=== PATIENT | female | born 1940 | race Caucasian/White ===

== ENCOUNTER 2019-10-29 09:56 | Inpatient (IN) | payer MEDICARE, BC ==
[2019-10-29] MEDS ORDERED: IPRATROPIUM-ALBUTEROL 3 ML NEB INHALATION STA (10:15)
--- NOTE | 2019-10-29 10:19 | ED ---
General Adult HPI - General Chief complaint: Shortness of Breath Stated complaint: Sore throat, [place] Time Seen by Provider: 10/29/19 10:05 Source: patient, family, RN notes reviewed Mode of arrival: wheelchair Limitations: no limitations - History of Present Illness Initial comments: Patient is a pleasant 71-year-old female presenting to the emergency Department with complaints of sore throat and difficulty in breathing. Onset of symptoms was yesterday. Symptoms are worse today. Dyspnea is similar to previous COPD. Occasional cough. Patient complains more so of sore throat. Patient is able to tolerate oral intake. No fevers at home. - Related Data Allergies Allergy/AdvReac Type Severity Reaction Status Date / Time nickel Allergy Unknown Verified 10/29/19 10:03 Review of Systems ROS Statement: Those systems with pertinent positive or pertinent negative responses have been documented in the HPI. ROS Other: All systems not noted in ROS Statement are negative. Constitutional: Denies: fever Eyes: Denies: eye pain ENT: Reports: throat pain. Denies: ear pain Respiratory: Reports: dyspnea Cardiovascular: Denies: chest pain Endocrine: Denies: fatigue Gastrointestinal: Denies: abdominal pain Genitourinary: Denies: dysuria Musculoskeletal: Denies: back pain Skin: Denies: rash Past Medical History Past Medical History: COPD History of Any Multi-Drug Resistant Organisms: None Reported Past Surgical History: Joint Replacement Past Psychological History: No Psychological Hx Reported Smoking Status: Former smoker Past Alcohol Use History: None Reported Past Drug Use History: None Reported General Exam Limitations: no limitations General appearance: alert, in no apparent distress Head exam: Present: normocephalic Eye exam: Present: normal appearance ENT exam: Present: other (Mild pharyngeal erythema) Neck exam: Present: tenderness (Minimal tenderness submandibular area without swelling or erythema) Respiratory exam: Present: wheezes, decreased breath sounds Cardiovascular Exam: Present: tachycardia, normal heart sounds GI/Abdominal exam: Present: soft. Absent: tenderness Extremities exam: Present: normal inspection. Absent: pedal edema, calf tenderness Neurological exam: Present: alert Psychiatric exam: Present: normal affect, normal mood Skin exam: Present: normal color Course Vital Signs 10/29/19 10/29/19 10/29/19 10:00 10:11 10:35 Temperature 99.6 F Pulse Rate 114 H 97 Respiratory 24 22 20 Rate Blood Pressure 147/66 O2 Sat by Pulse 96 Oximetry 10/29/19 10:45 Temperature Pulse Rate 92 Respiratory Rate Blood Pressure O2 Sat by Pulse Oximetry - Reevaluation(s) Reevaluation #1: 10/29/19 11:06 Patient does meet sepsis criteriaat 1106 AM. Blood culture and lactic acid and IV antibiotics will be ordered. Medical Decision Making - Medical Decision Making Patient reevaluated and updated. Dr. Tavera has been paged, covering for admission for Dr. Rivers, who admits for Dr. Sow. - Lab Data Result diagrams: 10/29/19 10:31 10/29/19 10:31 Lab Results 10/29/19 10/29/19 10/29/19 Range/Units 10:31 10:31 10:31 WBC 7.0 (3.8-10.6) k/uL RBC 3.59 L (3.80-5.40) m/uL Hgb 11.0 L (11.4-16.0) gm/dL Hct 32.8 L (34.0-46.0) % MCV 91.6 (80.0-100.0) fL MCH 30.7 (25.0-35.0) pg MCHC 33.5 (31.0-37.0) g/dL RDW 14.8 (11.5-15.5) % Plt Count 197 (150-450) k/uL Neutrophils % 82 % Lymphocytes % 7 % Monocytes % 7 % Eosinophils % 1 % Basophils % 1 % Neutrophils # 5.7 (1.3-7.7) k/uL Lymphocytes # 0.5 L (1.0-4.8) k/uL Monocytes # 0.5 (0-1.0) k/uL Eosinophils # 0.1 (0-0.7) k/uL Basophils # 0.1 (0-0.2) k/uL Sodium 140 (137-145) mmol/L Potassium 4.5 (3.5-5.1) mmol/L Chloride 104 (98-107) mmol/L Carbon Dioxide 28 (22-30) mmol/L Anion Gap 8 mmol/L BUN 22 H (7-17) mg/dL Creatinine 0.70 (0.52-1.04) mg/dL Est GFR (CKD-EPI)AfAm >90 (>60 ml/min/1.73 sqM) Est GFR (CKD-EPI)NonAf 83 (>60 ml/min/1.73 sqM) Glucose 114 H (74-99) mg/dL Plasma Lactic Acid Dante 1.2 (0.7-2.0) mmol/L Calcium 9.1 (8.4-10.2) mg/dL Total Bilirubin 1.0 (0.2-1.3) mg/dL AST 24 (14-36) U/L ALT 17 (4-34) U/L Alkaline Phosphatase 83 (38-126) U/L Total Protein 6.7 (6.3-8.2) g/dL Albumin 4.0 (3.5-5.0) g/dL Group A Strep Rapid (Negative) 10/29/19 Range/Units 10:31 WBC (3.8-10.6) k/uL RBC (3.80-5.40) m/uL Hgb (11.4-16.0) gm/dL Hct (34.0-46.0) % MCV (80.0-100.0) fL MCH (25.0-35.0) pg MCHC (31.0-37.0) g/dL RDW (11.5-15.5) % Plt Count (150-450) k/uL Neutrophils % % Lymphocytes % % Monocytes % % Eosinophils % % Basophils % % Neutrophils # (1.3-7.7) k/uL Lymphocytes # (1.0-4.8) k/uL Monocytes # (0-1.0) k/uL Eosinophils # (0-0.7) k/uL Basophils # (0-0.2) k/uL Sodium (137-145) mmol/L Potassium (3.5-5.1) mmol/L Chloride (98-107) mmol/L Carbon Dioxide (22-30) mmol/L Anion Gap mmol/L BUN (7-17) mg/dL Creatinine (0.52-1.04) mg/dL Est GFR (CKD-EPI)AfAm (>60 ml/min/1.73 sqM) Est GFR (CKD-EPI)NonAf (>60 ml/min/1.73 sqM) Glucose (74-99) mg/dL Plasma Lactic Acid Dante (0.7-2.0) mmol/L Calcium (8.4-10.2) mg/dL Total Bilirubin (0.2-1.3) mg/dL AST (14-36) U/L ALT (4-34) U/L Alkaline Phosphatase (38-126) U/L Total Protein (6.3-8.2) g/dL Albumin (3.5-5.0) g/dL Group A Strep Rapid Negative (Negative) - Radiology Data Radiology results: image reviewed (Chest x-ray shows right middle lobe infiltrate) Critical Care Time Critical Care Time: Yes Total Critical Care Time: 31 Disposition Clinical Impression: Pneumonia, Sepsis Disposition: ADMITTED IP TO THIS HOSP Is patient prescribed a controlled substance at d/c from ED?: No Referrals: Preethi Sow MD [Primary Care Provider] - 1-2 days Decision Time: 11:06
[2019-10-29 10:47] LABS: Basophils # (A) 0.1 k/uL (0-0.2); Basophils % (A) 1 %; Eosinophils # (A) 0.1 k/uL (0-0.7); Eosinophils % (A) 1 %; HCT 32.8 % (34.0-46.0); Lymphocytes # (A) 0.5 k/uL (1.0-4.8); Lymphocytes % (A) 7 %; MCH 30.7 pg (25.0-35.0); MCHC 33.5 g/dL (31.0-37.0); MCV 91.6 fL (80.0-100.0); Monocytes # (A) 0.5 k/uL (0-1.0); Monocytes % (A) 7 %; Neutrophils # (A) 5.7 k/uL (1.3-7.7); Neutrophils % (A) 82 %; Platelet Count 197 k/uL (150-450); RBC 3.59 m/uL (3.80-5.40); RDW 14.8 % (11.5-15.5)
[2019-10-29 11:00] LABS: ALT 17 U/L (4-34); AST 24 U/L (14-36); African American GFR (CKD) >90 (>60 ml/min/1.73 sqM); Alkaline Phosphatase 83 U/L (38-126); Anion Gap 8 mmol/L; Blood Urea Nitrogen 22 mg/dL (7-17); Calcium 9.1 mg/dL (8.4-10.2); Carbon Dioxide 28 mmol/L (22-30); Chloride 104 mmol/L (98-107); Glucose 114 mg/dL (74-99); Non-African American GFR(CKD) 83 (>60 ml/min/1.73 sqM); Potassium 4.5 mmol/L (3.5-5.1); Sodium 140 mmol/L (137-145); Total Protein 6.7 g/dL (6.3-8.2)
--- NOTE | 2019-10-29 11:02 | XR ---
EXAMINATION TYPE: XR soft tissue neck , 2 VIEWS DATE OF EXAM ORDERED: 10/29/2019 HISTORY: pain. COMPARISON: None. FINDINGS: Soft tissues of the neck are normal. The epiglottis is normal. Prevertebral soft tissues a re normal. IMPRESSION: NORMAL SOFT TISSUE VIEWS OF THE NECK.
--- NOTE | 2019-10-29 11:04 | XR ---
EXAMINATION TYPE: XR chest 2V DATE OF EXAM: 10/29/2019 HISTORY: difficulty breathing. REFERENCE: Previous study dated 01/03/2014. FINDINGS: The heart is mildly enlarged. There is a right middle lobe infiltrate. The left lung is [place]. Pleural spaces are clear. IMPRESSION: 1. MILD CARDIOMEGALY. 2. RIGHT MIDDLE LOBE INFILTRATE.
[2019-10-29] MEDS ORDERED: AZITHROMYCIN 500 MG in SODIUM CHLORIDE 0.9% 250 ML IVPB STA (11:07)
[2019-10-29] MEDS ORDERED: PNEUMONIA PROTOCOL UTILIZED 1 EACH MISC PO PRN (11:07)
[2019-10-29] MEDS ORDERED: NEOMYCIN-BACITRACIN-POLY OINT 14 GM TUBE TOPICAL PRN (11:14)
[2019-10-29] MEDS: SODIUM CHLORIDE 0.9% 1,000 ML IV SCH (11:51)
[2019-10-29] MEDS: IPRATROPIUM-ALBUTEROL 3 ML NEB INHALATION SCH ×3 (12:20→19:43)
[2019-10-29] MEDS ORDERED: LORATADINE 10 MG TAB PO PRN (16:23)
--- NOTE | 2019-10-29 16:35 | P.HPIM ---
History of Present Illness H&P Date: 10/29/19 71-year-old female presenting to the emergency Department with complaints of sore throat and difficulty in breathing. Onset of symptoms was yesterday. Symptoms are worse today. Dyspnea is similar to previous COPD. Occasional cough. Patient complains more so of sore throat. Patient is able to tolerate oral intake. No fevers at home. Workup in ED Including chest x-ray shows right middle lobe infiltrate; blood work showed mild elevation of BUN with normal creatinine; influenza was negative Review of Systems REVIEW OF SYSTEMS: CONSTITUTIONAL: No fever, no malaise, no fatigue. HEENT: No recent visual problems or hearing problems. Denied any sore throat. CARDIOVASCULAR: No chest pain, orthopnea, PND, no palpitations, no syncope. PULMONARY: No shortness of breath, no cough, no hemoptysis. GASTROINTESTINAL: No diarrhea, no nausea, no vomiting, no abdominal pain. NEUROLOGICAL: No headaches, no weakness, no numbness. HEMATOLOGICAL: Denies any bleeding or petechiae. GENITOURINARY: Denies any burning micturition, frequency, or urgency. MUSCULOSKELETAL/RHEUMATOLOGICAL: Denies any joint pain, swelling, or any muscle pain. ENDOCRINE: Denies any polyuria or polydipsia. The rest of the 14-point review of systems is negative. Past Medical History Past Medical History: COPD, GERD/Reflux, Pneumonia, Respiratory Disorder Additional Past Medical History / Comment(s): lung infection after gallbladder removal in 2018 at [facility], 3L home O2 PRN History of Any Multi-Drug Resistant Organisms: None Reported Past Surgical History: Cholecystectomy, Hysterectomy, Joint Replacement Additional Past Surgical History / Comment(s): bilateral cataracts, [place] Past Anesthesia/Blood Transfusion Reactions: No Reported Reaction Past Psychological History: Anxiety Smoking Status: Former smoker Past Alcohol Use History: None Reported Past Drug Use History: None Reported Medications and Allergies Home Medications Medication Instructions Recorded Confirmed Type Albuterol Sulfate [Proair Hfa] 1 - 2 puff INHALATION RT-Q4H PRN 10/29/19 10/29/19 History Aspirin EC [Ecotrin Low Dose] 81 mg PO DAILY 10/29/19 10/29/19 History Atorvastatin [Lipitor] 60 mg PO HS 10/29/19 10/29/19 History Cholecalciferol [Vitamin D3 (25 4,000 unit PO DAILY 10/29/19 10/29/19 History Mcg = 1000 Iu)] Cyanocobalamin (Vitamin B-12) 1,000 mcg PO DAILY 10/29/19 10/29/19 History [Vitamin B-12] Fluticasone/Salmeterol [Advair 1 puff INHALATION RT-BID 10/29/19 10/29/19 History 500-50 Diskus] Furosemide [Lasix] 40 mg PO DAILY 10/29/19 10/29/19 History Ipratropium-Albuterol Nebulize 3 ml INHALATION RT-TID 10/29/19 10/29/19 History [Duoneb 0.5 mg-3 mg/3 ml Soln] LORazepam [Ativan] 1 mg PO Q6H PRN 10/29/19 10/29/19 History Lisinopril [Zestril] 20 mg PO BID 10/29/19 10/29/19 History Loratadine [Claritin] 10 mg PO DAILY PRN 10/29/19 10/29/19 History Mometasone Furoate [Nasonex Nasal 2 spray EA NOSTRIL DAILY 10/29/19 10/29/19 History [place]] Montelukast [Singulair] 10 mg PO HS 10/29/19 10/29/19 History Omeprazole 20 mg PO BID 10/29/19 10/29/19 History Potassium Chloride ER [K-Dur 20] 20 meq PO DAILY 10/29/19 10/29/19 History Temazepam [Restoril] 30 mg PO HS 10/29/19 10/29/19 History Venlafaxine HCl [Effexor] 37.5 mg PO DAILY 10/29/19 10/29/19 History cloNIDine HCL [Catapres] 0.1 mg PO TID 10/29/19 10/29/19 History hydrALAZINE HCL [Apresoline] 100 mg PO QID 10/29/19 10/29/19 History Allergies Allergy/AdvReac Type Severity Reaction Status Date / Time nickel Allergy Unknown Verified 10/29/19 11:31 Physical Exam Vitals: Vital Signs Temp Pulse Resp BP Pulse Ox 10/29/19 11:57 89 16 132/76 98 10/29/19 10:45 92 10/29/19 10:35 97 20 10/29/19 10:11 22 10/29/19 10:00 99.6 F 114 H 24 147/66 96 Intake and Output 10/28/19 10/29/19 10/29/19 22:59 06:59 14:59 Other: Weight 75 kg PHYSICAL EXAMINATION: GENERAL: The patient is alert and oriented x3, not in any acute distress. Well developed, well nourished. HEENT: Pupils are round and equally reacting to light. EOMI. No scleral icterus. No conjunctival pallor. Normocephalic, atraumatic. No pharyngeal erythema. No t hyromegaly. CARDIOVASCULAR: S1 and S2 present. No murmurs, rubs, or gallops. PULMONARY: Chest is clear to auscultation, no wheezing or crackles. ABDOMEN: Soft, nontender, nondistended, normoactive bowel sounds. No palpable organomegaly. MUSCULOSKELETAL: No joint swelling or deformity. EXTREMITIES: No cyanosis, clubbing, or pedal edema. NEUROLOGICAL: Gross neurological examination did not reveal any focal deficits. SKIN: No rashes. Results CBC & Chem 7: 10/29/19 10:31 10/29/19 10:31 Labs: Abnormal Lab Results - Last 24 Hours (Table) 10/29/19 10/29/19 Range/Units 10:31 10:31 RBC 3.59 L (3.80-5.40) m/uL Hgb 11.0 L (11.4-16.0) gm/dL Hct 32.8 L (34.0-46.0) % Lymphocytes # 0.5 L (1.0-4.8) k/uL BUN 22 H (7-17) mg/dL Glucose 114 H (74-99) mg/dL Thrombosis Risk Factor Assmnt - Choose All That Apply Each Risk Factor Represents 3 Points: Age 75 years or older Thrombosis Risk Factor Assessment Total Risk Factor Score: 3 Thrombosis Risk Factor Assessment Level: Moderate Risk Assessment and Plan Assessment: 1. Right middle lobe pneumonia - Patient is started on IV Rocephin and azithromycin; DuoNeb nebulizer treatments 4 times a day and when necessary; order sputum and blood cultures; symptomatically treatment of pneumonia; we will order strep and Legionella antigens and mycoplasma antibodies 2. Sepsis secondary to pneumonia; treat with IV antibiotics as indicated above 3. Mild renal injury/dehydration; slow IV fluid hydration with normal saline at rate of 75 mL an hour ; monitor strict KOFFI's, daily weights, renal function and electrolytes 4. COPD; not in exacerbation; DuoNeb nebulizer treatments 5. Hypertension; clonidine 0.1 mg 3 times a day; lisinopril 20 mg twice a day 6. Hyperlipidemia; Lipitor 60 mg by mouth daily at bedtime 7. Seasonal ALLERGIES; Claritin 10 mg daily when necessary along with Nasonex nasal spray and Singulair 10 mg by mouth daily at bedtime DVT prophylaxis; SCDs/Lovenox CODE STATUS; full code Time with Patient: Greater than 30
[2019-10-29] MEDS: LORazepam 1 MG TAB PO PRN (16:55)
[2019-10-29] MEDS: PANTOPRAZOLE 40 MG TABLET PO SCH (16:57)
[2019-10-29] MEDS: ENOXAPARIN 30 MG/0.3 ML SYRINGE SQ SCH (16:57)
[2019-10-29] MEDS ORDERED: hydrALAZINE HCL 50 MG TAB PO SCH (18:00)
[2019-10-29] MEDS: SYMBICORT 160-4.5 MCG INHALER INHALATION SCH (19:43)
[2019-10-29] MEDS: ATORVASTATIN 20 MG TAB PO SCH (19:45)
[2019-10-29] MEDS: LISINOPRIL 20 MG TAB PO SCH (19:50)
[2019-10-29] MEDS: MONTELUKAST 10 MG TAB PO SCH (19:51)
[2019-10-29] MEDS: cloNIDine HCL 0.1 MG TAB PO SCH (19:51)
[2019-10-29] MEDS ORDERED: IPRATROPIUM-ALBUTEROL 3 ML NEB INHALATION SCH (20:00)
[2019-10-29] MEDS: TEMAZEPAM 30 MG CAP PO SCH (21:40)
[2019-10-30] MEDS: SODIUM CHLORIDE 0.9% 1,000 ML IV SCH ×3 (04:40→16:51)
--- NOTE | 2019-10-30 07:47 | XR ---
EXAMINATION TYPE: XR chest 2V DATE OF EXAM: 10/30/2019 COMPARISON: Chest x-ray from yesterday and older studies. HISTORY: Abnormal chest x-ray, pneumonia progress study. TECHNIQUE: Frontal and lateral views of the chest are obtained. FINDINGS: The cardiac silhouette size is stable and mildly enlarged with atherosclerotic aorta. Expert Medical Writer [place] parenchymal changes bilaterally with increased lower lung markings. No definitive new focal airsp lizbeth opacity, pleural effusion, or pneumothorax. The osseous structures are intact. IMPRESSION: Chronic changes and mild cardiomegaly without definitive acute infiltrate. Right middle lobe increased markings not significantly changed from 2018 study favoring scarring and/or atelectasi s.
[2019-10-30] MEDS: ENOXAPARIN 30 MG/0.3 ML SYRINGE SQ SCH (09:01)
[2019-10-30] MEDS: AZITHROMYCIN 500 MG TAB PO SCH (09:01)
[2019-10-30] MEDS: PANTOPRAZOLE 40 MG TABLET PO SCH ×2 (09:01→16:51)
[2019-10-30] MEDS: FUROSEMIDE 40 MG TAB PO SCH (09:02)
[2019-10-30] MEDS: CHOLECALCIFEROL 1,000 UNIT TAB PO SCH (09:02)
[2019-10-30] MEDS: LISINOPRIL 20 MG TAB PO SCH ×2 (09:02→21:06)
[2019-10-30] MEDS: POTASSIUM CHLORIDE ER 20 MEQ TAB.ER PO SCH (09:02)
[2019-10-30] MEDS: cloNIDine HCL 0.1 MG TAB PO SCH ×3 (09:02→21:06)
[2019-10-30] MEDS: hydrALAZINE HCL 50 MG TAB PO SCH ×2 (09:02→21:06)
[2019-10-30] MEDS: VENLAFAXINE HCL 37.5 MG TAB PO SCH (09:02)
[2019-10-30] MEDS: CYANOCOBALAMIN 500 MCG TAB PO SCH (09:02)
[2019-10-30] MEDS: ASPIRIN 81 MG PO SCH (09:02)
[2019-10-30] MEDS: FLUTICASONE 50MCG/SPRAY NASAL 16GM EA NOSTRIL SCH (09:03)
[2019-10-30] MEDS ORDERED: LISINOPRIL 20 MG TAB PO STA (09:07)
[2019-10-30] MEDS: IPRATROPIUM-ALBUTEROL 3 ML NEB INHALATION SCH ×4 (09:33→19:23)
[2019-10-30] MEDS: SYMBICORT 160-4.5 MCG INHALER INHALATION SCH ×2 (09:33→19:23)
[2019-10-30 09:52] LABS: African American GFR (CKD) >90 (>60 ml/min/1.73 sqM); Anion Gap 8 mmol/L; Blood Urea Nitrogen 14 mg/dL (7-17); Calcium 8.5 mg/dL (8.4-10.2); Carbon Dioxide 25 mmol/L (22-30); Chloride 107 mmol/L (98-107); Glucose 109 mg/dL (74-99); Non-African American GFR(CKD) 88 (>60 ml/min/1.73 sqM); Potassium 4.2 mmol/L (3.5-5.1); Sodium 140 mmol/L (137-145)
--- NOTE | 2019-10-30 15:18 | P.PN ---
Subjective Progress Note Date: 10/30/19 Principal diagnosis: 71-year-old female presenting to the emergency Department with complaints of sore throat and difficulty in breathing. Onset of symptoms was yesterday. Symptoms are worse today. Dyspnea is similar to previous COPD. Occasional cough. Patient complains more so of sore throat. Patient is able to tolerate oral intake. No fevers at home. Workup in ED Including chest x-ray shows right middle lobe infiltrate; blood work showed mild elevation of BUN with normal creatinine; influenza was negative 10/30/2019 Patient is sitting up in the chair and appears to be in no acute distress. Patient states that she is able to cough things up today and feels that her difficulty in breathing is slightly improved. Patient did have strep testing and influenza testing which was negative. Patient continues to have a mild sore throat most likely due to coughing. Currently patient denies any chest pain, worsening shortness of breath, or palpitations. Patient is afebrile. Patient denies any nausea or vomiting and is tolerating diet. Pulmonary has been consul malik and currently pending at this time. Repeat chest x-ray today shows chronic changes and mild cardiomegaly without definitive acute infiltrate and right middle lobe increased markings not significantly changed from 2018 study favoring scarring and/or atelectasis. Patient is currently on IV antibiotic therapy in the form of ceftriaxone along with oral Zithromax and will continue at this time. Objective - Vital Signs Vital signs: Vital Signs Temp 98.0 F 10/30/19 07:00 Pulse 92 10/30/19 12:28 Resp 18 10/30/19 07:00 BP 167/71 10/30/19 09:00 Pulse Ox 96 10/30/19 10:54 Intake & Output 10/29/19 10/30/19 10/30/19 18:59 06:59 18:59 Intake Total 390 Balance 390 Weight 75 kg Intake: Oral 390 Other: # Voids 1 2 # Bowel Movements 0 - Exam GENERAL: The patient is alert and oriented x3, not in any acute distress. Well developed, well nourished. Temp is 98F, pulse is 89, respirations are 18, blood pressure is 144/75, oxygen saturation is 97% on 3 L via nasal cannula. Patient states that she intermittently wears 3 L of oxygen at home as needed HEENT: Pupils are round and equally reacting to light. EOMI. No scleral icterus. No conjunctival pallor. Normocephalic, atraumatic. No pharyngeal erythema. No thyromegaly. CARDIOVASCULAR: S1 and S2 present. No murmurs, rubs, or gallops. PULMONARY: Diminished breath sounds at the bases with no wheezing noted. No crackles or rales noted. ABDOMEN: Soft, nontender, nondistended, normoactive bowel sounds. No palpable organomegaly. MUSCULOSKELETAL: No joint swelling or deformity. EXTREMITIES: No cyanosis, clubbing, or pedal edema. NEUROLOGICAL: Gross neurological examination did not reveal any focal deficits. SKIN: No rashes. - Labs CBC & Chem 7: 10/29/19 10:31 10/30/19 09:00 Labs: Abnormal Lab Results - Last 24 Hours (Table) 10/30/19 10/30/19 Range/Units 09:00 09:00 Glucose 109 H (74-99) mg/dL Plasma Lactic Acid Dante <0.5 L (0.7-2.0) mmol/L Microbiology - Last 24 Hours (Table) 10/29/19 10:31 Blood Culture - Preliminary Blood No Growth after 24 hours 10/29/19 10:31 Group A Strep Throat Culture - Preliminary Throat Assessment and Plan Assessment: Right middle lobe pneumonia Sepsis secondary to pneumonia Mild renal injury/dehydration COPD, not in acute exacerbation Hypertension Hyperlipidemia Seasonal ALLERGIES DVT prophylaxis: SCDs/Lovenox CODE STATUS full code Recommendations and discussion: Recommend to continue current medications, management, and symptomatic treatment. Awaiting pulmonary consult at this time. Patient will continue on IV antibiotics in the form of ceftriaxone and oral Zithromax. Continue with bronchodilators. Blood cultures thus far are negative. Group A strep throat culture was negative. She will continue on IV fluids at 100 mL per hour. Will continue to monitor vital signs and labs closely. Further recommendations to follow. Possible discharge in 24-48 hours.
--- NOTE | 2019-10-30 15:29 | P.CNPUL ---
History of Present Illness Consult date: 10/30/19 Reason for consult: COPD History of present illness: Santa Barnes and she is well-known to me. She is known to have COPD with an FEV1 of 60% of predicted Lizeth on Advair and outpatient basis. The patient also has an albuterol solution that she's been using on an as-needed basis along with bilateral air. The patient came into the hospital because of sore throat and cough and some limited shortness of breath. She had been having sneezing and cough and. No chest pain. No pleurisy. Chest x-ray showed chronic changes in the lung bases with some increased interstitial changes in the right lung base and she was hospitalized for a possibility of an underlying pneumonia. Note that she has had previous COPD exacerbations related to his own pseudomonas infection and this was a hospital-acquired infection. He got at a time of the previous cholecystectomy there was in 2017. She is fully recovered from that. No fever. No chills. No other complaints otherwise. She is known to have chronic systolic heart failure, hypertension, ALLERGIC rhinitis, chronic anxiety and osteoarthritis. Review of Systems All systems: negative Constitutional: Denies chills, Denies fever Eyes: denies blurred vision, denies pain Ears, nose, mouth and throat: Reports sore throat, Denies headache Cardiovascular: Denies chest pain, Denies shortness of breath Respiratory: Reports congestion, Reports cough, Reports dyspnea Gastrointestinal: Denies abdominal pain, Denies diarrhea, Denies nausea, Denies vomiting Genitourinary: Denies dysuria, Denies hematuria Musculoskeletal: Denies myalgias Integumentary: Denies pruritus, Denies rash Neurological: Denies numbness, Denies weakness Psychiatric: Denies anxiety, Denies depression Endocrine: Denies fatigue, Denies weight change Past Medical History Past Medical History: COPD, GERD/Reflux, Pneumonia, Respiratory Disorder Additional Past Medical History / Comment(s): lung infection after gallbladder removal in 2018 at [facility], 3L home O2 PRN History of Any Multi-Drug Resistant Organisms: None Reported Past Surgical History: Cholecystectomy, Hysterectomy, Joint Replacement Additional Past Surgical History / Comment(s): bilateral cataracts, [place] Past Anesthesia/Blood Transfusion Reactions: No Reported Reaction Past Psychological History: Anxiety Smoking Status: Former smoker Past Alcohol Use History: None Reported Past Drug Use History: None Reported Medications and Allergies Home Medications Medication Instructions Recorded Confirmed Type Albuterol Sulfate [Proair Hfa] 1 - 2 puff INHALATION RT-Q4H PRN 10/29/1910/29 History Aspirin EC [Ecotrin Low Dose] 81 mg PO DAILY 10/29/19 10/29/19 History Atorvastatin [Lipitor] 60 mg PO HS 10/29/19 10/29/19 History Cholecalciferol [Vitamin D3 (25 4,000 unit PO DAILY 10/29/19 10/29/19 History Mcg = 1000 Iu)] Cyanocobalamin (Vitamin B-12) 1,000 mcg PO DAILY 10/29/19 10/29/19 History [Vitamin B-12] Fluticasone/Salmeterol [Advair 1 puff INHALATION RT-BID 10/29/19 10/29/19 History 500-50 Diskus] Furosemide [Lasix] 40 mg PO DAILY 10/29/19 10/29/19 History Ipratropium-Albuterol Nebulize 3 ml INHALATION RT-TID 10/29/19 10/29/19 History [Duoneb 0.5 mg-3 mg/3 ml Soln] LORazepam [Ativan] 1 mg PO Q6H PRN 10/29/19 10/29/19 History Lisinopril [Zestril] 20 mg PO BID 10/29/19 10/29/19 History Loratadine [Claritin] 10 mg PO DAILY PRN 10/29/19 10/29/19 History Mometasone Furoate [Nasonex Nasal 2 spray EA NOSTRIL DAILY 10/29/19 10/29/19 History [place]] Montelukast [Singulair] 10 mg PO HS 10/29/19 10/29/19 History Omeprazole 20 mg PO BID 10/29/19 10/29/19 History Potassium Chloride ER [K-Dur 20] 20 meq PO DAILY 10/29/19 10/29/19 History Temazepam [Restoril] 30 mg PO HS 10/29/19 10/29/19 History Venlafaxine HCl [Effexor] 37.5 mg PO DAILY 10/29/19 10/29/19 History cloNIDine HCL [Catapres] 0.1 mg PO TID 10/29/19 10/29/19 History hydrALAZINE HCL [Apresoline] 100 mg PO QID 10/29/19 10/29/19 History Allergies Allergy/AdvReac Type Severity Reaction Status Date / Time nickel Allergy Unknown Verified 10/29/19 11:31 Physical Exam Vitals: Vital Signs Temp Pulse Pulse Resp BP Pulse Ox 10/30/19 15:00 98.1 F 101 H 18 123/66 95 10/30/19 12:28 92 10/30/19 12:15 90 10/30/19 10:54 96 10/30/19 09:49 88 10/30/19 09:33 84 10/30/19 09:00 85 167/71 10/30/19 07:00 98.0 F 89 18 144/75 97 10/30/19 00:00 20 10/29/19 19:57 90 10/29/19 19:54 98.7 F 99 20 138/62 99 10/29/19 19:43 90 10/29/19 16:36 96 10/29/19 16:22 92 Intake and Output 10/30/19 10/30/19 10/30/19 06:59 14:59 22:59 Intake Total 390 Balance 390 Intake: Oral 390 Other: # Voids 2 3 # Bowel Movements 0 - Constitutional General appearance: average body habitus, cooperative, no acute distress - EENT Eyes: EOMI, PERRLA ENT: NA/AT, pharyngeal erythema - Neck Neck: no lymphadenopathy, normal ROM Carotids: bilateral: upstroke normal Thyroid: bilateral: normal size - Respiratory Respiratory: bilateral: CTA - Cardiovascular Rhythm: regular Heart sounds: normal: S1, S2 ankle Peripheral Edema: bilateral: None foot Peripheral Edema: bilateral: None dorsalis pedis Peripheral Pulses: bilateral: Normal radial pulse Peripheral Pulses: bilateral: Normal - Gastrointestinal General gastrointestinal: no organomegaly, soft, no tenderness - Integumentary Integumentary: normal turgor - Neurologic Neurologic: CNII-XII intact - Musculoskeletal Musculoskeletal: gait normal, strength equal bilaterally - Psychiatric Psychiatric: A&O x's 3, appropriate affect, intact judgment & insight Results - Laboratory Findings CBC and BMP: 10/29/19 10:31 10/30/19 09:00 Abnormal lab findings: Abnormal Labs 10/29/19 10/29/19 10/30/19 10:31 10:31 09:00 RBC 3.59 L Hgb 11.0 L Hct 32.8 L Lymphocytes # 0.5 L BUN 22 H Glucose 114 H 109 H Plasma Lactic Acid Dante 10/30/19 09:00 RBC Hgb Hct Lymphocytes # BUN Glucose Plasma Lactic Acid Dante <0.5 L - Diagnostic Findings Chest x-ray: report reviewed, image reviewed Assessment and Plan Plan: Assessment: 1. Acute dyspnea related to acute exacerbation of COPD, chest x-ray showed chronic changes involving right lower lobe. Consider viral versus bacterial tracheobronchitis/pneumonia. Currently on a combination of antibiotics and systemic steroids and she's already feeling better. 2. 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 Plan Sputum Gram stain and culture Continue bronchodilators Continue steroids Clinically improved and the patient possibly will be considered for discharge the next 24-48 hours
[2019-10-30] MEDS: LORazepam 1 MG TAB PO PRN (19:50)
[2019-10-30] MEDS: ATORVASTATIN 20 MG TAB PO SCH (21:06)
[2019-10-30] MEDS: MONTELUKAST 10 MG TAB PO SCH (21:06)
[2019-10-30] MEDS: TEMAZEPAM 30 MG CAP PO SCH (21:07)
--- NOTE | 2019-10-30 21:49 | PN ---
PROGRESS NOTE DATE OF SERVICE: 10/30/2019 ADDENDUM: This 79-year-old woman who was admitted with right middle lobe pneumonia also had sepsis and multiple medical problems. The patient is being closely monitored at this time. REVIEW OF SYSTEMS: CARDIOVASCULAR SYSTEM: No angina. RESPIRATORY: As mentioned earlier. GI: As mentioned earlier. : No dysuria. NERVOUS SYSTEM: No numbness or weakness. CURRENT MEDICATIONS: 1. DuoNeb q.i.d. and p.r.n. 2. Aspirin 81 mg daily. 3. Lipitor 60 mg q.h.s. 4. Zithromax 500 mg. 5. Symbicort 160/4.5 two puffs b.i.d. 6. Clonidine. 7. Catapres 0.1 t.i.d. 8. Vitamin B1. 9. Flonase. 10.Lasix. 11.Claritin. 12.Ativan. 13.Bacitracin. 14.K-Dur. 15.Restoril. 16.Effexor. Please refer to the rest of the dictations for more information. MMODL / IJN: [id number] /
[2019-10-31] MEDS: SODIUM CHLORIDE 0.9% 1,000 ML IV SCH ×3 (02:58→23:26)
[2019-10-31] MEDS: SYMBICORT 160-4.5 MCG INHALER INHALATION SCH ×2 (07:34→19:26)
[2019-10-31] MEDS: IPRATROPIUM-ALBUTEROL 3 ML NEB INHALATION SCH ×4 (07:34→19:26)
[2019-10-31] MEDS: hydrALAZINE HCL 50 MG TAB PO SCH ×2 (07:35→20:40)
[2019-10-31] MEDS: ENOXAPARIN 30 MG/0.3 ML SYRINGE SQ SCH (07:35)
[2019-10-31] MEDS: LISINOPRIL 20 MG TAB PO SCH ×2 (07:35→20:40)
[2019-10-31] MEDS: CYANOCOBALAMIN 500 MCG TAB PO SCH (07:36)
[2019-10-31] MEDS: POTASSIUM CHLORIDE ER 20 MEQ TAB.ER PO SCH (07:36)
[2019-10-31] MEDS: cloNIDine HCL 0.1 MG TAB PO SCH ×3 (07:36→21:30)
[2019-10-31] MEDS: AZITHROMYCIN 500 MG TAB PO SCH (07:37)
[2019-10-31] MEDS: PANTOPRAZOLE 40 MG TABLET PO SCH ×2 (07:37→16:32)
[2019-10-31] MEDS: CHOLECALCIFEROL 1,000 UNIT TAB PO SCH (07:37)
[2019-10-31] MEDS: FUROSEMIDE 40 MG TAB PO SCH (07:37)
[2019-10-31] MEDS: ASPIRIN 81 MG PO SCH (07:37)
[2019-10-31] MEDS: VENLAFAXINE HCL 37.5 MG TAB PO SCH (07:38)
[2019-10-31] MEDS: FLUTICASONE 50MCG/SPRAY NASAL 16GM EA NOSTRIL SCH (07:46)
[2019-10-31 09:29] LABS: Basophils # (A) 0.1 k/uL (0-0.2); Basophils % (A) 1 %; Eosinophils # (A) 0.1 k/uL (0-0.7); Eosinophils % (A) 1 %; HGB 9.9 gm/dL (11.4-16.0); Lymphocytes # (A) 0.7 k/uL (1.0-4.8); Lymphocytes % (A) 10 %; MCH 29.7 pg (25.0-35.0); MCHC 32.1 g/dL (31.0-37.0); MCV 92.5 fL (80.0-100.0); Mean Platelet Volume 7.9; Monocytes # (A) 0.6 k/uL (0-1.0); Monocytes % (A) 8 %; Neutrophils # (A) 5.5 k/uL (1.3-7.7); Neutrophils % (A) 76 %; Platelet Count 233 k/uL (150-450); RBC 3.35 m/uL (3.80-5.40); RDW 14.6 % (11.5-15.5); WBC 7.2 k/uL (3.8-10.6)
[2019-10-31 09:41] LABS: African American GFR (CKD) >90 (>60 ml/min/1.73 sqM); Anion Gap 8 mmol/L; Blood Urea Nitrogen 15 mg/dL (7-17); Calcium 8.8 mg/dL (8.4-10.2); Carbon Dioxide 26 mmol/L (22-30); Chloride 106 mmol/L (98-107); Glucose 124 mg/dL (74-99); Non-African American GFR(CKD) 84 (>60 ml/min/1.73 sqM); Sodium 140 mmol/L (137-145)
--- NOTE | 2019-10-31 10:09 | P.PN ---
Subjective Progress Note Date: 10/31/19 On 10/31/2019 the patient reports limited improvement if any since yesterday. She feels exhausted. She still cough and a congested and short of breath and wheezy. She came in for an acute COPD exacerbation and she had also limited infiltration of the right lung base. This is based on the admission chest x- ray. No fever. No chills no nausea. No vomiting. No chest pain. She is on oxygen at 2 L. She is on a combination of Rocephin and Zithromax and IV Solu- Medrol. No other significant events over the past 24 hours. No altered mentation. Objective - Vital Signs Vital signs: Vital Signs Temp 98.6 F 10/31/19 04:49 Pulse 88 10/31/19 07:52 Resp 24 10/31/19 04:49 BP 130/62 10/31/19 04:49 Pulse Ox 95 10/31/19 04:49 Intake & Output 10/30/19 10/31/19 10/31/19 18:59 06:59 18:59 Intake Total 390 Balance 390 Intake: Oral 390 Other: # Voids 3 1 - Exam - Constitutional General appearance: average body habitus, cooperative, no acute distress - EENT Eyes: EOMI, PERRLA ENT: NA/AT, pharyngeal erythema - Neck Neck: no lymphadenopathy, normal ROM Carotids: bilateral: upstroke normal Thyroid: bilateral: normal size - Respiratory Respiratory: Diminished breath sounds along with scattered expiratory wheezes throughout the lung his bilaterally and scattered rhonchi heard throughout the lung claros bilaterally. She continues to have a congested cough. - Cardiovascular Rhythm: regular Heart sounds: normal: S1, S2 ankle Peripheral Edema: bilateral: None foot Peripheral Edema: bilateral: None dorsalis pedis Peripheral Pulses: bilateral: Normal radial pulse Peripheral Pulses: bilateral: Normal - Gastrointestinal General gastrointestinal: no organomegaly, soft, no tenderness - Integumentary Integumentary: normal turgor - Neurologic Neurologic: CNII-XII intact - Musculoskeletal Musculoskeletal: gait normal, strength equal bilaterally - Psychiatric Psychiatric: A&O x's 3, appropriate affect, intact judgment & insight - Labs CBC & Chem 7: 10/31/19 08:47 10/31/19 08:47 Labs: Abnormal Lab Results - Last 24 Hours (Table) 10/31/19 10/31/19 Range/Units 08:47 08:47 RBC 3.35 L (3.80-5.40) m/uL Hgb 9.9 L (11.4-16.0) gm/dL Hct 31.0 L (34.0-46.0) % Lymphocytes # 0.7 L (1.0-4.8) k/uL Glucose 124 H (74-99) mg/dL Microbiology - Last 24 Hours (Table) 10/29/19 10:31 Blood Culture - Preliminary Blood No Growth after 24 hours Assessment and Plan Plan: Assessment: 1. Acute dyspnea related to acute exacerbation of COPD, chest x-ray showed chronic changes involving right lower lobe. Consider viral versus bacterial tracheobronchitis/pneumonia. Currently on a combination of antibiotics and systemic steroids and despite some initial improvements, the patient is having increased fatigue and ongoing cough and dyspnea congestion on today's evaluation. She is having [id number] cough and episodes. Continue same antibiotic coverage. Continue steroids. Add Robitussin. 2. 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 Plan Sputum Gram stain and culture, this is collected this morning and there is also still pending for now Continue bronchodilators Continue steroids Repeat chest x-ray in the morning with PA and lateral views Clinically improved and the patient possibly will be considered for discharge the next 24-48 hours
[2019-10-31] MEDS: methylPREDNISolone SOD SUCCI 40 MG/ML 1 ML VIAL IV SCH ×3 (11:41→23:24)
[2019-10-31] MEDS: guaiFENesin-DM 100-10MG/5ML 10 ML CUP PO SCH ×3 (11:41→23:24)
--- NOTE | 2019-10-31 15:12 | P.PN ---
Subjective Progress Note Date: 10/31/19 Principal diagnosis: 71-year-old female presenting to the emergency Department with complaints of sore throat and difficulty in breathing. Onset of symptoms was yesterday. Symptoms are worse today. Dyspnea is similar to previous COPD. Occasional cough. Patient complains more so of sore throat. Patient is able to tolerate oral intake. No fevers at home. Workup in ED Including chest x-ray shows right middle lobe infiltrate; blood work showed mild elevation of BUN with normal creatinine; influenza was negative 10/30/2019 Patient is sitting up in the chair and appears to be in no acute distress. Patient states that she is able to cough things up today and feels that her difficulty in breathing is slightly improved. Patient did have strep testing and influenza testing which was negative. Patient continues to have a mild sore throat most likely due to coughing. Currently patient denies any chest pain, worsening shortness of breath, or palpitations. Patient is afebrile. Patient denies any nausea or vomiting and is tolerating diet. Pulmonary has been consul malik and currently pending at this time. Repeat chest x-ray today shows chronic changes and mild cardiomegaly without definitive acute infiltrate and right middle lobe increased markings not significantly changed from 2018 study favoring scarring and/or atelectasis. Patient is currently on IV antibiotic therapy in the form of ceftriaxone along with oral Zithromax and will continue at this time. 10/31/2019 Patient is sitting up in the chair sleeping but easily arousable. Patient states that she feels quite fatigued and overall not doing very well. Patient states that her shortness of breath has not improved and she continues to have this cough but is unable to expectorate any phlegm. Pulmonary is following. Patient is currently on IV antibiotics in form of ceftriaxone and oral Zithromax and will continue at this time. IV steroids will be added as patient is having some expiratory wheezing noted today. Review of systems: Cardiovascular: No reports of chest pain or palpitations Respiratory: Reports shortness of breath and cough GI: No reports of nausea, vomiting, or diarrhea : No reports of dysuria or retention Constitutional: Reports fatigue, no report of fever or chills Active Medications Albuterol/Ipratropium (Duoneb 0.5 Mg-3 Mg/3 Ml Soln) 3 ml INHALATION RT-QID [facility] Last Admin: 10/31/19 11:15 Dose: 3 ml Documented by: Albuterol/Ipratropium (Duoneb 0.5 Mg-3 Mg/3 Ml Soln) 3 ml INHALATION RT-Q4H PRN PRN Reason: shortness of breath Aspirin (Aspirin) 81 mg PO DAILY [facility] Last Admin: 10/31/19 07:37 Dose: 81 mg Documented by: Atorvastatin Calcium (Lipitor) 60 mg PO HS [facility] Last Admin: 10/30/19 21:06 Dose: 60 mg Documented by: Azithromycin (Zithromax) 500 mg PO DAILY [facility] Last Admin: 10/31/19 07:37 Dose: 500 mg Documented by: Budesonide/Formoterol Fumarate (Symbicort 160-4.5 Mcg Inhaler) 2 puff INHALATION RT-BID [facility] Last Admin: 10/31/19 07:34 Dose: 2 puff Documented by: Cholecalciferol (Vitamin D3 (25 Mcg = 1000 Iu)) 4,000 unit PO DAILY [facility] Last Admin: 10/31/19 07:37 Dose: 4,000 unit Documented by: Clonidine (Catapres) 0.1 mg PO TID [facility] Last Admin: 10/31/19 07:36 Dose: 0.1 mg Documented by: Cyanocobalamin (Vitamin B-12) 1,000 mcg PO DAILY [facility] Last Admin: 10/31/19 07:36 Dose: 1,000 mcg Documented by: Enoxaparin Sodium (Lovenox) 40 mg SQ DAILY [facility] Fluticasone Propionate (Flonase Nasal Wana) 2 spray EA NOSTRIL DAILY [facility] Last Admin: 10/31/19 07:46 Dose: 2 spray Documented by: Furosemide (Lasix) 40 mg PO DAILY [facility] Last Admin: 10/31/19 07:37 Dose: 40 mg Documented by: Guaifenesin/Dextromethorphan (Robitussin Dm) 10 ml PO Q6HR [facility] Last Admin: 10/31/19 11:41 Dose: 10 ml Documented by: Hydralazine HCl (Apresoline) 100 mg PO BID [facility] Last Admin: 10/31/19 07:35 Dose: 100 mg Documented by: Sodium Chloride (Saline 0.9%) 1,000 mls @ 100 mls/hr IV .Q10H [facility] Last Admin: 10/31/19 13:22 Dose: 100 mls/hr Documented by: Ceftriaxone Sodium 1 gm/ (Sodium Chloride) 50 mls @ 100 mls/hr IVPB Q24HR [facility] Stop: 11/02/19 09:01 Last Admin: 10/31/19 07:38 Dose: 100 mls/hr Documented by: Lisinopril (Zestril) 20 mg PO BID [facility] Last Admin: 10/31/19 07:35 Dose: 20 mg Documented by: Loratadine (Claritin) 10 mg PO DAILY PRN PRN Reason: Allergy Symptoms Lorazepam (Ativan) 1 mg PO Q6H PRN PRN Reason: Anxiety Last Admin: 10/30/19 19:50 Dose: 1 mg Documented by: Methylprednisolone Sodium Succinate (Solu-Medrol) 40 mg IV Q8HR [facility] Last Admin: 10/31/19 11:41 Dose: 40 mg Documented by: Miscellaneous Information (Pneumonia Protocol Utilized) 1 each PO ONCE PRN PRN Reason: Per Protocol Montelukast Sodium (Singulair) 10 mg PO [facility] Last Admin: 10/30/19 21:06 Dose: 10 mg Documented by: Neomycin/Polymyxin/Bacitracin (Triple Antibiotic Ointment) 1 applic TOPICAL BID PRN PRN Reason: Skin Irritation Pantoprazole Sodium (Protonix) 40 mg PO AC-BID [facility] Last Admin: 10/31/19 07:37 Dose: 40 mg Documented by: Potassium Chloride (K-Dur 20) 20 meq PO DAILY [facility] Last Admin: 10/31/19 07:36 Dose: 20 meq Documented by: Temazepam (Restoril) 30 mg PO [facility] Last Admin: 10/30/19 21:07 Dose: 30 mg Documented by: Venlafaxine HCl (Effexor) 37.5 mg PO DAILY [facility] Last Admin: 10/31/19 07:38 Dose: 37.5 mg Documented by: Objective - Vital Signs Vital signs: Vital Signs Temp 98.6 F 10/31/19 04:49 Pulse 88 10/31/19 07:52 Resp 24 10/31/19 04:49 BP 130/62 10/31/19 04:49 Pulse Ox 95 10/31/19 04:49 Intake & Output 10/30/19 10/31/19 10/31/19 18:59 06:59 18:59 Intake Total 390 Balance 390 Intake: Oral 390 Other: # Voids 3 1 - Exam GENERAL: The patient is alert and oriented x3, sleeping but arousable. Well developed, well nourished. Temp is 98.6F, pulse is 96, respirations are 44, blood pressure is 130/62, oxygen saturation is 95% on 3 L via nasal cannula. Patient states that she intermittently wears 3 L of oxygen at home as needed HEENT: Pupils are round and equally reacting to light. EOMI. No scleral icterus. No conjunctival pallor. Normocephalic, atraumatic. No pharyngeal erythema. No thyromegaly. CARDIOVASCULAR: S1 and S2 present. No murmurs, rubs, or gallops. PULMONARY: Diminished breath sounds at the bases with a few scattered rhonchi and mild expiratory wheezing noted on exam ABDOMEN: Soft, nontender, nondistended, normoactive bowel sounds. No palpable organomegaly. MUSCULOSKELETAL: No joint swelling or deformity. EXTREMITIES: No cyanosis, clubbing, or pedal edema. NEUROLOGICAL: Gross neurological examination did not reveal any focal deficits. SKIN: No rashes. - Labs CBC & Chem 7: 10/31/19 08:47 10/31/19 08:47 Labs: Abnormal Lab Results - Last 24 Hours (Table) 10/31/19 10/31/19 Range/Units 08:47 08:47 RBC 3.35 L (3.80-5.40) m/uL Hgb 9.9 L (11.4-16.0) gm/dL Hct 31.0 L (34.0-46.0) % Lymphocytes # 0.7 L (1.0-4.8) k/uL Glucose 124 H (74-99) mg/dL Microbiology - Last 24 Hours (Table) 10/29/19 10:31 Group A Strep Throat Culture - Final Throat 10/29/19 10:31 Blood Culture - Preliminary Blood No Growth after 24 hours Assessment and Plan Assessment: Right middle lobe pneumonia Sepsis secondary to pneumonia Mild renal injury/dehydration COPD, not in acute exacerbation Hypertension Hyperlipidemia Seasonal ALLERGIES DVT prophylaxis: SCDs/Lovenox CODE STATUS full code Recommendations and discussion: Recommend to continue current medications, management, and symptomatic treatment. Pulmonary is following. Patient will continue on IV antibiotics in the form of ceftriaxone and oral Zithromax. Continue with bronchodilators. IV steroids have been added and will repeat chest x-ray in the morning. Sputum cultures are pending. She will continue on IV fluids at 100 mL per hour. Will repeat a.m. labs. Will continue to monitor vital signs and labs closely. Further recommendations to follow.
[2019-10-31] MEDS: LORazepam 1 MG TAB PO PRN (19:29)
[2019-10-31] MEDS: ATORVASTATIN 20 MG TAB PO SCH (20:40)
[2019-10-31] MEDS: MONTELUKAST 10 MG TAB PO SCH (20:40)
[2019-10-31] MEDS: TEMAZEPAM 30 MG CAP PO SCH (20:40)
[2019-11-01] MEDS: guaiFENesin-DM 100-10MG/5ML 10 ML CUP PO SCH ×4 (06:09→23:35)
[2019-11-01] MEDS: IPRATROPIUM-ALBUTEROL 3 ML NEB INHALATION SCH ×4 (08:13→21:34)
[2019-11-01] MEDS: SYMBICORT 160-4.5 MCG INHALER INHALATION SCH ×2 (08:13→21:34)
--- NOTE | 2019-11-01 08:25 | XR ---
EXAMINATION TYPE: XR chest 2V DATE OF EXAM: 11/01/2019 COMPARISON: 10/30/2019 HISTORY: 79 year-old female shortness of breath and cough TECHNIQUE: Frontal and lateral views FINDINGS: Heart borderline enlarged. Patchy bibasilar opacities are similar. Mild perihilar prominence. No pleu ral effusion. Increased retrosternal clear space on the lateral view. IMPRESSION: 1. Overall stable. Correlate to exclude mild pulmonary vascular congestion on a background of COPD. 2. Some patchy bibasilar densities are also similar, probable atelectasis.
[2019-11-01] MEDS: FLUTICASONE 50MCG/SPRAY NASAL 16GM EA NOSTRIL SCH (08:27)
[2019-11-01] MEDS: methylPREDNISolone SOD SUCCI 40 MG/ML 1 ML VIAL IV SCH ×3 (08:28→23:35)
[2019-11-01] MEDS: ENOXAPARIN 40 MG/0.4 ML SYRINGE SQ SCH (08:28)
[2019-11-01] MEDS: cloNIDine HCL 0.1 MG TAB PO SCH ×3 (08:28→21:13)
[2019-11-01] MEDS: LISINOPRIL 20 MG TAB PO SCH ×2 (08:28→21:13)
[2019-11-01] MEDS: CYANOCOBALAMIN 500 MCG TAB PO SCH (08:28)
[2019-11-01] MEDS: POTASSIUM CHLORIDE ER 20 MEQ TAB.ER PO SCH (08:28)
[2019-11-01] MEDS: hydrALAZINE HCL 50 MG TAB PO SCH ×2 (08:29→21:13)
[2019-11-01] MEDS: ASPIRIN 81 MG PO SCH (08:29)
[2019-11-01] MEDS: AZITHROMYCIN 500 MG TAB PO SCH (08:29)
[2019-11-01] MEDS: CHOLECALCIFEROL 1,000 UNIT TAB PO SCH (08:29)
[2019-11-01] MEDS: FUROSEMIDE 40 MG TAB PO SCH (08:29)
[2019-11-01] MEDS: PANTOPRAZOLE 40 MG TABLET PO SCH ×2 (08:29→17:04)
[2019-11-01] MEDS: VENLAFAXINE HCL 37.5 MG TAB PO SCH (08:31)
[2019-11-01] MEDS: SODIUM CHLORIDE 0.9% 1,000 ML IV SCH ×2 (10:05→23:34)
[2019-11-01 10:22] LABS: African American GFR (CKD) >90 (>60 ml/min/1.73 sqM); Anion Gap 8 mmol/L; Blood Urea Nitrogen 22 mg/dL (7-17); Calcium 8.8 mg/dL (8.4-10.2); Carbon Dioxide 24 mmol/L (22-30); Chloride 109 mmol/L (98-107); Glucose 183 mg/dL (74-99); Non-African American GFR(CKD) 87 (>60 ml/min/1.73 sqM); Potassium 4.1 mmol/L (3.5-5.1); Sodium 141 mmol/L (137-145)
[2019-11-01 10:34] LABS: Basophils % (A) 0 %; Eosinophils % (A) 0 %; HCT 30.8 % (34.0-46.0); HGB 9.5 gm/dL (11.4-16.0); Lymphocytes # (A) 0.3 k/uL (1.0-4.8); Lymphocytes % (A) 6 %; MCH 28.9 pg (25.0-35.0); MCHC 30.9 g/dL (31.0-37.0); MCV 93.5 fL (80.0-100.0); Mean Platelet Volume 7.8; Monocytes # (A) 0.2 k/uL (0-1.0); Monocytes % (A) 5 %; Neutrophils # (A) 4.4 k/uL (1.3-7.7); Neutrophils % (A) 88 %; Platelet Count 215 k/uL (150-450); RDW 14.4 % (11.5-15.5); WBC 5.1 k/uL (3.8-10.6)
--- NOTE | 2019-11-01 12:46 | P.PN ---
Subjective Progress Note Date: 11/01/19 On 11/01/2019 the patient is feeling slightly better compared to yesterday. He took a shower and on the way back to her bed she became short of breath. She is recovering for now. She remains on antibiotics patient remains on steroids. No chest pain. No pleurisy. No hemoptysis. No angina. No altered mentation. She is tolerating her diet. No other significant events overnight. She remains on oxygen at 2 L.She remains on a combination of Rocephin and Zithromax. Objective - Vital Signs Vital signs: Vital Signs Temp 97.1 F L 11/01/19 05:00 Pulse 96 11/01/19 12:02 Resp 18 11/01/19 05:00 BP 150/66 11/01/19 05:00 Pulse Ox 97 11/01/19 05:00 Intake & Output 10/31/19 11/01/19 11/01/19 18:59 06:59 18:59 Intake Total 800 550 Balance 800 550 Intake: Oral 800 550 Other: Voiding Method Toilet # Voids 2 2 # Bowel Movements 1 - Exam - Constitutional General appearance: average body habitus, cooperative, no acute distress - EENT Eyes: EOMI, PERRLA ENT: NA/AT, pharyngeal erythema - Neck Neck: no lymphadenopathy, normal ROM Carotids: bilateral: upstroke normal Thyroid: bilateral: normal size - Respiratory Respiratory: Diminished breath sounds along with scattered expiratory wheezes throughout the lung his bilaterally and scattered rhonchi heard throughout the lung claros bilaterally. She continues to have a congested cough. - Cardiovascular Rhythm: regular Heart sounds: normal: S1, S2 ankle Peripheral Edema: bilateral: None foot Peripheral Edema: bilateral: None dorsalis pedis Peripheral Pulses: bilateral: Normal radial pulse Peripheral Pulses: bilateral: Normal - Gastrointestinal General gastrointestinal: no organomegaly, soft, no tenderness - Integumentary Integumentary: normal turgor - Neurologic Neurologic: CNII-XII intact - Musculoskeletal Musculoskeletal: gait normal, strength equal bilaterally - Psychiatric Psychiatric: A&O x's 3, appropriate affect, intact judgment & insight - Labs CBC & Chem 7: 11/01/19 09:34 11/01/19 09:34 Labs: Abnormal Lab Results - Last 24 Hours (Table) 11/01/19 11/01/19 Range/Units 09:34 09:34 RBC 3.30 L (3.80-5.40) m/uL Hgb 9.5 L (11.4-16.0) gm/dL Hct 30.8 L (34.0-46.0) % MCHC 30.9 L (31.0-37.0) g/dL Lymphocytes # 0.3 L (1.0-4.8) k/uL Chloride 109 H (98-107) mmol/L BUN 22 H (7-17) mg/dL Glucose 183 H (74-99) mg/dL Microbiology - Last 24 Hours (Table) 10/29/19 10:31 Blood Culture - Preliminary Blood No Growth after 72 hours 10/30/19 09:00 Blood Culture - Preliminary Blood No Growth after 48 hours 10/31/19 07:41 Gram Stain - Preliminary Sputum 10/29/19 10:31 Group A Strep Throat Culture - Final Throat Assessment and Plan Plan: Assessment: 1. Acute dyspnea related to acute exacerbation of COPD, chest x-ray showed chronic changes involving right lower lobe. Consider viral versus bacterial tracheobronchitis/pneumonia. Currently on a combination of antibiotics and systemic steroids and despite some initial improvements. Continue same antibiotic coverage. Continue steroids/Robitussin. 2. 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 Plan The patient is improving slowly. Continue same treatment. Reevaluate in a.m.
--- NOTE | 2019-11-01 15:55 | P.PN ---
Subjective Progress Note Date: 11/01/19 Principal diagnosis: 71-year-old female presenting to the emergency Department with complaints of sore throat and difficulty in breathing. Onset of symptoms was yesterday. Symptoms are worse today. Dyspnea is similar to previous COPD. Occasional cough. Patient complains more so of sore throat. Patient is able to tolerate oral intake. No fevers at home. Workup in ED Including chest x-ray shows right middle lobe infiltrate; blood work showed mild elevation of BUN with normal creatinine; influenza was negative 10/30/2019 Patient is sitting up in the chair and appears to be in no acute distress. Patient states that she is able to cough things up today and feels that her difficulty in breathing is slightly improved. Patient did have strep testing and influenza testing which was negative. Patient continues to have a mild sore throat most likely due to coughing. Currently patient denies any chest pain, worsening shortness of breath, or palpitations. Patient is afebrile. Patient denies any nausea or vomiting and is tolerating diet. Pulmonary has been consul malik and currently pending at this time. Repeat chest x-ray today shows chronic changes and mild cardiomegaly without definitive acute infiltrate and right middle lobe increased markings not significantly changed from 2018 study favoring scarring and/or atelectasis. Patient is currently on IV antibiotic therapy in the form of ceftriaxone along with oral Zithromax and will continue at this time. 10/31/2019 Patient is sitting up in the chair sleeping but easily arousable. Patient states that she feels quite fatigued and overall not doing very well. Patient states that her shortness of breath has not improved and she continues to have this cough but is unable to expectorate any phlegm. Pulmonary is following. Patient is currently on IV antibiotics in form of ceftriaxone and oral Zithromax and will continue at this time. IV steroids will be added as patient is having some expiratory wheezing noted today. Review of systems: Cardiovascular: No reports of chest pain or palpitations Respiratory: Reports shortness of breath and cough GI: No reports of nausea, vomiting, or diarrhea : No reports of dysuria or retention Constitutional: Reports fatigue, no report of fever or chills 11/01/2019 Patient is sitting up in bed and states that she feels about the same as yesterday and she continues to be short of breath. Patient states that she feels the steroids are helping and she has been coughing some phlegm up. Sputum culture was obtained and is currently pending at this time. Patient will continue on IV steroids along with IV antibiotics in the form of Rocephin along with oral Zithromax at this time. Pulmonary is following. Repeat chest x-ray today shows some patchy bibasilar densities that are similar to previous exams and probably atelectasis otherwise overall stable. Patient was able to get up to the shower today and became quite winded with walking back. Will continue to monitor closely. Objective - Vital Signs Vital signs: Vital Signs Temp 98.1 F 11/01/19 14:14 Pulse 94 11/01/19 14:14 Resp 17 11/01/19 14:14 BP 103/44 11/01/19 14:14 Pulse Ox 96 11/01/19 14:14 Intake & Output 10/31/19 11/01/19 11/01/19 18:59 06:59 18:59 Intake Total 800 550 240 Balance 800 550 240 Intake: Oral 800 550 240 Other: Voiding Method Toilet # Voids 2 2 3 # Bowel Movements 1 - Exam GENERAL: The patient is alert and oriented x3, sleeping but arousable. Well developed, well nourished. Temp is an 97.1 F, pulse is 88, respirations are 18, blood pressure is 150/66, oxygen saturation is 97% on 3 L via nasal cannula. Patient states that she intermittently wears 3 L of oxygen at home as needed HEENT: Pupils are round and equally reacting to light. EOMI. No scleral icterus. No conjunctival pallor. Normocephalic, atraumatic. No pharyngeal erythema. No thyromegaly. CARDIOVASCULAR: S1 and S2 present. No murmurs, rubs, or gallops. PULMONARY: Diminished breath sounds at the bases with a few scattered rhonchi and mild expiratory wheezing noted on exam ABDOMEN: Soft, nontender, nondistended, normoactive bowel sounds. No palpable organomegaly. MUSCULOSKELETAL: No joint swelling or deformity. EXTREMITIES: No cyanosis, clubbing, or pedal edema. NEUROLOGICAL: Gross neurological examination did not reveal any focal deficits. SKIN: No rashes. - Labs CBC & Chem 7: 11/01/19 09:34 11/01/19 09:34 Labs: Abnormal Lab Results - Last 24 Hours (Table) 11/01/19 11/01/19 Range/Units 09:34 09:34 RBC 3.30 L (3.80-5.40) m/uL Hgb 9.5 L (11.4-16.0) gm/dL Hct 30.8 L (34.0-46.0) % MCHC 30.9 L (31.0-37.0) g/dL Lymphocytes # 0.3 L (1.0-4.8) k/uL Chloride 109 H (98-107) mmol/L BUN 22 H (7-17) mg/dL Glucose 183 H (74-99) mg/dL Microbiology - Last 24 Hours (Table) 10/29/19 10:31 Blood Culture - Preliminary Blood No Growth after 72 hours 10/30/19 09:00 Blood Culture - Preliminary Blood No Growth after 48 hours 10/31/19 07:41 Gram Stain - Preliminary Sputum Assessment and Plan Assessment: Right middle lobe pneumonia Sepsis secondary to pneumonia Mild renal injury/dehydration COPD, not in acute exacerbation Hypertension Hyperlipidemia Seasonal ALLERGIES DVT prophylaxis: SCDs/Lovenox CODE STATUS full code Recommendations and discussion: Recommend to continue current medications, management, and symptomatic treatment. Pulmonary is following. Patient will continue on IV steroids and IV antibiotics in the form of ceftriaxone and oral Zithromax. Continue with bronchodilators. Repeat chest x-ray was done as mentioned previously. Sputum cultures are pending. Will continue to monitor vital signs and labs closely. Further recommendations to follow.
[2019-11-01] MEDS: LORazepam 1 MG TAB PO PRN (17:15)
[2019-11-01] MEDS: ATORVASTATIN 20 MG TAB PO SCH (21:13)
[2019-11-01] MEDS: MONTELUKAST 10 MG TAB PO SCH (21:13)
[2019-11-01] MEDS: TEMAZEPAM 30 MG CAP PO SCH (23:35)
[2019-11-02] MEDS: guaiFENesin-DM 100-10MG/5ML 10 ML CUP PO SCH ×4 (03:28→17:27)
[2019-11-02] MEDS: SODIUM CHLORIDE 0.9% 1,000 ML IV SCH ×2 (07:13→15:47)
[2019-11-02] MEDS: IPRATROPIUM-ALBUTEROL 3 ML NEB INHALATION SCH ×4 (07:15→19:08)
[2019-11-02] MEDS: SYMBICORT 160-4.5 MCG INHALER INHALATION SCH (07:15)
[2019-11-02] MEDS: AZITHROMYCIN 500 MG TAB PO SCH (08:44)
[2019-11-02] MEDS: LISINOPRIL 20 MG TAB PO SCH ×2 (08:44→20:14)
[2019-11-02] MEDS: POTASSIUM CHLORIDE ER 20 MEQ TAB.ER PO SCH (08:44)
[2019-11-02] MEDS: cloNIDine HCL 0.1 MG TAB PO SCH ×3 (08:44→20:15)
[2019-11-02] MEDS: CYANOCOBALAMIN 500 MCG TAB PO SCH (08:44)
[2019-11-02] MEDS: ASPIRIN 81 MG PO SCH (08:44)
[2019-11-02] MEDS: CHOLECALCIFEROL 1,000 UNIT TAB PO SCH (08:44)
[2019-11-02] MEDS: FUROSEMIDE 40 MG TAB PO SCH (08:44)
[2019-11-02] MEDS: PANTOPRAZOLE 40 MG TABLET PO SCH ×2 (08:44→17:27)
[2019-11-02] MEDS: hydrALAZINE HCL 50 MG TAB PO SCH ×2 (08:44→20:15)
[2019-11-02] MEDS: VENLAFAXINE HCL 37.5 MG TAB PO SCH (08:44)
[2019-11-02] MEDS: methylPREDNISolone SOD SUCCI 40 MG/ML 1 ML VIAL IV SCH ×2 (08:45→15:46)
[2019-11-02] MEDS: ENOXAPARIN 40 MG/0.4 ML SYRINGE SQ SCH (08:45)
[2019-11-02] MEDS: FLUTICASONE 50MCG/SPRAY NASAL 16GM EA NOSTRIL SCH (08:46)
[2019-11-02] MEDS: LORazepam 1 MG TAB PO PRN ×2 (08:58→20:20)
[2019-11-02] MEDS: guaiFENesin 600 MG TABLET.ER PO SCH ×2 (12:39→20:15)
--- NOTE | 2019-11-02 14:14 | P.PN ---
Subjective Progress Note Date: 11/02/19 On 11/02/2019 and seeing the patient for a follow-up. As stated earlier, she is doing very limited and slow steps in terms of recovery from her COPD exacerbation. There is ongoing concern of a right lower lobe pneumonia. She remains on a combination of Rocephin and Zithromax. Rapid strep screen was negative. Legionella urine antigen was negative. Influenza screen was negative. Mycoplasma antibodies were nonelevated. She is afebrile. However, walk-in LAD and short distances even though was make her very short of breath and workup. Her cough remains congested. She is unable to bring up any sputum. She remains on 2 L of oxygen by nasal cannula. Objective - Vital Signs Vital signs: Vital Signs Temp 97.4 F L 11/02/19 13:25 Pulse 95 11/02/19 13:25 Resp 20 11/02/19 13:25 BP 108/45 11/02/19 13:25 Pulse Ox 95 11/02/19 13:25 Intake & Output 11/01/19 11/02/19 11/02/19 18:59 06:59 18:59 Intake Total 480 1250 690 Balance 480 1250 690 Intake: IV 210 Sodium Chloride 0.9% 1, 160 000 ml @ 100 mls/hr IV . Q10H [facility] Rx#:[id number] cefTRIAXone 1 gm In 50 Sodium Chloride 0.9% 50 ml @ 100 mls/hr IVPB Q24HR [facility] Rx#:[id number] Intake, IV Titration 350 Amount Sodium Chloride 0.9% 1, 300 000 ml @ 100 mls/hr IV . Q10H [facility] Rx#:[id number] cefTRIAXone 1 gm In 50 Sodium Chloride 0.9% 50 ml @ 100 mls/hr IVPB Q24HR [facility] Rx#:[id number] Oral 480 900 480 Other: Voiding Method Toilet # Voids 3 2 - Exam - Constitutional General appearance: average body habitus, cooperative, no acute distress - EENT Eyes: EOMI, PERRLA ENT: NA/AT, pharyngeal erythema - Neck Neck: no lymphadenopathy, normal ROM Carotids: bilateral: upstroke normal Thyroid: bilateral: normal size - Respiratory Respiratory: Diminished breath sounds along with scattered expiratory wheezes throughout the lung his bilaterally and scattered rhonchi heard throughout the lung claros bilaterally. She continues to have a congested cough. - Cardiovascular Rhythm: regular Heart sounds: normal: S1, S2 ankle Peripheral Edema: bilateral: None foot Peripheral Edema: bilateral: None dorsalis pedis Peripheral Pulses: bilateral: Normal radial pulse Peripheral Pulses: bilateral: Normal - Gastrointestinal General gastrointestinal: no organomegaly, soft, no tenderness - Integumentary Integumentary: normal turgor - Neurologic Neurologic: CNII-XII intact - Musculoskeletal Musculoskeletal: gait normal, strength equal bilaterally - Psychiatric Psychiatric: A&O x's 3, appropriate affect, intact judgment & insight - Labs CBC & Chem 7: 11/01/19 09:34 11/01/19 09:34 Labs: Microbiology - Last 24 Hours (Table) 10/29/19 10:31 Blood Culture - Preliminary Blood No Growth after 96 hours 10/30/19 09:00 Blood Culture - Preliminary Blood No Growth after 72 hours 10/31/19 07:41 Gram Stain - Final Sputum Sputum Culture - Final Assessment and Plan Plan: Assessment: 1. Acute dyspnea related to acute exacerbation of COPD, chest x-ray showed chronic changes involving right lower lobe. Consider viral versus bacterial tracheobronchitis/pneumonia. Currently on a combination of antibiotics and systemic steroids and despite some initial improvements. Continue same antibiotic coverage. Continue steroids/Robitussin. 2. 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 Plan The patient is improving slowly. CAT scan of the chest without contrast evaluating pneumonia Possible bronchoscopy in a.m. specially there is no signs of recovery The Lasix will be cut down to once a day
--- NOTE | 2019-11-02 14:52 | P.PN ---
Subjective Progress Note Date: 11/02/19 Principal diagnosis: 71-year-old female presenting to the emergency Department with complaints of sore throat and difficulty in breathing. Onset of symptoms was yesterday. Symptoms are worse today. Dyspnea is similar to previous COPD. Occasional cough. Patient complains more so of sore throat. Patient is able to tolerate oral intake. No fevers at home. Workup in ED Including chest x-ray shows right middle lobe infiltrate; blood work showed mild elevation of BUN with normal creatinine; influenza was negative 10/30/2019 Patient is sitting up in the chair and appears to be in no acute distress. Patient states that she is able to cough things up today and feels that her difficulty in breathing is slightly improved. Patient did have strep testing and influenza testing which was negative. Patient continues to have a mild sore throat most likely due to coughing. Currently patient denies any chest pain, worsening shortness of breath, or palpitations. Patient is afebrile. Patient denies any nausea or vomiting and is tolerating diet. Pulmonary has been consul malik and currently pending at this time. Repeat chest x-ray today shows chronic changes and mild cardiomegaly without definitive acute infiltrate and right middle lobe increased markings not significantly changed from 2018 study favoring scarring and/or atelectasis. Patient is currently on IV antibiotic therapy in the form of ceftriaxone along with oral Zithromax and will continue at this time. 10/31/2019 Patient is sitting up in the chair sleeping but easily arousable. Patient states that she feels quite fatigued and overall not doing very well. Patient states that her shortness of breath has not improved and she continues to have this cough but is unable to expectorate any phlegm. Pulmonary is following. Patient is currently on IV antibiotics in form of ceftriaxone and oral Zithromax and will continue at this time. IV steroids will be added as patient is having some expiratory wheezing noted today. Review of systems: Cardiovascular: No reports of chest pain or palpitations Respiratory: Reports shortness of breath and cough GI: No reports of nausea, vomiting, or diarrhea : No reports of dysuria or retention Constitutional: Reports fatigue, no report of fever or chills 11/01/2019 Patient is sitting up in bed and states that she feels about the same as yesterday and she continues to be short of breath. Patient states that she feels the steroids are helping and she has been coughing some phlegm up. Sputum culture was obtained and is currently pending at this time. Patient will continue on IV steroids along with IV antibiotics in the form of Rocephin along with oral Zithromax at this time. Pulmonary is following. Repeat chest x-ray today shows some patchy bibasilar densities that are similar to previous exams and probably atelectasis otherwise overall stable. Patient was able to get up to the shower today and became quite winded with walking back. Will continue to monitor closely. 11/02/2019 Patient is sitting up in the chair and overall not feeling well. Patient states she continues to have a cough and is unable to bring anything up. Mucinex being ordered. Patient continues to be extremely short of breath with exertion and position changes. Patient is continued on bronchodilators and IV steroids and antibiotics being transitioned to oral Levaquin. Pulmonary is following closely. CT of the chest is being ordered and is currently pending. Will continue to monitor closely. Review of Systems: Cardiovascular: No reports of chest pain or palpitations Respiratory: Reports her shortness of breath and cough GI: No reports of nausea, vomiting, or diarrhea : No reports of dysuria or retention Constitutional: Reports fatigue, no report of fever or chills Active Medications Albuterol/Ipratropium (Duoneb 0.5 Mg-3 Mg/3 Ml Soln) 3 ml INHALATION RT-QID PENDING SALE TO [facility] Last Admin: 11/02/19 11:05 Dose: 3 ml Documented by: Albuterol/Ipratropium (Duoneb 0.5 Mg-3 Mg/3 Ml Soln) 3 ml INHALATION RT-Q4H PRN PRN Reason: shortness of breath Aspirin (Aspirin) 81 mg PO DAILY PENDING SALE TO [facility] Last Admin: 11/02/19 08:44 Dose: 81 mg Documented by: Atorvastatin Calcium (Lipitor) 60 mg PO HS PENDING SALE TO [facility] Last Admin: 11/01/19 21:13 Dose: 60 mg Documented by: Budesonide (Pulmicort) 0.5 mg INHALATION RT-BID PENDING SALE TO [facility] Cholecalciferol (Vitamin D3 (25 Mcg = 1000 Iu)) 4,000 unit PO DAILY PENDING SALE TO [facility] Last Admin: 11/02/19 08:44 Dose: 4,000 unit Documented by: Clonidine (Catapres) 0.1 mg PO TID PENDING SALE TO [facility] Last Admin: 11/02/19 08:44 Dose: 0.1 mg Documented by: Cyanocobalamin (Vitamin B-12) 1,000 mcg PO DAILY PENDING SALE TO [facility] Last Admin: 11/02/19 08:44 Dose: 1,000 mcg Documented by: Enoxaparin Sodium (Lovenox) 40 mg SQ DAILY PENDING SALE TO [facility] Last Admin: 11/02/19 08:45 Dose: 40 mg Documented by: Fluticasone Propionate (Flonase Nasal [place]) 2 spray EA NOSTRIL DAILY PENDING SALE TO [facility] Last Admin: 11/02/19 08:46 Dose: 2 spray Documented by: Formoterol Fumarate (Perforomist) 20 mcg INHALATION RT-BID PENDING SALE TO [facility] Furosemide (Lasix) 40 mg PO DAILY PENDING SALE TO [facility] Last Admin: 11/02/19 08:44 Dose: 40 mg Documented by: Guaifenesin (Mucinex) 600 mg PO Q12HR PENDING SALE TO [facility] Last Admin: 11/02/19 12:39 Dose: 600 mg Documented by: Guaifenesin/Dextromethorphan (Robitussin Dm) 10 ml PO Q6HR PENDING SALE TO [facility] Last Admin: 11/02/19 12:39 Dose: 10 ml Documented by: Hydralazine HCl (Apresoline) 100 mg PO BID PENDING SALE TO [facility] Last Admin: 11/02/19 08:44 Dose: 100 mg Documented by: Sodium Chloride (Saline 0.9%) 1,000 mls @ 10 mls/hr IV .Q24H PENDING SALE TO [facility] Last Admin: 11/02/19 07:13 Dose: Not Given Documented by: Levofloxacin (Levaquin) 750 mg PO DAILY@1500 [facility] Lisinopril (Zestril) 20 mg PO BID PENDING SALE TO [facility] Last Admin: 11/02/19 08:44 Dose: 20 mg Documented by: Loratadine (Claritin) 10 mg PO DAILY PRN PRN Reason: Allergy Symptoms Lorazepam (Ativan) 1 mg PO Q6H PRN PRN Reason: Anxiety Last Admin: 11/02/19 08:58 Dose: 1 mg Documented by: Methylprednisolone Sodium Succinate (Solu-Medrol) 40 mg IV Q8HR PENDING SALE TO [facility] Last Admin: 11/02/19 08:45 Dose: 40 mg Documented by: Miscellaneous Information (Pneumonia Protocol Utilized) 1 each PO ONCE PRN PRN Reason: Per Protocol Montelukast Sodium (Singulair) 10 mg PO HS PENDING SALE TO [facility] Last Admin: 11/01/19 21:13 Dose: 10 mg Documented by: Neomycin/Polymyxin/Bacitracin (Triple Antibiotic Ointment) 1 applic TOPICAL BID PRN PRN Reason: Skin Irritation Pantoprazole Sodium (Protonix) 40 mg PO AC-BID PENDING SALE TO [facility] Last Admin: 11/02/19 08:44 Dose: 40 mg Documented by: Potassium Chloride (K-Dur 20) 20 meq PO DAILY PENDING SALE TO [facility] Last Admin: 11/02/19 08:44 Dose: 20 meq Documented by: Temazepam (Restoril) 30 mg PO HS PENDING SALE TO [facility] Last Admin: 11/01/19 23:35 Dose: 30 mg Documented by: Venlafaxine HCl (Effexor) 37.5 mg PO DAILY PENDING SALE TO [facility] Last Admin: 11/02/19 08:44 Dose: 37.5 mg Documented by: Objective - Vital Signs Vital signs: Vital Signs Temp 97.6 F 11/02/19 05:00 Pulse 80 11/02/19 11:17 Resp 20 11/02/19 05:00 BP 131/66 11/02/19 05:00 Pulse Ox 100 11/02/19 07:15 Intake & Output 11/01/19 11/02/19 11/02/19 18:59 06:59 18:59 Intake Total 480 1250 240 Balance 480 1250 240 Intake: Intake, IV Titration 350 Amount Sodium Chloride 0.9% 1, 300 000 ml @ 100 mls/hr IV . Q10H PENDING SALE TO [facility] Rx#:[id number] cefTRIAXone 1 gm In 50 Sodium Chloride 0.9% 50 ml @ 100 mls/hr IVPB Q24HR PENDING SALE TO [facility] Rx#:[id number] Oral 480 900 240 Other: Voiding Method Toilet # Voids 3 2 - Exam GENERAL: The patient is awake, alert and oriented x3, sitting up in the chair at the bedside. Well developed, well nourished. Temp is an 97.6 F, pulse is 77, respirations are 20, blood pressure is 131/66, oxygen saturation is 99% on 2 L via nasal cannula. Patient states that she intermittently wears 3 L of oxygen at home as needed HEENT: Pupils are round and equally reacting to light. EOMI. No scleral icterus. No conjunctival pallor. Normocephalic, atraumatic. No pharyngeal erythema. No thyromegaly. CARDIOVASCULAR: S1 and S2 present. No murmurs, rubs, or gallops. PULMONARY: Diminished breath sounds at the bases with a few scattered rhonchi noted throughout and mild expiratory wheezing noted on exam ABDOMEN: Soft, nontender, nondistended, normoactive bowel sounds. No palpable organomegaly. MUSCULOSKELETAL: No joint swelling or deformity. EXTREMITIES: No cyanosis, clubbing, or pedal edema. NEUROLOGICAL: Gross neurological examination did not reveal any focal deficits. SKIN: No rashes. - Labs CBC & Chem 7: 11/01/19 09:34 11/01/19 09:34 Labs: Microbiology - Last 24 Hours (Table) 10/29/19 10:31 Blood Culture - Preliminary Blood No Growth after 96 hours 10/30/19 09:00 Blood Culture - Preliminary Blood No Growth after 72 hours 10/31/19 07:41 Gram Stain - Final Sputum Sputum Culture - Final Assessment and Plan Assessment: Right middle lobe pneumonia Sepsis secondary to pneumonia Mild renal injury/dehydration COPD, not in acute exacerbation Hypertension Hyperlipidemia Seasonal ALLERGIES DVT prophylaxis: SCDs/Lovenox CODE STATUS full code Recommendations and discussion: Recommend to continue current medications, management, and symptomatic treatment . Pulmonary is following closely. Patient will continue on IV steroids and bronchodilators at this time. Mucinex was ordered. Patient's antibiotics being transitioned to oral Levaquin as she was on IV ceftriaxone and oral Zithromax with no real signs of improvement. CT of the chest was ordered and is currently pending. Possible bronchoscopy with pulmonary in the a.m. Will continue to monitor vital signs and labs closely. Further recommendations to follow.
[2019-11-02] MEDS ORDERED: LEVOFLOXACIN 750 MG TAB PO SCH (15:00)
--- NOTE | 2019-11-02 15:02 | CT ---
EXAMINATION TYPE: CT chest wo con DATE OF EXAM: 11/02/2019 COMPARISON: Chest x-ray from yesterday and older x-rays HISTORY: SOB, pneumonia CT DLP: 426.2 mGycm. Automated Exposure Control for Dose Reduction was Utilized. TECHNIQUE: CT scan of the thorax is performed without IV contrast. FINDINGS: LUNGS: Mild to moderate underlying emphysematous change is redemonstrated. There is [id number] linear scarring and/or atelectasis throughout bilateral lower lungs near diaphragm with involvement o f the right middle lobe and lingula also seen. No suspicious focal consolidation. No pleural effusion or pneumothorax is evident bilaterally. MEDIASTINUM: Lack of IV contrast is noted to limit evaluation for mediastinal and especially hilar ad enopathy. There are no definitive greater than 1 cm hilar or mediastinal lymph nodes. No significan t pericardial effusion is seen. Mild cardiomegaly is confirmed coronary artery calcification is prese nt which is noted marked underlying coronary artery disease. Heterogeneous slightly prominent thyroid . Enlarged Main pulmonary artery axial image 24. Moderate calcified plaque of the thoracic aorta with more severe calcified plaque and visualized portion of the abdominal aorta. OTHER: Cholecystectomy clips. IMPRESSION: Mild to moderate chronic emphysematous change with [id number] parenchymal fibrotic changes in both lower lungs. No suspicious acute pulmonary process.
[2019-11-02] MEDS: BUDESONIDE 0.5 MG/2 ML NEBU INHALATION SCH (19:05)
[2019-11-02] MEDS: FORMOTEROL FUMARATE 20 MCG/2 ML NEBU INHALATION SCH (19:09)
[2019-11-02] MEDS: ATORVASTATIN 20 MG TAB PO SCH (20:14)
[2019-11-02] MEDS: MONTELUKAST 10 MG TAB PO SCH (20:15)
[2019-11-02] MEDS: TEMAZEPAM 30 MG CAP PO SCH (20:16)
[2019-11-02] MEDS: IPRATROPIUM-ALBUTEROL 3 ML NEB INHALATION PRN (23:25)
[2019-11-03] MEDS: methylPREDNISolone SOD SUCCI 40 MG/ML 1 ML VIAL IV SCH ×3 (00:42→16:18)
[2019-11-03] MEDS: guaiFENesin-DM 100-10MG/5ML 10 ML CUP PO SCH ×4 (00:43→17:41)
[2019-11-03] MEDS: FORMOTEROL FUMARATE 20 MCG/2 ML NEBU INHALATION SCH ×2 (07:46→19:37)
[2019-11-03] MEDS: BUDESONIDE 0.5 MG/2 ML NEBU INHALATION SCH ×2 (07:46→19:37)
[2019-11-03] MEDS: IPRATROPIUM-ALBUTEROL 3 ML NEB INHALATION SCH ×4 (07:46→19:37)
[2019-11-03] MEDS: ENOXAPARIN 40 MG/0.4 ML SYRINGE SQ SCH (08:21)
[2019-11-03] MEDS: CYANOCOBALAMIN 500 MCG TAB PO SCH (08:21)
[2019-11-03] MEDS: guaiFENesin 600 MG TABLET.ER PO SCH ×2 (08:22→21:59)
[2019-11-03] MEDS: hydrALAZINE HCL 50 MG TAB PO SCH ×2 (08:22→21:59)
[2019-11-03] MEDS: ASPIRIN 81 MG PO SCH (08:22)
[2019-11-03] MEDS: POTASSIUM CHLORIDE ER 20 MEQ TAB.ER PO SCH (08:22)
[2019-11-03] MEDS: LISINOPRIL 20 MG TAB PO SCH ×2 (08:22→21:59)
[2019-11-03] MEDS: FUROSEMIDE 40 MG TAB PO SCH (08:22)
[2019-11-03] MEDS: cloNIDine HCL 0.1 MG TAB PO SCH ×3 (08:22→22:25)
[2019-11-03] MEDS: LORazepam 1 MG TAB PO PRN ×2 (08:23→22:25)
[2019-11-03] MEDS: FLUTICASONE 50MCG/SPRAY NASAL 16GM EA NOSTRIL SCH (08:24)
[2019-11-03] MEDS: PANTOPRAZOLE 40 MG TABLET PO SCH ×2 (08:24→16:18)
[2019-11-03] MEDS: CHOLECALCIFEROL 1,000 UNIT TAB PO SCH (08:24)
[2019-11-03] MEDS: VENLAFAXINE HCL 37.5 MG TAB PO SCH (08:25)
[2019-11-03 08:31] LABS: Basophils % (A) 1 %; Eosinophils % (A) 0 %; HCT 31.4 % (34.0-46.0); HGB 9.7 gm/dL (11.4-16.0); Hypochromasia Slight; Lymphocytes # (A) 0.5 k/uL (1.0-4.8); Lymphocytes % (A) 7 %; MCH 28.9 pg (25.0-35.0); MCV 93.2 fL (80.0-100.0); Mean Platelet Volume 7.6; Monocytes # (A) 0.3 k/uL (0-1.0); Monocytes % (A) 5 %; Neutrophils # (A) 5.2 k/uL (1.3-7.7); Neutrophils % (A) 86 %; Platelet Count 284 k/uL (150-450); RBC 3.36 m/uL (3.80-5.40); RDW 14.2 % (11.5-15.5); WBC 6.1 k/uL (3.8-10.6)
[2019-11-03 08:41] LABS: African American GFR (CKD) >90 (>60 ml/min/1.73 sqM); Anion Gap 6 mmol/L; Blood Urea Nitrogen 26 mg/dL (7-17); Calcium 9.3 mg/dL (8.4-10.2); Carbon Dioxide 29 mmol/L (22-30); Chloride 107 mmol/L (98-107); Glucose 132 mg/dL (74-99); Non-African American GFR(CKD) 81 (>60 ml/min/1.73 sqM); Potassium 4.7 mmol/L (3.5-5.1); Sodium 142 mmol/L (137-145)
--- NOTE | 2019-11-03 10:40 | P.PN ---
Subjective Progress Note Date: 11/03/19 On 2019 and seeing the patient for a follow-up. She was having slow progress and based on that I ordered a CAT scan of the chest done yesterday and the CAT scan showed no evidence of any acute pneumonia. She remains on Rocephin and Zithromax combination and she remains on IV Solu-Medrol. I also put her on a combination of Perforomist and Pulmicort neb last treatment twice a day. She is taking oxygen 2 L per minute nasal cannula. She is on DuoNeb nebulized treatments around the clock. She is on IV Solu-Medrol. The patient is doing slightly better compared to yesterday. There was some plans to do a bronchoscopy and out ultimately canceled for the time being. No chest pain. No fever. No chills. No other significant events overnight. Objective - Vital Signs Vital signs: Vital Signs Temp 98.1 F 11/03/19 05:49 Pulse 96 11/03/19 08:12 Resp 18 11/03/19 08:12 BP 154/75 11/03/19 05:49 Pulse Ox 96 11/03/19 07:47 Intake & Output 11/02/19 11/03/19 11/03/19 18:59 06:59 18:59 Intake Total 930 Balance 930 Intake: IV 210 Sodium Chloride 0.9% 1, 160 000 ml @ 10 mls/hr IV . Q24H [facility] Rx#:[id number] cefTRIAXone 1 gm In 50 Sodium Chloride 0.9% 50 ml @ 100 mls/hr IVPB Q24HR [facility] Rx#:[id number] Oral 720 Other: Voiding Method Toilet # Voids 1 - Exam - Constitutional General appearance: average body habitus, cooperative, no acute distress - EENT Eyes: EOMI, PERRLA ENT: NA/AT, pharyngeal erythema - Neck Neck: no lymphadenopathy, normal ROM Carotids: bilateral: upstroke normal Thyroid: bilateral: normal size - Respiratory Respiratory: Diminished breath sounds along with scattered expiratory wheezes throughout the lung his bilaterally and scattered rhonchi heard throughout the lung claros bilaterally. She continues to have a congested cough. - Cardiovascular Rhythm: regular Heart sounds: normal: S1, S2 ankle Peripheral Edema: bilateral: None foot Peripheral Edema: bilateral: None dorsalis pedis Peripheral Pulses: bilateral: Normal radial pulse Peripheral Pulses: bilateral: Normal - Gastrointestinal General gastrointestinal: no organomegaly, soft, no tenderness - Integumentary Integumentary: normal turgor - Neurologic Neurologic: CNII-XII intact - Musculoskeletal Musculoskeletal: gait normal, strength equal bilaterally - Psychiatric Psychiatric: A&O x's 3, appropriate affect, intact judgment & insight - Labs CBC & Chem 7: 11/03/19 07:50 11/03/19 07:50 Labs: Abnormal Lab Results - Last 24 Hours (Table) 11/03/19 11/03/19 Range/Units 07:50 07:50 RBC 3.36 L (3.80-5.40) m/uL Hgb 9.7 L (11.4-16.0) gm/dL Hct 31.4 L (34.0-46.0) % Lymphocytes # 0.5 L (1.0-4.8) k/uL BUN 26 H (7-17) mg/dL Glucose 132 H (74-99) mg/dL Microbiology - Last 24 Hours (Table) 10/29/19 10:31 Blood Culture - Preliminary Blood No Growth after 96 hours 10/30/19 09:00 Blood Culture - Preliminary Blood No Growth after 72 hours 10/31/19 07:41 Gram Stain - Final Sputum Sputum Culture - Final Assessment and Plan Plan: Assessment: 1. Acute dyspnea related to acute exacerbation of COPD, chest x-ray showed chronic changes involving right lower lobe. Consider viral versus bacterial tracheobronchitis/pneumonia. Currently on a combination of antibiotics and systemic steroids and despite some initial improvements. Continue same antibiotic coverage. Continue steroids/Robitussin. The CAT scan of the chest done yesterday shows some limited fibrotic changes in the lung bases and there was no evidence of any pneumonia. 2. 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 The patient is an acute exacerbation and she is showing slow but ongoing improvement. CAT scan of the chest was noted. Plan CAT scan was completed. No clear evidence of pneumonia. The patient is recovering slowly. For now, we'll going to continue the bronchodilators. We'll continue continue the course of Levaquin and continue Perforomist and Pulmicort nebulized treatments around the clock. Encourage level of activity as tolerated
[2019-11-03 11:31] VITALS: BMI 32.3
--- NOTE | 2019-11-03 13:46 | P.PN ---
Subjective Progress Note Date: 11/03/19 Principal diagnosis: 71-year-old female presenting to the emergency Department with complaints of sore throat and difficulty in breathing. Onset of symptoms was yesterday. Symptoms are worse today. Dyspnea is similar to previous COPD. Occasional cough. Patient complains more so of sore throat. Patient is able to tolerate oral intake. No fevers at home. Workup in ED Including chest x-ray shows right middle lobe infiltrate; blood work showed mild elevation of BUN with normal creatinine; influenza was negative 10/30/2019 Patient is sitting up in the chair and appears to be in no acute distress. Patient states that she is able to cough things up today and feels that her difficulty in breathing is slightly improved. Patient did have strep testing and influenza testing which was negative. Patient continues to have a mild sore throat most likely due to coughing. Currently patient denies any chest pain, worsening shortness of breath, or palpitations. Patient is afebrile. Patient denies any nausea or vomiting and is tolerating diet. Pulmonary has been consul malik and currently pending at this time. Repeat chest x-ray today shows chronic changes and mild cardiomegaly without definitive acute infiltrate and right middle lobe increased markings not significantly changed from 2018 study favoring scarring and/or atelectasis. Patient is currently on IV antibiotic therapy in the form of ceftriaxone along with oral Zithromax and will continue at this time. 10/31/2019 Patient is sitting up in the chair sleeping but easily arousable. Patient states that she feels quite fatigued and overall not doing very well. Patient states that her shortness of breath has not improved and she continues to have this cough but is unable to expectorate any phlegm. Pulmonary is following. Patient is currently on IV antibiotics in form of ceftriaxone and oral Zithromax and will continue at this time. IV steroids will be added as patient is having some expiratory wheezing noted today. Review of systems: Cardiovascular: No reports of chest pain or palpitations Respiratory: Reports shortness of breath and cough GI: No reports of nausea, vomiting, or diarrhea : No reports of dysuria or retention Constitutional: Reports fatigue, no report of fever or chills 11/01/2019 Patient is sitting up in bed and states that she feels about the same as yesterday and she continues to be short of breath. Patient states that she feels the steroids are helping and she has been coughing some phlegm up. Sputum culture was obtained and is currently pending at this time. Patient will continue on IV steroids along with IV antibiotics in the form of Rocephin along with oral Zithromax at this time. Pulmonary is following. Repeat chest x-ray today shows some patchy bibasilar densities that are similar to previous exams and probably atelectasis otherwise overall stable. Patient was able to get up to the shower today and became quite winded with walking back. Will continue to monitor closely. 11/02/2019 Patient is sitting up in the chair and overall not feeling well. Patient states she continues to have a cough and is unable to bring anything up. Mucinex being ordered. Patient continues to be extremely short of breath with exertion and position changes. Patient is continued on bronchodilators and IV steroids and antibiotics being transitioned to oral Levaquin. Pulmonary is following closely. CT of the chest is being ordered and is currently pending. Will continue to monitor closely. 11/03/2019 Patient is sitting up eating breakfast stating that she feels slightly better than yesterday. Patient underwent a CT of the chest showing mild to moderate chronic emphysematous change with mild to moderate parenchymal fibrotic changes and no suspicious acute pulmonary process. Patient continues to have wheezing noted throughout and becomes short of breath with exertion. Patient states that she still has a cough but is unable to bring anything up. Currently patient denies any chest pain or palpitations. Afebrile. Denies any nausea or vomiting and has been tolerating diet. Pulmonary is following. Objective - Vital Signs Vital signs: Vital Signs Temp 98.1 F 11/03/19 05:49 Pulse 94 11/03/19 11:40 Resp 18 11/03/19 11:40 BP 154/75 11/03/19 05:49 Pulse Ox 96 11/03/19 07:47 Intake & Output 11/02/19 11/03/19 11/03/19 18:59 06:59 18:59 Intake Total 930 Balance 930 Weight 75 kg Intake: IV 210 Sodium Chloride 0.9% 1, 160 000 ml @ 10 mls/hr IV . Q24H DONAL Rx#:[id number] cefTRIAXone 1 gm In 50 Sodium Chloride 0.9% 50 ml @ 100 mls/hr IVPB Q24HR DONAL Rx#:[id number] Oral 720 Other: Voiding Method Toilet # Voids 1 - Exam GENERAL: The patient is awake, alert and oriented x3, sitting up in the chair at the bedside. Well developed, well nourished. Temp is an 98.1 F, pulse is 98, respirations are 44, blood pressure is 154/75, oxygen saturation is 97% on 3 L via nasal cannula. Patient states that she intermittently wears 3 L of oxygen at home as needed HEENT: Pupils are round and equally reacting to light. EOMI. No scleral icterus. No conjunctival pallor. Normocephalic, atraumatic. No pharyngeal erythema. No thyromegaly. CARDIOVASCULAR: S1 and S2 present. No murmurs, rubs, or gallops. PULMONARY: Diminished breath sounds at the bases with a few scattered rhonchi noted throughout and mild expiratory wheezing noted on exam ABDOMEN: Soft, nontender, nondistended, normoactive bowel sounds. No palpable organomegaly. MUSCULOSKELETAL: No joint swelling or deformity. EXTREMITIES: No cyanosis, clubbing, or pedal edema. NEUROLOGICAL: Gross neurological examination did not reveal any focal deficits. SKIN: No rashes. - Labs CBC & Chem 7: 11/03/19 07:50 11/03/19 07:50 Labs: Abnormal Lab Results - Last 24 Hours (Table) 11/03/19 11/03/19 Range/Units 07:50 07:50 RBC 3.36 L (3.80-5.40) m/uL Hgb 9.7 L (11.4-16.0) gm/dL Hct 31.4 L (34.0-46.0) % Lymphocytes # 0.5 L (1.0-4.8) k/uL BUN 26 H (7-17) mg/dL Glucose 132 H (74-99) mg/dL Microbiology - Last 24 Hours (Table) 10/29/19 10:31 Blood Culture - Preliminary Blood No Growth after 120 hours 10/30/19 09:00 Blood Culture - Preliminary Blood No Growth after 96 hours 10/31/19 07:41 Gram Stain - Final Sputum Sputum Culture - Final Assessment and Plan Assessment: Right middle lobe pneumonia Sepsis secondary to pneumonia Mild renal injury/dehydration COPD, not in acute exacerbation Hypertension Hyperlipidemia Seasonal ALLERGIES DVT prophylaxis: SCDs/Lovenox CODE STATUS full code Recommendations and discussion: Recommend to continue current medications, management, and symptomatic treatment. Pulmonary is following closely. Patient will continue on IV steroids and bronchodilators at this time. Patient will continue on antibiotics in the form of Levaquin. CT of the chest done yesterday showing no acute pulmonary process with chronic emphysematous changes noted. Discussed with the patient about increasing activity as tolerated. Will continue to monitor vital signs and labs closely. Further recommendations to follow. Possible discharge in 24-48 hours.
[2019-11-03] MEDS: SODIUM CHLORIDE 0.9% 1,000 ML IV SCH (16:18)
[2019-11-03] MEDS: TEMAZEPAM 30 MG CAP PO SCH (21:59)
[2019-11-03] MEDS: ATORVASTATIN 20 MG TAB PO SCH (21:59)
[2019-11-03] MEDS: MONTELUKAST 10 MG TAB PO SCH (21:59)
[2019-11-04] MEDS: methylPREDNISolone SOD SUCCI 40 MG/ML 1 ML VIAL IV SCH ×4 (00:06→23:08)
[2019-11-04] MEDS: guaiFENesin-DM 100-10MG/5ML 10 ML CUP PO SCH ×5 (00:08→23:08)
[2019-11-04] MEDS: IPRATROPIUM-ALBUTEROL 3 ML NEB INHALATION PRN (05:04)
[2019-11-04 06:55] LABS: Basophils % (A) 0 %; Eosinophils % (A) 0 %; HCT 29.9 % (34.0-46.0); HGB 9.4 gm/dL (11.4-16.0); Hypochromasia Slight; Lymphocytes # (A) 0.5 k/uL (1.0-4.8); Lymphocytes % (A) 9 %; MCH 29.1 pg (25.0-35.0); MCHC 31.3 g/dL (31.0-37.0); Mean Platelet Volume 7.7; Monocytes # (A) 0.2 k/uL (0-1.0); Monocytes % (A) 5 %; Neutrophils # (A) 4.1 k/uL (1.3-7.7); Neutrophils % (A) 84 %; Platelet Count 249 k/uL (150-450); RBC 3.21 m/uL (3.80-5.40); RDW 14.3 % (11.5-15.5); WBC 4.9 k/uL (3.8-10.6)
[2019-11-04 06:59] LABS: African American GFR (CKD) >90 (>60 ml/min/1.73 sqM); Anion Gap 5 mmol/L; Blood Urea Nitrogen 26 mg/dL (7-17); Calcium 9.1 mg/dL (8.4-10.2); Carbon Dioxide 30 mmol/L (22-30); Chloride 105 mmol/L (98-107); Glucose 177 mg/dL (74-99); Non-African American GFR(CKD) 83 (>60 ml/min/1.73 sqM); Potassium 4.3 mmol/L (3.5-5.1); Sodium 140 mmol/L (137-145)
[2019-11-04] MEDS: BUDESONIDE 0.5 MG/2 ML NEBU INHALATION SCH ×2 (08:29→19:43)
[2019-11-04] MEDS: FORMOTEROL FUMARATE 20 MCG/2 ML NEBU INHALATION SCH ×2 (08:29→19:43)
[2019-11-04] MEDS: IPRATROPIUM-ALBUTEROL 3 ML NEB INHALATION SCH ×4 (08:29→19:43)
[2019-11-04] MEDS: guaiFENesin 600 MG TABLET.ER PO SCH ×2 (08:58→23:08)
[2019-11-04] MEDS: ENOXAPARIN 40 MG/0.4 ML SYRINGE SQ SCH (08:58)
[2019-11-04] MEDS: FUROSEMIDE 40 MG TAB PO SCH (08:58)
[2019-11-04] MEDS: CYANOCOBALAMIN 500 MCG TAB PO SCH (08:58)
[2019-11-04] MEDS: POTASSIUM CHLORIDE ER 20 MEQ TAB.ER PO SCH (08:59)
[2019-11-04] MEDS: VENLAFAXINE HCL 37.5 MG TAB PO SCH (08:59)
[2019-11-04] MEDS: CHOLECALCIFEROL 1,000 UNIT TAB PO SCH (08:59)
[2019-11-04] MEDS: cloNIDine HCL 0.1 MG TAB PO SCH ×3 (08:59→23:07)
[2019-11-04] MEDS: hydrALAZINE HCL 50 MG TAB PO SCH ×2 (08:59→23:07)
[2019-11-04] MEDS: ASPIRIN 81 MG PO SCH (09:00)
[2019-11-04] MEDS: FLUTICASONE 50MCG/SPRAY NASAL 16GM EA NOSTRIL SCH (09:00)
[2019-11-04] MEDS: PANTOPRAZOLE 40 MG TABLET PO SCH ×2 (09:00→16:45)
[2019-11-04] MEDS: LISINOPRIL 20 MG TAB PO SCH ×2 (09:00→23:07)
--- NOTE | 2019-11-04 10:03 | P.PN ---
Subjective Progress Note Date: 11/04/19 On 11/04/2019, patient is congested and she is coughing and she is still wheezing although improved. As mentioned earlier she is gradually improving. No chest pain. The Chest Was Completed and Showed No Evidence of Pneumonia. The patient is resting comfortably in bed. She is undergoing her treatment on a regular basis. She is on Mucinex DM for cough and congestion. Objective - Vital Signs Vital signs: Vital Signs Temp 97.6 F 11/04/19 05:55 Pulse 80 11/04/19 08:50 Resp 18 11/04/19 05:55 BP 127/61 11/04/19 05:55 Pulse Ox 96 11/04/19 05:55 Intake & Output 11/03/19 11/04/19 11/04/19 18:59 06:59 18:59 Weight 75 kg Other: Voiding Method Toilet Toilet # Voids 2 1 - Exam - Constitutional General appearance: average body habitus, cooperative, no acute distress - EENT Eyes: EOMI, PERRLA ENT: NA/AT, pharyngeal erythema - Neck Neck: no lymphadenopathy, normal ROM Carotids: bilateral: upstroke normal Thyroid: bilateral: normal size - Respiratory Respiratory: Diminished breath sounds along with scattered expiratory wheezes throughout the lung his bilaterally and scattered rhonchi heard throughout the lung claros bilaterally. She continues to have a congested cough. - Cardiovascular Rhythm: regular Heart sounds: normal: S1, S2 ankle Peripheral Edema: bilateral: None foot Peripheral Edema: bilateral: None dorsalis pedis Peripheral Pulses: bilateral: Normal radial pulse Peripheral Pulses: bilateral: Normal - Gastrointestinal General gastrointestinal: no organomegaly, soft, no tenderness - Integumentary Integumentary: normal turgor - Neurologic Neurologic: CNII-XII intact - Musculoskeletal Musculoskeletal: gait normal, strength equal bilaterally - Psychiatric Psychiatric: A&O x's 3, appropriate affect, intact judgment & insight - Labs CBC & Chem 7: 11/04/19 05:43 11/04/19 05:43 Labs: Abnormal Lab Results - Last 24 Hours (Table) 11/04/19 11/04/19 Range/Units 05:43 05:43 RBC 3.21 L (3.80-5.40) m/uL Hgb 9.4 L (11.4-16.0) gm/dL Hct 29.9 L (34.0-46.0) % Lymphocytes # 0.5 L (1.0-4.8) k/uL BUN 26 H (7-17) mg/dL Glucose 177 H (74-99) mg/dL Microbiology - Last 24 Hours (Table) 10/29/19 10:31 Blood Culture - Preliminary Blood No Growth after 120 hours 10/30/19 09:00 Blood Culture - Preliminary Blood No Growth after 96 hours Assessment and Plan Plan: Assessment: 1. Acute dyspnea related to acute exacerbation of COPD, chest x-ray showed chronic changes involving right lower lobe. Consider viral versus bacterial tracheobronchitis/pneumonia. Currently on a combination of antibiotics and systemic steroids and despite some initial improvements. Continue same antibiotic coverage. Continue steroids/Robitussin. The CAT scan of the chest done yesterday shows some limited fibrotic changes in the lung bases and there was no evidence of any pneumonia. 2. 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 The patient is an acute exacerbation and she is showing slow but ongoing improvement. CAT scan of the chest was noted. Plan CAT scan was completed. No clear evidence of pneumonia. The patient is recovering slowly. The same treatment, bronchoscopy by Wednesday flow improvement. Add a flutter valve
[2019-11-04] MEDS ORDERED: LEVOFLOXACIN 750 MG TAB PO SCH (15:00)
[2019-11-04] MEDS: SODIUM CHLORIDE 0.9% 1,000 ML IV SCH (16:44)
[2019-11-04] MEDS: LORazepam 1 MG TAB PO PRN (16:44)
--- NOTE | 2019-11-04 17:51 | PN ---
PROGRESS NOTE DATE OF SERVICE: 11/04/2019 This 79-year-old woman who was admitted with COPD, acute exacerbation, and right middle lobe pneumonia is being closely monitored at this time. A chest CT was done by Dr. Daily which showed emphysematous changes. No fever. Significant cough is reported. PHYSICAL EXAMINATION: Alert and oriented x3. The pulse is 88, blood pressure 126/61, respiration 18, temperature 97.6, pulse ox 96% on 3 L. HEENT: Conjunctivae normal. NECK: No jugular venous distention. CARDIOVASCULAR SYSTEM: S1, S2 muffled. RESPIRATORY SYSTEM: Breath sounds diminished at the bases. Bilateral scattered rhonchi and crackles. Expiratory wheezing also present. ABDOMEN: Soft, non-tender. LEGS: No edema. No swelling. NERVOUS SYSTEM: No focal deficit. LABS: WBC 4.9, hemoglobin 9.4. ASSESSMENT: 1. Chronic obstructive pulmonary disease, acute exacerbation, with possible right middle lobe pneumonia with slow improvement with possibly Gram-negative with sepsis, present on admission. 2. Mild renal failure, acute renal failure, acute tubular necrosis, renal injury secondary to dehydration, prerenal factors, present on admission. 3. Hypertension. 4. Hyperlipidemia. 5. Seasonal allergies. 6. Anemia, normocytic; anemia of chronic disease. 7. Elevated random blood sugar secondary to steroids. 8. History of gastroesophageal reflux disease. 9. History of cholecystectomy. 10.History of chronic hypoxic respiratory failure, on 3 L home oxygen. 11.History of anxiety. 12.Remote history of nicotine dependence. 13.Obesity with body mass index of 32.6. 14.FULL CODE. RECOMMENDATIONS AND DISCUSSION: In this 79-year-old woman who presented with multiple complex medical issues, we will monitor the patient closely, continue the current medications, continue with symptomatic treatment. Otherwise, continue with the bronchodilators. Continue with steroids. Closely follow with Dr. Daily. The patient still has significant shortness of breath and cough also and has significant wheezing as well. Further recommendations to follow. MMODL / IJN: [id number] /
[2019-11-04] MEDS: ATORVASTATIN 20 MG TAB PO SCH (23:07)
[2019-11-04] MEDS: MONTELUKAST 10 MG TAB PO SCH (23:08)
[2019-11-04] MEDS: TEMAZEPAM 30 MG CAP PO SCH (23:08)
[2019-11-05] MEDS: guaiFENesin-DM 100-10MG/5ML 10 ML CUP PO SCH ×4 (05:59→23:25)
[2019-11-05] MEDS: FORMOTEROL FUMARATE 20 MCG/2 ML NEBU INHALATION SCH ×2 (07:26→20:49)
[2019-11-05] MEDS: IPRATROPIUM-ALBUTEROL 3 ML NEB INHALATION SCH ×4 (07:26→20:49)
[2019-11-05] MEDS: BUDESONIDE 0.5 MG/2 ML NEBU INHALATION SCH ×2 (07:26→20:49)
[2019-11-05] MEDS: CHOLECALCIFEROL 1,000 UNIT TAB PO SCH (08:54)
[2019-11-05] MEDS: hydrALAZINE HCL 50 MG TAB PO SCH ×2 (08:54→20:23)
[2019-11-05] MEDS: ASPIRIN 81 MG PO SCH (08:54)
[2019-11-05] MEDS: FUROSEMIDE 40 MG TAB PO SCH (08:54)
[2019-11-05] MEDS: LORazepam 1 MG TAB PO PRN ×2 (08:54→23:25)
[2019-11-05] MEDS: POTASSIUM CHLORIDE ER 20 MEQ TAB.ER PO SCH (08:54)
[2019-11-05] MEDS: PANTOPRAZOLE 40 MG TABLET PO SCH ×2 (08:54→17:47)
[2019-11-05] MEDS: cloNIDine HCL 0.1 MG TAB PO SCH ×3 (08:54→21:14)
[2019-11-05] MEDS: CYANOCOBALAMIN 500 MCG TAB PO SCH (08:55)
[2019-11-05] MEDS: methylPREDNISolone SOD SUCCI 40 MG/ML 1 ML VIAL IV SCH ×3 (08:55→23:25)
[2019-11-05] MEDS: LISINOPRIL 20 MG TAB PO SCH ×2 (08:55→20:23)
[2019-11-05] MEDS: FLUTICASONE 50MCG/SPRAY NASAL 16GM EA NOSTRIL SCH (08:55)
[2019-11-05] MEDS: guaiFENesin 600 MG TABLET.ER PO SCH ×2 (08:55→20:18)
[2019-11-05] MEDS: ENOXAPARIN 40 MG/0.4 ML SYRINGE SQ SCH (08:55)
[2019-11-05] MEDS: VENLAFAXINE HCL 37.5 MG TAB PO SCH (08:56)
--- NOTE | 2019-11-05 12:13 | P.PN ---
Subjective Progress Note Date: 11/05/19 The patient is seen today 11/05/2019 in follow-up in the regular medical floor. She is currently sitting up in a chair at the bedside. Awake and alert in no acute distress. She is breathing easier today compared to yesterday. She is now working with a flutter valve which is allowing her secretions to loosen and she is able to expectorate them. No worsening shortness of breath. Maintaining O2 saturations in the 90s on 3 L/m per nasal cannula. Objective - Vital Signs Vital signs: Vital Signs Temp 98.2 F 11/05/19 05:09 Pulse 86 11/05/19 11:57 Resp 16 11/05/19 08:00 BP 125/65 11/05/19 05:09 Pulse Ox 97 11/05/19 05:09 Intake & Output 11/04/19 11/05/19 11/05/19 18:59 06:59 18:59 Intake Total 800 Balance 800 Intake: Oral 800 Other: Voiding Method Toilet # Voids 3 1 - Exam GENERAL EXAM: Alert, very pleasant 79-year-old female patient, active, 3 L/m per nasal cannula, comfortable in no apparent distress. HEAD: Normocephalic. EYES: Normal reaction of pupils, equal size. NOSE: Clear with pink turbinates. THROAT: No erythema or exudates. NECK: No masses, no JVD. CHEST: No chest wall deformity. LUNGS: Equal air entry with bilateral wheeze, scattered rhonchi no dullness. CVS: S1 and S2 normal with no audible murmur, regular rhythm. ABDOMEN: No hepatosplenomegaly, normal bowel sounds, no guarding or rigidity. SPINE: No scoliosis or deformity SKIN: No rashes CENTRAL NERVOUS SYSTEM: No focal deficits, tone is normal in all 4 extremities. EXTREMITIES: There is no peripheral edema. No clubbing, no cyanosis. Peripheral pulses are intact. - Labs CBC & Chem 7: 11/04/19 05:43 11/04/19 05:43 Labs: Microbiology - Last 24 Hours (Table) 10/30/19 09:00 Blood Culture - Final Blood No Growth after 144 hours 10/29/19 10:31 Blood Culture - Final Blood No Growth after 144 hours Assessment and Plan Assessment: 1. Acute dyspnea related to acute exacerbation of COPD, chest x-ray showed chronic changes involving right lower lobe. Consider viral versus bacterial tracheobronchitis/pneumonia. Currently on a combination of antibiotics and systemic steroids and despite some initial improvements. Continue same antibiotic coverage. Continue steroids/Robitussin. The CAT scan of the chest shows some limited fibrotic changes in the lung bases and there was no evidence of any pneumonia. 2.Shortness of breath secondary to above 3 Chronic systolic heart failure, currently inactive in stable 4 COPD moderate to severe with an FEV1 of 60% of predicted maintained on Advair and outpatient basis. Plan The patient was seen and evaluated by Dr. Daily. She is improved today compared to yesterday. Doing well with the flutter valve. Feeling nearly back to her baseline. Continue the current treatment plan. Probable discharge in the a.m. I, the cosigning physician, performed a history & physical examination of the patient. Lungs sounds with bilateral end of wheeze, few scattered rhonchi maintaining good O2 saturations in the 90s on 3 L/m per nasal cannula. I discussed the assessment and plan of care with my nurse practitioner, Martha Goodman. I attest to the above note as dictated by her.
[2019-11-05] MEDS: SODIUM CHLORIDE 0.9% 1,000 ML IV SCH (16:59)
--- NOTE | 2019-11-05 19:34 | PN ---
PROGRESS NOTE DATE OF SERVICE: 11/05/2019 This 79-year-old woman was admitted with COPD acute exacerbation, also had pneumonia. The patient has very slow improvement. Dr. Daily is following the patient. A CT scan also being done. No chest pain. No palpitations. No fever. PHYSICAL EXAM: On exam, alert and oriented times three. Pulse 88, blood pressure 103/53, respiration 18, temperature 98.1, pulse ox 96% on 3 L. HEENT is conjunctivae normal. NECK: No JVD. CARDIOVASCULAR: S1, S2 muffled. RESPIRATIONS: Breath sounds diminished in the bases. Bilateral scattered rhonchi and crackles. Expiratory wheezing also present. Abdomen soft. Nontender. NERVOUS SYSTEM: No focal deficits. LABS: WBC 4.2, hemoglobin 9.4. ASSESSMENT: 1. Chronic obstructive pulmonary disease acute exacerbation with possible right middle lobe pneumonia with slow improvement with possibly gram-negative with sepsis, present on admission. 2. Mild renal failure, acute renal failure, acute tubular necrosis. Renal injury secondary to dehydration, prerenal factors, present on admission. 3. Hypertension. 4. Hyperlipidemia. 5. History of seasonal allergies. 6. Anemia, normocytic anemia of chronic disease. 7. Elevated random blood sugar secondary to steroids. 8. History of gastroesophageal reflux disease. 9. History of cholecystectomy. 10.History of chronic hypoxic respiratory failure on 3 L nasal cannula. 11.History of anxiety. 12.Remote history of nicotine dependence. 13.Obesity with body mass index of 32.6. 14.FULL CODE. RECOMMENDATIONS AND DISCUSSION: Recommend to continue current medications, medical management and symptomatic treatment. Otherwise, at this time, continue steroids, antibiotics. Closely follow with Dr. Daily and possible discharge home if the patient is stabilized in the next 24 hours. Further recommendations to follow. MMODL / IJN: [id number] /
[2019-11-05] MEDS: MONTELUKAST 10 MG TAB PO SCH (20:17)
[2019-11-05] MEDS: ATORVASTATIN 20 MG TAB PO SCH (20:17)
[2019-11-05] MEDS: TEMAZEPAM 30 MG CAP PO SCH (21:13)
[2019-11-06] MEDS: guaiFENesin-DM 100-10MG/5ML 10 ML CUP PO SCH ×2 (05:28→11:30)
[2019-11-06 05:41] VITALS: BP 126/58; TEMP 98.1
[2019-11-06] MEDS: BUDESONIDE 0.5 MG/2 ML NEBU INHALATION SCH (08:03)
[2019-11-06] MEDS: IPRATROPIUM-ALBUTEROL 3 ML NEB INHALATION SCH ×2 (08:03→11:34)
[2019-11-06] MEDS: FORMOTEROL FUMARATE 20 MCG/2 ML NEBU INHALATION SCH (08:03)
[2019-11-06] MEDS: CHOLECALCIFEROL 1,000 UNIT TAB PO SCH (08:42)
[2019-11-06] MEDS: ASPIRIN 81 MG PO SCH (08:42)
[2019-11-06] MEDS: cloNIDine HCL 0.1 MG TAB PO SCH (08:42)
[2019-11-06] MEDS: POTASSIUM CHLORIDE ER 20 MEQ TAB.ER PO SCH (08:42)
[2019-11-06] MEDS: methylPREDNISolone SOD SUCCI 40 MG/ML 1 ML VIAL IV SCH (08:42)
[2019-11-06] MEDS: VENLAFAXINE HCL 37.5 MG TAB PO SCH (08:43)
[2019-11-06] MEDS: LISINOPRIL 20 MG TAB PO SCH (08:43)
[2019-11-06] MEDS: guaiFENesin 600 MG TABLET.ER PO SCH (08:43)
[2019-11-06] MEDS: PANTOPRAZOLE 40 MG TABLET PO SCH (08:43)
[2019-11-06] MEDS: hydrALAZINE HCL 50 MG TAB PO SCH (08:43)
[2019-11-06] MEDS: CYANOCOBALAMIN 500 MCG TAB PO SCH (08:43)
[2019-11-06] MEDS: ENOXAPARIN 40 MG/0.4 ML SYRINGE SQ SCH (08:46)
[2019-11-06] MEDS: FUROSEMIDE 40 MG TAB PO SCH (08:46)
[2019-11-06] MEDS: FLUTICASONE 50MCG/SPRAY NASAL 16GM EA NOSTRIL SCH (08:47)
[2019-11-06 11:36] VITALS: RESP 18
[2019-11-06 11:45] VITALS: PULSE 88
--- NOTE | 2019-11-06 12:11 | P.PN ---
Subjective Progress Note Date: 11/06/19 The patient is seen today 11/06/2019 in follow-up in the regular medical floor. She is doing much better today compared to yesterday. She is currently sitting up in a chair at the bedside. Awake and alert in no acute distress. She continues to work with a flutter valve which is allowing her secretions to loosen and she is able to expectorate them. No worsening shortness of breath. Maintaining O2 saturations in the 90s on 3 L/m per nasal cannula. Continued on bronchodilators, Singulair, IV Solu-Medrol. Objective - Vital Signs Vital signs: Vital Signs Temp 98.1 F 11/06/19 05:00 Pulse 88 11/06/19 11:44 Resp 18 11/06/19 11:34 BP 126/58 11/06/19 05:00 Pulse Ox 96 11/06/19 08:03 Intake & Output 11/05/19 11/06/19 11/06/19 18:59 06:59 18:59 Intake Total 750 700 Balance 750 700 Intake: Oral 750 700 Other: Voiding Method Toilet # Voids 2 2 - Exam GENERAL EXAM: Alert, very pleasant 79-year-old female patient, on 3 L/m per nasal cannula, comfortable in no apparent distress. HEAD: Normocephalic. EYES: Normal reaction of pupils, equal size. NOSE: Clear with pink turbinates. THROAT: No erythema or exudates. NECK: No masses, no JVD. CHEST: No chest wall deformity. LUNGS: Equal air entry with bilateral wheeze, scattered rhonchi no dullness. CVS: S1 and S2 normal with no audible murmur, regular rhythm. ABDOMEN: No hepatosplenomegaly, normal bowel sounds, no guarding or rigidity. SPINE: No scoliosis or deformity SKIN: No rashes CENTRAL NERVOUS SYSTEM: No focal deficits, tone is normal in all 4 extremities. EXTREMITIES: There is no peripheral edema. No clubbing, no cyanosis. Peripheral pulses are intact. - Labs CBC & Chem 7: 11/04/19 05:43 11/04/19 05:43 Labs: Microbiology - Last 24 Hours (Table) 10/30/19 09:00 Blood Culture - Final Blood No Growth after 144 hours Assessment and Plan Assessment: 1 Acute dyspnea related to acute exacerbation of COPD, chest x-ray showed chronic changes involving right lower lobe. The CAT scan of the chest shows some limited fibrotic changes in the lung bases and there was no evidence of any pneumonia. 2 Shortness of breath secondary to above 3 Chronic systolic heart failure, currently inactive in stable 4 COPD moderate to severe with an FEV1 of 60% of predicted maintained on Advair and outpatient basis. Plan The patient was seen and evaluated by Dr. Mi. She is improved today compared to yesterday. Doing well with the flutter valve. She is cleared for discharge from the pulmonary standpoint. Complete a prednisone taper starting at 40 mg daily for 4 days. Continue her home pulmonary medications. Home nebulizer. Home oxygen. She'll follow-up in our office in 1-2 weeks' time and she is encouraged to call sooner with any recurrence of symptoms or other questions or concerns. I, the cosigning physician, performed a history & physical examination of the patient. Lungs sounds with bilateral end expiratory wheeze diminished. Maintaining good O2 saturations in the 90s on 3 L/m per nasal cannula. I discus sed the assessment and plan of care with my nurse practitioner, Martha Goodman. I attest to the above note as dictated by her.
--- NOTE | 2019-11-07 08:33 | P.DS ---
Providers Date of admission: 10/29/19 11:07 Expected date of discharge: 11/06/19 Attending physician: Jolly Tavera Consults: 10/29/19 11:14 Consult Physician Urgent Consulting Provider: Neil Daily Consult Reason/Comments: pneumonia Do you want consulting provider notified?: Yes Primary care physician: Preethi Sow [facility] Course: Final diagnosis Right middle lobe pneumonia Sepsis secondary to pneumonia Mild renal injury/dehydration COPD, not in acute exacerbation Hypertension Hyperlipidemia Seasonal ALLERGIES DVT prophylaxis CODE STATUS full code Discharge disposition Patient is being discharged in stable condition with guarded prognosis to home and follow-up with primary care provider Dr. Sow upon discharge. Patient will also be following up with Dr. Daily in the outpatient setting in 1-2 weeks. Patient will continue on short course of oral antibiotics in the form of Levaquin along with a prednisone taper upon discharge. Total time taken is 35 minutes. History of present illness This is a 79-year-old female was recently admitted with sore throat and difficulty in breathing and COPD exacerbation and was being closely monitored. influenza testing was negative. Pulmonary is following closely. Patient was continued on bronchodilators along with IV steroids and completed course of oral antibiotics in the form of Zithromax along with IV Rocephin and continue did not show real improvement. Patient was switched to Levaquin and was using a flutter device after breathing treatments which patient states helped tremendously. During hospitalization patient continued to be short of breath with exertion and requiring oxygen via nasal cannula. Patient states that she intermittently uses 3 L of oxygen at home. Patient underwent a CT of the chest showing mild to moderate chronic emphysematous changes with mild to moderate parenchymal fibrotic changes with no suspicious acute pulmonary process and a bronchoscope was discussed but deferred at this time. Currently patient's condition has slowly improved and would like to go home today. Patient will continue on a prednisone taper along with the course of oral Levaquin in the outpatient setting. She will follow up with Dr. Sow upon discharge and also Dr. Daily in 1-2 weeks in the office. Currently patient denies any chest pain, worsening shortness of breath, or palpitations. Patient is afebrile. Patient denies any nausea or vomiting and is tolerating diet. Guarded prognosis. On exam vital signs are stable. Temp is 98.1F, pulse is 91, respirations are 20, blood pressure is 126/58, oxygen saturation is 98% on 2 L via nasal cannula. As mentioned previously patient normally wears 3 L of oxygen at home intermittently. Cardio S1, S2 are muffled. Respiratory system shows diminished breath sounds at the bases with a few scattered wheezes noted throughout on expiration. Abdomen is soft and nontender. Nervous system shows no focal deficits. Please refer to medication reconciliation sheet for a list of medications. Patient Condition at Discharge: Good Plan - Discharge Summary Discharge Rx Participant: No New Discharge Prescriptions: New Levofloxacin [Levaquin] 750 mg PO Q48H 5 Days #5 tab guaiFENesin [Mucinex] 600 mg PO Q12HR #12 tablet.er predniSONE 10 mg PO DIRECTED #30 tab guaiFENesin-DM 100-10MG/5ML [Robitussin DM] 10 ml PO Q6HR #120 ml Continue Lisinopril [Zestril] 20 mg PO BID Ipratropium-Albuterol Nebulize [Duoneb 0.5 mg-3 mg/3 ml Soln] 3 ml INHALATION RT-TID hydrALAZINE HCL [Apresoline] 100 mg PO QID cloNIDine HCL [Catapres] 0.1 mg PO TID Loratadine [Claritin] 10 mg PO DAILY PRN PRN Reason: Allergy Symptoms Furosemide [Lasix] 40 mg PO DAILY Fluticasone/Salmeterol [Advair 500-50 Diskus] 1 puff INHALATION RT-BID Atorvastatin [Lipitor] 60 mg PO HS Aspirin EC [Ecotrin Low Dose] 81 mg PO DAILY Cholecalciferol [Vitamin D3 (25 Mcg = 1000 Iu)] 4,000 unit PO DAILY Venlafaxine HCl [Effexor] 37.5 mg PO DAILY Temazepam [Restoril] 30 mg PO HS Cyanocobalamin (Vitamin B-12) [Vitamin B-12] 1,000 mcg PO DAILY Albuterol Sulfate [Proair Hfa] 1 - 2 puff INHALATION RT-Q4H PRN PRN Reason: Shortness Of Breath Potassium Chloride ER [K-Dur 20] 20 meq PO DAILY Omeprazole 20 mg PO BID Montelukast [Singulair] 10 mg PO HS Mometasone Furoate [Nasonex Nasal Mercer] 2 spray EA NOSTRIL DAILY LORazepam [Ativan] 1 mg PO Q6H PRN PRN Reason: Anxiety Discharge Medication List Albuterol Sulfate [Proair Hfa] 1 - 2 puff INHALATION RT-Q4H PRN 10/29/19 [History] Aspirin EC [Ecotrin Low Dose] 81 mg PO DAILY 10/29/19 [History] Atorvastatin [Lipitor] 60 mg PO HS 10/29/19 [History] Cholecalciferol [Vitamin D3 (25 Mcg = 1000 Iu)] 4,000 unit PO DAILY 10/29/19 [History] Cyanocobalamin (Vitamin B-12) [Vitamin B-12] 1,000 mcg PO DAILY 10/29/19 [History] Fluticasone/Salmeterol [Advair 500-50 Diskus] 1 puff INHALATION RT-BID 10/29/19 [History] Furosemide [Lasix] 40 mg PO DAILY 10/29/19 [History] Ipratropium-Albuterol Nebulize [Duoneb 0.5 mg-3 mg/3 ml Soln] 3 ml INHALATION RT-TID 10/29/19 [History] LORazepam [Ativan] 1 mg PO Q6H PRN 10/29/19 [History] Lisinopril [Zestril] 20 mg PO BID 10/29/19 [History] Loratadine [Claritin] 10 mg PO DAILY PRN 10/29/19 [History] Mometasone Furoate [Nasonex Nasal Mercer] 2 spray EA NOSTRIL DAILY 10/29/19 [History] Montelukast [Singulair] 10 mg PO HS 10/29/19 [History] Omeprazole 20 mg PO BID 10/29/19 [History] Potassium Chloride ER [K-Dur 20] 20 meq PO DAILY 10/29/19 [History] Temazepam [Restoril] 30 mg PO HS 10/29/19 [History] Venlafaxine HCl [Effexor] 37.5 mg PO DAILY 10/29/19 [History] cloNIDine HCL [Catapres] 0.1 mg PO TID 10/29/19 [History] hydrALAZINE HCL [Apresoline] 100 mg PO QID 10/29/19 [History] Levofloxacin [Levaquin] 750 mg PO Q48H 5 Days #5 tab 11/06/19 [Rx] guaiFENesin [Mucinex] 600 mg PO Q12HR #12 tablet.er 11/06/19 [Rx] guaiFENesin-DM 100-10MG/5ML [Robitussin DM] 10 ml PO Q6HR #120 ml 11/06/19 [Rx] predniSONE 10 mg PO DIRECTED #30 tab 11/06/19 [Rx] Follow up Appointment(s)/Referral(s): Preethi Sow MD [Primary Care Provider] - 1-2 days (office to call you with appt. time and date.) Neil Daily MD [STAFF PHYSICIAN] - 11/15/19 2:00 pm Patient Instructions/Handouts: Pneumonia (DC) Activity/Diet/Wound Care/Special Instructions: Activity limited until follow up Cardiac diet continue with antibiotics until finished continue with flutter device as discussed and instructed Continue with prednisone taper Discharge Disposition: HOME SELF-CARE
== END 2019-11-06 15:12 | disposition home or self-care (01) | DRG 871 ==
LOC: EC 09:56 → 6NMEDSUR 11:07
PROVIDERS: ADMIT Hospitalist; ATTEND Hospitalist
DX: A41.9 Sepsis, unspecified organism (principal); J18.9 Pneumonia, unspecified organism; N17.0 Acute kidney failure with tubular necrosis; I50.22 Chronic systolic (congestive) heart failure; J44.0 Chronic obstructive pulmonary disease with (acute) lower respiratory infection; J44.1 Chronic obstructive pulmonary disease with (acute) exacerbation; J96.11 Chronic respiratory failure with hypoxia; I11.0 Hypertensive heart disease with heart failure; D63.8 Anemia in other chronic diseases classified elsewhere; E66.9 Obesity, unspecified; E78.5 Hyperlipidemia, unspecified; E86.0 Dehydration; F41.9 Anxiety disorder, unspecified; J30.2 Other seasonal allergic rhinitis; M19.90 Unspecified osteoarthritis, unspecified site; T38.0X5A Adverse effect of glucocorticoids and synthetic analogues, initial encounter; R73.9 Hyperglycemia, unspecified; Z68.32 Body mass index [BMI] 32.0-32.9, adult; Z79.82 Long term (current) use of aspirin; Z79.899 Other long term (current) drug therapy; Z87.891 Personal history of nicotine dependence; Z90.49 Acquired absence of other specified parts of digestive tract; Z90.710 Acquired absence of both cervix and uterus; Z99.81 Dependence on supplemental oxygen; Z98.42 Cataract extraction status, left eye; Z98.41 Cataract extraction status, right eye; Z87.01 Personal history of pneumonia (recurrent)
CPT/HCPCS: 36415; 70360; 71046; 71250; 80048; 80053; 83605; 84484; 85025; 86738; 87040; 87070; 87081; 87205; 87430; 87449; 87502; 94640; 94667; 94760; 99291

== ENCOUNTER 2022-12-30 07:00 | Day surgery (SDC) | payer MEDICARE, BC ==
[2022-12-29 12:59] VITALS: BMI 31.0
[~2022-12-30 07:00] MED LIST: ALPRAZolam 0.25 MG TAB PO PRN; ALPRAZolam 0.5 MG TAB PO PRN; ASPIRIN 325 MG TAB PO ONE; NITROGLYCERIN SL TABS 0.4 MG TAB SUBLINGUAL PRN; SODIUM CHLORIDE 0.9% 1,000 ML in EMPTY BAG 1 BAG IV SCH
[2022-12-30 07:22] VITALS: RESP 18; TEMP 97.6
[2022-12-30 07:37] LABS: Basophils % (A) 0 %; Eosinophils # (A) 0.2 k/uL (0-0.7); Eosinophils % (A) 2 %; HCT 35.8 % (34.0-46.0); HGB 11.6 gm/dL (11.4-16.0); Lymphocytes # (A) 1.1 k/uL (1.0-4.8); Lymphocytes % (A) 10 %; MCH 28.6 pg (25.0-35.0); MCHC 32.4 g/dL (31.0-37.0); Monocytes # (A) 0.7 k/uL (0-1.0); Monocytes % (A) 7 %; Neutrophils # (A) 8.2 k/uL (1.3-7.7); Neutrophils % (A) 78 %; Platelet Count 352 k/uL (150-450); RBC 4.07 m/uL (3.80-5.40); RDW 15.4 % (11.5-15.5); WBC 10.4 k/uL (3.8-10.6)
[2022-12-30 07:55] LABS: Calcium 9.4 mg/dL (8.4-10.2); Potassium 4.4 mmol/L (3.5-5.1)
[2022-12-30] MEDS ORDERED: VERAPAMIL 2.5 MG/ML 2 ML AMP ONE (09:03)
[2022-12-30] MEDS ORDERED: fentaNYL (PF) 50 MCG/ML 2 ML AMP ONE (09:20)
[2022-12-30] MEDS ORDERED: HEPARIN SODIUM 1,000 UN/ML (10ML VL) ONE (09:20)
[2022-12-30] MEDS ORDERED: fentaNYL (PF) 50 MCG/ML 2 ML AMP IV ONE (09:26)
[2022-12-30] MEDS ORDERED: LIDOCAINE 1% INJ 10MG/ML (5 ML VIAL-PF) SQ ONE (09:26)
[2022-12-30] MEDS ORDERED: MIDAZOLAM 2 MG/2 ML VIAL IV ONE (09:26)
[2022-12-30] MEDS ORDERED: VERAPAMIL SYRINGE (5 MG/10 ML) INTRAARTER ONE (09:30)
[2022-12-30] MEDS ORDERED: HEPARIN SODIUM 1,000 UN/ML (10ML VL) IV ONE (09:31)
[2022-12-30] MEDS ORDERED: IOPAMIDOL-370 125ML BTL INJ ONE (09:40)
--- NOTE | 2022-12-30 10:02 | P.CARDCATH ---
Description of Procedure: PROCEDURES PERFORMED: Left heart catheterization, bilateral coronary angiography INDICATION: Cardiomyopathy CONSENT:I have discussed the risks, benefits and alternative therapies for the above-mentioned procedure and for both sedation/analgesia as well as necessary blood product administration, if indicated, as they pertain to this patient. The patient has indicated understanding and acceptance of the risks and procedures discussed. PROCEDURE: After the risks, benefits and alternatives of the above mentioned procedure explained in detail with the patient, informed consent was obtained. Patient was taken to the catheterization lab and prepped and draped in usual fashion. 1% lidocaine was used to anesthetize the right radial artery. A 6- Mozambican sheath was placed in the right radial artery using modified Seldinger technique. Left coronary angiography was performed with a 5-Mozambican JL 3.5 catheter. Subselective right coronary angiography was performed with a 6-Mozambican AR2 catheter however noted to be occluded at the ostium with collaterals from the left going all the way up to the RCA origin. A 5-Mozambican FR5 catheter was inserted into the left ventricle and pressure measurements were obtained. The right radial sheath was removed and a TR band was placed with hemostasis achieved. The patient tolerated the procedure well. Patient was transported back to the post catheterization holding area in stable condition. Conscious Sedation: Patient was monitored under the direct supervision of vision of myself for conscious sedation using Versed and fentanyl for a total duration of 15 minutes HEMODYNAMICS: Aorta: 142/76 LV: 151/7, LVDP 13, 10 mmHg peak to peak gradient across the valve SELECTIVE CORONARY ARTERIOGRAPHY: LEFT MAIN: The left main is a large caliber vessel which bifurcates into the LAD and circumflex. There is no significant stenosis. LEFT ANTERIOR DESCENDING CORONARY ARTERY: LAD is a large caliber vessel which wraps around to the apex. There are mild luminal irregularities with extensive [id number] collaterals LEFT CIRCUMFLEX CORONARY ARTERY: Left circumflex is a moderate caliber vessel with mild luminal irregularities RIGHT CORONARY ARTERY: The right coronary artery is a large caliber vessel which gives off a PDA and PLV branch and is the dominant vessel. There is 100% ostial RCA stenosis. FINAL IMPRESSION: 1. Relatively normal coronary arteries with mild luminal irregularities of the LAD and circumflex and 100% ostial RCA stenosis with extensive [id number] collaterals 2. Normal left sided filling pressures 3. Mild aortic stenosis PLAN: 1. Aggressive risk factor modification per most recent ACC/AHA guidelines. 2. Treat medically given extensive collaterals and lesion at the ostium of the RCA. Increase antianginal and heart failure regimen as able.
[2022-12-30 12:34] VITALS: PULSE 74
[2022-12-30 12:51] VITALS: BP 130/79
== END 2022-12-30 14:05 | disposition home or self-care (01) ==
LOC: CATHCVL 07:00
PROVIDERS: ATTEND Internal Medicine
DX: I35.0 Nonrheumatic aortic (valve) stenosis (principal); I50.22 Chronic systolic (congestive) heart failure; I42.9 Cardiomyopathy, unspecified; I10 Essential (primary) hypertension; J44.9 Chronic obstructive pulmonary disease, unspecified; E78.5 Hyperlipidemia, unspecified; F17.210 Nicotine dependence, cigarettes, uncomplicated; Z79.899 Other long term (current) drug therapy
CPT/HCPCS: 93458; 80048; 85025; 99152; J2250; J2001; J3010; J1644; Q9967

== ENCOUNTER 2024-06-22 13:17 | Day surgery (SDC) | payer MEDICARE, BC ==
[2024-06-21 09:57] VITALS: BMI 29.2
[~2024-06-22 13:17] MED LIST changes: -ALPRAZolam 0.25 MG TAB PO PRN; -ALPRAZolam 0.5 MG TAB PO PRN; -ASPIRIN 325 MG TAB PO ONE; +DEXAMETHASONE SOD PHOSPHATE 4 MG/ML 1 ML VIAL IV ONE; +HYDROmorphone 0.5 MG/0.5 ML SYRINGE IVP PRN; +LACTATED RINGERS 1,000 ML IV SCH; +LIDOCAINE 1% (10MG/ML) FOR IV START INTRADERMA PRN; +MIDAZOLAM 2 MG/2 ML VIAL IV PRN; -NITROGLYCERIN SL TABS 0.4 MG TAB SUBLINGUAL PRN; +ONDANSETRON 4 MG/2 ML VIAL IVP ONE; -SODIUM CHLORIDE 0.9% 1,000 ML in EMPTY BAG 1 BAG IV SCH; +fentaNYL (PF) 50 MCG/ML 2 ML AMP IVP PRN
[2024-06-22 13:39] VITALS: TEMP 97
[2024-06-22] MEDS: IV FLUID CONTINUATION 1,000 ML IV ONE (13:42)
[2024-06-22] MEDS: LACTATED RINGERS 1,000 ML IV SCH (13:44)
[2024-06-22 14:11] LABS: Glucose,Whole Blood 138 mg/dL (70-110)
[2024-06-22] MEDS ORDERED: MIDAZOLAM 2 MG/2 ML VIAL ONE (14:12)
[2024-06-22] MEDS ORDERED: fentaNYL (PF) 50 MCG/ML 2 ML AMP ONE (14:12)
[2024-06-22] MEDS ORDERED: LIDOCAINE 1% INJ 10MG/ML (20 ML MDV) ONE (14:12)
[2024-06-22] MEDS ORDERED: PROPOFOL 10 MG/ML 20 ML VIAL IV ONE (14:12)
--- NOTE | 2024-06-22 14:34 | P.PCN ---
Date of Procedure: 06/22/24 Preoperative Diagnosis: COPD exacerbation and persistent dyspnea Postoperative Diagnosis: Diffuse tracheobronchitis, mucous plugs Procedure(s) Performed: Flexible bronchoscopy, removal of mucous plugs, bronchioloalveolar lavage of the right lower lobe Anesthesia: MAC Surgeon: Neil Daily Estimated Blood Loss (ml): 0 Pathology: other Condition: stable Disposition: same day Operative Findings: This procedure was done in the endoscopy suite. Consent was obtained. Timeout was done. Anesthetic agent was administered by anesthesia at the bedside. After achieving adequate sedation, the flexible bronchoscope was introduced to the right nostril it was advanced upper airway. Examination of posterior pharynx and larynx was done. The upper airway structures including the pharyngeal goff, larynx, epiglottis, vallecula, arytenoids and the vocal cords were all within normal limits without any significant abnormalities. A total of 2 cc of 1% lidocaine was applied to the vocal cords and following to the bronchoscope was advanced to the operative airway/trachea. Examination of tracheobronchial tree was done. There was a mild component of tracheobronchomalacia. There was copious amount of thick respiratory secretions scattered throughout the airways including the trachea the bilateral mainstem bronchi and various segments of the lower lobes bilaterally. Therapeutic airway suctioning was done and the secretions were suctioned out with any major difficulties. The underlying bronchial mucosa was extensively inflamed and erythematous and there was some areas of superficial mucosal erythema and swelling. The visualized airways included trachea, bilateral mainstem bronchi, right upper lobe bronchus, bronchus centimeters, right middle lobe and right lower lobe bronchus. Examination of the left side including the left upper lobe bronchus and left lower bronchus and the various segments on the right and the left. After completing the airway examination, the bronchoscope was moved to the right lower lobe endobronchial lavage was done. A total of 60 cc of fluid was infused in the form of normal saline and 20 cc was aspirated. The aspirate was bloody and this is probably related to the significant mucosal inflammatory changes that occurred during the bronchoscope which caused some superficial mucosal bleeding. No foreign bodies. No endobronchial tumors. The procedure was completed without any complications. The bronchoscope was removed and the patient will be transferred to recovery in stable condition. The bronchial lavage from the right lower lobe will be sent for microbial cultures and analysis. Postop diagnosis consistent with diffuse tracheo bronchitis along with a component of mild tracheobronchomalacia.
[2024-06-22 14:56] VITALS: BP 113/70; PULSE 85; RESP 18
[2024-06-22 19:07] LABS: Appearance,BF Grossly Bloody (Clear)
[2024-06-26 11:05] LABS: Nucleated Cells, Body Fluid 25000 /UL
== END 2024-06-22 15:21 | disposition home or self-care (01) ==
LOC: ORWHC2ENDO 13:17
PROVIDERS: ATTEND Internal Medicine Critical Care Medicine
DX: J44.1 Chronic obstructive pulmonary disease with (acute) exacerbation (principal); J18.9 Pneumonia, unspecified organism; I10 Essential (primary) hypertension; E78.5 Hyperlipidemia, unspecified; J44.9 Chronic obstructive pulmonary disease, unspecified; F41.9 Anxiety disorder, unspecified; K21.9 Gastro-esophageal reflux disease without esophagitis; Z87.891 Personal history of nicotine dependence; Z79.899 Other long term (current) drug therapy; Z90.710 Acquired absence of both cervix and uterus; Z91.048 Other nonmedicinal substance allergy status
CPT/HCPCS: 87798 ×3; 87496; 87498; 87529; 88108; 88305; 89050; 87502; 87634; 87070; 87205; 87116; 87102; 87077; 87186; 87206; 87635; 31624; J2250; J2001; J3010; J2704

== ENCOUNTER 2024-12-29 15:46 | Inpatient (IN) | payer MEDICARE, BC ==
--- NOTE | 2024-12-29 15:50 | ED ---
Recheck HPI - General Stated Complaint: NAVDEEP Time Seen by Provider: 12/29/24 15:49 Source: RN notes reviewed, old records reviewed Mode of arrival: ambulatory Limitations: no limitations - History of Present Illness Initial Comments: This is an 83-year-old female to the ER for evaluation patient for severe dyspnea shortness of breath patient was excepted in transfer for extra stress on BiPAP COPD and bronchitis on BiPAP -: days(s) Returns Today for: Called Because of Abnormal Lab/Test (Respiratory failure) Associated Symptoms: chest pain, shortness of breath, malaise Treatments Prior to Arrival: other (Patient was on BiPAP on arrival though improved) - Related Data Home Medications Medication Instructions Recorded Confirmed Aspirin EC [Ecotrin Low Dose] 81 mg PO DAILY 10/29/19 12/29/24 Atorvastatin [Lipitor] 20 mg PO QAM 10/29/19 12/29/24 Furosemide [Lasix] 40 mg PO DAILY 10/29/19 12/29/24 LORazepam [Ativan] 1 mg PO Q6H PRN 10/29/19 12/29/24 Montelukast [Singulair] 10 mg PO HS 10/29/19 12/29/24 Omeprazole 20 mg PO BID 10/29/19 12/29/24 Temazepam [Restoril] 30 mg PO HS 10/29/19 12/29/24 cloNIDine HCL [Catapres] 0.1 mg PO TID 10/29/19 12/29/24 hydrALAZINE HCL [Apresoline] 100 mg PO BID 10/29/19 12/29/24 Atorvastatin [Lipitor] 40 mg PO HS 12/29/22 12/29/24 Fluticasone/Umeclidin/Vilanter 1 puff INHALATION RT-DAILY 12/29/22 12/29/24 [Trelegy Ellipta 100-62.5-25] Venlafaxine HCl ER [Effexor Xr] 37.5 mg PO DAILY 12/29/22 12/29/24 Cholecalciferol (Vitamin D3) 50 mcg PO DAILY 12/29/24 12/29/24 [Vitamin D3 (50 Mcg = 2000 Iu)] Loratadine 10 mg PO DAILY 12/29/24 12/29/24 Spironolactone [Aldactone] 25 mg PO DAILY 12/29/24 12/29/24 lisinopriL [Zestril] 20 mg PO BID 12/29/24 12/29/24 Previous Rx's Medication Instructions Recorded Metoprolol Succinate (ER) [Toprol 25 mg PO DAILY #90 tab 12/30/22 Xl] Allergies Allergy/AdvReac Type Severity Reaction Status Date / Time nickel Allergy Rash/Hives Verified 12/29/24 18:53 Review of Systems ROS Statement: Those systems with pertinent positive or pertinent negative responses have been documented in the HPI. ROS Other: All systems not noted in ROS Statement are negative. Past Medical History Past Medical History: COPD, GERD/Reflux, Hearing Disorder / Deafness, Hyperlipidemia, Hypertension, Pneumonia, Respiratory Disorder Additional Past Medical History / Comment(s): chest tightness, 3L home O2 PRN,steroids Nov 2022,hospitalized in Nov 2022 for COPD, hx lung infection after gallbladder [place] [address] [facility] History of Any Multi-Drug Resistant Organisms: None Reported Past Surgical History: Cholecystectomy, Hysterectomy, Joint Replacement Additional Past Surgical History / Comment(s): bilateral cataracts ,RT TKA, RT CTR, Past Anesthesia/Blood Transfusion Reactions: No Reported Reaction Additional Past Anesthesia/Blood Transfusion Reaction / Comment(s): hard to wake up w/ anesthesia Smoking Status: Former smoker - Past Family History Mother Family Medical History: No Reported History Sister(s) Family Medical History: Cancer Additional Family Medical History / Comment(s): at age 52 General Exam Limitations: altered mental status General appearance: alert, in no apparent distress, anxious, in distress Head exam: Present: atraumatic, normocephalic, normal inspection Eye exam: Present: normal appearance, PERRL, EOMI. Absent: scleral icterus, conjunctival injection, periorbital swelling ENT exam: Present: normal exam, mucous membranes moist Neck exam: Present: normal inspection. Absent: tenderness, meningismus, lymphadenopathy Respiratory exam: Present: respiratory distress, wheezes, rales, accessory muscle use, decreased breath sounds, prolonged expiratory. Absent: rhonchi, stridor Cardiovascular Exam: Present: regular rate, normal rhythm, normal heart sounds. Absent: systolic murmur, diastolic murmur, rubs, gallop, clicks GI/Abdominal exam: Present: soft, normal bowel sounds. Absent: distended, tenderness, guarding, rebound, rigid Extremities exam: Present: normal inspection, full ROM, normal capillary refill. Absent: tenderness, pedal edema, joint swelling, calf tenderness Back exam: Present: normal inspection Neurological exam: Present: alert, oriented X3, CN II-XII intact Psychiatric exam: Present: normal affect, normal mood Skin exam: Present: warm, dry, intact, normal color. Absent: rash Course Vital Signs 12/29/24 12/29/24 12/29/24 15:52 17:32 19:38 Temperature 98.4 F Pulse Rate 99 90 87 Respiratory 22 18 19 Rate Blood Pressure 166/63 149/72 134/67 O2 Sat by Pulse 97 96 97 Oximetry 12/29/24 12/29/24 12/29/24 20:55 21:06 21:30 Temperature Pulse Rate 83 83 90 Respiratory 17 Rate Blood Pressure 139/56 O2 Sat by Pulse 97 Oximetry 12/30/24 12/30/24 12/30/24 01:21 04:05 08:37 Temperature 98.1 F 97.7 F Pulse Rate 74 85 82 Respiratory 17 17 Rate Blood Pressure 142/72 151/73 O2 Sat by Pulse 99 99 Oximetry 12/30/24 12/30/24 12/30/24 08:48 09:00 11:12 Temperature Pulse Rate 83 106 H 82 Respiratory 22 Rate Blood Pressure 151/73 O2 Sat by Pulse 94 L Oximetry 12/30/24 12/30/24 12/30/24 11:25 13:00 15:17 Temperature Pulse Rate 87 81 85 Respiratory 17 Rate Blood Pressure 151/79 O2 Sat by Pulse 96 Oximetry 12/30/24 15:30 Temperature Pulse Rate 87 Respiratory Rate Blood Pressure O2 Sat by Pulse Oximetry - Reevaluation(s) Reevaluation #1: 12/29/24 20:44 Oh records reviewed transfer paperwork from [facility] is reviewed including hypercapnia and BiPAP necessity Reevaluation #2: 12/29/24 20:44 Patient symptoms continue to improve here in the ER not requiring BiPAP patient feeling better with supportive care Reevaluation #3: 12/29/24 20:44 Patient informed of results questions answered Reevaluation #4: Was pt. sent in by a medical professional or institution (, PA, BIOMETRICIAN, urgent care, hospital, or snf...) When possible be specific @ -no Did you speak to anyone other than the patient for history (EMS, parent, family, police, friend...)? What history was obtained from this source @ -no Did you review nursing and triage notes (agree or disagree)? Why? @ -agree Are old charts reviewed (outside hosp., previous admission, EMS record, old EKG, old radiological studies, urgent care reports/EKG's, snf records)? Report findings @ -yes Differential Diagnosis (chest pain, altered mental status, abdominal pain women, abdominal pain men, vaginal bleeding, weakness, fever, dyspnea, syncope, headache, dizziness, GI bleed, back pain, seizure, CVA, palpatations, mental health, musculoskeletal)? @ -prior EKG interpreted by me (3pts min.). @ -yes X-rays interpreted by me (1pt min.). @ -yes n positive for CHF CT interpreted by me (1pt min.). @ -no U/S interpreted by me (1pt. min.). @ -no What testing was considered but not performed or refused? (CT, X-rays, U/S, labs)? Why? @ -none What meds were considered but not given or refused? Why? @ -none Did you discuss the management of the patient with other professionals ( professionals i.e. , PA, BIOMETRICIAN, lab, RT, psych nurse, social work lecturer, reject opener and filler, teacher, chairman and chief executive officer, geriatric case manager)? Give summary @ -no Was smoking cessation discussed for >3mins.? @ -no Was critical care preformed (if so, how long)? @ -no Were there social determinants of health that impacted care today? How? (Homelessness, low income, unemployed, alcoholism, drug addiction, transportation, low edu. Level, literacy, decrease access to med. care, care home, rehab)? @ -none Was there de-escalation of care discussed even if they declined (Discuss DNR or withdrawal of care, Hospice)? DNR status @ -no What co-morbidities impacted this encounter? (DM, HTN, Smoking, COPD, CAD, Cancer, CVA, ARF, Chemo, Hep., AIDS, mental health diagnosis, sleep apnea, morbid obesity)? @ -none Was patient admitted / discharged? Hospital course, mention meds given and route, prescriptions, significant lab abnormalities, going to OR and other pertinent info. @ - 84 female accepted in transfer from [facility] for atrial fibrillation which symptoms are resolved respiratory distress on BiPAP symptoms resolved COPD exacerbation hypoxia patient will be admitted Admitted Undiagnosed new problem with uncertain prognosis? @ -no Drug Therapy requiring intensive monitoring for toxicity (Heparin, Nitro, Insulin, Cardizem)? @ -no Were any procedures done? @ -no Diagnosis/symptom? @ - Acute, or Chronic, or Acute on Chronic? @ -Acute Uncomplicated (without systemic symptoms) or Complicated (systemic symptoms)? @ -Complicated Side effects of treatment? @ -no Exacerbation, Progression, or Severe Exacerbation? @ -exacerbation Poses a threat to life or bodily function? How? (Chest pain, USA, PR, pneumonia, PE, COPD, DKA, ARF, appy, cholecystitis, CVA, Diverticulitis, Homicidal, Suicidal, threat to staff... and all critical care pts) @ -yes respiratory failure Reevaluation #5: Differential Dyspnea: Coronary syndrome, arrhythmia, tamponade, asthma, COPD, pulmonary embolism, pneumonia, pneumothorax, pulmonary effusion, anaphylaxis, diabetic ketoacidosis, flailed chest, pulmonary contusion, diaphragmatic rupture, anemia, neuromuscular, this is not meant to be an all-inclusive list. - Consultations Consultation #1: Spoke with [facility] who agrees to admit this patient Medical Decision Making - Medical Decision Making 84 female accepted in transfer from [facility] for atrial fibrillation which symptoms are resolved respiratory distress on BiPAP symptoms resolved COPD exacerbation hypoxia patient will be admitted - Lab Data Result diagrams: 01/03/25 05:51 01/03/25 05:51 - EKG Data -: EKG Interpreted by Me (EKG is sinus 93 FL 184 QRS 145 QTc 463) - Radiology Data Radiology results: report reviewed (Chest x-ray), image reviewed Critical Care Time Critical Care Time: Yes Total Critical Care Time: 31 Disposition Clinical Impression: Congestive heart failure, Acute pulmonary edema, Acute exacerbation of chronic obstructive pulmonary disease, Tracheobronchomalacia determined by bronchoscopy, Tracheobronchitis Disposition: ADMITTED IP TO THIS HOSP Condition: Serious Is patient prescribed a controlled substance at d/c from ED?: No Time of Disposition: 20:00
[2024-12-29] MEDS ORDERED: NALOXONE 0.4 MG/ML 1 ML VIAL IV PRN (20:36)
[2024-12-29] MEDS ORDERED: ONDANSETRON 4 MG/2 ML VIAL IVP PRN (20:36)
[2024-12-29] MEDS: IPRATROPIUM-ALBUTEROL 3 ML NEB INHALATION STA (20:54)
--- NOTE | 2024-12-29 21:28 | XR ---
EXAMINATION TYPE: XR chest 1V DATE OF EXAM: 12/29/2024 8:55 PM COMPARISON: Chest radiographs from 11/01/2019. CLINICAL INDICATION: Female, 84 years old with history of sob; TECHNIQUE: XR chest 1V Frontal view of the chest. FINDINGS: Lungs/Pleura: There is no evidence of pleural effusion, focal consolidation, or pneumothorax. Pulmonary vascularity: Pulmonary vascular congestion. Heart/mediastinum: Cardiomediastinal silhouette is enlarged. Atherosclerotic calcifications are seen in the aorta. Musculoskeletal: No acute osseous pathology. Other findings: None IMPRESSION: Cardiomegaly and mild pulmonary vascular congestion. Correlate with BNP for congestive heart failure. [facility], , 12/29/2024 9:26 PM
[2024-12-29] MEDS: FUROSEMIDE 10 MG/ML 4 ML VIAL IV SCH (21:31)
[2024-12-29 21:33] LABS: Anisocytosis Slight; Basophils % (A) 0 %; Eosinophils % (A) 0 %; HGB 10.6 gm/dL (11.4-16.0); Hypochromasia Marked; Lymphocytes # (A) 0.2 k/uL (1.0-4.8); Lymphocytes % (A) 3 %; MCH 27.4 pg (25.0-35.0); MCHC 31.3 g/dL (31.0-37.0); MCV 87.5 fL (80.0-100.0); Mean Platelet Volume 7.7; Monocytes # (A) 0.2 k/uL (0-1.0); Monocytes % (A) 3 %; Neutrophils # (A) 6.8 k/uL (1.3-7.7); Neutrophils % (A) 94 %; Platelet Count 268 k/uL (150-450); RBC 3.89 m/uL (3.80-5.40); RDW 16.2 % (11.5-15.5); WBC 7.3 k/uL (3.8-10.6)
[2024-12-29] MEDS: methylPREDNISolone SOD SUCCI 125 MG/2 ML VIAL IV SCH (21:36)
[2024-12-29] MEDS: methylPREDNISolone SOD SUCCI 125 MG/2 ML VIAL IV STA (21:43)
[2024-12-29] MEDS: METOPROLOL TARTRATE 25 MG TAB PO SCH (21:43)
[2024-12-29 22:29] LABS: ALT 40 U/L (4-34); AST 41 U/L (14-36); African American GFR (CKD) >90 (>60 ml/min/1.73 sqM); Albumin 4.1 g/dL (3.5-5.0); Alkaline Phosphatase 108 U/L (38-126); Anion Gap 7 mmol/L; Blood Urea Nitrogen 18 mg/dL (7-17); Calcium 9.4 mg/dL (8.4-10.2); Carbon Dioxide 36 mmol/L (22-30); Chloride 94 mmol/L (98-107); Glucose 179 mg/dL (74-99); Magnesium 1.7 mg/dL (1.6-2.3); Non-African American GFR(CKD) 79 (>60 ml/min/1.73 sqM); Phosphorus 3.9 mg/dL (2.5-4.5); Potassium 3.8 mmol/L (3.5-5.1); Sodium 137 mmol/L (137-145); Total Bilirubin 1.4 mg/dL (0.2-1.3); Total Protein 6.4 g/dL (6.3-8.2)
[2024-12-30] MEDS: HEPARIN SOD,PORK IN 0.45% NACL 25,000 UNIT in 0.45% NACL 1 250ML.BAG IV SCH ×2 (01:28→09:49)
[2024-12-30] MEDS: LORazepam 1 MG TAB PO PRN (01:29)
[2024-12-30] MEDS: MORPHINE SULFATE 4 MG/ML SYRINGE IV PRN (04:01)
[2024-12-30] MEDS ORDERED: NALOXONE 0.4 MG/ML 1 ML VIAL IV PRN (07:18)
[2024-12-30] MEDS ORDERED: MAG HYDROX/AL HYDROX/SIMETH 30 ML CUP PO PRN (07:18)
--- NOTE | 2024-12-30 08:35 | P.HPIM ---
History of Present Illness H&P Date: 12/30/24 History of present illness; patient is a 84-year-old lady with past medical history significant for chronic hypoxic respiratory failure, CHF, COPD, hypertension who presented to the ER as a transfer from [facility] for shortness of breath. Patient stated that she was all right yesterday morning when she started noticing shortness of breath. Shortness of breath is present at rest as on exertion. Patient stated that she was noticing that she was wheezing hard. Patient had a hard time breathing. Patient denies any chest pain. There is no complaint of orthopnea or PND. There was no complaint of any fever or chills. Because of the shortness of breath, patient presented to [facility] where she had to be placed on BiPAP, initial workup there showed patient to have elevated troponin and EKG suspicious for A-fib with RVR, patient was transferred to [facility] Initial lab work done in the ER showed WBC 7.3, hemoglobin 10.6, platelet count 268, sodium 137, potassium 3.8, BUN 18, creatinine 0.7, glucose 179, calcium 9.4, phosphorus 3.9, bilirubin 1.4, AST 41, ALT 40 troponin 1.920, EKG done in the ER showed heart rate of 93, no ST segment elevation or depr ession seen, no T-wave inversions seen. Chest x-ray done in the ER showed cardiomegaly and mild pulm vascular congestion. Patient admitted to internal medicine service REVIEW OF SYSTEMS: CONSTITUTIONAL: No fever, no malaise, no fatigue. HEENT: No recent visual problems or hearing problems. Denied any sore throat. CARDIOVASCULAR: As mentioned above PULMONARY: As mentioned above GASTROINTESTINAL: No diarrhea, no nausea, no vomiting, no abdominal pain. NEUROLOGICAL: No headaches, no weakness, no numbness. HEMATOLOGICAL: Denies any bleeding or petechiae. GENITOURINARY: Denies any burning micturition, frequency, or urgency. MUSCULOSKELETAL/RHEUMATOLOGICAL: Denies any joint pain, swelling, or any muscle pain. ENDOCRINE: Denies any polyuria or polydipsia. The rest of the 14-point review of systems is negative. PHYSICAL EXAMINATION: GENERAL: The patient is alert and oriented x3, ill looking HEENT: Pupils are round and equally reacting to light. EOMI. No scleral icterus. No conjunctival pallor. Normocephalic, atraumatic. No pharyngeal erythema. No thyromegaly. CARDIOVASCULAR: S1 and S2 present. No murmurs, rubs, or gallops. PULMONARY: Coarse breath sound bilaterally, expiratory wheeze audible, stridor audible ABDOMEN: Soft, nontender, nondistended, normoactive bowel sounds. No palpable organomegaly. MUSCULOSKELETAL: No joint swelling or deformity. EXTREMITIES: No cyanosis, clubbing, or pedal edema. NEUROLOGICAL: Gross neurological examination did not reveal any focal deficits. SKIN: No rashes. Assessment and plan Acute on chronic hypoxemic hypercapnic respiratory failure Acute COPD exacerbation Acute on chronic systolic CHF History of tracheomalacia NSTEMI Acute transaminitis Hypertension Hyperlipidemia Monitor vital signs Monitor CBC Monitor CMP Continue telemetry monitoring Trend troponin Ordered proBNP Ordered D-dimer Start pharmacy dose heparin Strict I's and O's, daily weights, Ordered IV Lasix 40 g every 12 Ordered breathing treatments Ordered IV Solu-Medrol Resume home meds Consult pulmonary Consult cardiology Labs and medication were reviewed.. Continue same treatment. Continue with symptomatic treatment. Resume home medication. Monitor labs and vitals. DVT and GI prophylaxis. Further recommendations as per clinical course of the patient Dictation was produced using [employer] dictation software. please excuse any grammatical, word or spelling errors. Past Medical History Past Medical History: COPD, GERD/Reflux, Hearing Disorder / Deafness, Hyperlipidemia, Hypertension, Pneumonia, Respiratory Disorder Additional Past Medical History / Comment(s): chest tightness, 3L home O2 PRN,steroids Nov 2022,hospitalized in Nov 2022 for COPD, hx lung infection after gallbladder removal in 2018 at [facility] History of Any Multi-Drug Resistant Organisms: None Reported Past Surgical History: Cholecystectomy, Hysterectomy, Joint Replacement Additional Past Surgical History / Comment(s): bilateral cataracts ,RT TKA, RT CTR, Past Anesthesia/Blood Transfusion Reactions: No Reported Reaction Additional Past Anesthesia/Blood Transfusion Reaction / Comment(s): hard to wake up w/ anesthesia Smoking Status: Former smoker - Past Family History Mother Family Medical History: No Reported History Sister(s) Family Medical History: Cancer Additional Family Medical History / Comment(s): at age 52 Medications and Allergies Home Medications Medication Instructions Recorded Confirmed Type Aspirin EC [Ecotrin Low Dose] 81 mg PO DAILY 10/29/19 12/29/24 History Atorvastatin [Lipitor] 20 mg PO QAM 10/29/19 12/29/24 History Furosemide [Lasix] 40 mg PO DAILY 10/29/19 12/29/24 History LORazepam [Ativan] 1 mg PO Q6H PRN 10/29/19 12/29/24 History Montelukast [Singulair] 10 mg PO HS 10/29/19 12/29/24 History Omeprazole 20 mg PO BID 10/29/19 12/29/24 History Temazepam [Restoril] 30 mg PO HS 10/29/19 12/29/24 History cloNIDine HCL [Catapres] 0.1 mg PO TID 10/29/19 12/29/24 History hydrALAZINE HCL [Apresoline] 100 mg PO BID 10/29/19 12/29/24 History Atorvastatin [Lipitor] 40 mg PO HS 12/29/22 12/29/24 History Fluticasone/Umeclidin/Vilanter 1 puff INHALATION RT-DAILY 12/29/22 12/29/24 History [Trelegy Ellipta 100-62.5-25] Venlafaxine HCl ER [Effexor Xr] 37.5 mg PO DAILY 12/29/22 12/29/24 History Metoprolol Succinate (ER) [Toprol 25 mg PO DAILY #90 tab 12/30/22 12/29/24 Rx Xl] Cholecalciferol (Vitamin D3) 50 mcg PO DAILY 12/29/24 12/29/24 History [Vitamin D3 (50 Mcg = 2000 Iu)] Loratadine 10 mg PO DAILY 12/29/24 12/29/24 History Spironolactone [Aldactone] 25 mg PO DAILY 12/29/24 12/29/24 History lisinopriL [Zestril] 20 mg PO BID 12/29/24 12/29/24 History Allergies Allergy/AdvReac Type Severity Reaction Status Date / Time nickel Allergy Rash/Hives Verified 12/29/24 18:53 Physical Exam Vitals: Vital Signs Temp Pulse Resp BP Pulse Ox 12/30/24 04:05 97.7 F 85 17 151/73 99 12/30/24 01:21 98.1 F 74 17 142/72 99 12/29/24 21:30 90 17 139/56 97 12/29/24 21:06 83 12/29/24 20:55 83 12/29/24 19:38 98.4 F 87 19 134/67 97 12/29/24 17:32 90 18 149/72 96 12/29/24 15:52 99 22 166/63 97 Intake and Output 12/29/24 12/30/24 12/30/24 22:59 06:59 14:59 Other: Weight 65.771 kg Results CBC & Chem 7: 12/29/24 20:50 12/29/24 20:50 Labs: Abnormal Lab Results - Last 24 Hours (Table) 12/29/24 12/29/24 12/29/24 Range/Units 20:50 20:50 20:50 Hgb 10.6 L (11.4-16.0) gm/dL RDW 16.2 H (11.5-15.5) % Lymphocytes # 0.2 L (1.0-4.8) k/uL Chloride 94 L (98-107) mmol/L Carbon Dioxide 36 H (22-30) mmol/L BUN 18 H (7-17) mg/dL Glucose 179 H (74-99) mg/dL Total Bilirubin 1.4 H (0.2-1.3) mg/dL AST 41 H (14-36) U/L ALT 40 H (4-34) U/L Troponin I 1.920 H* (0.000-0.034) ng/mL 12/29/24 Range/Units 23:18 Hgb (11.4-16.0) gm/dL RDW (11.5-15.5) % Lymphocytes # (1.0-4.8) k/uL Chloride (98-107) mmol/L Carbon Dioxide (22-30) mmol/L BUN (7-17) mg/dL Glucose (74-99) mg/dL Total Bilirubin (0.2-1.3) mg/dL AST (14-36) U/L ALT (4-34) U/L Troponin I 1.750 H* (0.000-0.034) ng/mL
[2024-12-30] MEDS: IPRATROPIUM-ALBUTEROL 3 ML NEB INHALATION PRN (08:46)
[2024-12-30] MEDS ORDERED: HEPARIN SODIUM 1,000 UN/ML (10ML VL) IV PRN (08:52)
--- NOTE | 2024-12-30 09:23 | XR ---
Chest, 2 view. CLINICAL INDICATION: Female, 84 years old with history of sob COMPARISON: 12/29/2024 TECHNIQUE: PA and lateral views the chest are obtained. FINDINGS: There is persistent pulmonary vascular congestion, mild cardiomegaly, small bilateral pleural effusio ns and fluffy air space opacification consistent with stable CHF. There is no pneumothorax. The osseous structures are intact. IMPRESSION: Stable moderate acute cardiopulmonary disease most consistent with CHF. [facility], , 12/30/2024 9:21 AM
[2024-12-30] MEDS: ASPIRIN 81 MG PO SCH (09:29)
[2024-12-30] MEDS: lisinopriL 20 MG TAB PO SCH (09:30)
[2024-12-30] MEDS: VENLAFAXINE HCL ER 37.5 MG CAP PO SCH (09:30)
[2024-12-30] MEDS: cloNIDine HCL 0.1 MG TAB PO SCH (09:30)
[2024-12-30] MEDS: CHOLECALCIFEROL 25 MCG (1000 IU) TABLET PO SCH (09:30)
[2024-12-30] MEDS: PANTOPRAZOLE 40 MG TABLET PO SCH (09:30)
--- NOTE | 2024-12-30 09:42 | P.CRDCN ---
History of Present Illness Consult date: 12/30/24 History of present illness: The patient is a 84-year-old female patient with a past medical history significant for hypoxic respiratory failure secondary to COPD as well as hypertension and dyslipidemia and history of heart failure as well. She was transferred from [facility] to [facility] for further evaluation of shortness of breath and heart failure as well as abnormal cardiac enzymes. For the last few days she has been experiencing progressive exertional dyspnea associated with bilateral lower extremities edema with no symptoms of c hest pain or chest discomfort or any other cardiovascular symptoms. No fever and no chills and no cough. She underwent further evaluation including chest x- ray showed pulmonary vascular congestions and finding consistent with heart failure and also an EKG showing sinus rhythm with sinus tachycardia. NT proBNP came in at the 18,000. Troponin came to be abnormal but appeared to be flat across the board. EKG showed sinus rhythm with sinus tachycardia. The patient was started on heparin IV and started on Lasix IV and echo was ordered still pending. The patient is known to our service was seen by our service back in 2022 where at that point she underwent a heart catheterization revealed normal coronaries which she is under some stress lately after she lost her daughter a few weeks ago. The physical examination is remarkable for regular rhythm with distant heart sounds and severe bilateral expiratory wheezing and mild bilateral lower extremities edema Assessment Heart failure exacerbation of unknown etiology Evidence of myocardial injury secondary likely to hypoxemia because she was hypoxic when she presented to the emergency department initially History of chronic hypoxic respiratory failure History of congestive heart failure Multiple comorbid conditions Plan Continue the current dose of Lasix Continue heparin IV Continue aspirin and statin Follow-up on the echocardiogram Monitor the kidney function and electrolytes Follow-up with the patient Past Medical History Past Medical History: COPD, GERD/Reflux, Hearing Disorder / Deafness, Hyperlipidemia, Hypertension, Pneumonia, Respiratory Disorder Additional Past Medical History / Comment(s): chest tightness, 3L home O2 PRN,steroids Nov 2022,hospitalized in Nov 2022 for COPD, hx lung infection after gallbladder removal in 2018 at [facility] History of Any Multi-Drug Resistant Organisms: None Reported Past Surgical History: Cholecystectomy, Hysterectomy, Joint Replacement Additional Past Surgical History / Comment(s): bilateral cataracts ,RT TKA, RT CTR, Past Anesthesia/Blood Transfusion Reactions: No Reported Reaction Additional Past Anesthesia/Blood Transfusion Reaction / Comment(s): hard to wake up w/ anesthesia Smoking Status: Former smoker - Past Family History Mother Family Medical History: No Reported History Sister(s) Family Medical History: Cancer Additional Family Medical History / Comment(s): at age 52 Medications and Allergies Home Medications Medication Instructions Recorded Confirmed Type Aspirin EC [Ecotrin Low Dose] 81 mg PO DAILY 10/29/19 12/29/24 History Atorvastatin [Lipitor] 20 mg PO QAM 10/29/19 12/29/24 History Furosemide [Lasix] 40 mg PO DAILY 10/29/19 12/29/24 History LORazepam [Ativan] 1 mg PO Q6H PRN 10/29/19 12/29/24 History Montelukast [Singulair] 10 mg PO HS 10/29/19 12/29/24 History Omeprazole 20 mg PO BID 10/29/19 12/29/24 History Temazepam [Restoril] 30 mg PO HS 10/29/19 12/29/24 History cloNIDine HCL [Catapres] 0.1 mg PO TID 10/29/19 12/29/24 History hydrALAZINE HCL [Apresoline] 100 mg PO BID 10/29/19 12/29/24 History Atorvastatin [Lipitor] 40 mg PO HS 12/29/22 12/29/24 History Fluticasone/Umeclidin/Vilanter 1 puff INHALATION RT-DAILY 12/29/22 12/29/24 History [Trelegy Ellipta 100-62.5-25] Venlafaxine HCl ER [Effexor Xr] 37.5 mg PO DAILY 12/29/22 12/29/24 History Metoprolol Succinate (ER) [Toprol 25 mg PO DAILY #90 tab 12/30/22 12/29/24 Rx Xl] Cholecalciferol (Vitamin D3) 50 mcg PO DAILY 12/29/24 12/29/24 History [Vitamin D3 (50 Mcg = 2000 Iu)] Loratadine 10 mg PO DAILY 12/29/24 12/29/24 History Spironolactone [Aldactone] 25 mg PO DAILY 12/29/24 12/29/24 History lisinopriL [Zestril] 20 mg PO BID 12/29/24 12/29/24 History Allergies Allergy/AdvReac Type Severity Reaction Status Date / Time nickel Allergy Rash/Hives Verified 12/29/24 18:53 Physical Exam Vitals: Vital Signs Temp Pulse Resp BP Pulse Ox 12/30/24 09:00 106 H 22 151/73 94 L 12/30/24 08:48 83 12/30/24 08:37 82 12/30/24 04:05 97.7 F 85 17 151/73 99 12/30/24 01:21 98.1 F 74 17 142/72 99 12/29/24 21:30 90 17 139/56 97 12/29/24 21:06 83 12/29/24 20:55 83 12/29/24 19:38 98.4 F 87 19 134/67 97 12/29/24 17:32 90 18 149/72 96 12/29/24 15:52 99 22 166/63 97 Intake and Output 12/29/24 12/30/24 12/30/24 22:59 06:59 14:59 Other: Weight 65.771 kg Results 12/29/24 20:50 12/29/24 20:50 Cardiac Enzymes 12/29/24 12/29/24 12/29/24 Range/Units 20:50 20:50 23:18 AST 41 H (14-36) U/L Troponin I 1.920 H* 1.750 H* (0.000-0.034) ng/mL Coagulation 12/30/24 Range/Units 07:28 APTT 29.7 (22.0-30.0) sec CBC 12/29/24 Range/Units 20:50 WBC 7.3 (3.8-10.6) k/uL RBC 3.89 (3.80-5.40) m/uL Hgb 10.6 L (11.4-16.0) gm/dL Hct 34.0 (34.0-46.0) % Plt Count 268 (150-450) k/uL Comprehensive Metabolic Panel 12/29/24 Range/Units 20:50 Sodium 137 (137-145) mmol/L Potassium 3.8 (3.5-5.1) mmol/L Chloride 94 L (98-107) mmol/L Carbon Dioxide 36 H (22-30) mmol/L BUN 18 H (7-17) mg/dL Creatinine 0.71 (0.52-1.04) mg/dL Glucose 179 H (74-99) mg/dL Calcium 9.4 (8.4-10.2) mg/dL AST 41 H (14-36) U/L ALT 40 H (4-34) U/L Alkaline Phosphatase 108 (38-126) U/L Total Protein 6.4 (6.3-8.2) g/dL Albumin 4.1 (3.5-5.0) g/dL Current Medications Generic Name Dose Route Start Last Admin Trade Name Vishq PRN Reason Stop Dose Admin Acetaminophen 650 mg 12/30/24 07:18 Acetaminophen Tab 325 Mg Tab PO Q6HR PRN Mild Pain or Fever > 100.5 Al Hydroxide/Mg Hydroxide 15 ml 12/30/24 07:18 Mag Hydrox/Al Hydrox/Simeth 30 Ml Cup PO Q6HR PRN Indigestion Albuterol/Ipratropium 3 ml 12/29/24 20:36 12/30/24 08:46 Ipratropium-Albuterol 3 Ml Neb INHALATION 3 ml RT-QID PRN Administration Shortness Of Breath Or Wheezing Aspirin 81 mg 12/30/24 09:00 12/30/24 09:29 Aspirin 81 Mg PO 81 mg DAILY DONAL Administration Atorvastatin Calcium 40 mg 12/30/24 21:00 Atorvastatin 40 Mg Tab PO HS DONAL Budesonide 1 mg 12/30/24 20:00 Budesonide 1 Mg/2 Ml Nebu INHALATION RT-BID DONAL Cholecalciferol 50 mcg 12/30/24 09:00 12/30/24 09:30 Cholecalciferol 25 Mcg (1000 Iu) Tablet PO 50 mcg DAILY DONAL Administration Clonidine 0.1 mg 12/30/24 09:00 12/30/24 09:30 Clonidine Hcl 0.1 Mg Tab PO 0.1 mg TID DONAL Administration Formoterol Fumarate 20 mcg 12/30/24 20:00 Formoterol Fumarate 20 Mcg/2 Ml Nebu INHALATION RT-BID DONAL Furosemide 40 mg 12/29/24 21:00 12/30/24 09:30 Furosemide 10 Mg/Ml 4 Ml Vial IV 40 mg Q12H DONAL Administration Heparin Sodium (Porcine) 0 unit 12/30/24 08:39 Heparin Sodium 1,000 Un/Ml (10ml Vl) IV PER PROTOCOL PRN Low PTT Protocol Heparin Sodium (Porcine) 0 unit 12/30/24 08:52 Heparin Sodium 1,000 Un/Ml (10ml Vl) IV ONCE PRN Low PTT Protocol Heparin Sodium/Sodium Chloride 250 mls @ 11.839 mls/hr 12/30/24 08:45 25,000 unit/ Sodium Chloride IV .Q21H7M DONAL Protocol 18 UNITS/KG/HR Lisinopril 20 mg 12/30/24 09:00 12/30/24 09:30 Lisinopril 20 Mg Tab PO 20 mg BID DONAL Administration Lorazepam 1 mg 12/30/24 00:02 12/30/24 01:29 Lorazepam 1 Mg Tab PO 1 mg Q6H PRN Administration Anxiety Melatonin 3 mg 12/30/24 07:18 Melatonin 3 Mg Tablet PO HS PRN Insomnia Methylprednisolone Sodium Succinate 60 mg 12/30/24 03:00 12/30/24 09:30 Methylprednisolone Sod Succi 125 Mg/2 Ml Vial IV 60 mg Q6H DONAL Administration Metoprolol Tartrate 25 mg 12/29/24 21:00 12/30/24 09:30 Metoprolol Tartrate 25 Mg Tab PO 25 mg BID DONAL Administration Montelukast Sodium 10 mg 12/30/24 21:00 Montelukast 10 Mg Tab PO HS DONAL Morphine Sulfate 4 mg 12/29/24 20:36 12/30/24 04:01 Morphine Sulfate 4 Mg/Ml Syringe IV 4 mg Q4HR PRN Administration Severe Pain (Scale 7 to 10) Naloxone HCl 0.2 mg 12/30/24 07:18 Naloxone 0.4 Mg/Ml 1 Ml Vial IV Q2M PRN Opioid Reversal Ondansetron HCl 4 mg 12/29/24 20:36 Ondansetron 4 Mg/2 Ml Vial IVP Q8HR PRN Nausea And Vomiting Pantoprazole Sodium 40 mg 12/30/24 09:00 12/30/24 09:30 Pantoprazole 40 Mg Tablet PO 40 mg [id number] DONAL Administration Temazepam 30 mg 12/30/24 21:00 Temazepam 15 Mg Cap PO HS DONAL Venlafaxine HCl 37.5 mg 12/30/24 09:00 12/30/24 09:30 Venlafaxine Hcl Er 37.5 Mg Cap PO 37.5 mg DAILY DONAL Administration Intake and Output 12/29/24 12/30/24 12/30/24 22:59 06:59 14:59 Other: Weight 65.771 kg 12/29/24 20:50 12/29/24 20:50
[2024-12-30] MEDS: HEPARIN SODIUM 1,000 UN/ML (10ML VL) IV PRN (09:48)
[2024-12-30] MEDS: SYMBICORT 160-4.5 MCG INHALER INHALATION SCH (09:56)
[2024-12-30] MEDS: TIOTROPIUM 2.5 MCG INHALER INHALATION SCH (09:57)
[2024-12-30] MEDS: HEPARIN SODIUM 1,000 UN/ML (10ML VL) IV ONE (09:57)
[2024-12-30 10:30] LABS: Anisocytosis Slight; Basophils % (A) 0 %; Eosinophils % (A) 0 %; HCT 35.3 % (34.0-46.0); Hypochromasia Marked; Lymphocytes # (A) 0.4 k/uL (1.0-4.8); Lymphocytes % (A) 3 %; MCH 26.2 pg (25.0-35.0); MCV 84.4 fL (80.0-100.0); Mean Platelet Volume 7.5; Monocytes # (A) 0.3 k/uL (0-1.0); Monocytes % (A) 3 %; Neutrophils % (A) 93 %; Platelet Count 374 k/uL (150-450); RBC 4.18 m/uL (3.80-5.40); RDW 16.2 % (11.5-15.5); WBC 10.8 k/uL (3.8-10.6)
[2024-12-30 10:50] LABS: INR 1.1 (<1.2); Partial Thromboplastin Time 27.9 sec (22.0-30.0); Prothrombin Time 12.2 sec (10.0-12.5)
--- NOTE | 2024-12-30 12:10 | P.CNPUL ---
History of Present Illness Consult date: 12/30/24 Requesting physician: Jolly Tavera Reason for consult: dyspnea, cough, COPD, hypoxemia Chief complaint: Shortness of breath. History of present illness: Pulmonary consult dated December 30, 2024. 84-year-old female who presented to the emergency department, on December 29, for shortness of breath. The patient was a transfer, from [facility], because of shortness of breath. Apparently they did not have adequate staff at the outside hospital, to take care of this patient. The patient does have a history of COPD, and sees Dr. Sow as a primary, and sees one of my partners for her COPD. Other medical history includes hyperlipidemia, hypertension, and possible heart failure. The patient does use home oxygen at 3 L. She is seen in ER room 16. She denies any chest pain or chest discomfort. She smokes cigarettes for 60+ years. Current laboratory data includes a white count 10.8, hemoglobin 11, hematocrit 35.3, and platelet count of 374,000. PT/INR and PTT are normal. Sodium 137, potassium 3.8, chloride 94, CO2 36, BUN 18, creatinine 0.71. Glucose is 179. AST 41. ALT is 40. Troponins were 1.920 and 1.750. Her N-terminal proBNP was quite elevated at 18,200. EKG showed normal sinus rhythm, with PVCs. Chest x-ray showed cardiomegaly, with pulmonary vascular co ngestion. Review of Systems REVIEW OF SYSTEMS: CONSTITUTIONAL: [Negative.] NEUROLOGIC: [ Negative.] HEENT: [ Negative.] CARDIAC: [Negative.] PULMONARY: Shortness of breath. GI: [Negative.] : [Negative.] RHEUMATOLOGIC: [ Negative.] IMMUNOLOGIC: [ Negative.] ENDOCRINE: [Negative. ] DERMATOLOGIC: [Negative.] Past Medical History Past Medical History: COPD, GERD/Reflux, Hearing Disorder / Deafness, Hyperlipidemia, Hypertension, Pneumonia, Respiratory Disorder Additional Past Medical History / Comment(s): chest tightness, 3L home O2 PRN,steroids Nov 2022,hospitalized in Nov 2022 for COPD, hx lung infection after gallbladder removal in 2018 at [facility] History of Any Multi-Drug Resistant Organisms: None Reported Past Surgical History: Cholecystectomy, Hysterectomy, Joint Replacement Additional Past Surgical History / Comment(s): bilateral cataracts ,RT TKA, RT CTR, Past Anesthesia/Blood Transfusion Reactions: No Reported Reaction Additional Past Anesthesia/Blood Transfusion Reaction / Comment(s): hard to wake up w/ anesthesia Smoking Status: Former smoker - Past Family History Mother Family Medical History: No Reported History Sister(s) Family Medical History: Cancer Additional Family Medical History / Comment(s): at age 52 Medications and Allergies Home Medications Medication Instructions Recorded Confirmed Type Aspirin EC [Ecotrin Low Dose] 81 mg PO DAILY 10/29/19 12/29/24 History Atorvastatin [Lipitor] 20 mg PO QAM 10/29/19 12/29/24 History Furosemide [Lasix] 40 mg PO DAILY 10/29/19 12/29/24 History LORazepam [Ativan] 1 mg PO Q6H PRN 10/29/19 12/29/24 History Montelukast [Singulair] 10 mg PO HS 10/29/19 12/29/24 History Omeprazole 20 mg PO BID 10/29/19 12/29/24 History Temazepam [Restoril] 30 mg PO HS 10/29/19 12/29/24 History cloNIDine HCL [Catapres] 0.1 mg PO TID 10/29/19 12/29/24 History hydrALAZINE HCL [Apresoline] 100 mg PO BID 10/29/19 12/29/24 History Atorvastatin [Lipitor] 40 mg PO HS 12/29/22 12/29/24 History Fluticasone/Umeclidin/Vilanter 1 puff INHALATION RT-DAILY 12/29/22 12/29/24 History [Trelegarcia Ellipta 100-62.5-25] Venlafaxine HCl ER [Effexor Xr] 37.5 mg PO DAILY 12/29/22 12/29/24 History Metoprolol Succinate (ER) [Toprol 25 mg PO DAILY #90 tab 12/30/22 12/29/24 Rx Xl] Cholecalciferol (Vitamin D3) 50 mcg PO DAILY 12/29/24 12/29/24 History [Vitamin D3 (50 Mcg = 2000 Iu)] Loratadine 10 mg PO DAILY 12/29/24 12/29/24 History Spironolactone [Aldactone] 25 mg PO DAILY 12/29/24 12/29/24 History lisinopriL [Zestril] 20 mg PO BID 12/29/24 12/29/24 History Allergies Allergy/AdvReac Type Severity Reaction Status Date / Time nickel Allergy Rash/Hives Verified 12/29/24 18:53 Physical Exam Osteopathic Statement: *. No significant issues noted on an osteopathic structural exam other than those noted in the History and Physical/Consult. Vitals: Vital Signs Temp Pulse Resp BP Pulse Ox 12/30/24 11:25 87 12/30/24 11:12 82 12/30/24 09:00 106 H 22 151/73 94 L 12/30/24 08:48 83 12/30/24 08:37 82 12/30/24 04:05 97.7 F 85 17 151/73 99 12/30/24 01:21 98.1 F 74 17 142/72 99 12/29/24 21:30 90 17 139/56 97 12/29/24 21:06 83 12/29/24 20:55 83 12/29/24 19:38 98.4 F 87 19 134/67 97 12/29/24 17:32 90 18 149/72 96 12/29/24 15:52 99 22 166/63 97 Intake and Output 12/29/24 12/30/24 12/30/24 22:59 06:59 14:59 Other: Weight 65.771 kg No acute distress, oriented 3. No conversational dyspnea or use of accessory muscles. Currently on 3 L. HEENT examination is grossly unremarkable. Mucous membranes are moist. No oral lesions. Neck supple. Full range of motion. No adenopathy thyromegaly or neck vein distention. Cardiovascular examination reveals regular rhythm rate. S1-S2 normal. No S3 or S4. No discernible murmur noted. Lungs reveal bibasilar crackles. Scattered rhonchi noted. Minimal scattered expiratory wheezes appreciated. Breath sounds are equal bilaterally. Abdomen soft bowel sounds are heard. No masses or tenderness. Extremities are intact. No cyanosis clubbing or edema. Skin is without rash or lesion. Neurologic examination is brief but nonfocal. Results - Laboratory Findings CBC and BMP: 12/30/24 09:42 12/29/24 20:50 PT/INR, D-dimer PT 12.2 sec (10.0-12.5) 12/30/24 09:42 INR 1.1 (<1.2) 12/30/24 09:42 Abnormal lab findings: Abnormal Labs 12/29/24 12/29/24 12/29/24 20:50 20:50 20:50 WBC Hgb 10.6 L RDW 16.2 H Neutrophils # Lymphocytes # 0.2 L Chloride 94 L Carbon Dioxide 36 H BUN 18 H Glucose 179 H Total Bilirubin 1.4 H AST 41 H ALT 40 H Troponin I 1.920 H* 12/29/24 12/30/24 23:18 09:42 WBC 10.8 H Hgb 11.0 L RDW 16.2 H Neutrophils # 10.0 H Lymphocytes # 0.4 L Chloride Carbon Dioxide BUN Glucose Total Bilirubin AST ALT Troponin I 1.750 H* - Diagnostic Findings Chest x-ray: image reviewed Assessment and Plan Assessment: Acute hypoxemic respiratory failure/shortness of breath, likely secondary to a combination of COPD exacerbation, and CHF. Rule out non-ST segment elevation myocardial infarction, versus elevated troponin secondary to supply/demand mismatch. History of chronic hypoxemic respiratory failure, on home O2 at 3 L. History of COPD secondary to 6 years of tobacco use. History of hyperlipidemia. History of hypertension. History of pneumonia. Multiple other medical problems and comorbidities. Plan: Plan dated December 30, 2024. The patient is seen in the emergency department, room 16. The patient was admitted with increasing shortness of breath. The patient likely has a COPD exacerbation, but also had elevated troponins, and elevated N-terminal proBNP. She should be seen by cardiology. The patient denies any chest pain or chest discomfort. She does have a history of COPD from 60 years of tobacco use, hyperlipidemia, hypertension, and a questionable history of CHF. She follows with Dr. Kira Sow as a primary, and sees my partner for her COPD. She does not smoke currently. Labs, x-rays, and all medications are reviewed. Dictation was produced using [employer] software. Please excuse any grammatical, word or spelling errors. Time with Patient: Greater than 30
[2024-12-30 16:48] LABS: Glucose,Whole Blood 255 mg/dL (70-110)
[2024-12-30] MEDS ORDERED: DEXTROSE 50% SYRINGE 50 ML IVP PRN ×2 (17:04)
[2024-12-30] MEDS: INSULIN LISPRO (HumaLOG) 100 UNIT/ML 10 mL VL SQ SCH (17:16)
[2024-12-30 20:19] LABS: Glucose,Whole Blood 213 mg/dL (70-110)
[2024-12-30] MEDS: BUDESONIDE 1 MG/2 ML NEBU INHALATION SCH (20:40)
[2024-12-30] MEDS: FORMOTEROL FUMARATE 20 MCG/2 ML NEBU INHALATION SCH (20:41)
[2024-12-30] MEDS: MONTELUKAST 10 MG TAB PO SCH (21:08)
[2024-12-30] MEDS: ATORVASTATIN 40 MG TAB PO SCH (21:08)
[2024-12-30] MEDS: TEMAZEPAM 15 MG CAP PO SCH (21:08)
[2024-12-31 05:58] LABS: Glucose,Whole Blood 194 mg/dL (70-110)
[2024-12-31] MEDS: methylPREDNISolone SOD SUCCI 125 MG/2 ML VIAL IV SCH (06:43)
[2024-12-31 07:49] LABS: Anisocytosis Slight; Basophils % (A) 0 %; Eosinophils % (A) 0 %; HCT 29.8 % (34.0-46.0); Hypochromasia Marked; Lymphocytes # (A) 0.3 k/uL (1.0-4.8); Lymphocytes % (A) 3 %; MCH 26.5 pg (25.0-35.0); MCHC 31.4 g/dL (31.0-37.0); MCV 84.3 fL (80.0-100.0); Mean Platelet Volume 7.6; Monocytes # (A) 0.4 k/uL (0-1.0); Monocytes % (A) 4 %; Neutrophils # (A) 9.2 k/uL (1.3-7.7); Neutrophils % (A) 92 %; Platelet Count 251 k/uL (150-450); RBC 3.54 m/uL (3.80-5.40)
[2024-12-31 08:01] LABS: HGB 9.4 gm/dL (11.4-16.0)
--- NOTE | 2024-12-31 08:30 | P.PN ---
Subjective Progress Note Date: 12/31/24 patient is a 84-year-old lady with past medical history significant for chronic hypoxic respiratory failure, CHF, COPD, hypertension who presented to the ER as a transfer from [facility] for shortness of breath. Patient stated that she was all right yesterday morning when she started noticing shortness of breath. Shortness of breath is present at rest as on exertion. Patient stated that she was noticing that she was wheezing hard. Patient had a hard time breathing. Patient denies any chest pain. There is no complaint of orthopnea or PND. There was no complaint of any fever or chills. Because of the shortness of breath, patient presented to [facility] where she had to be placed on BiPAP, initial workup there showed patient to have elevated troponin and EKG suspicious for A-fib with RVR, patient was transferred to [facility] Initial lab work done in the ER showed WBC 7.3, hemoglobin 10.6, platelet count 268, sodium 137, potassium 3.8, BUN 18, creatinine 0.7, glucose 179, calcium 9.4, phosphorus 3.9, bilirubin 1.4, AST 41, ALT 40 troponin 1.920, EKG done in the ER showed heart rate of 93, no ST segment elevation or depression seen, no T-wave inversions seen. Chest x-ray done in the ER showed cardiomegaly and mild pulm vascular congestion. Patient admitted to internal medicine service 12/31. Patient seen and examined. States breathing is improved. Wheezing is also improved. Currently on 3 L of oxygen REVIEW OF SYSTEMS: CONSTITUTIONAL: No fever, no malaise,. CARDIOVASCULAR: No chest pain, no palpitations, no syncope. PULMONARY: No shortness of breath, no cough, GASTROINTESTINAL: No diarrhea, no nausea, no vomiting, no abdominal pain. NEUROLOGICAL: No headaches, no weakness, PHYSICAL EXAMINATION: GENERAL: The patient is alert and oriented x3, not in any acute distress. Well developed, well nourished. HEENT: Pupils are round and equally reacting to light. EOMI. No scleral icterus. No conjunctival pallor. Normocephalic, atraumatic. No pharyngeal erythema. No thyromegaly. CARDIOVASCULAR: S1 and S2 present. No murmurs, rubs, or gallops. PULMONARY: Coarse breath sound bilaterally, no stridor today, occasional expiratory wheeze audible . ABDOMEN: Soft, nontender, nondistended, normoactive bowel sounds. No palpable organomegaly. MUSCULOSKELETAL: No joint swelling or deformity. EXTREMITIES: No cyanosis, clubbing, or pedal edema. NEUROLOGICAL: Gross neurological examination did not reveal any focal deficits. SKIN: No rashes. Assessment and plan Acute on chronic hypoxemic hypercapnic respiratory failure Acute COPD exacerbation Acute on chronic systolic CHF History of tracheomalacia NSTEMI Acute transaminitis Hypertension Hyperlipidemia Monitor vital signs Monitor CBC Monitor CMP Continue telemetry monitoring Continue pharmacy dose heparin Strict I's and O's, daily weights, Continue IV Lasix 40 g every 12 Continue breathing treatments Continue IV Solu-Medrol 2D echo pending Cardiology following Pulmonology following Labs and medication were reviewed.. Continue same treatment. Continue with symptomatic treatment. Resume home medication. Monitor labs and vitals. DVT and GI prophylaxis. Further recommendations as per clinical course of the patient Dictation was produced using Stylistpick dictation software. please excuse any grammatical, word or spelling errors. Objective - Vital Signs Vital signs: Vital Signs Temp 98.1 F 12/31/24 04:00 Pulse 91 12/31/24 04:00 Resp 22 12/31/24 04:00 BP 146/72 12/31/24 04:00 Pulse Ox 91 L 12/31/24 04:00 FiO2 Intake & Output 12/30/24 12/31/24 12/31/24 18:59 06:59 18:59 Intake Total 736.464 Output Total 600 Balance 136.464 Weight 65.771 kg 67 kg Intake: IV 10 Invasive Line 1 10 Intake, IV Titration 186.464 Amount Heparin Sod,Pork in 0.45% 186.464 NaCl 25,000 unit In 0.45 % NaCl 1 250ml.bag @ 18 UNITS/KG/HR 11.839 mls/hr IV .Q21H7M [facility] Rx#: [id number] Oral 540 Output: Urine 600 Other: Voiding Method External Catheter External Catheter - Labs CBC & Chem 7: 12/31/24 07:09 12/29/24 20:50 Labs: Abnormal Lab Results - Last 24 Hours (Table) 12/30/24 12/30/24 12/30/24 Range/Units 09:42 15:26 16:46 WBC 10.8 H (3.8-10.6) k/uL RBC (3.80-5.40) m/uL Hgb 11.0 L (11.4-16.0) gm/dL Hct (34.0-46.0) % RDW 16.2 H (11.5-15.5) % Neutrophils # 10.0 H (1.3-7.7) k/uL Lymphocytes # 0.4 L (1.0-4.8) k/uL APTT 68.2 H (22.0-30.0) sec POC Glucose (mg/dL) 255 H (70-110) mg/dL 12/30/24 12/31/24 12/31/24 Range/Units 20:17 05:49 07:09 WBC (3.8-10.6) k/uL RBC (3.80-5.40) m/uL Hgb (11.4-16.0) gm/dL Hct (34.0-46.0) % RDW (11.5-15.5) % Neutrophils # (1.3-7.7) k/uL Lymphocytes # (1.0-4.8) k/uL APTT 53.5 H (22.0-30.0) sec POC Glucose (mg/dL) 213 H 194 H (70-110) mg/dL 12/31/24 Range/Units 07:09 WBC (3.8-10.6) k/uL RBC 3.54 L (3.80-5.40) m/uL Hgb 9.4 L D (11.4-16.0) gm/dL Hct 29.8 L (34.0-46.0) % RDW 16.0 H (11.5-15.5) % Neutrophils # 9.2 H (1.3-7.7) k/uL Lymphocytes # 0.3 L (1.0-4.8) k/uL APTT (22.0-30.0) sec POC Glucose (mg/dL) (70-110) mg/dL
--- NOTE | 2024-12-31 09:03 | P.PN ---
Subjective Progress Note Date: 12/31/24 The patient is a 84-year-old female patient with a past medical history significant for hypoxic respiratory failure secondary to COPD as well as hypertension and dyslipidemia and history of heart failure as well. She was transferred from [facility] to [facility] for further evaluation of shortness of breath and heart failure as well as abnormal cardiac enzymes. For the last few days she has been experiencing progressive exertional dyspnea associated with bilateral lower extremities edema with no symptoms of chest pain or chest discomfort or any other cardiovascular symptoms. No fever and no chills and no cough. She underwent further evaluation including chest x- ray showed pulmonary vascular congestions and finding consistent with heart failure and also an EKG showing sinus rhythm with sinus tachycardia. NT proBNP came in at the 18,000. Troponin came to be abnormal but appeared to be flat across the board. EKG showed sinus rhythm with sinus tachycardia. The patient was started on heparin IV and started on Lasix IV and echo was ordered still pending. The patient is known to our service was seen by our service back in 2022 where at that point she underwent a heart catheterization revealed normal coronaries which she is under some stress lately after she lost her daughter a few weeks ago. The physical examination is remarkable for regular rhythm with d istant heart sounds and severe bilateral expiratory wheezing and mild bilateral lower extremities edema December 31, 2024 The patient was seen and evaluated this morning which she still having extensive wheezing on examination no edema in the lower extremities noted. The echo still pending. No symptoms of chest pain or chest discomfort. The physical examination is remarkable for stable vital signs with mild sinus tachycardia and bilateral expiratory wheezing and no edema was noted in the lower extremities but she continues to be on Lasix IV and she has been diuresing very well. Assessment Heart failure exacerbation of unknown etiology Evidence of myocardial injury secondary likely to hypoxemia because she was hypoxic when she presented to the emergency department initially History of chronic hypoxic respiratory failure History of congestive heart failure Multiple comorbid conditions Plan Continue the current dose of Lasix Continue heparin IV Continue aspirin and statin Follow-up on the echocardiogram Monitor the kidney function and electrolytes Follow-up with the patient Objective - Vital Signs Vital signs: Vital Signs Temp 98.1 F 12/31/24 04:00 Pulse 104 H 12/31/24 08:52 Resp 22 12/31/24 04:00 BP 146/72 12/31/24 04:00 Pulse Ox 98 12/31/24 08:56 FiO2 Intake & Output 12/30/24 12/31/24 12/31/24 18:59 06:59 18:59 Intake Total 736.464 Output Total 600 Balance 136.464 Weight 65.771 kg 67 kg Intake: IV 10 Invasive Line 1 10 Intake, IV Titration 186.464 Amount Heparin Sod,Pork in 0.45% 186.464 NaCl 25,000 unit In 0.45 % NaCl 1 250ml.bag @ 18 UNITS/KG/HR 11.839 mls/hr IV .Q21H7M [facility] Rx#: [id number] Oral 540 Output: Urine 600 Other: Voiding Method External Catheter External Catheter - Labs CBC & Chem 7: 12/31/24 07:09 12/29/24 20:50 Labs: Abnormal Lab Results - Last 24 Hours (Table) 12/30/24 12/30/24 12/30/24 Range/Units 09:42 15:26 16:46 WBC 10.8 H (3.8-10.6) k/uL RBC (3.80-5.40) m/uL Hgb 11.0 L (11.4-16.0) gm/dL Hct (34.0-46.0) % RDW 16.2 H (11.5-15.5) % Neutrophils # 10.0 H (1.3-7.7) k/uL Lymphocytes # 0.4 L (1.0-4.8) k/uL APTT 68.2 H (22.0-30.0) sec POC Glucose (mg/dL) 255 H (70-110) mg/dL 12/30/24 12/31/24 12/31/24 Range/Units 20:17 05:49 07:09 WBC (3.8-10.6) k/uL RBC (3.80-5.40) m/uL Hgb (11.4-16.0) gm/dL Hct (34.0-46.0) % RDW (11.5-15.5) % Neutrophils # (1.3-7.7) k/uL Lymphocytes # (1.0-4.8) k/uL APTT 53.5 H (22.0-30.0) sec POC Glucose (mg/dL) 213 H 194 H (70-110) mg/dL 12/31/24 Range/Units 07:09 WBC (3.8-10.6) k/uL RBC 3.54 L (3.80-5.40) m/uL Hgb 9.4 L D (11.4-16.0) gm/dL Hct 29.8 L (34.0-46.0) % RDW 16.0 H (11.5-15.5) % Neutrophils # 9.2 H (1.3-7.7) k/uL Lymphocytes # 0.3 L (1.0-4.8) k/uL APTT (22.0-30.0) sec POC Glucose (mg/dL) (70-110) mg/dL
[2024-12-31 09:58] LABS: ALT 28 U/L (4-34); AST 29 U/L (14-36); African American GFR (CKD) 79 (>60 ml/min/1.73 sqM); Albumin 3.6 g/dL (3.5-5.0); Alkaline Phosphatase 94 U/L (38-126); Anion Gap 7 mmol/L; Blood Urea Nitrogen 39 mg/dL (7-17); Calcium 9.3 mg/dL (8.4-10.2); Carbon Dioxide 37 mmol/L (22-30); Chloride 93 mmol/L (98-107); Glucose 162 mg/dL (74-99); Non-African American GFR(CKD) 69 (>60 ml/min/1.73 sqM); Potassium 3.5 mmol/L (3.5-5.1); Sodium 137 mmol/L (137-145); Total Bilirubin 0.9 mg/dL (0.2-1.3); Total Protein 5.8 g/dL (6.3-8.2)
[2024-12-31 11:45] LABS: Glucose,Whole Blood 202 mg/dL (70-110)
[2024-12-31] MEDS: IPRATROPIUM-ALBUTEROL 3 ML NEB INHALATION PRN (11:52)
--- NOTE | 2024-12-31 12:45 | P.PN ---
Subjective Progress Note Date: 12/31/24 Principal diagnosis: Shortness of breath. Pulmonary consult dated December 30, 2024. 84-year-old female who presented to the emergency department, on December 29, for shortness of breath. The patient was a transfer, from [facility], because of shortness of breath. Apparently they did not have adequate staff at the outside hospital, to take care of this patient. The patient does have a history of COPD, and sees Dr. Sow as a primary, and sees one of my partners f or her COPD. Other medical history includes hyperlipidemia, hypertension, and possible heart failure. The patient does use home oxygen at 3 L. She is seen in ER room 16. She denies any chest pain or chest discomfort. She smokes cigarettes for 60+ years. Current laboratory data includes a white count 10.8, hemoglobin 11, hematocrit 35.3, and platelet count of 374,000. PT/INR and PTT are normal. Sodium 137, potassium 3.8, chloride 94, CO2 36, BUN 18, creatinine 0.71. Glucose is 179. AST 41. ALT is 40. Troponins were 1.920 and 1.750. Her N-terminal proBNP was quite elevated at 18,200. EKG showed normal sinus rhythm, with PVCs. Chest x-ray showed cardiomegaly, with pulmonary vascular congestion. Progress note dated December 31, 2024. 84-year-old female who sees my partner, and a physician in [place], [place], as a primary, is seen in the emergency department yesterday, for shortness of breath. The patient was transferred from an outside hospital. Apparently that hospital did not have adequate staff to take care of the patient. The patient has a history of hyperlipidemia, hypertension, heart failure, and COPD. The patient was a heavy smoker for 60+ years. She was admitted with a diagnosis of CHF, and COPD exacerbation. She was also found to have atrial fibrillation with RVR. Currently, the patient is on 3 L of oxygen. She continues on IV heparin. Laboratory data includes a white count 10, hemoglobin 9.4, hematocrit 29.8, and a platelet count of 251,000. Sodium 137, potassium 3.5, chlorides 93, CO2 37, BUN 39, and creatinine 0.8. Glucose 202. Objective - Vital Signs Vital signs: Vital Signs Temp 97.1 F L 12/31/24 08:00 Pulse 96 12/31/24 12:03 Resp 22 12/31/24 08:00 BP 151/68 12/31/24 08:00 Pulse Ox 98 12/31/24 08:56 FiO2 Intake & Output 12/30/24 12/31/24 12/31/24 18:59 06:59 18:59 Intake Total 736.464 180 Output Total 600 1000 Balance 136.464 -820 Weight 65.771 kg 67 kg Intake: IV 10 Invasive Line 1 10 Intake, IV Titration 186.464 Amount Heparin Sod,Pork in 0.45% 186.464 NaCl 25,000 unit In 0.45 % NaCl 1 250ml.bag @ 18 UNITS/KG/HR 11.839 mls/hr IV .Q21H7M [facility] Rx#: [id number] Oral 540 180 Output: Urine 600 1000 Other: Voiding Method External Catheter External Catheter External Catheter - Exam No acute distress, oriented 3. Mild respiratory distress. No audible wheezi ng. No use of accessory muscles. Currently on 3 L. HEENT examination is grossly unremarkable. Mucous membranes are moist. No oral lesions. Neck supple. Full range of motion. No adenopathy thyromegaly or neck vein distention. Cardiovascular examination reveals regular rhythm rate. S1-S2 normal. No S3 or S4. No discernible murmur noted. Heart sounds are distant. Lungs reveal bilateral scattered rhonchi and crackles. No distinct wheezes. Breath sounds are equal bilaterally. Saturations are excellent. Abdomen soft bowel sounds are heard. No masses or tenderness. Extremities are intact. No cyanosis clubbing or edema. Skin is without rash or lesion. Neurologic examination is brief but nonfocal. - Labs CBC & Chem 7: 12/31/24 07:09 12/31/24 07:09 Labs: Abnormal Lab Results - Last 24 Hours (Table) 12/30/24 12/30/24 12/30/24 Range/Units 15:26 16:46 20:17 RBC (3.80-5.40) m/uL Hgb (11.4-16.0) gm/dL Hct (34.0-46.0) % RDW (11.5-15.5) % Neutrophils # (1.3-7.7) k/uL Lymphocytes # (1.0-4.8) k/uL APTT 68.2 H (22.0-30.0) sec Chloride (98-107) mmol/L Carbon Dioxide (22-30) mmol/L BUN (7-17) mg/dL Glucose (74-99) mg/dL POC Glucose (mg/dL) 255 H 213 H (70-110) mg/dL Total Protein (6.3-8.2) g/dL 12/31/24 12/31/24 12/31/24 Range/Units 05:49 07:09 07:09 RBC (3.80-5.40) m/uL Hgb (11.4-16.0) gm/dL Hct (34.0-46.0) % RDW (11.5-15.5) % Neutrophils # (1.3-7.7) k/uL Lymphocytes # (1.0-4.8) k/uL APTT 53.5 H (22.0-30.0) sec Chloride 93 L (98-107) mmol/L Carbon Dioxide 37 H (22-30) mmol/L BUN 39 H (7-17) mg/dL Glucose 162 H (74-99) mg/dL POC Glucose (mg/dL) 194 H (70-110) mg/dL Total Protein 5.8 L (6.3-8.2) g/dL 12/31/24 12/31/24 Range/Units 07:09 11:43 RBC 3.54 L (3.80-5.40) m/uL Hgb 9.4 L D (11.4-16.0) gm/dL Hct 29.8 L (34.0-46.0) % RDW 16.0 H (11.5-15.5) % Neutrophils # 9.2 H (1.3-7.7) k/uL Lymphocytes # 0.3 L (1.0-4.8) k/uL APTT (22.0-30.0) sec Chloride (98-107) mmol/L Carbon Dioxide (22-30) mmol/L BUN (7-17) mg/dL Glucose (74-99) mg/dL POC Glucose (mg/dL) 202 H (70-110) mg/dL Total Protein (6.3-8.2) g/dL Assessment and Plan Assessment: Acute hypoxemic respiratory failure/shortness of breath, likely secondary to a combination of COPD exacerbation, and CHF. Rule out non-ST segment elevation myocardial infarction, versus elevated troponin secondary to supply/demand mismatch. History of chronic hypoxemic respiratory failure, on home O2 at 3 L. History of COPD secondary to 6 years of tobacco use. History of hyperlipidemia. History of hypertension. History of pneumonia. Multiple other medical problems and comorbidities. Plan: Plan dated December 30, 2024. The patient is seen in the emergency department, room 16. The patient was admitted with increasing shortness of breath. The patient likely has a COPD exacerbation, but also had elevated troponins, and elevated N-terminal proBNP. She should be seen by cardiology. The patient denies any chest pain or chest discomfort. She does have a history of COPD from 60 years of tobacco use, hyperlipidemia, hypertension, and a questionable history of CHF. She follows with Dr. Kira Sow as a primary, and sees my partner for her COPD. She does not smoke currently. Labs, x-rays, and all medications are reviewed. Dictation was produced using [employer] software. Please excuse any grammatical, word or spelling errors. Plan dated December 31, 2024. The patient is seen in room 375. The patient is currently on oxygen at 3 L. She continues IV heparin. Labs, x-rays, and medications are reviewed. Clinically, she is much better today than she was yesterday. She is admitted with a diagnosis of COPD exacerbation, atrial fibrillation, and CHF. All labs, x-rays, and medications are reviewed. The patient is overall prognosis remains guarded. We will continue to follow. Dictation was produced using [employer] software. Please excuse any grammatical, word or spelling errors. Time with Patient: Less than 30
[2024-12-31 16:21] LABS: Glucose,Whole Blood 256 mg/dL (70-110)
--- NOTE | 2024-12-31 16:51 | CA ---
Transthoracic Echo Report Name: Santa Tirado Age: 84 Gender: F : 1940 Exam Date: 12/31/2024 10:36 Exam Location: [facility] Ht (in): 60 Wt (lb): 145 Ordering Physician: Alfred Fitzpatrick MD Attending/Referring Phys: Competitive Shopper Lindsey Vidales RDCS Procedure CPT: Indications: SHORTNESS OF BREATH Cardiac Hx: Technical Quality: Good Contrast 1: Total Dose (mL): Contrast 2: Total Dose (mL): MEASUREMENTS (Male / Female) Normal Values 2D ECHO LV Diastolic Diameter PLAX 5.5 cm 4.2 - 5.9 / 3.9 - 5.3 cm LV Systolic Diameter PLAX 4.7 cm IVS Diastolic Thickness 0.9 cm 0.6 - 1.0 / 0.6 - 0.9 cm LVPW Diastolic Thickness 0.8 cm 0.6 - 1.0 / 0.6 - 0.9 cm LV Relative Wall Thickness 0.3 RV Internal Dim ED PLAX 3.8 cm LVOT Diameter 1.8 cm LA Systolic Diameter LX 4.8 cm 3.0 - 4.0 / 2.7 - 3.8 cm LV Diastolic Volume MOD BP 115.3 cm??? 67 - 155 / 56 - 104 cm??? LV Systolic Volume MOD BP 83.5 cm??? 22 - 58 / 19 - 49 cm??? LV Ejection Fraction MOD BP 27.6 % >= 55 % LV Cardiac Index MOD BP 1825.8 cm???/min???m??? LV Diastolic Volume MOD 4C 93.0 cm??? LV Systolic Volume MOD 4C 67.4 cm??? LV Ejection Fraction MOD 4C 27.6 % LV Cardiac Index MOD 4C 1470.8 cm???/min???m??? LV Diastolic Length 4C 7.2 cm LV Systolic Length 4C 7.1 cm LV Diastolic Volume MOD 2C 129.0 cm??? LV Systolic Volume MOD 2C 94.4 cm??? LV Ejection Fraction MOD 2C 26.8 % LV Cardiac Index MOD 2C 1985.0 cm???/min???m??? LV Diastolic Length 2C 8.1 cm LV Systolic Length 2C 8.0 cm LA Volume 93.9 cm??? 18 - 58 / 22 - 52 cm??? LA Volume Index 55.5 cm???/m??? 16 - 28 cm???/m??? M-MODE Aortic Root Diameter MM 2.9 cm DOPPLER AV Peak Velocity 258.7 cm/s AV Peak Gradient 26.8 mmHg AV Mean Velocity 153.5 cm/s AV Mean Gradient 11.5 mmHg AV Velocity Time Integral 49.6 cm LVOT Peak Velocity 162.5 cm/s LVOT Peak Gradient 10.6 mmHg LVOT Velocity Time Integral 30.4 cm LVOT Stroke Volume 78.7 cm??? LVOT Stroke Volume Index 48.3 ml/m??? LVOT Cardiac Index 4515.2 cm???/min???m??? AV Area Cont Eq vti 1.6 cm??? AV Area Cont Eq pk 1.6 cm??? MV Peak Velocity 154.8 cm/s MV Peak Gradient 9.6 mmHg MV Mean Velocity 111.0 cm/s MV Mean Gradient 5.7 mmHg MV Velocity Time Integral 32.9 cm MV Area PHT 3.7 cm??? Mitral E Point Velocity 142.4 cm/s Mitral A Point Velocity 131.0 cm/s Mitral E to A Ratio 1.1 MV Deceleration Time 203.1 ms TR Peak Velocity 253.2 cm/s TR Peak Gradient 25.6 mmHg Right Ventricular Systolic Press 30.6 mmHg FINDINGS Left Ventricle Left ventricular ejection fraction is estimated at 30-35%. Mildly increased left ventricular diastolic diameter. Mildly increased left ventricular diastolic volume. Severely increased left ventricular systolic volume. Severely decreased left ventricular ejection fraction. Right Ventricle Moderate right ventricular dilatation. Right ventricular systolic pressure within normal limits. Right Atrium Normal right atrial size. No right atrial thrombus or mass seen. Left Atrium Severely increased left atrial diameter. Severely increased left atrial volume. Mildly increased left atrial area. No left atrial thrombus or mass present. Mitral Valve Moderate thickening/calcification of the posterior mitral valve leaflet. Moderate mitral regurgitation. Aortic Valve Diffuse thickening of the aortic valve cusps with reduced excursion. Mild aortic stenosis with a peak gradient of 27 mmHg and a mean gradient of 12 mmHg. Tricuspid Valve Structurally normal tricuspid valve. Mild tricuspid regurgitation. Pulmonic Valve Pulmonic valve not well visualized. Trace pulmonic regurgitation. Pericardium No pericardial effusion. Aorta Normal size aortic root and proximal ascending aorta. CONCLUSIONS Impaired LV function with EF around 30 to 35% Aortic sclerosis with mild stenosis Moderate mitral regurgitation Moderate RV enlargement Previewed by: Dr. Lorenzo Roberts MD (Electronically Signed) Final Date: 31 December 2024 16:50
[2024-12-31 20:02] LABS: Glucose,Whole Blood 216 mg/dL (70-110)
[2025-01-01] MEDS: ACETAMINOPHEN TAB 325 MG TAB PO PRN (05:28)
[2025-01-01 06:26] LABS: Glucose,Whole Blood 194 mg/dL (70-110)
[2025-01-01 07:27] LABS: Anisocytosis Slight; Basophils % (A) 0 %; Eosinophils % (A) 0 %; HCT 31.1 % (34.0-46.0); HGB 9.3 gm/dL (11.4-16.0); Hypochromasia Marked; Lymphocytes # (A) 0.3 k/uL (1.0-4.8); Lymphocytes % (A) 4 %; MCH 25.8 pg (25.0-35.0); MCHC 29.8 g/dL (31.0-37.0); MCV 86.5 fL (80.0-100.0); Mean Platelet Volume 8.2; Monocytes # (A) 0.4 k/uL (0-1.0); Monocytes % (A) 4 %; Neutrophils # (A) 7.4 k/uL (1.3-7.7); Neutrophils % (A) 91 %; Platelet Count 282 k/uL (150-450); RBC 3.59 m/uL (3.80-5.40); RDW 16.1 % (11.5-15.5); WBC 8.1 k/uL (3.8-10.6)
[2025-01-01 08:22] LABS: ALT 27 U/L (4-34); AST 24 U/L (14-36); African American GFR (CKD) 61 (>60 ml/min/1.73 sqM); Albumin 3.8 g/dL (3.5-5.0); Alkaline Phosphatase 78 U/L (38-126); Anion Gap 10 mmol/L; Blood Urea Nitrogen 46 mg/dL (7-17); Calcium 9.4 mg/dL (8.4-10.2); Carbon Dioxide 35 mmol/L (22-30); Chloride 93 mmol/L (98-107); Glucose 176 mg/dL (74-99); Magnesium 1.8 mg/dL (1.6-2.3); Non-African American GFR(CKD) 53 (>60 ml/min/1.73 sqM); Potassium 3.4 mmol/L (3.5-5.1); Sodium 138 mmol/L (137-145); Total Bilirubin 0.9 mg/dL (0.2-1.3); Total Protein 5.9 g/dL (6.3-8.2)
[2025-01-01 08:56] LABS: Glucose,Whole Blood 219 mg/dL (70-110)
[2025-01-01] MEDS: DEXTROSE 5% IN WATER 100 ML with AMIODARONE 150 MG IV ONE (09:07)
[2025-01-01] MEDS: AMIODARONE 360 MG in DEXTROSE 5% IN WATER 200 ML IV ONE (09:32)
[2025-01-01 09:36] LABS: Glucose,Whole Blood 338 mg/dL (70-110)
--- NOTE | 2025-01-01 09:43 | XR ---
EXAMINATION TYPE: XR chest 1V portable DATE OF EXAM: 01/01/2025 9:37 AM COMPARISON: Chest radiographs from 12/30/2024. CLINICAL INDICATION: Female, 84 years old with history of sob; [facility] TECHNIQUE: XR chest 1V portable Frontal view of the chest. FINDINGS: Lungs/Pleura: There is no evidence of pleural effusion, focal consolidation, or pneumothorax. Pulmonary vascularity: Pulmonary vascular congestion. Heart/mediastinum: Cardiomediastinal silhouette is enlarged. Atherosclerotic calcifications are seen in the aorta. Musculoskeletal: No acute osseous pathology. IMPRESSION: Cardiomegaly and mild pulmonary vascular congestion. Correlate with BNP for congestive heart failure. [facility], , 01/01/2025 9:41 AM
[2025-01-01 11:01] LABS: Influenza A Not Detected (Not Detectd); Influenza B Not Detected (Not Detectd); RSV Not Detected (Not Detectd)
[2025-01-01 11:21] LABS: Glucose,Whole Blood 236 mg/dL (70-110)
--- NOTE | 2025-01-01 12:03 | P.PN ---
Progress Note - Text Progress Note Date: 01/01/25 Progress Note Date: 12/31/24 patient is a 84-year-old lady with past medical history significant for chronic hypoxic respiratory failure, CHF, COPD, hypertension who presented to the ER as a transfer from [facility] for shortness of breath. Patient stated that she was all right yesterday morning when she started noticing shortness of breath. Shortness of breath is present at rest as on exertion. Patient stated that she was noticing that she was wheezing hard. Patient had a hard time breathing. Patient denies any chest pain. There is no complaint of orthopnea or PND. There was no complaint of any fever or chills. Because of the shortness of breath, patient presented to [facility] where she had to be placed on BiPAP, initial workup there showed patient to have elevated troponin and EKG suspicious for A-fib with RVR, patient was transferred to [facility] Initial lab work done in the ER showed WBC 7.3, hemoglobin 10.6, platelet count 268, sodium 137, potassium 3.8, BUN 18, creatinine 0.7, glucose 179, calcium 9.4, phosphorus 3.9, bilirubin 1.4, AST 41, ALT 40 troponin 1.920, EKG done in the ER showed heart rate of 93, no ST segment elevation or depression seen, no T-wave inversions seen. Chest x-ray done in the ER showed cardiomegaly and mild pulm vascular congestion. Patient admitted to internal medicine service 12/31. Patient seen and examined. States breathing is improved. Wheezing is also improved. Currently on 3 L of oxygen January 01: ICU. Sitting up in bed. Short of breath. Ventimask. On IV amiodarone and IV heparin. Telemetry shows sinus rhythm. With frequent PVCs. Congested cough. Had a very small amount of epistaxis. Decreased appetite. 3 h liters oxygen at home. As needed. On IV Lasix 40 mg every 12 with negative fluid balance for CHF At the baseline has about 1 bowel movement a week. Patient daughter at the bedside. CODE STATUS discussed. Wants to be DNR. Does not have any power of workers compensation defense attorney has 3 children. Told him to get forms filled out. At home does have a cane and a walker but does not use it. Ex-smoker. Lives alone. Social history: Ex-smoker. Stop smoking 11 years ago. Lives alone. Does use a cane and a walker but does not use it. Active Medications Acetaminophen (Acetaminophen Tab 325 Mg Tab) 650 mg PO Q6HR PRN PRN Reason: Mild Pain or Fever > 100.5 Last Admin: 01/01/25 05:28 Dose: 650 mg Al Hydroxide/Mg Hydroxide (Mag Hydrox/Al Hydrox/Simeth 30 Ml Cup) 15 ml PO Q6HR PRN PRN Reason: Indigestion Albuterol/Ipratropium (Ipratropium-Albuterol 3 Ml Neb) 3 ml INHALATION RT-Q4H PRN PRN Reason: shortness of breath or wheezin Last Admin: 01/01/25 11:39 Dose: 3 ml Aspirin (Aspirin 81 Mg) 81 mg PO DAILY [facility] Last Admin: 01/01/25 10:12 Dose: 81 mg Atorvastatin Calcium (Atorvastatin 40 Mg Tab) 40 mg PO HS [facility] Last Admin: 12/31/24 20:31 Dose: 40 mg Budesonide (Budesonide 1 Mg/2 Ml Nebu) 1 mg INHALATION RT-BID [facility] Last Admin: 01/01/25 08:37 Dose: 1 mg Cholecalciferol (Cholecalciferol 25 Mcg (1000 Iu) Tablet) 50 mcg PO DAILY [facility] Last Admin: 01/01/25 10:12 Dose: 50 mcg Clonidine (Clonidine Hcl 0.1 Mg Tab) 0.1 mg PO TID [facility] Last Admin: 01/01/25 10:13 Dose: 0.1 mg Dextrose/Water (Dextrose 50% Syringe 50 Ml) 25 ml IVP PER PROTOCOL PRN; Protocol PRN Reason: Hypoglycemia Dextrose/Water (Dextrose 50% Syringe 50 Ml) 50 ml IVP PER PROTOCOL PRN; Protocol PRN Reason: Hypoglycemia Formoterol Fumarate (Formoterol Fumarate 20 Mcg/2 Ml Nebu) 20 mcg INHALATION RT-BID [facility] Last Admin: 01/01/25 08:58 Dose: Not Given Furosemide (Furosemide 10 Mg/Ml 4 Ml Vial) 40 mg IV Q12H [facility] Last Admin: 01/01/25 09:06 Dose: 40 mg Heparin Sodium (Porcine) (Heparin Sodium 1,000 Un/Ml (10ml Vl)) 0 unit IV PER PROTOCOL PRN; Protocol PRN Reason: Low PTT Last Admin: 12/30/24 09:48 Dose: 4,000 unit Heparin Sodium (Porcine) (Heparin Sodium 1,000 Un/Ml (10ml Vl)) 0 unit IV ONCE PRN; Protocol PRN Reason: Low PTT Heparin Sodium/Sodium Chloride (25,000 unit/ Sodium Chloride) 250 mls @ 11.839 mls/hr IV .Q21H7M [facility]; Protocol Last Admin: 12/31/24 20:37 Dose: 18 units/kg/hr, 11.839 mls/hr Amiodarone HCl 360 mg/ (Dextrose/Water) 200 mls @ 33.333 mls/hr IV .Q6H ONE; Protocol Stop: 01/01/25 15:29 Last Admin: 01/01/25 09:32 Dose: 1 mg/min, 33.333 mls/hr Amiodarone HCl 450 mg/ (Dextrose/Water) 250 mls @ 16.667 mls/hr IV .Q15H [facility]; Protocol Stop: 01/02/25 09:29 Insulin Human Lispro (Insulin Lispro (Humalog) 100 Unit/Ml 10 Ml Vl) 0 unit SQ ACHS [facility]; Protocol Last Admin: 01/01/25 11:45 Dose: 2 unit Lisinopril (Lisinopril 20 Mg Tab) 20 mg PO BID [facility] Last Admin: 01/01/25 11:37 Dose: 20 mg Lorazepam (Lorazepam 1 Mg Tab) 1 mg PO Q6H PRN PRN Reason: Anxiety Last Admin: 01/01/25 10:13 Dose: 1 mg Melatonin (Melatonin 3 Mg Tablet) 3 mg PO HS PRN PRN Reason: Insomnia Methylprednisolone Sodium Succinate (Methylprednisolone Sod Succi 125 Mg/2 Ml Vial) 60 mg IV Q6H [facility] Last Admin: 01/01/25 11:45 Dose: 60 mg Metoprolol Tartrate (Metoprolol Tartrate 25 Mg Tab) 25 mg PO BID [facility] Last Admin: 01/01/25 09:06 Dose: 25 mg Montelukast Sodium (Montelukast 10 Mg Tab) 10 mg PO HS [facility] Last Admin: 12/31/24 20:32 Dose: 10 mg Morphine Sulfate (Morphine Sulfate 4 Mg/Ml Syringe) 4 mg IV Q4HR PRN PRN Reason: Severe Pain (Scale 7 to 10) Last Admin: 12/30/24 04:01 Dose: 4 mg Naloxone HCl (Naloxone 0.4 Mg/Ml 1 Ml Vial) 0.2 mg IV Q2M PRN PRN Reason: Opioid Reversal Ondansetron HCl (Ondansetron 4 Mg/2 Ml Vial) 4 mg IVP Q8HR PRN PRN Reason: Nausea And Vomiting Pantoprazole Sodium (Pantoprazole 40 Mg Tablet) 40 mg PO AC-BRKFST [facility] Last Admin: 01/01/25 06:36 Dose: 40 mg Temazepam (Temazepam 15 Mg Cap) 30 mg PO HS [facility] Last Admin: 12/31/24 20:32 Dose: 30 mg Venlafaxine HCl (Venlafaxine Hcl Er 37.5 Mg Cap) 37.5 mg PO DAILY [facility] Last Admin: 01/01/25 11:36 Dose: 37.5 mg On examination: VITAL SIGNS: Hyperlipidemia, A-fib 170s this morning now 88, 183 x 96, 99% on 15 L nonrebreather GENERAL APPEARANCE: BMI 29.9, sitting up in bed short of breath HEENT: Normal external appearance of nose and ear. Oral cavity normal, hard of hearing EYES: Pupils equal. Conjunctiva normal. NECK: JVD not raised. Mass not palpable. RESPIRATORY: Respiratory effort increased, unable to speak in full sentences, decreased breath sounds some expiratory crackles CARDIOVASCULAR: First and second sounds normal. No edema. ABDOMEN: Soft. Liver and spleen not palpable. No tenderness. No mass palpable. PSYCHIATRY: Alert and oriented x3. Mood and affect a bit anxious Musculoskeletal: OA several joints INVESTIGATIONS, reviewed in the clinical context: January 01: White count 8.1 hemoglobin 9.3 platelets 22 sodium 138 potassium 3.4 creatinine 0.99 Troponin I 0.502 Influenza type A, type B, RSV, SARS-CoV-2: Not detected Chest x-ray film personally reviewed by me-scattered infiltrates EKG tracing personally reviewed by me-atrial fibrillation. Rate 155. Intraventricular block pattern. 2D echocardiogram [December 31, 2024] EF 30 to 35%. Moderate right ventricle dilatation. Right ventricular pressure within normal limits. No left atrial thrombus/mass. Moderate mitral regurgitation. Aortic stenosis with a peak gradient 27 and a mean gradient of 12 mild TR Assessment and plan: -Acute on chronic hypoxemic hypercapnic respiratory failure, secondary to COPD exacerbation and CHF exacerbation: Not improving Currently on 15 L Ventimask -Acute severe COPD exacerbation, an ex-smoker: Slow to respond Add DuoNeb 4 times daily. IV Solu-Medrol 60 mg every 6. nebulized Pulmicort -Acute on chronic systolic CHF, EF 30 to 35%: Slow to respond IV Lasix 40 mg every 12 -New onset of atrial fibrillation with rapid ventricular rate, now this morning converts to sinus rhythm IV amiodarone. IV heparin. Cardiology following. Lopressor 25 mg twice daily -IV heparin monitoring, follow protocol -Chronic tracheomalacia -NSTEMI Aspirin -Acute transaminitis, mild Repeat labs -Chronic constipation at the baseline has 1 bowel movement every week Add Metamucil 1 packet daily -Essential hypertension Lopressor 25 twice daily. Zestril 20 mg twice daily. -Hyperlipidemia Lipitor 40 mg nightly -Primary osteoarthritis Tylenol as needed -Hard of hearing -DNR, discussed with patient Advance care planning [January 01, 2025] This was discussed with the patient, daughter at the bedside. Patient understands advanced age and comorbidities. Had decided to proceed with DNR. She does not have a medical POA. She has 3 children. Did discuss with him filling out forms as per the decision. Questions answered. Time spent for this about 25 minutes
[2025-01-01] MEDS: AMIODARONE 450 MG in DEXTROSE 5% IN WATER 250 ML IV SCH (14:18)
[2025-01-01] MEDS: PSYLLIUM HUSK 100% 6 GM PACKET PO SCH (14:18)
--- NOTE | 2025-01-01 15:07 | P.PN ---
Subjective Progress Note Date: 01/01/25 On 01/01/2025, the patient became acutely short of breath and based on data, the patient got transferred to the intensive care unit. In fact, the A was called to the room as the patient became acutely hypoxic and she was found to be in atrial fibrillation with rapid ventricular response. Based on that, the patient was placed on 100% nonrebreather facemask and following that, the patient got transferred to the intensive care unit. Noted the patient was hospitalized earlier for acute hypoxic respiratory failure secondary to CHF/COPD exacerbation. The patient this morning developed A-fib/RVR with a heart rate in the 170s. She was started on amiodarone per protocol. She was started on IV heparin. She was also given IV Lasix. She seems to be more comfortable following her transfer to the intensive care unit. However, the breathing remains quite labored. She is known to have CHF with an EF of around 30 to 35% with moderate RV dilatation and mild aortic stenosis and this is based on echoca rdiogram that was done on 12/31/2024. The patient had blood work today with a white cell count of 8.1, hemoglobin 9.3 and a platelet count of 282. Sodium levels at 138, potassium is at 3.4, BUN 46 with a creatinine of 0.99. Serum bicarb is at 35. Follow-up troponin is downtrending and is currently down to 0.5. The viral screen was checked in the ICU and it was negative. The chest x- ray from this morning shows cardiomegaly along with mild pulm vessel congestion consistent with CHF. The patient is less tachycardic at this point. She has audible wheezes. She is able to communicate. No altered mentation. Objective - Vital Signs Vital signs: Vital Signs Temp 98.2 F 01/01/25 04:00 Pulse 170 H 01/01/25 08:52 Resp 18 01/01/25 04:00 BP 167/77 01/01/25 04:00 Pulse Ox 95 01/01/25 04:00 FiO2 Intake & Output 12/31/24 01/01/25 01/01/25 18:59 06:59 18:59 Intake Total 540 235.533 10 Output Total 1000 1450 Balance -460 -1214.467 10 Weight 69.5 kg Intake: IV 10 10 0.9 10 Invasive Line 2 10 Intake, IV Titration 225.533 Amount Heparin Sod,Pork in 0.45% 225.533 NaCl 25,000 unit In 0.45 % NaCl 1 250ml.bag @ 18 UNITS/KG/HR 11.839 mls/hr IV .Q21H7M [facility] Rx#: [id number] Oral 540 Output: Urine 1000 1450 Other: Voiding Method External Catheter External Catheter - Exam The patient appeared to have labored breathing along with audible wheezes Head exam is unremarkable. No scleral icterus or corneal arcus noted. Neck is without jugular venous distension, thyromegaly, or carotid bruits. Carotid upstrokes are brisk bilaterally. Lungs are diminished bilaterally along with some few bibasilar crackles and there is exhalation wheezing heard throughout the lung claros bilaterally Cardiac exam reveals the PMI to be normally sized and situated. Rhythm is irregular consistent with atrial fibrillation with rapid ventricular response first and second heart sounds normal. No murmurs, rubs or gallops. Abdominal exam reveals normal bowel sounds, no masses, no organomegaly and no aortic enlargement. Extremities are nonedematous and both femoral and pedal pulses are normal. Examination of the skin revealed no evidence of significant rashes, suspicious appearing nevi or other concerning lesions. Neurologically, the patient is awake and alert and the patient does not have any focal neurological deficit. Cranial nerves are essentially intact. - Labs CBC & Chem 7: 01/01/25 06:03 01/01/25 06:03 Labs: Abnormal Lab Results - Last 24 Hours (Table) 12/31/24 12/31/24 12/31/24 Range/Units 07:09 07:09 11:43 RBC (3.80-5.40) m/uL Hgb (11.4-16.0) gm/dL Hct (34.0-46.0) % MCHC (31.0-37.0) g/dL RDW (11.5-15.5) % Lymphocytes # (1.0-4.8) k/uL APTT (22.0-30.0) sec Potassium (3.5-5.1) mmol/L Chloride 93 L (98-107) mmol/L Carbon Dioxide 37 H (22-30) mmol/L BUN 39 H (7-17) mg/dL Glucose 162 H (74-99) mg/dL POC Glucose (mg/dL) 202 H (70-110) mg/dL Hemoglobin A1c 6.7 H (<=6.0) % Total Protein 5.8 L (6.3-8.2) g/dL 12/31/24 12/31/24 01/01/25 Range/Units 16:20 20:01 06:03 RBC 3.59 L (3.80-5.40) m/uL Hgb 9.3 L (11.4-16.0) gm/dL Hct 31.1 L (34.0-46.0) % MCHC 29.8 L (31.0-37.0) g/dL RDW 16.1 H (11.5-15.5) % Lymphocytes # 0.3 L (1.0-4.8) k/uL APTT (22.0-30.0) sec Potassium (3.5-5.1) mmol/L Chloride (98-107) mmol/L Carbon Dioxide (22-30) mmol/L BUN (7-17) mg/dL Glucose (74-99) mg/dL POC Glucose (mg/dL) 256 H 216 H (70-110) mg/dL Hemoglobin A1c (<=6.0) % Total Protein (6.3-8.2) g/dL 01/01/25 01/01/25 01/01/25 Range/Units 06:03 06:03 06:25 RBC (3.80-5.40) m/uL Hgb (11.4-16.0) gm/dL Hct (34.0-46.0) % MCHC (31.0-37.0) g/dL RDW (11.5-15.5) % Lymphocytes # (1.0-4.8) k/uL APTT 61.6 H (22.0-30.0) sec Potassium 3.4 L (3.5-5.1) mmol/L Chloride 93 L (98-107) mmol/L Carbon Dioxide 35 H (22-30) mmol/L BUN 46 H (7-17) mg/dL Glucose 176 H (74-99) mg/dL POC Glucose (mg/dL) 194 H (70-110) mg/dL Hemoglobin A1c (<=6.0) % Total Protein 5.9 L (6.3-8.2) g/dL 01/01/25 01/01/25 Range/Units 08:54 09:34 RBC (3.80-5.40) m/uL Hgb (11.4-16.0) gm/dL Hct (34.0-46.0) % MCHC (31.0-37.0) g/dL RDW (11.5-15.5) % Lymphocytes # (1.0-4.8) k/uL APTT (22.0-30.0) sec Potassium (3.5-5.1) mmol/L Chloride (98-107) mmol/L Carbon Dioxide (22-30) mmol/L BUN (7-17) mg/dL Glucose (74-99) mg/dL POC Glucose (mg/dL) 219 H 338 H (70-110) mg/dL Hemoglobin A1c (<=6.0) % Total Protein (6.3-8.2) g/dL Assessment and Plan Plan: Acute on top of chronic hypoxic respiratory failure associated secondary to CHF exacerbation/A-fib with RVR. Noted the patient also has background COPD. She was noted to be actively bronchospastic and wheezy and hide respiratory failure essentially related to COPD/CHF exacerbation. Currently on 100% nonrebreather facemask Acute CHF exacerbation. Noted to have systolic heart failure with an EF around 30 to 35% Acute COPD exacerbation New onset A-fib with RVR and the heart rate was in the 170s, currently on amiodarone drip per protocol and IV heparin. Rate is under better control. Rule out non-ST segment elevation myocardial infarction, versus elevated troponin secondary to supply/demand mismatch. Systolic heart failure, EF 30-35%, moderate RV dilation, mild (12/31/24) Chronic hypoxemic respiratory failure, on home O2 at 3 L. COPD , 60 pyear smoking Hyperlipidemia. Hypertension. Multiple other medical problems and comorbidities Plan: Patient will be transferred to the intensive care unit patient will be kept On 100% of the breather facemask and will gradually wean down the FiO2 to maintain saturation above 90% Continue amiodarone drip per protocol Continue IV heparin Continue IV Lasix and the patient is currently receiving Lasix 40 mg IV every 12 hours Continue metoprolol 25 mg p.o. twice daily Zestril 20 mg p.o. twice daily DuoNeb nebulized treatments [id number] 4 times a day Perforomist and Pulmicort nebulized treatments twice a day IV Solu-Medrol 60 mg every 6 hours Chest x-ray was noted Troponin is downtrending Repeat chest x-ray in the next 24 hours Utilize BiPAP if needed Will continue to follow Condition is critical and stabilization was done more than 30 minutes, specifically 31 minutes. Time with Patient: Greater than 30
[2025-01-01] MEDS ORDERED: Potassium Replacement Protocol 1 EACH MISC MISCELLANE PRN (15:31)
[2025-01-01] MEDS: IPRATROPIUM-ALBUTEROL 3 ML NEB INHALATION SCH (15:35)
[2025-01-01] MEDS: POTASSIUM CHLORIDE ER 20 MEQ TAB.ER PO SCH (15:52)
[2025-01-01 16:12] LABS: Glucose,Whole Blood 301 mg/dL (70-110)
--- NOTE | 2025-01-01 19:04 | P.PN ---
Subjective Progress Note Date: 01/01/25 The patient is a 84-year-old female patient with a past medical history significant for hypoxic respiratory failure secondary to COPD as well as hypertension and dyslipidemia and history of heart failure as well. She was transferred from [facility] to [facility] for further evaluation of shortness of breath and heart failure as well as abnormal cardiac enzymes. For the last few days she has been experiencing progressive exertional dyspnea associated with bilateral lower extremities edema with no symptoms of chest pain or chest discomfort or any other cardiovascular symptoms. No fever and no chills and no cough. She underwent further evaluation including chest x- ray showed pulmonary vascular congestions and finding consistent with heart failure and also an EKG showing sinus rhythm with sinus tachycardia. NT proBNP came in at the 18,000. Troponin came to be abnormal but appeared to be flat across the board. EKG showed sinus rhythm with sinus tachycardia. The patient was started on heparin IV and started on Lasix IV and echo was ordered still pending. The patient is known to our service was seen by our service back in 2022 where at that point she underwent a heart catheterization revealed normal coronaries which she is under some stress lately after she lost her daughter a few weeks ago. The physical examination is remarkable for regular rhythm with distant heart sounds and severe bilateral expiratory wheezing and mild bilateral lower extremities edema December 31, 2024 The patient was seen and evaluated this morning which she still having extensive wheezing on examination no edema in the lower extremities noted. The echo still pending. No symptoms of chest pain or chest discomfort. The physical examination is remarkable for stable vital signs with mild sinus tachycardia and bilateral expiratory wheezing and no edema was noted in the lower extremities but she continues to be on Lasix IV and she has been diuresing very well. 01/01/2025 Patient is seen and examined at bedside this a.m. Patient was transferred from floor to ICU because of increased hypoxia increased shortness of breath requiring 100% nonrebreather. Assessment Acute HFrEF exacerbation, EF 30 to 35% Atrial fibrillation with RVR Acute on chronic hypoxic respiratory failure, multifactorial because of A-fib RVR, CHF exacerbation, COPD exacerbation Type II NSTEMI likely because of hypoxemia Mild aortic stenosis, moderate mitral regurgitation Multiple comorbidities Pertinent cardiac testing Echo from this admission shows an EF of 30 to 35%, mild aortic stenosis, m oderate mitral regurgitation, moderate RV dilatation. No prior echo to compare with in system Plan Aspirin, Lipitor, Continue IV heparin drip Continue IV Lasix 40 mg twice daily Continue metoprolol 25 mg twice daily. Start amiodarone after bolus Stop clonidine. If hypotensive, increase lisinopril, add CCB and go up on beta- nohelia. Continue optimizing GDMT. Consider ischemic evaluation once optimized/stabilized from respiratory standpoint. Objective - Vital Signs Vital signs: Vital Signs Temp 97.7 F 01/01/25 16:00 Pulse 69 01/01/25 19:00 Resp 20 01/01/25 19:00 BP 140/54 01/01/25 19:00 Pulse Ox 100 01/01/25 19:00 FiO2 Intake & Output 01/01/25 01/01/25 01/02/25 06:59 18:59 06:59 Intake Total 235.533 288.098 Output Total 1450 1345 Balance -1214.467 -1056.902 Weight 69.5 kg 69.5 kg Intake: IV 10 10 0.9 10 Invasive Line 2 10 Intake, IV Titration 225.533 278.098 Amount Heparin Sod,Pork in 0.45% 225.533 228.098 NaCl 25,000 unit In 0.45 % NaCl 1 250ml.bag @ 18 UNITS/KG/HR 11.839 mls/hr IV .Q21H7M [facility] Rx#: [id number] 1 gm In 50 Sodium Chloride 0.9% 50 ml @ 100 mls/hr IVPB Q24HR [facility] Rx#:[id number] Output: Urine 1450 900 Post Void Residual 445 Other: Voiding Method External Catheter Indwelling Catheter - Labs CBC & Chem 7: 01/01/25 06:03 01/01/25 14:35 Labs: Abnormal Lab Results - Last 24 Hours (Table) 12/31/24 01/01/25 01/01/25 Range/Units 20:01 06:03 06:03 RBC 3.59 L (3.80-5.40) m/uL Hgb 9.3 L (11.4-16.0) gm/dL Hct 31.1 L (34.0-46.0) % MCHC 29.8 L (31.0-37.0) g/dL RDW 16.1 H (11.5-15.5) % Lymphocytes # 0.3 L (1.0-4.8) k/uL APTT (22.0-30.0) sec Potassium 3.4 L (3.5-5.1) mmol/L Chloride 93 L (98-107) mmol/L Carbon Dioxide 35 H (22-30) mmol/L BUN 46 H (7-17) mg/dL Glucose 176 H (74-99) mg/dL POC Glucose (mg/dL) 216 H (70-110) mg/dL Troponin I (0.000-0.034) ng/mL Total Protein 5.9 L (6.3-8.2) g/dL 01/01/25 01/01/25 01/01/25 Range/Units 06:03 06:25 08:54 RBC (3.80-5.40) m/uL Hgb (11.4-16.0) gm/dL Hct (34.0-46.0) % MCHC (31.0-37.0) g/dL RDW (11.5-15.5) % Lymphocytes # (1.0-4.8) k/uL APTT 61.6 H (22.0-30.0) sec Potassium (3.5-5.1) mmol/L Chloride (98-107) mmol/L Carbon Dioxide (22-30) mmol/L BUN (7-17) mg/dL Glucose (74-99) mg/dL POC Glucose (mg/dL) 194 H 219 H (70-110) mg/dL Troponin I (0.000-0.034) ng/mL Total Protein (6.3-8.2) g/dL 01/01/25 01/01/25 01/01/25 Range/Units 09:34 10:03 11:19 RBC (3.80-5.40) m/uL Hgb (11.4-16.0) gm/dL Hct (34.0-46.0) % MCHC (31.0-37.0) g/dL RDW (11.5-15.5) % Lymphocytes # (1.0-4.8) k/uL APTT (22.0-30.0) sec Potassium (3.5-5.1) mmol/L Chloride (98-107) mmol/L Carbon Dioxide (22-30) mmol/L BUN (7-17) mg/dL Glucose (74-99) mg/dL POC Glucose (mg/dL) 338 H 236 H (70-110) mg/dL Troponin I 0.502 H* (0.000-0.034) ng/mL Total Protein (6.3-8.2) g/dL 01/01/25 Range/Units 16:10 RBC (3.80-5.40) m/uL Hgb (11.4-16.0) gm/dL Hct (34.0-46.0) % MCHC (31.0-37.0) g/dL RDW (11.5-15.5) % Lymphocytes # (1.0-4.8) k/uL APTT (22.0-30.0) sec Potassium (3.5-5.1) mmol/L Chloride (98-107) mmol/L Carbon Dioxide (22-30) mmol/L BUN (7-17) mg/dL Glucose (74-99) mg/dL POC Glucose (mg/dL) 301 H (70-110) mg/dL Troponin I (0.000-0.034) ng/mL Total Protein (6.3-8.2) g/dL
[2025-01-01 19:44] LABS: Glucose,Whole Blood 211 mg/dL (70-110)
[2025-01-01] MEDS: MAGNESIUM SULFATE-D5W PMX 1 GM in DEXTROSE/WATER 1 100ML.BAG IVPB ONE (22:23)
[2025-01-01] MEDS: POTASSIUM CHLORIDE 10 MEQ in WATER FOR INJECTION 1 100ML.BAG IVPB SCH (22:24)
[2025-01-02 06:07] LABS: Anisocytosis Slight; Basophils % (A) 0 %; Eosinophils % (A) 0 %; HCT 28.8 % (34.0-46.0); HGB 8.8 gm/dL (11.4-16.0); Hypochromasia Marked; Lymphocytes # (A) 0.2 k/uL (1.0-4.8); Lymphocytes % (A) 3 %; MCH 26.4 pg (25.0-35.0); MCHC 30.5 g/dL (31.0-37.0); MCV 86.4 fL (80.0-100.0); Mean Platelet Volume 8.6; Monocytes # (A) 0.4 k/uL (0-1.0); Monocytes % (A) 4 %; Neutrophils # (A) 8.7 k/uL (1.3-7.7); Neutrophils % (A) 92 %; Platelet Count 242 k/uL (150-450); RBC 3.34 m/uL (3.80-5.40); RDW 16.1 % (11.5-15.5); WBC 9.4 k/uL (3.8-10.6)
[2025-01-02 06:21] LABS: Glucose,Whole Blood 238 mg/dL (70-110)
[2025-01-02 07:38] LABS: ALT 30 U/L (4-34); AST 25 U/L (14-36); African American GFR (CKD) 59 (>60 ml/min/1.73 sqM); Albumin 3.7 g/dL (3.5-5.0); Alkaline Phosphatase 72 U/L (38-126); Anion Gap 8 mmol/L; Blood Urea Nitrogen 48 mg/dL (7-17); Calcium 9.2 mg/dL (8.4-10.2); Carbon Dioxide 34 mmol/L (22-30); Chloride 94 mmol/L (98-107); Glucose 234 mg/dL (74-99); Non-African American GFR(CKD) 51 (>60 ml/min/1.73 sqM); Potassium 3.9 mmol/L (3.5-5.1); Sodium 136 mmol/L (137-145); Total Bilirubin 0.9 mg/dL (0.2-1.3); Total Protein 5.8 g/dL (6.3-8.2)
--- NOTE | 2025-01-02 08:10 | XR ---
EXAMINATION TYPE: XR chest 1V portable DATE OF EXAM: 01/02/2025 5:20 AM COMPARISON: Chest radiograph from one day prior. CLINICAL INDICATION: Female, 84 years old with history of shortness of breath; [facility] TECHNIQUE: XR chest 1V portable Frontal view of the chest. FINDINGS: Lungs/Pleura: There is no evidence of pleural effusion, focal consolidation, or pneumothorax. Pulmonary vascularity: Pulmonary vascular congestion. Heart/mediastinum: Cardiomediastinal silhouette is enlarged. Atherosclerotic calcifications are seen in the aorta. Musculoskeletal: No acute osseous pathology. IMPRESSION: Cardiomegaly similar and mild pulmonary vascular congestion. Superimposed infection not excluded. [facility], , 01/02/2025 8:08 AM
[2025-01-02] MEDS: AMIODARONE 450 MG in DEXTROSE 5% IN WATER 250 ML IV SCH (08:44)
[2025-01-02] MEDS: METOPROLOL TARTRATE 25 MG TAB PO STA (09:55)
[2025-01-02 11:14] LABS: Glucose,Whole Blood 183 mg/dL (70-110)
[2025-01-02] MEDS: guaiFENesin 600 MG TABLET.ER PO SCH (13:32)
--- NOTE | 2025-01-02 14:10 | P.PN ---
Subjective Progress Note Date: 01/02/25 On 01/01/2025, the patient became acutely short of breath and based on data, the patient got transferred to the intensive care unit. In fact, the A was called to the room as the patient became acutely hypoxic and she was found to be in atrial fibrillation with rapid ventricular response. Based on that, the patient was placed on 100% nonrebreather facemask and following that, the patient got transferred to the intensive care unit. Noted the patient was hospitalized earlier for acute hypoxic respiratory failure secondary to CHF/COPD exacerbation. The patient this morning developed A-fib/RVR with a heart rate in the 170s. She was started on amiodarone per protocol. She was started on IV heparin. She was also given IV Lasix. She seems to be more comfortable following her transfer to the intensive care unit. However, the breathing remains quite labored. She is known to have CHF with an EF of around 30 to 35% with moderate RV dilatation and mild aortic stenosis and this is based on echoca rdiogram that was done on 12/31/2024. The patient had blood work today with a white cell count of 8.1, hemoglobin 9.3 and a platelet count of 282. Sodium levels at 138, potassium is at 3.4, BUN 46 with a creatinine of 0.99. Serum bicarb is at 35. Follow-up troponin is downtrending and is currently down to 0.5. The viral screen was checked in the ICU and it was negative. The chest x- ray from this morning shows cardiomegaly along with mild pulm vessel congestion consistent with CHF. The patient is less tachycardic at this point. She has audible wheezes. She is able to communicate. No altered mentation. On 01/02/2025, the patient is being seen for a follow-up. The patient was brought into the ICU yesterday for acute hypoxic respiratory failure, acute on chronic shortness of breath, acute atrial fibrillation with rapid ventricular response. Noted, the patient converted into normal sinus rhythm at around 3 PM yesterday. Earlier this morning at around 7 AM, the patient went back into atrial fibrillation. Rate is controlled for now. The patient is on metoprolol 25 mg p.o. twice a day. The patient is also on amiodarone drip 0.5 mg/min. The patient remains on IV heparin. Noted she did encountered an episode of hemoptysis earlier this morning. She did cough out some bright red blood. No significant epistaxis at this point in time. Meanwhile, she remains bronchospastic and wheezy although this is improved compared to yesterday. Repeat chest x-ray was done this morning and it showed cardiomegaly with mild pulm vessel congestion. No airspace disease or consolidation. White cell count of 9.4 with a hemoglobin of 8.8 and a platelet count of 242. BUN is 48 with a c reatinine of 1.02 and a sodium levels at 136. LFTs are within normal limits. On a separate note, the oxygenation is improved. The patient was taken off the 100% nonrebreather facemask and the patient is currently on 6 L of oxygen by nasal cannula. Fluid balance is -1.7 L over the past 24 hours. She remains hypertensive. Awake and alert and communicating. Objective - Vital Signs Vital signs: Vital Signs Temp 98.0 F 01/02/25 08:00 Pulse 81 01/02/25 09:30 Resp 25 H 01/02/25 09:30 BP 172/73 01/02/25 09:30 Pulse Ox 99 01/02/25 09:30 FiO2 Intake & Output 01/01/25 01/02/25 01/02/25 18:59 06:59 18:59 Intake Total 288.098 683.37 76.67 Output Total 1345 1355 550 Balance -1056.902 -671.63 -473.33 Weight 69.5 kg 71.1 kg Intake: IV 10 60 0.9 10 Invasive Line 2 10 cefTRIAXone 1 gm In 50 Sodium Chloride 0.9% 50 ml @ 100 mls/hr IVPB Q24HR [facility] Rx#:[id number] Intake, IV Titration 278.098 683.37 16.67 Amount Amiodarone 450 mg In 183.37 16.67 Dextrose 5% in Water 250 ml @ 0.5 MG/MIN 16.667 mls/hr IV .Q15H [facility] Rx#: [id number] Heparin Sod,Pork in 0.45% 228.098 NaCl 25,000 unit In 0.45 % NaCl 1 250ml.bag @ 18 UNITS/KG/HR 11.839 mls/hr IV .Q21H7M [facility] Rx#: [id number] Magnesium Sulfate-D5w Pmx 100 1 gm In Dextrose/Water 1 100ml.bag @ 100 mls/hr IVPB ONCE ONE Rx#: [id number] Potassium Chloride 10 meq 400 In Water For Injection 1 100ml.bag @ 100 mls/hr IVPB Q1HR [facility] Rx#: [id number] cefTRIAXone 1 gm In 50 Sodium Chloride 0.9% 50 ml @ 100 mls/hr IVPB Q24HR [facility] Rx#:[id number] Output: Urine 900 1355 550 Post Void Residual 445 Other: Voiding Method Indwelling Catheter Indwelling Catheter Indwelling Catheter - Exam The patient appeared to be more comfortable compared to yesterday, less bronchospastic and wheezy and less short of breath. She is currently on 6 L of oxygen by nasal cannula. Head exam is unremarkable. No scleral icterus or corneal arcus noted. Neck is without jugular venous distension, thyromegaly, or carotid bruits. Carotid upstrokes are brisk bilaterally. Lungs are diminished bilaterally along with some few bibasilar crackles and there is exhalation wheezing heard throughout the lung claros bilaterally Cardiac exam reveals the PMI to be normally sized and situated. Rhythm is irregular consistent with atrial fibrillation with rapid ventricular response first and second heart sounds normal. No murmurs, rubs or gallops. Abdominal exam reveals normal bowel sounds, no masses, no organomegaly and no aortic enlargement. Extremities are nonedematous and both femoral and pedal pulses are normal. Examination of the skin revealed no evidence of significant rashes, suspicious appearing nevi or other concerning lesions. Neurologically, the patient is awake and alert and the patient does not have any focal neurological deficit. Cranial nerves are essentially intact. - Labs CBC & Chem 7: 01/02/25 05:17 01/02/25 05:17 Labs: Abnormal Lab Results - Last 24 Hours (Table) 01/01/25 01/01/25 01/01/25 Range/Units 10:03 11:19 14:35 RBC (3.80-5.40) m/uL Hgb (11.4-16.0) gm/dL Hct (34.0-46.0) % MCHC (31.0-37.0) g/dL RDW (11.5-15.5) % Neutrophils # (1.3-7.7) k/uL Lymphocytes # (1.0-4.8) k/uL APTT (22.0-30.0) sec Sodium (137-145) mmol/L Potassium (3.5-5.1) mmol/L Chloride (98-107) mmol/L Carbon Dioxide (22-30) mmol/L BUN (7-17) mg/dL Glucose (74-99) mg/dL POC Glucose (mg/dL) 236 H (70-110) mg/dL Troponin I 0.502 H* (0.000-0.034) ng/mL Total Protein (6.3-8.2) g/dL Procalcitonin 0.62 H (0.02-0.50) ng/mL 01/01/25 01/01/25 01/01/25 Range/Units 16:10 19:42 20:01 RBC (3.80-5.40) m/uL Hgb (11.4-16.0) gm/dL Hct (34.0-46.0) % MCHC (31.0-37.0) g/dL RDW (11.5-15.5) % Neutrophils # (1.3-7.7) k/uL Lymphocytes # (1.0-4.8) k/uL APTT (22.0-30.0) sec Sodium (137-145) mmol/L Potassium 3.4 L (3.5-5.1) mmol/L Chloride (98-107) mmol/L Carbon Dioxide (22-30) mmol/L BUN (7-17) mg/dL Glucose (74-99) mg/dL POC Glucose (mg/dL) 301 H 211 H (70-110) mg/dL Troponin I (0.000-0.034) ng/mL Total Protein (6.3-8.2) g/dL Procalcitonin (0.02-0.50) ng/mL 01/02/25 01/02/25 01/02/25 Range/Units 05:17 05:17 05:17 RBC 3.34 L (3.80-5.40) m/uL Hgb 8.8 L (11.4-16.0) gm/dL Hct 28.8 L (34.0-46.0) % MCHC 30.5 L (31.0-37.0) g/dL RDW 16.1 H (11.5-15.5) % Neutrophils # 8.7 H (1.3-7.7) k/uL Lymphocytes # 0.2 L (1.0-4.8) k/uL APTT 50.9 H (22.0-30.0) sec Sodium 136 L (137-145) mmol/L Potassium (3.5-5.1) mmol/L Chloride 94 L (98-107) mmol/L Carbon Dioxide 34 H (22-30) mmol/L BUN 48 H (7-17) mg/dL Glucose 234 H (74-99) mg/dL POC Glucose (mg/dL) (70-110) mg/dL Troponin I (0.000-0.034) ng/mL Total Protein 5.8 L (6.3-8.2) g/dL Procalcitonin (0.02-0.50) ng/mL 01/02/25 Range/Units 06:18 RBC (3.80-5.40) m/uL Hgb (11.4-16.0) gm/dL Hct (34.0-46.0) % MCHC (31.0-37.0) g/dL RDW (11.5-15.5) % Neutrophils # (1.3-7.7) k/uL Lymphocytes # (1.0-4.8) k/uL APTT (22.0-30.0) sec Sodium (137-145) mmol/L Potassium (3.5-5.1) mmol/L Chloride (98-107) mmol/L Carbon Dioxide (22-30) mmol/L BUN (7-17) mg/dL Glucose (74-99) mg/dL POC Glucose (mg/dL) 238 H (70-110) mg/dL Troponin I (0.000-0.034) ng/mL Total Protein (6.3-8.2) g/dL Procalcitonin (0.02-0.50) ng/mL Assessment and Plan Plan: Acute on top of chronic hypoxic respiratory failure associated secondary to CHF exacerbation/A-fib with RVR. Noted the patient also has background COPD. She was noted to be actively bronchospastic and wheezy and hide respiratory failure essentially related to COPD/CHF exacerbation. Clinically improved compared to yesterday. Patient continues to be in COPD and CHF exacerbation and the patient continues to have paroxysmal atrial fibrillation. She is currently on 6 L of O2 nasal cannula. Acute CHF exacerbation. Noted to have systolic heart failure with an EF around 30 to 35% Acute COPD exacerbation New onset A-fib with RVR and the heart rate was in the 170s, currently on amiodarone drip per protocol and IV heparin. Rate is under better control. Hemoptysis, remains on IV heparin Rule out non-ST segment elevation myocardial infarction, versus elevated troponin secondary to supply/demand mismatch. Systolic heart failure, EF 30-35%, moderate RV dilation, mild (12/31/24) Chronic hypoxemic respiratory failure, on home O2 at 3 L. COPD , 60 pyear smoking Hyperlipidemia. Hypertension. Multiple other medical problems and comorbidities Plan: Patient will be transferred to the intensive care unit patient will be kept 60s of O2 nasal cannula and will gradually wean down the FiO2 to maintain saturation above 90% Continue amiodarone drip per protocol, currently on 0.5 mg/min Continue IV heparin was not transition this patient to long-term anticoagulants as the patient is having some hemoptysis. Continue IV Lasix and the patient is currently receiving Lasix 40 mg IV every 12 hours, the patient remains in negative fluid balance Continue metoprolol and changed to 50 mg p.o. twice a day Zestril 20 mg p.o. twice daily Restart clonidine 0.1 mg 3 times daily for a tight blood pressure control DuoNeb nebulized treatments [id number] 4 times a day Perforomist and Pulmicort nebulized treatments twice a day IV Solu-Medrol 60 mg every 6 hours Chest x-ray was noted Troponin is downtrending Will continue to follow Condition is critical and stabilization was done more than 30 minutes, specifically 31 minutes. Time with Patient: Greater than 30
[2025-01-02 15:57] LABS: Glucose,Whole Blood 348 mg/dL (70-110)
[2025-01-02] MEDS: cloNIDine HCL 0.1 MG TAB PO SCH (16:00)
--- NOTE | 2025-01-02 16:17 | P.PN ---
Progress Note - Text Progress Note Date: 01/02/25 Progress Note Date: 12/31/24 patient is a 84-year-old lady with past medical history significant for chronic hypoxic respiratory failure, CHF, COPD, hypertension who presented to the ER as a transfer from [facility] for shortness of breath. Patient stated that she was all right yesterday morning when she started noticing shortness of breath. Shortness of breath is present at rest as on exertion. Patient stated that she was noticing that she was wheezing hard. Patient had a hard time breathing. Patient denies any chest pain. There is no complaint of orthopnea or PND. There was no complaint of any fever or chills. Because of the shortness of breath, patient presented to [facility] where she had to be placed on BiPAP, initial workup there showed patient to have elevated troponin and EKG suspicious for A-fib with RVR, patient was transferred to [facility] Initial lab work done in the ER showed WBC 7.3, hemoglobin 10.6, platelet count 268, sodium 137, potassium 3.8, BUN 18, creatinine 0.7, glucose 179, calcium 9.4, phosphorus 3.9, bilirubin 1.4, AST 41, ALT 40 troponin 1.920, EKG done in the ER showed heart rate of 93, no ST segment elevation or depression seen, no T-wave inversions seen. Chest x-ray done in the ER showed cardiomegaly and mild pulm vascular congestion. Patient admitted to internal medicine service 12/31. Patient seen and examined. States breathing is improved. Wheezing is also improved. Currently on 3 L of oxygen January 01: ICU. Sitting up in bed. Short of breath. Ventimask. On IV amiodarone and IV heparin. Telemetry shows sinus rhythm. With frequent PVCs. Congested cough. Had a very small amount of epistaxis. Decreased appetite. 3 h liters oxygen at home. As needed. On IV Lasix 40 mg every 12 with negative fluid balance for CHF At the baseline has about 1 bowel movement a week. Patient daughter at the bedside. CODE STATUS discussed. Wants to be DNR. Does not have any power of city attorney has 3 children. Told him to get forms filled out. At home does have a cane and a walker but does not use it. Ex-smoker. Lives alone. Malika 1: ICU. Up in a chair. This morning patient went into [facility] again with a rapid ventricular rate. Has been in sinus rhythm overnight. Has been continued on IV amiodarone. Dose of Lopressor was increased to 50 mg twice daily. Patient does have a congested cough. Incentive spirometry and Mucinex is being added. Will switch over to Xarelto this evening. Patient on 6 L nasal cannula. Social history: Ex-smoker. Stop smoking 11 years ago. Lives alone. Does use a cane and a walker but does not use it. Active Medications Acetaminophen (Acetaminophen Tab 325 Mg Tab) 650 mg PO Q6HR PRN PRN Reason: Mild Pain or Fever > 100.5 Last Admin: 01/01/25 05:28 Dose: 650 mg Al Hydroxide/Mg Hydroxide (Mag Hydrox/Al Hydrox/Simeth 30 Ml Cup) 15 ml PO Q6HR PRN PRN Reason: Indigestion Albuterol/Ipratropium (Ipratropium-Albuterol 3 Ml Neb) 3 ml INHALATION RT-Q4H PRN PRN Reason: shortness of breath or wheezin Last Admin: 01/02/25 01:57 Dose: 3 ml Albuterol/Ipratropium (Ipratropium-Albuterol 3 Ml Neb) 3 ml INHALATION RT-QID [facility] Last Admin: 01/02/25 15:55 Dose: 3 ml Aspirin (Aspirin 81 Mg) 81 mg PO DAILY [facility] Last Admin: 01/02/25 08:19 Dose: 81 mg Atorvastatin Calcium (Atorvastatin 40 Mg Tab) 40 mg PO HS [facility] Last Admin: 01/01/25 21:09 Dose: 40 mg Budesonide (Budesonide 1 Mg/2 Ml Nebu) 1 mg INHALATION RT-BID [facility] Last Admin: 01/02/25 07:37 Dose: 1 mg Cholecalciferol (Cholecalciferol 25 Mcg (1000 Iu) Tablet) 50 mcg PO DAILY [facility] Last Admin: 01/02/25 08:19 Dose: 50 mcg Clonidine (Clonidine Hcl 0.1 Mg Tab) 0.1 mg PO TID [facility] Last Admin: 01/02/25 16:00 Dose: 0.1 mg Dextrose/Water (Dextrose 50% Syringe 50 Ml) 25 ml IVP PER PROTOCOL PRN; Protocol PRN Reason: Hypoglycemia Dextrose/Water (Dextrose 50% Syringe 50 Ml) 50 ml IVP PER PROTOCOL PRN; Protocol PRN Reason: Hypoglycemia Formoterol Fumarate (Formoterol Fumarate 20 Mcg/2 Ml Nebu) 20 mcg INHALATION RT-BID [facility] Last Admin: 01/02/25 07:37 Dose: 20 mcg Furosemide (Furosemide 10 Mg/Ml 4 Ml Vial) 40 mg IV Q12H [facility] Last Admin: 01/02/25 07:36 Dose: 40 mg Guaifenesin (Guaifenesin 600 Mg Tablet.Er) 1,200 mg PO Q12HR [facility] Last Admin: 01/02/25 13:32 Dose: 1,200 mg Heparin Sodium (Porcine) (Heparin Sodium 1,000 Un/Ml (10ml Vl)) 0 unit IV PER PROTOCOL PRN; Protocol PRN Reason: Low PTT Last Admin: 12/30/24 09:48 Dose: 4,000 unit Heparin Sodium (Porcine) (Heparin Sodium 1,000 Un/Ml (10ml Vl)) 0 unit IV ONCE PRN; Protocol PRN Reason: Low PTT Heparin Sodium/Sodium Chloride (25,000 unit/ Sodium Chloride) 250 mls @ 11.839 mls/hr IV .Q21H7M [facility]; Protocol Stop: 01/02/25 17:00 Last Admin: 01/02/25 13:32 Dose: 18 units/kg/hr, 11.839 mls/hr Ceftriaxone Sodium 1 gm/ (Sodium Chloride) 50 mls @ 100 mls/hr IVPB Q24HR [facility]; Protocol Last Admin: 01/02/25 08:18 Dose: 100 mls/hr Amiodarone HCl 450 mg/ (Dextrose/Water) 250 mls @ 16.667 mls/hr IV .Q15H [facility]; Protocol Stop: 01/03/25 02:29 Last Admin: 01/02/25 08:44 Dose: 0.5 mg/min, 16.667 mls/hr Insulin Human Lispro (Insulin Lispro (Humalog) 100 Unit/Ml 10 Ml Vl) 0 unit SQ ACHS [facility]; Protocol Last Admin: 01/02/25 16:00 Dose: 4 unit Lisinopril (Lisinopril 20 Mg Tab) 20 mg PO BID [facility] Last Admin: 01/02/25 07:40 Dose: 20 mg Lorazepam (Lorazepam 1 Mg Tab) 1 mg PO Q6H PRN PRN Reason: Anxiety Last Admin: 01/02/25 06:38 Dose: 1 mg Melatonin (Melatonin 3 Mg Tablet) 3 mg PO HS PRN PRN Reason: Insomnia Methylprednisolone Sodium Succinate (Methylprednisolone Sod Succi 125 Mg/2 Ml Vial) 60 mg IV Q6H [facility] Last Admin: 01/02/25 11:18 Dose: 60 mg Metoprolol Tartrate (Metoprolol Tartrate 50 Mg Tab) 50 mg PO BID [facility] Miscellaneous Information (Potassium Replacement Protocol 1 Each Misc) 1 each MISCELLANE DAILY PRN; Protocol PRN Reason: Per Protocol Montelukast Sodium (Montelukast 10 Mg Tab) 10 mg PO HS [facility] Last Admin: 01/01/25 21:09 Dose: 10 mg Morphine Sulfate (Morphine Sulfate 4 Mg/Ml Syringe) 4 mg IV Q4HR PRN PRN Reason: Severe Pain (Scale 7 to 10) Last Admin: 12/30/24 04:01 Dose: 4 mg Naloxone HCl (Naloxone 0.4 Mg/Ml 1 Ml Vial) 0.2 mg IV Q2M PRN PRN Reason: Opioid Reversal Ondansetron HCl (Ondansetron 4 Mg/2 Ml Vial) 4 mg IVP Q8HR PRN PRN Reason: Nausea And Vomiting Pantoprazole Sodium (Pantoprazole 40 Mg Tablet) 40 mg PO AC-BRKFST [facility] Last Admin: 01/02/25 06:36 Dose: 40 mg Psyllium Hydrophilic Mucilloid (Psyllium Husk 100% 6 Gm Packet) 6 gm PO DAILY [facility] Last Admin: 01/02/25 08:19 Dose: 6 gm Rivaroxaban (Rivaroxaban 15 Mg Tab) 15 mg PO W/SUPPER [facility]; Protocol Temazepam (Temazepam 15 Mg Cap) 30 mg PO [facility] Last Admin: 01/01/25 21:10 Dose: 30 mg Venlafaxine HCl (Venlafaxine Hcl Er 37.5 Mg Cap) 37.5 mg PO DAILY [facility] Last Admin: 01/02/25 08:19 Dose: 37.5 mg On examination: VITAL SIGNS: 98, 113, 25, 172 x 78, 94% on 6 L this morning GENERAL APPEARANCE: Up in recliner, breathing a bit better HEENT: Normal external appearance of nose and ear. Oral cavity normal, hard of hearing EYES: Pupils equal. Conjunctiva normal. NECK: JVD not raised. Mass not palpable. RESPIRATORY: Respiratory effort increased, decreased breath sounds some expiratory crackles and wheezing CARDIOVASCULAR: First and second sounds normal. No edema. ABDOMEN: Soft. Liver and spleen not palpable. No tenderness. No mass palpable. PSYCHIATRY: Alert and oriented x3. Mood and affect a bit anxious Musculoskeletal: OA several joints INVESTIGATIONS, reviewed in the clinical context: January 02: White count 9.4 hemoglobin 8.8 platelets 242 sodium 136 potassium 3.9 creatinine 1.02 AST 25 ALT 30 January 01: White count 8.1 hemoglobin 9.3 platelets 22 sodium 138 potassium 3.4 creatinine 0.99 Troponin I 0.502 Influenza type A, type B, RSV, SARS-CoV-2: Not detected Chest x-ray film personally reviewed by me-scattered infiltrates EKG tracing personally reviewed by me-atrial fibrillation. Rate 155. Intraventricular block pattern. 2D echocardiogram [December 31, 2024] EF 30 to 35%. Moderate right ventricle dilatation. Right ventricular pressure within normal limits. No left atrial thrombus/mass. Moderate mitral regurgitation. Aortic stenosis with a peak gradient 27 and a mean gradient of 12 mild TR Assessment and plan: -Acute on chronic hypoxemic hypercapnic respiratory failure, secondary to COPD exacerbation and CHF exacerbation: Some improvement Initially on BiPAP and Ventimask. Now 6 L -Acute severe COPD exacerbation, an ex-smoker: Slow to respond DuoNeb 4 times daily. IV Solu-Medrol 60 mg every 6. nebulized Pulmicort and performorist -Acute on chronic systolic CHF, EF 30 to 35%: Slow to respond IV Lasix 40 mg every 12 -Paroxysmal atrial fibrillation with rapid ventricular rate, was in sinus rhythm yesterday. This morning had a run of A-fib with rapid rate. IV amiodarone. IV heparin. Cardiology following. Lopressor increased to 250 twice daily IV heparin. Will switch over to Xarelto this evening -IV heparin monitoring, follow protocol -Chronic tracheomalacia -NSTEMI Aspirin -Acute transaminitis, mild: Resolved -Chronic constipation at the baseline has 1 bowel movement every week Metamucil 1 packet daily -Essential hypertension Lopressor 50 twice daily. Zestril 20 mg twice daily. -Hyperlipidemia Lipitor 40 mg nightly -Primary osteoarthritis Tylenol as needed -Hard of hearing -DNR, discussed with patient Advance care planning [January 01, 2025] This was discussed with the patient, daughter at the bedside. Patient understands advanced age and comorbidities. Had decided to proceed with DNR. She does not have a medical POA. She has 3 children. Did discuss with him filling out forms as per the decision. Questions answered. Time spent for this about 25 minutes
[2025-01-02] MEDS: RIVAROXABAN 15 MG TAB PO SCH (17:24)
--- NOTE | 2025-01-02 17:47 | P.PN ---
Subjective Progress Note Date: 01/02/25 The patient is a 84-year-old female patient with a past medical history significant for hypoxic respiratory failure secondary to COPD as well as hypertension and dyslipidemia and history of heart failure as well. She was transferred from [facility] to [facility] for further evaluation of shortness of breath and heart failure as well as abnormal cardiac enzymes. For the last few days she has been experiencing progressive exertional dyspnea associated with bilateral lower extremities edema with no symptoms of chest pain or chest discomfort or any other cardiovascular symptoms. No fever and no chills and no cough. She underwent further evaluation including chest x- ray showed pulmonary vascular congestions and finding consistent with heart failure and also an EKG showing sinus rhythm with sinus tachycardia. NT proBNP came in at the 18,000. Troponin came to be abnormal but appeared to be flat across the board. EKG showed sinus rhythm with sinus tachycardia. The patient was started on heparin IV and started on Lasix IV and echo was ordered still pending. The patient is known to our service was seen by our service back in 2022 where at that point she underwent a heart catheterization revealed normal coronaries which she is under some stress lately after she lost her daughter a few weeks ago. The physical examination is remarkable for regular rhythm with d istant heart sounds and severe bilateral expiratory wheezing and mild bilateral lower extremities edema December 31, 2024 The patient was seen and evaluated this morning which she still having extensive wheezing on examination no edema in the lower extremities noted. The echo still pending. No symptoms of chest pain or chest discomfort. The physical examination is remarkable for stable vital signs with mild sinus tachycardia and bilateral expiratory wheezing and no edema was noted in the lower extremities but she continues to be on Lasix IV and she has been diuresing very well. 01/01/2025 Patient is seen and examined at bedside this a.m. Patient was transferred from floor to ICU because of increased hypoxia increased shortness of breath requiring 100% nonrebreather. 01/02/2025 Patient went back into atrial fibrillation with RVR and then converted out of bed She is noticed to be hypotensive for which she was started on clonidine 0.1 mg 3 times daily which she takes at home. She is on atypical regimen for her antihypertensives when I reviewed her home medication. She is on hydralazine once a day, clonidine 3 times a day, lisinopril 40 mg and metoprolol 25 mg twice daily. She was restarted on Xarelto 15 mg She still continues to have shortness of breath on 4 to 5 L of supplemental oxygen, mildly volume overloaded. Assessment Acute HFrEF exacerbation, EF 30 to 35% Paroxysmal atrial fibrillation with bouts of A-fib RVR. Currently sinus rhythm. Acute on chronic hypoxic respiratory failure, multifactorial because of A-fib RVR, CHF exacerbation, COPD exacerbation Type II NSTEMI likely because of hypoxemia Mild aortic stenosis, moderate mitral regurgitation Multiple comorbidities Pertinent cardiac testing Echo from this admission shows an EF of 30 to 35%, mild aortic stenosis, moderate mitral regurgitation, moderate RV dilatation. No prior echo to compare with in system Plan Aspirin, Lipitor, Discontinue heparin drip and start Xarelto 15 mg daily. Low-dose because of anemia and advanced age Continue IV Lasix 40 mg twice daily for next 24 to 48 hours. Monitor kidney function and electrolytes Add Aldactone 25 mg daily Discontinue lisinopril. Start Entresto 49/51 mg twice daily Increase metoprolol to 50 mg twice daily Start amlodipine 5 mg daily Start hydralazine 50 mg 4 times daily Discontinue clonidine Consider starting SGLT2 once on p.o. diuretics. Consider ischemic evaluation once optimized/stabilized from respiratory standpoint. Objective - Vital Signs Vital signs: Vital Signs Temp 98.8 F 01/02/25 16:00 Pulse 87 01/02/25 17:00 Resp 22 01/02/25 17:00 BP 160/69 01/02/25 17:00 Pulse Ox 91 L 01/02/25 17:00 FiO2 Intake & Output 01/01/25 01/02/25 01/02/25 18:59 06:59 18:59 Intake Total 288.098 683.37 988.107 Output Total 1345 1355 1280 Balance -1056.902 -671.63 -291.893 Weight 69.5 kg 71.1 kg Intake: IV 10 140 0.9 90 Invasive Line 2 10 cefTRIAXone 1 gm In 50 Sodium Chloride 0.9% 50 ml @ 100 mls/hr IVPB Q24HR [facility] Rx#:[id number] Intake, IV Titration 278.098 683.37 308.107 Amount Amiodarone 450 mg In 183.37 16.67 Dextrose 5% in Water 250 ml @ 0.5 MG/MIN 16.667 mls/hr IV .Q15H [facility] Rx#: [id number] Heparin Sod,Pork in 0.45% 228.098 291.437 NaCl 25,000 unit In 0.45 % NaCl 1 250ml.bag @ 18 UNITS/KG/HR 11.839 mls/hr IV .Q21H7M [facility] Rx#: [id number] Magnesium Sulfate-D5w Pmx 100 1 gm In Dextrose/Water 1 100ml.bag @ 100 mls/hr IVPB ONCE ONE Rx#: [id number] Potassium Chloride 10 meq 400 In Water For Injection 1 100ml.bag @ 100 mls/hr IVPB Q1HR [facility] Rx#: [id number] cefTRIAXone 1 gm In 50 Sodium Chloride 0.9% 50 ml @ 100 mls/hr IVPB Q24HR [facility] Rx#:[id number] Oral 540 Output: Urine 900 1355 1280 Post Void Residual 445 Other: Voiding Method Indwelling Catheter Indwelling Catheter Indwelling Catheter - Labs CBC & Chem 7: 01/02/25 05:17 01/02/25 05:17 Labs: Abnormal Lab Results - Last 24 Hours (Table) 01/01/25 01/01/25 01/01/25 Range/Units 14:35 19:42 20:01 RBC (3.80-5.40) m/uL Hgb (11.4-16.0) gm/dL Hct (34.0-46.0) % MCHC (31.0-37.0) g/dL RDW (11.5-15.5) % Neutrophils # (1.3-7.7) k/uL Lymphocytes # (1.0-4.8) k/uL APTT (22.0-30.0) sec Sodium (137-145) mmol/L Potassium 3.4 L (3.5-5.1) mmol/L Chloride (98-107) mmol/L Carbon Dioxide (22-30) mmol/L BUN (7-17) mg/dL Glucose (74-99) mg/dL POC Glucose (mg/dL) 211 H (70-110) mg/dL Total Protein (6.3-8.2) g/dL Procalcitonin 0.62 H (0.02-0.50) ng/mL 01/02/25 01/02/25 01/02/25 Range/Units 05:17 05:17 05:17 RBC 3.34 L (3.80-5.40) m/uL Hgb 8.8 L (11.4-16.0) gm/dL Hct 28.8 L (34.0-46.0) % MCHC 30.5 L (31.0-37.0) g/dL RDW 16.1 H (11.5-15.5) % Neutrophils # 8.7 H (1.3-7.7) k/uL Lymphocytes # 0.2 L (1.0-4.8) k/uL APTT 50.9 H (22.0-30.0) sec Sodium 136 L (137-145) mmol/L Potassium (3.5-5.1) mmol/L Chloride 94 L (98-107) mmol/L Carbon Dioxide 34 H (22-30) mmol/L BUN 48 H (7-17) mg/dL Glucose 234 H (74-99) mg/dL POC Glucose (mg/dL) (70-110) mg/dL Total Protein 5.8 L (6.3-8.2) g/dL Procalcitonin (0.02-0.50) ng/mL 01/02/25 01/02/25 01/02/25 Range/Units 06:18 11:12 15:54 RBC (3.80-5.40) m/uL Hgb (11.4-16.0) gm/dL Hct (34.0-46.0) % MCHC (31.0-37.0) g/dL RDW (11.5-15.5) % Neutrophils # (1.3-7.7) k/uL Lymphocytes # (1.0-4.8) k/uL APTT (22.0-30.0) sec Sodium (137-145) mmol/L Potassium (3.5-5.1) mmol/L Chloride (98-107) mmol/L Carbon Dioxide (22-30) mmol/L BUN (7-17) mg/dL Glucose (74-99) mg/dL POC Glucose (mg/dL) 238 H 183 H 348 H (70-110) mg/dL Total Protein (6.3-8.2) g/dL Procalcitonin (0.02-0.50) ng/mL
[2025-01-02] MEDS: AMIODARONE 200 MG TAB PO SCH (17:50)
[2025-01-02] MEDS: hydrALAZINE HCL 50 MG TAB PO SCH (17:50)
[2025-01-02] MEDS: SPIRONOLACTONE 25 MG TAB PO SCH (17:50)
[2025-01-02] MEDS: amLODIPine 5 MG TAB PO SCH (17:50)
[2025-01-02] MEDS ORDERED: Magnesium Replacement Protocol 1 EACH MISC MISCELLANE PRN (19:19)
[2025-01-02] MEDS ORDERED: Potassium Replacement Protocol 1 EACH MISC MISCELLANE PRN (19:19)
[2025-01-02 20:20] LABS: Glucose,Whole Blood 266 mg/dL (70-110)
[2025-01-02] MEDS ORDERED: METOPROLOL TARTRATE 25 MG TAB PO SCH (21:00)
[2025-01-02] MEDS: METOPROLOL TARTRATE 50 MG TAB PO SCH (21:04)
[2025-01-02] MEDS: MELATONIN 3 MG TABLET PO PRN (21:04)
[2025-01-03 06:09] LABS: Anisocytosis Slight; Basophils % (A) 0 %; Eosinophils % (A) 0 %; HGB 7.8 gm/dL (11.4-16.0); Hypochromasia Marked; Lymphocytes # (A) 0.2 k/uL (1.0-4.8); Lymphocytes % (A) 3 %; MCH 25.8 pg (25.0-35.0); MCHC 29.9 g/dL (31.0-37.0); MCV 86.2 fL (80.0-100.0); Mean Platelet Volume 8.6; Monocytes # (A) 0.2 k/uL (0-1.0); Monocytes % (A) 4 %; Neutrophils # (A) 5.1 k/uL (1.3-7.7); Neutrophils % (A) 92 %; Platelet Count 182 k/uL (150-450); RBC 3.02 m/uL (3.80-5.40); WBC 5.5 k/uL (3.8-10.6)
[2025-01-03 06:23] LABS: African American GFR (CKD) 60 (>60 ml/min/1.73 sqM); Anion Gap 4 mmol/L; Blood Urea Nitrogen 53 mg/dL (7-17); Carbon Dioxide 39 mmol/L (22-30); Chloride 96 mmol/L (98-107); Glucose 222 mg/dL (74-99); Magnesium 1.9 mg/dL (1.6-2.3); Non-African American GFR(CKD) 52 (>60 ml/min/1.73 sqM); Potassium 3.3 mmol/L (3.5-5.1); Sodium 139 mmol/L (137-145)
[2025-01-03 06:30] LABS: Glucose,Whole Blood 249 mg/dL (70-110)
[2025-01-03] MEDS: MAGNESIUM SULFATE-D5W PMX 1 GM in DEXTROSE/WATER 1 100ML.BAG IVPB ONE (06:37)
[2025-01-03] MEDS: POTASSIUM CHLORIDE ER 20 MEQ TAB.ER PO SCH ×2 (06:37→12:06)
--- NOTE | 2025-01-03 08:01 | XR ---
EXAMINATION TYPE: XR chest 1V portable DATE OF EXAM: 01/03/2025 6:14 AM COMPARISON: Chest radiograph from one day prior. CLINICAL INDICATION: Female, 84 years old with history of shortness of breath; [facility] TECHNIQUE: XR chest 1V portable Frontal view of the chest. FINDINGS: Lungs/Pleura: There is no evidence of pleural effusion, focal consolidation, or pneumothorax. Pulmonary vascularity: Pulmonary vascular congestion. Heart/mediastinum: Cardiomediastinal silhouette is enlarged. Atherosclerotic calcifications are seen in the aorta. Musculoskeletal: No acute osseous pathology. IMPRESSION: Similar, Cardiomegaly similar and mild pulmonary vascular congestion. Superimposed infection not excl uded. [facility], , 01/03/2025 7:59 AM
[2025-01-03 11:00] LABS: Glucose,Whole Blood 309 mg/dL (70-110)
[2025-01-03] MEDS ORDERED: SACUBITRIL/VALSARTAN 24 MG-26 MG TABLET PO STA (13:26)
--- NOTE | 2025-01-03 14:52 | P.PN ---
Subjective Progress Note Date: 01/03/25 The patient is a 84-year-old female patient with a past medical history significant for hypoxic respiratory failure secondary to COPD as well as hypertension and dyslipidemia and history of heart failure as well. She was transferred from [facility] to [facility] for further evaluation of shortness of breath and heart failure as well as abnormal cardiac enzymes. For the last few days she has been experiencing progressive exertional dyspnea associated with bilateral lower extremities edema with no symptoms of chest pain or chest discomfort or any other cardiovascular symptoms. No fever and no chills and no cough. She underwent further evaluation including chest x- ray showed pulmonary vascular congestions and finding consistent with heart failure and also an EKG showing sinus rhythm with sinus tachycardia. NT proBNP came in at the 18,000. Troponin came to be abnormal but appeared to be flat across the board. EKG showed sinus rhythm with sinus tachycardia. The patient was started on heparin IV and started on Lasix IV and echo was ordered still pending. The patient is known to our service was seen by our service back in 2022 where at that point she underwent a heart catheterization revealed normal coronaries which she is under some stress lately after she lost her daughter a few weeks ago. The physical examination is remarkable for regular rhythm with d istant heart sounds and severe bilateral expiratory wheezing and mild bilateral lower extremities edema December 31, 2024 The patient was seen and evaluated this morning which she still having extensive wheezing on examination no edema in the lower extremities noted. The echo still pending. No symptoms of chest pain or chest discomfort. The physical examination is remarkable for stable vital signs with mild sinus tachycardia and bilateral expiratory wheezing and no edema was noted in the lower extremities but she continues to be on Lasix IV and she has been diuresing very well. 01/01/2025 Patient is seen and examined at bedside this a.m. Patient was transferred from floor to ICU because of increased hypoxia increased shortness of breath requiring 100% nonrebreather. 01/02/2025 Patient went back into atrial fibrillation with RVR and then converted out of bed She is noticed to be hypotensive for which she was started on clonidine 0.1 mg 3 times daily which she takes at home. She is on atypical regimen for her antihypertensives when I reviewed her home medication. She is on hydralazine once a day, clonidine 3 times a day, lisinopril 40 mg and metoprolol 25 mg twice daily. She was restarted on Xarelto 15 mg She still continues to have shortness of breath on 4 to 5 L of supplemental oxygen, mildly volume overloaded. 01/03/2025 No A-fib in last 24 hours. Heart rates are better controlled, still hypertensive. She was noticed to have hemoptysis. Chest x-ray from today appears worse when compared to from yesterday. Could be related to hemoptysis and spontaneous hemorrhage from emphysema and NOAC use. Assessment Acute HFrEF exacerbation, EF 30 to 35% Paroxysmal atrial fibrillation with bouts of A-fib RVR. Currently sinus rhythm. Acute on chronic hypoxic respiratory failure, multifactorial because of A-fib RVR, CHF exacerbation, COPD exacerbation Type II NSTEMI likely because of hypoxemia Mild aortic stenosis, moderate mitral regurgitation Multiple comorbidities Pertinent cardiac testing Echo from this admission shows an EF of 30 to 35%, mild aortic stenosis, mod erate mitral regurgitation, moderate RV dilatation. No prior echo to compare with in system Plan Aspirin, Lipitor, Xarelto was held for hemoptysis. Continue to hold. Discontinue IV Lasix and start Bumex 1 mg p.o. twice daily for next 5 days. Thereafter reduce to once a day. Continue Aldactone 25 mg daily. Add Farxiga 10 mg daily. At home she was on Lasix 40, Aldactone 25. Increase Entresto to 96/104 mg twice daily. Start amlodipine 5 mg daily. Reduce hydralazine to 25 mg every 4 hours Continue amiodarone 200 mg 3 times daily until 01/08/2025.thereafter reduce it to twice daily for 1 week. Continue metoprolol to 50 mg twice daily Continue to monitor in ICU Consider ischemic evaluation once optimized/stabilized from respiratory standpoint. Poor prognosis overall. Objective - Vital Signs Vital signs: Vital Signs Temp 97.8 F 01/03/25 12:00 Pulse 76 01/03/25 14:00 Resp 18 01/03/25 14:00 BP 123/47 01/03/25 14:00 Pulse Ox 96 01/03/25 14:00 FiO2 Intake & Output 01/02/25 01/03/25 01/03/25 18:59 06:59 18:59 Intake Total 1008.107 110 580 Output Total 1405 1195 1135 Balance -396.893 -1085 -555 Weight 70.6 kg Intake: IV 160 110 80 0.9 110 110 80 cefTRIAXone 1 gm In 50 Sodium Chloride 0.9% 50 ml @ 100 mls/hr IVPB Q24HR [facility] Rx#:[id number] Intake, IV Titration 308.107 Amount Amiodarone 450 mg In 16.67 Dextrose 5% in Water 250 ml @ 0.5 MG/MIN 16.667 mls/hr IV .Q15H [facility] Rx#: [id number] Heparin Sod,Pork in 0.45% 291.437 NaCl 25,000 unit In 0.45 % NaCl 1 250ml.bag @ 18 UNITS/KG/HR 11.839 mls/hr IV .Q21H7M [facility] Rx#: [id number] Oral 540 500 Output: Urine 1405 1195 1135 Other: Voiding Method Indwelling Catheter Indwelling Catheter Indwelling Catheter - Labs CBC & Chem 7: 01/03/25 05:51 01/03/25 10:55 Labs: Abnormal Lab Results - Last 24 Hours (Table) 01/02/25 01/02/25 01/03/25 Range/Units 15:54 20:19 05:51 RBC 3.02 L (3.80-5.40) m/uL Hgb 7.8 L (11.4-16.0) gm/dL Hct 26.0 L (34.0-46.0) % MCHC 29.9 L (31.0-37.0) g/dL RDW 16.0 H (11.5-15.5) % Lymphocytes # 0.2 L (1.0-4.8) k/uL Potassium (3.5-5.1) mmol/L Chloride (98-107) mmol/L Carbon Dioxide (22-30) mmol/L BUN (7-17) mg/dL Glucose (74-99) mg/dL POC Glucose (mg/dL) 348 H 266 H (70-110) mg/dL 01/03/25 01/03/25 01/03/25 Range/Units 05:51 06:28 10:55 RBC (3.80-5.40) m/uL Hgb (11.4-16.0) gm/dL Hct (34.0-46.0) % MCHC (31.0-37.0) g/dL RDW (11.5-15.5) % Lymphocytes # (1.0-4.8) k/uL Potassium 3.3 L 3.3 L (3.5-5.1) mmol/L Chloride 96 L (98-107) mmol/L Carbon Dioxide 39 H (22-30) mmol/L BUN 53 H (7-17) mg/dL Glucose 222 H (74-99) mg/dL POC Glucose (mg/dL) 249 H (70-110) mg/dL 01/03/25 Range/Units 10:58 RBC (3.80-5.40) m/uL Hgb (11.4-16.0) gm/dL Hct (34.0-46.0) % MCHC (31.0-37.0) g/dL RDW (11.5-15.5) % Lymphocytes # (1.0-4.8) k/uL Potassium (3.5-5.1) mmol/L Chloride (98-107) mmol/L Carbon Dioxide (22-30) mmol/L BUN (7-17) mg/dL Glucose (74-99) mg/dL POC Glucose (mg/dL) 309 H (70-110) mg/dL
--- NOTE | 2025-01-03 14:58 | P.PN ---
Subjective Progress Note Date: 01/03/25 On 01/01/2025, the patient became acutely short of breath and based on data, the patient got transferred to the intensive care unit. In fact, the A was called to the room as the patient became acutely hypoxic and she was found to be in atrial fibrillation with rapid ventricular response. Based on that, the patient was placed on 100% nonrebreather facemask and following that, the patient got transferred to the intensive care unit. Noted the patient was hospitalized earlier for acute hypoxic respiratory failure secondary to CHF/COPD exacerbation. The patient this morning developed A-fib/RVR with a heart rate in the 170s. She was started on amiodarone per protocol. She was started on IV heparin. She was also given IV Lasix. She seems to be more comfortable following her transfer to the intensive care unit. However, the breathing remains quite labored. She is known to have CHF with an EF of around 30 to 35% with moderate RV dilatation and mild aortic stenosis and this is based on echoca rdiogram that was done on 12/31/2024. The patient had blood work today with a white cell count of 8.1, hemoglobin 9.3 and a platelet count of 282. Sodium levels at 138, potassium is at 3.4, BUN 46 with a creatinine of 0.99. Serum bicarb is at 35. Follow-up troponin is downtrending and is currently down to 0.5. The viral screen was checked in the ICU and it was negative. The chest x- ray from this morning shows cardiomegaly along with mild pulm vessel congestion consistent with CHF. The patient is less tachycardic at this point. She has audible wheezes. She is able to communicate. No altered mentation. On 01/02/2025, the patient is being seen for a follow-up. The patient was brought into the ICU yesterday for acute hypoxic respiratory failure, acute on chronic shortness of breath, acute atrial fibrillation with rapid ventricular response. Noted, the patient converted into normal sinus rhythm at around 3 PM yesterday. Earlier this morning at around 7 AM, the patient went back into atrial fibrillation. Rate is controlled for now. The patient is on metoprolol 25 mg p.o. twice a day. The patient is also on amiodarone drip 0.5 mg/min. The patient remains on IV heparin. Noted she did encountered an episode of hemoptysis earlier this morning. She did cough out some bright red blood. No significant epistaxis at this point in time. Meanwhile, she remains bronchospastic and wheezy although this is improved compared to yesterday. Repeat chest x-ray was done this morning and it showed cardiomegaly with mild pulm vessel congestion. No airspace disease or consolidation. White cell count of 9.4 with a hemoglobin of 8.8 and a platelet count of 242. BUN is 48 with a c reatinine of 1.02 and a sodium levels at 136. LFTs are within normal limits. On a separate note, the oxygenation is improved. The patient was taken off the 100% nonrebreather facemask and the patient is currently on 6 L of oxygen by nasal cannula. Fluid balance is -1.7 L over the past 24 hours. She remains hypertensive. Awake and alert and communicating. On 01/03/2025, the patient is being seen for a follow-up. Chest x-ray from today still showing evidence of pulmonary edema. The patient continues to have a congested cough and wheeze although this is improved compared to yesterday. She continues to have hemoptysis. The patient is back into normal sinus rhythm. She is currently on metoprolol 50 mg p.o. twice daily amiodarone 200 mg p.o. 3 times daily. Anticoagulation was given by [place] and this was given by cardiology. Going to put this anticoagulation on hold as the patient is encountering hemoptysis for now. She remains on Lasix 40 mg IV every 12 hours. She is on Entresto 97/103 1 tablet twice daily, Aldactone 25 mg p.o. daily, and hydralazine 25 mg p.o. 4 times daily. The patient is also on Farxiga 10 mg p.o. daily and amlodipine 5 mg p.o. daily. She remains on empiric antibiotic coverage with IV Rocephin. Blood work from today shows a white cell count of 5.5 with a heme of 7.8. BUN is 53 with a creatinine of 1.01. Sodium levels at 139 and a potassium level is at 3.3. Fluid balance has been -1.4 L over the past 24 hours. She is currently on oxygen at 4 L/min nasal cannula with a pulse ox of 96%. Objective - Vital Signs Vital signs: Vital Signs Temp 97.6 F 01/03/25 08:00 Pulse 79 01/03/25 09:00 Resp 17 01/03/25 09:00 BP 157/51 01/03/25 09:00 Pulse Ox 93 L 01/03/25 09:00 FiO2 Intake & Output 01/02/25 01/03/25 01/03/25 18:59 06:59 18:59 Intake Total 1008.107 110 40 Output Total 1405 1195 585 Balance -396.893 -1085 -545 Weight 70.6 kg Intake: IV 160 110 40 0.9 110 110 40 cefTRIAXone 1 gm In 50 Sodium Chloride 0.9% 50 ml @ 100 mls/hr IVPB Q24HR [facility] Rx#:[id number] Intake, IV Titration 308.107 Amount Amiodarone 450 mg In 16.67 Dextrose 5% in Water 250 ml @ 0.5 MG/MIN 16.667 mls/hr IV .Q15H [facility] Rx#: [id number] Heparin Sod,Pork in 0.45% 291.437 NaCl 25,000 unit In 0.45 % NaCl 1 250ml.bag @ 18 UNITS/KG/HR 11.839 mls/hr IV .Q21H7M [facility] Rx#: [id number] Oral 540 Output: Urine 1405 1195 585 Other: Voiding Method Indwelling Catheter Indwelling Catheter Indwelling Catheter - Exam The patient appeared to be more comfortable compared to yesterday, less bronchospastic and wheezy and less short of breath. She is currently on 4 L of oxygen by nasal cannula. Head exam is unremarkable. No scleral icterus or corneal arcus noted. Neck is without jugular venous distension, thyromegaly, or carotid bruits. Carotid upstrokes are brisk bilaterally. Lungs are diminished bilaterally along with some few bibasilar crackles and there is exhalation wheezing heard throughout the lung claros bilaterally Cardiac exam reveals the PMI to be normally sized and situated. Rhythm is irregular consistent with atrial fibrillation with rapid ventricular response first and second heart sounds normal. No murmurs, rubs or gallops. Abdominal exam reveals normal bowel sounds, no masses, no organomegaly and no aortic enlargement. Extremities are nonedematous and both femoral and pedal pulses are normal. Examination of the skin revealed no evidence of significant rashes, suspicious appearing nevi or other concerning lesions. Neurologically, the patient is awake and alert and the patient does not have any focal neurological deficit. Cranial nerves are essentially intact. - Labs CBC & Chem 7: 01/03/25 05:51 01/03/25 10:55 Labs: Abnormal Lab Results - Last 24 Hours (Table) 01/02/25 01/02/25 01/02/25 Range/Units 11:12 15:54 20:19 RBC (3.80-5.40) m/uL Hgb (11.4-16.0) gm/dL Hct (34.0-46.0) % MCHC (31.0-37.0) g/dL RDW (11.5-15.5) % Lymphocytes # (1.0-4.8) k/uL Potassium (3.5-5.1) mmol/L Chloride (98-107) mmol/L Carbon Dioxide (22-30) mmol/L BUN (7-17) mg/dL Glucose (74-99) mg/dL POC Glucose (mg/dL) 183 H 348 H 266 H (70-110) mg/dL 01/03/25 01/03/25 01/03/25 Range/Units 05:51 05:51 06:28 RBC 3.02 L (3.80-5.40) m/uL Hgb 7.8 L (11.4-16.0) gm/dL Hct 26.0 L (34.0-46.0) % MCHC 29.9 L (31.0-37.0) g/dL RDW 16.0 H (11.5-15.5) % Lymphocytes # 0.2 L (1.0-4.8) k/uL Potassium 3.3 L (3.5-5.1) mmol/L Chloride 96 L (98-107) mmol/L Carbon Dioxide 39 H (22-30) mmol/L BUN 53 H (7-17) mg/dL Glucose 222 H (74-99) mg/dL POC Glucose (mg/dL) 249 H (70-110) mg/dL Assessment and Plan Plan: Acute on top of chronic hypoxic respiratory failure associated secondary to CHF exacerbation/A-fib with RVR. Noted the patient also has background COPD. She was noted to be actively bronchospastic and wheezy and hide respiratory failure essentially related to COPD/CHF exacerbation. Clinically improved compared to yesterday. Patient continues to be in COPD and CHF exacerbation and the patient continues to have paroxysmal atrial fibrillation. She is currently on 4 L of O2 nasal cannula. Acute CHF exacerbation. Noted to have systolic heart failure with an EF around 30 to 35% Acute COPD exacerbation, improving and the patient remains on bronchodilators and steroids New onset A-fib with RVR and the heart rate was in the 170s, currently in normal sinus rhythm and the patient is on a combination of metoprolol and amiodarone. Hemoptysis Rule out non-ST segment elevation myocardial infarction, versus elevated troponin secondary to supply/demand mismatch. Systolic heart failure, EF 30-35%, moderate RV dilation, mild (12/31/24) Chronic hypoxemic respiratory failure, on home O2 at 3 L. COPD , 60 pyear smoking Hyperlipidemia. Hypertension. Multiple other medical problems and comorbidities Plan: Titrate oxygen flow to maintain saturation above 90%, currently on 4 L nasal cannula Amiodarone 200 mg p.o. 3 times daily Metoprolol 50 mg p.o. twice daily Entresto Hydralazine 25 mg 4 times daily Amlodipine 5 mg p.o. daily Aldactone 25 mg p.o. daily Hold Xarelto as the patient continues to have hemoptysis Continue IV Rocephin Continue IV Lasix DuoNeb nebulized treatments [id number] 4 times a day Perforomist and Pulmicort nebulized treatments twice a day IV Solu-Medrol 60 mg every 6 hours Chest x-ray was noted Troponin is downtrending Will continue to follow Condition is critical and stabilization was done more than 30 minutes, specifically 31 minutes. Time with Patient: Greater than 30
[2025-01-03 15:31] LABS: Glucose,Whole Blood 223 mg/dL (70-110)
[2025-01-03] MEDS: DAPAGLIFLOZIN PROPANEDIOL 10 MG TABLET PO SCH (16:13)
[2025-01-03] MEDS: BUMETANIDE 1 MG TAB PO SCH (16:13)
--- NOTE | 2025-01-03 16:30 | P.PN ---
Progress Note - Text Progress Note Date: 01/03/25 Progress Note Date: 12/31/24 patient is a 84-year-old lady with past medical history significant for chronic hypoxic respiratory failure, CHF, COPD, hypertension who presented to the ER as a transfer from [facility] for shortness of breath. Patient stated that she was all right yesterday morning when she started noticing shortness of breath. Shortness of breath is present at rest as on exertion. Patient stated that she was noticing that she was wheezing hard. Patient had a hard time breathing. Patient denies any chest pain. There is no complaint of orthopnea or PND. There was no complaint of any fever or chills. Because of the shortness of breath, patient presented to [facility] where she had to be placed on BiPAP, initial workup there showed patient to have elevated troponin and EKG suspicious for A-fib with RVR, patient was transferred to [facility] Initial lab work done in the ER showed WBC 7.3, hemoglobin 10.6, platelet count 268, sodium 137, potassium 3.8, BUN 18, creatinine 0.7, glucose 179, calcium 9.4, phosphorus 3.9, bilirubin 1.4, AST 41, ALT 40 troponin 1.920, EKG done in the ER showed heart rate of 93, no ST segment elevation or depression seen, no T-wave inversions seen. Chest x-ray done in the ER showed cardiomegaly and mild pulm vascular congestion. Patient admitted to internal medicine service 12/31. Patient seen and examined. States breathing is improved. Wheezing is also improved. Currently on 3 L of oxygen January 01: ICU. Sitting up in bed. Short of breath. Ventimask. On IV amiodarone and IV heparin. Telemetry shows sinus rhythm. With frequent PVCs. Congested cough. Had a very small amount of epistaxis. Decreased appetite. 3 h liters oxygen at home. As needed. On IV Lasix 40 mg every 12 with negative fluid balance for CHF At the baseline has about 1 bowel movement a week. Patient daughter at the bedside. CODE STATUS discussed. Wants to be DNR. 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 Told him to get forms filled out. At home does have a cane and a walker but does not use it. Ex-smoker. Lives alone. Malika 1: ICU. Up in a chair. This morning patient went into A-fib again with a rapid ventricular rate. Has been in sinus rhythm overnight. Has been continued on IV amiodarone. Dose of Lopressor was increased to 50 mg twice daily. Patient does have a congested cough. Incentive spirometry and Mucinex is being added. Will switch over to Xarelto this evening. Patient on 6 L nasal cannula. January 03: ICU. Up in a recliner. Having some hemoptysis. Xarelto was started yesterday evening now held. On 4 L nasal cannula. Switched over to oral Bumex. Remains in sinus rhythm. Eating about 50%. Because of fatigue unable to ambulate. PT OT working. Chest x-ray shows scattered infiltrates Social history: Ex-smoker. Stop smoking 11 years ago. Lives alone. Does use a cane and a walker but does not use it. Active Medications Acetaminophen (Acetaminophen Tab 325 Mg Tab) 650 mg PO Q6HR PRN PRN Reason: Mild Pain or Fever > 100.5 Last Admin: 01/01/25 05:28 Dose: 650 mg Al Hydroxide/Mg Hydroxide (Mag Hydrox/Al Hydrox/Simeth 30 Ml Cup) 15 ml PO Q6HR PRN PRN Reason: Indigestion Albuterol/Ipratropium (Ipratropium-Albuterol 3 Ml Neb) 3 ml INHALATION RT-Q4H PRN PRN Reason: shortness of breath or wheezin Last Admin: 01/02/25 01:57 Dose: 3 ml Albuterol/Ipratropium (Ipratropium-Albuterol 3 Ml Neb) 3 ml INHALATION RT-QID COUNT INCLUDES THE [facility] Last Admin: 01/03/25 15:34 Dose: 3 ml Amiodarone HCl (Amiodarone 200 Mg Tab) 200 mg PO TID COUNT INCLUDES THE [facility] Last Admin: 01/03/25 16:13 Dose: 200 mg Amlodipine Besylate (Amlodipine 5 Mg Tab) 5 mg PO DAILY COUNT INCLUDES THE [facility] Last Admin: 01/03/25 08:29 Dose: 5 mg Aspirin (Aspirin 81 Mg) 81 mg PO DAILY COUNT INCLUDES THE [facility] Last Admin: 01/03/25 08:28 Dose: 81 mg Atorvastatin Calcium (Atorvastatin 40 Mg Tab) 40 mg PO HS COUNT INCLUDES THE [facility] Last Admin: 01/02/25 21:03 Dose: 40 mg Budesonide (Budesonide 1 Mg/2 Ml Nebu) 1 mg INHALATION RT-BID COUNT INCLUDES THE [facility] Last Admin: 01/03/25 07:52 Dose: 1 mg Bumetanide (Bumetanide 1 Mg Tab) 1 mg PO BID@0900,1600 COUNT INCLUDES THE [facility] Stop: 01/08/25 15:59 Last Admin: 01/03/25 16:13 Dose: 1 mg Cholecalciferol (Cholecalciferol 25 Mcg (1000 Iu) Tablet) 50 mcg PO DAILY COUNT INCLUDES THE [facility] Last Admin: 01/03/25 08:28 Dose: 50 mcg Dapagliflozin (Dapagliflozin Propanediol 10 Mg Tablet) 10 mg PO DAILY COUNT INCLUDES THE [facility] Last Admin: 01/03/25 16:13 Dose: 10 mg Dextrose/Water (Dextrose 50% Syringe 50 Ml) 25 ml IVP PER PROTOCOL PRN; Protocol PRN Reason: Hypoglycemia Dextrose/Water (Dextrose 50% Syringe 50 Ml) 50 ml IVP PER PROTOCOL PRN; Protocol PRN Reason: Hypoglycemia Formoterol Fumarate (Formoterol Fumarate 20 Mcg/2 Ml Nebu) 20 mcg INHALATION RT-BID COUNT INCLUDES THE [facility] Last Admin: 01/03/25 08:06 Dose: 20 mcg Guaifenesin (Guaifenesin 600 Mg Tablet.Er) 1,200 mg PO Q12HR COUNT INCLUDES THE [facility] Last Admin: 01/03/25 08:28 Dose: 1,200 mg Hydralazine HCl (Hydralazine Hcl 25 Mg Tab) 25 mg PO QID COUNT INCLUDES THE [facility] Ceftriaxone Sodium 1 gm/ (Sodium Chloride) 50 mls @ 100 mls/hr IVPB Q24HR COUNT INCLUDES THE [facility]; Protocol Last Admin: 01/03/25 08:30 Dose: 100 mls/hr Insulin Human Lispro (Insulin Lispro (Humalog) 100 Unit/Ml 10 Ml Vl) 0 unit SQ ACHS COUNT INCLUDES THE [facility]; Protocol Last Admin: 01/03/25 16:17 Dose: 2 unit Lorazepam (Lorazepam 1 Mg Tab) 1 mg PO Q6H PRN PRN Reason: Anxiety Last Admin: 01/02/25 21:04 Dose: 1 mg Melatonin (Melatonin 3 Mg Tablet) 3 mg PO HS PRN PRN Reason: Insomnia Last Admin: 01/02/25 21:04 Dose: 3 mg Methylprednisolone Sodium Succinate (Methylprednisolone Sod Succi 125 Mg/2 Ml Vial) 60 mg IV Q6H COUNT INCLUDES THE [facility] Last Admin: 01/03/25 11:04 Dose: 60 mg Metoprolol Tartrate (Metoprolol Tartrate 50 Mg Tab) 50 mg PO BID COUNT INCLUDES THE [facility] Last Admin: 01/03/25 08:28 Dose: 50 mg Miscellaneous Information (Potassium Replacement Protocol 1 Each Misc) 1 each MISCELLANE DAILY PRN; Protocol PRN Reason: Per Protocol Miscellaneous Information (Magnesium Replacement Protocol 1 Each Misc) 1 each MISCELLANE DAILY PRN; Protocol PRN Reason: Per Protocol Montelukast Sodium (Montelukast 10 Mg Tab) 10 mg PO [facility] Last Admin: 01/02/25 21:04 Dose: 10 mg Morphine Sulfate (Morphine Sulfate 4 Mg/Ml Syringe) 4 mg IV Q4HR PRN PRN Reason: Severe Pain (Scale 7 to 10) Last Admin: 12/30/24 04:01 Dose: 4 mg Naloxone HCl (Naloxone 0.4 Mg/Ml 1 Ml Vial) 0.2 mg IV Q2M PRN PRN Reason: Opioid Reversal Ondansetron HCl (Ondansetron 4 Mg/2 Ml Vial) 4 mg IVP Q8HR PRN PRN Reason: Nausea And Vomiting Pantoprazole Sodium (Pantoprazole 40 Mg Tablet) 40 mg PO AC-BRKFST COUNT INCLUDES THE [facility] Last Admin: 01/03/25 06:37 Dose: 40 mg Psyllium Hydrophilic Mucilloid (Psyllium Husk 100% 6 Gm Packet) 6 gm PO DAILY COUNT INCLUDES THE [facility] Last Admin: 01/03/25 08:29 Dose: 6 gm Sacubitril/Valsartan (Sacubitril/Valsartan 97 Mg-103 Mg Tablet) 1 each PO BID COUNT INCLUDES THE [facility] Spironolactone (Spironolactone 25 Mg Tab) 25 mg PO DAILY COUNT INCLUDES THE [facility] Last Admin: 01/02/25 17:50 Dose: 25 mg Temazepam (Temazepam 15 Mg Cap) 30 mg PO [facility] Last Admin: 01/02/25 21:45 Dose: 30 mg Venlafaxine HCl (Venlafaxine Hcl Er 37.5 Mg Cap) 37.5 mg PO DAILY COUNT INCLUDES THE [facility] Last Admin: 01/03/25 08:29 Dose: 37.5 mg On examination: VITAL SIGNS: 97.8, 74, 21, 139 x 53, 96% on 4 L GENERAL APPEARANCE: Up in recliner, breathing she 8 t better HEENT: Normal external appearance of nose and ear. Oral cavity normal, hard of hearing EYES: Pupils equal. Conjunctiva normal. NECK: JVD not raised. Mass not palpable. RESPIRATORY: Respiratory effort increased, decreased breath sounds, improved wheezing CARDIOVASCULAR: First and second sounds normal. No edema. ABDOMEN: Soft. Liver and spleen not palpable. No tenderness. No mass palpable. PSYCHIATRY: Alert and oriented x3. Mood and affect a bit anxious Musculoskeletal: OA several joints INVESTIGATIONS, reviewed in the clinical context: January 03: White count 5.5 hemoglobin 7.8 platelets 182 sodium 3.3 BUN 43 creatinine 1.01. Procalcitonin 0.26 January 02: White count 9.4 hemoglobin 8.8 platelets 242 sodium 136 potassium 3.9 creatinine 1.02 AST 25 ALT 30 January 01: White count 8.1 hemoglobin 9.3 platelets 22 sodium 138 potassium 3.4 creatinine 0.99 Troponin I 0.502 Influenza type A, type B, RSV, SARS-CoV-2: Not detected Chest x-ray film personally reviewed by me-scattered infiltrates EKG tracing personally reviewed by me-atrial fibrillation. Rate 155. Intraventricular block pattern. 2D echocardiogram [December 31, 2024] EF 30 to 35%. Moderate right ventricle dilatation. Right ventricular pressure within normal limits. No left atrial thrombus/mass. Moderate mitral regurgitation. Aortic stenosis with a peak gradient 27 and a mean gradient of 12 mild TR Assessment and plan: -Acute on chronic hypoxemic hypercapnic respiratory failure, secondary to COPD e xacerbation and CHF exacerbation: Improving Initially on BiPAP and Ventimask. Today 4 L -Acute severe COPD exacerbation, an ex-smoker: Improving slowly DuoNeb 4 times daily. IV Solu-Medrol 60 mg every 6. nebulized Pulmicort and performorist -Possible pneumonia suspect gram-negative organism IV ceftriaxone started on January 02 -Acute on chronic systolic CHF, EF 30 to 35%: Better Received IV Lasix. Switched over to Bumex -Paroxysmal atrial fibrillation with rapid ventricular rate, was in sinus rhythm yesterday. This morning had a run of A-fib with rapid rate. IV amiodarone. IV heparin. Cardiology following. Lopressor increased 50 twice daily IV heparin. Was started on Xarelto on January 02 evening. Because of hemoptysis held -IV heparin monitoring, continued -Small amounts of hemoptysis, anticoagulation held -Chronic tracheomalacia -NSTEMI Aspirin -Acute transaminitis, mild: Resolved -Chronic constipation at the baseline has 1 bowel movement every week Metamucil 1 packet daily -Essential hypertension Lopressor 50 twice daily. Zestril 20 mg twice daily. -Acute medical debility from above PT OT on the case -Hyperlipidemia Lipitor 40 mg nightly -Primary osteoarthritis Tylenol as needed -Hard of hearing -DNR, discussed with patient Advance care planning [January 01, 2025] This was discussed with the patient, daughter at the bedside. Patient understands advanced age and comorbidities. Had decided to proceed with DNR. She does not have a medical POA. She has 3 children. Did discuss with him filling out forms as per the decision. Questions answered. Time spent for this about 25 minutes Switch to to Bumex. 4 L nasal cannula. Oral intake better. IV ceftriaxone
[2025-01-03] MEDS: hydrALAZINE HCL 25 MG TAB PO SCH (17:56)
[2025-01-03 19:43] LABS: Glucose,Whole Blood 341 mg/dL (70-110)
[2025-01-03] MEDS ORDERED: SACUBITRIL/VALSARTAN 24 MG-26 MG TABLET PO SCH ×2 (21:00)
[2025-01-03] MEDS: SACUBITRIL/VALSARTAN 97 MG-103 MG TABLET PO SCH (21:03)
[2025-01-04 03:40] LABS: Anisocytosis Slight; HCT 26.5 % (34.0-46.0); HGB 7.8 gm/dL (11.4-16.0); Hypochromasia Marked; MCH 25.9 pg (25.0-35.0); MCHC 29.5 g/dL (31.0-37.0); MCV 87.7 fL (80.0-100.0); Mean Platelet Volume 8.7; Platelet Count 210 k/uL (150-450); RBC 3.02 m/uL (3.80-5.40); RDW 16.3 % (11.5-15.5); WBC 8.7 k/uL (3.8-10.6)
[2025-01-04 04:02] LABS: African American GFR (CKD) 60 (>60 ml/min/1.73 sqM); Anion Gap 6 mmol/L; Blood Urea Nitrogen 55 mg/dL (7-17); Calcium 9.7 mg/dL (8.4-10.2); Carbon Dioxide 37 mmol/L (22-30); Chloride 97 mmol/L (98-107); Glucose 274 mg/dL (74-99); Magnesium 2.1 mg/dL (1.6-2.3); Non-African American GFR(CKD) 52 (>60 ml/min/1.73 sqM); Potassium 3.5 mmol/L (3.5-5.1); Sodium 140 mmol/L (137-145)
[2025-01-04 06:01] LABS: Glucose,Whole Blood 288 mg/dL (70-110)
--- NOTE | 2025-01-04 10:16 | XR ---
EXAMINATION TYPE: XR chest 1V portable DATE OF EXAM: 01/04/2025 10:05 AM COMPARISON: Chest radiographs from 01/03/2025. CLINICAL INDICATION: Female, 84 years old with history of chf/sob; [facility] TECHNIQUE: XR chest 1V portable Frontal view of the chest. FINDINGS: Lungs/Pleura: Multifocal airspace opacities. No evidence of pneumothorax or pleural effusion. Pulmonary vascularity: Unremarkable. Heart/mediastinum: Cardiomediastinal silhouette is enlarged. Atherosclerotic calcifications are seen in the aorta. Musculoskeletal: No acute osseous pathology. Other findings: None Lines/Tubes: IMPRESSION: Multifocal airspace opacities concerning for congestive heart failure versus pneumonia. [facility], , 01/04/2025 10:13 AM
[2025-01-04 12:16] LABS: Glucose,Whole Blood 253 mg/dL (70-110)
[2025-01-04 12:44] VITALS: BMI 29.0
--- NOTE | 2025-01-04 13:43 | P.PN ---
Subjective Progress Note Date: 01/04/25 The patient is a 84-year-old female patient with a past medical history significant for hypoxic respiratory failure secondary to COPD as well as hypertension and dyslipidemia and history of heart failure as well. She was transferred from [facility] to [facility] for further evaluation of shortness of breath and heart failure as well as abnormal cardiac enzymes. For the last few days she has been experiencing progressive exertional dyspnea associated with bilateral lower extremities edema with no symptoms of chest pain or chest discomfort or any other cardiovascular symptoms. No fever and no chills and no cough. She underwent further evaluation including chest x- ray showed pulmonary vascular congestions and finding consistent with heart failure and also an EKG showing sinus rhythm with sinus tachycardia. NT proBNP came in at the 18,000. Troponin came to be abnormal but appeared to be flat across the board. EKG showed sinus rhythm with sinus tachycardia. The patient was started on heparin IV and started on Lasix IV and echo was ordered still pending. The patient is known to our service was seen by our service back in 2022 where at that point she underwent a heart catheterization revealed normal coronaries which she is under some stress lately after she lost her daughter a few weeks ago. The physical examination is remarkable for regular rhythm with d istant heart sounds and severe bilateral expiratory wheezing and mild bilateral lower extremities edema December 31, 2024 The patient was seen and evaluated this morning which she still having extensive wheezing on examination no edema in the lower extremities noted. The echo still pending. No symptoms of chest pain or chest discomfort. The physical examination is remarkable for stable vital signs with mild sinus tachycardia and bilateral expiratory wheezing and no edema was noted in the lower extremities but she continues to be on Lasix IV and she has been diuresing very well. 01/01/2025 Patient is seen and examined at bedside this a.m. Patient was transferred from floor to ICU because of increased hypoxia increased shortness of breath requiring 100% nonrebreather. 01/02/2025 Patient went back into atrial fibrillation with RVR and then converted out of bed She is noticed to be hypotensive for which she was started on clonidine 0.1 mg 3 times daily which she takes at home. She is on atypical regimen for her antihypertensives when I reviewed her home medication. She is on hydralazine once a day, clonidine 3 times a day, lisinopril 40 mg and metoprolol 25 mg twice daily. She was restarted on Xarelto 15 mg She still continues to have shortness of breath on 4 to 5 L of supplemental oxygen, mildly volume overloaded. 01/03/2025 No A-fib in last 24 hours. Heart rates are better controlled, still hypertensive. She was noticed to have hemoptysis. Chest x-ray from today appears worse when compared to from yesterday. Could be related to hemoptysis and spontaneous hemorrhage from emphysema and NOAC use. 01/04/2025 No afebrile last 48 hours. Sinus rhythm heart rate 74 beats minute, blood pressure is better controlled Still noticing to have hemoptysis, hemoglobin slightly lower since admission Chest x-ray shows minimal improvement but still appears to have right lower lobe infiltrates Assessment Acute on chronic hypoxic respiratory failure, multifactorial because of A-fib RVR, CHF exacerbation, COPD exacerbation Acute HFrEF exacerbation, EF 30 to 35%. New worsening cardiomyopathy, likely stress-induced. Paroxysmal atrial fibrillation with bouts of A-fib RVR. Currently sinus rhythm. History of CAD, known RN HOUSE SUPERVISOR of RCA, mild disease LAD & LCx from 2022 Type II NSTEMI likely because of hypoxemia Mild aortic stenosis, moderate mitral regurgitation Multiple comorbidities Pertinent cardiac testing Echo from this admission shows an EF of 30 to 35%, mild aortic stenosis, moderate mitral regurgitation, moderate RV dilatation. Plan Aspirin, Lipitor, Xarelto was held for hemoptysis. Continue to hold. Bumex 1 mg p.o. twice daily for next 5 days. Thereafter reduce to once a day. Continue Aldactone 25 mg daily, Farxiga 10 mg daily. At home she was on Lasix 40, Aldactone 25. Entresto to 96/104 mg twice daily. Start amlodipine 5 mg daily. Reduce hydralazine to 25 mg every 4 hours Continue amiodarone 200 mg 3 times daily until 01/08/2025.thereafter reduce it to twice daily for 1 week. Continue metoprolol to 50 mg twice daily From cardiac perspective, okay to stepdown from ICU to telemetry floor She is a good candidate for MISHA occlusion because of anemia and hemoptysis. Evaluate outpatient Consider repeating echocardiogram in 4 to 6 weeks, and if persist to have cardiomyopathy, consider ischemic evaluation with stress test or heart catheterization. Poor prognosis overall. Objective - Vital Signs Vital signs: Vital Signs Temp 97.3 F L 01/04/25 09:00 Pulse 77 01/04/25 12:00 Resp 23 01/04/25 12:00 BP 160/60 01/04/25 12:00 Pulse Ox 92 L 01/04/25 12:00 FiO2 Intake & Output 01/03/25 01/04/25 01/04/25 18:59 06:59 18:59 Intake Total 1180 120 630 Output Total 1845 1545 550 Balance -665 -1425 80 Weight 67.3 kg 67.3 kg Intake: IV 180 120 140 0.9 130 120 40 cefTRIAXone 1 gm In 50 100 Sodium Chloride 0.9% 50 ml @ 100 mls/hr IVPB Q24HR [facility] Rx#:[id number] Oral 1000 490 Output: Urine 1845 1545 550 Other: Voiding Method Indwelling Catheter Indwelling Catheter - Labs CBC & Chem 7: 01/04/25 03:28 01/04/25 03:28 Labs: Abnormal Lab Results - Last 24 Hours (Table) 01/03/25 01/03/25 01/04/25 Range/Units 15:29 19:41 03:28 RBC (3.80-5.40) m/uL Hgb (11.4-16.0) gm/dL Hct (34.0-46.0) % MCHC (31.0-37.0) g/dL RDW (11.5-15.5) % Chloride 97 L (98-107) mmol/L Carbon Dioxide 37 H (22-30) mmol/L BUN 55 H (7-17) mg/dL Glucose 274 H (74-99) mg/dL POC Glucose (mg/dL) 223 H 341 H (70-110) mg/dL 01/04/25 01/04/25 01/04/25 Range/Units 03:28 06:00 12:13 RBC 3.02 L (3.80-5.40) m/uL Hgb 7.8 L (11.4-16.0) gm/dL Hct 26.5 L (34.0-46.0) % MCHC 29.5 L (31.0-37.0) g/dL RDW 16.3 H (11.5-15.5) % Chloride (98-107) mmol/L Carbon Dioxide (22-30) mmol/L BUN (7-17) mg/dL Glucose (74-99) mg/dL POC Glucose (mg/dL) 288 H 253 H (70-110) mg/dL
--- NOTE | 2025-01-04 15:33 | P.PN ---
Progress Note - Text Progress Note Date: 01/04/25 patient is a 84-year-old lady with past medical history significant for chronic hypoxic respiratory failure, CHF, COPD, hypertension who presented to the ER as a transfer from [facility] for shortness of breath. Patient stated that she was all right yesterday morning when she started noticing shortness of breath. Shortness of breath is present at rest as on exertion. Patient stated that she was noticing that she was wheezing hard. Patient had a hard time breathing. Patient denies any chest pain. There is no complaint of orthopnea or PND. There was no complaint of any fever or chills. Because of the shortness of breath, patient presented to [facility] where she had to be placed on BiPAP, initial workup there showed patient to have elevated troponin and EKG suspicious for A-fib with RVR, patient was transferred to [facility] Initial lab work done in the ER showed WBC 7.3, hemoglobin 10.6, platelet count 268, sodium 137, potassium 3.8, BUN 18, creatinine 0.7, glucose 179, calcium 9.4, phosphorus 3.9, bilirubin 1.4, AST 41, ALT 40 troponin 1.920, EKG done in the ER showed heart rate of 93, no ST segment elevation or depression seen, no T-wave inversions seen. Chest x-ray done in the ER showed cardiomegaly and mild pulm vascular congestion. Patient admitted to internal medicine service 12/31. Patient seen and examined. States breathing is improved. Wheezing is also improved. Currently on 3 L of oxygen January 01: ICU. Sitting up in bed. Short of breath. Ventimask. On IV amiodarone and IV heparin. Telemetry shows sinus rhythm. With frequent PVCs. Congested cough. Had a very small amount of epistaxis. Decreased appetite. 3 h liters oxygen at home. As needed. On IV Lasix 40 mg every 12 with negative fluid balance for CHF At the baseline has about 1 bowel movement a week. Patient daughter at the bedside. CODE STATUS discussed. Wants to be DNR. 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 Told him to get forms filled out. At home does have a cane and a walker but does not use it. Ex-smoker. Lives alone. January 02: ICU. Up in a chair. This morning patient went into A-fib again with a rapid ventricular rate. Has been in sinus rhythm overnight. Has been continued on IV amiodarone. Dose of Lopressor was increased to 50 mg twice daily. Patient does have a congested cough. Incentive spirometry and Mucinex is being added. Will switch over to Xarelto this evening. Patient on 6 L nasal cannula. January 03: ICU. Up in a recliner. Having some hemoptysis. Xarelto was started yesterday evening now held. On 4 L nasal cannula. Switched over to oral Bumex. Remains in sinus rhythm. Eating about 50%. Because of fatigue unable to ambulate. PT OT working. Chest x-ray shows scattered infiltrates January 04: ICU. Oral intake about 25%. Remains in sinus rhythm. 4 L nasal cannula. Has been in good negative fluid balance. Bit tired. Breathing slightly better. Social history: Ex-smoker. Stop smoking 11 years ago. Lives alone. Does use a cane and a walker but does not use it. Active Medications Acetaminophen (Acetaminophen Tab 325 Mg Tab) 650 mg PO Q6HR PRN PRN Reason: Mild Pain or Fever > 100.5 Last Admin: 01/01/25 05:28 Dose: 650 mg Al Hydroxide/Mg Hydroxide (Mag Hydrox/Al Hydrox/Simeth 30 Ml Cup) 15 ml PO Q6HR PRN PRN Reason: Indigestion Albuterol/Ipratropium (Ipratropium-Albuterol 3 Ml Neb) 3 ml INHALATION RT-Q4H PRN PRN Reason: shortness of breath or wheezin Last Admin: 01/02/25 01:57 Dose: 3 ml Albuterol/Ipratropium (Ipratropium-Albuterol 3 Ml Neb) 3 ml INHALATION RT-QID [facility] Last Admin: 01/04/25 12:54 Dose: Not Given Amiodarone HCl (Amiodarone 200 Mg Tab) 200 mg PO TID [facility] Last Admin: 01/04/25 10:38 Dose: 200 mg Amlodipine Besylate (Amlodipine 5 Mg Tab) 5 mg PO DAILY [facility] Last Admin: 01/04/25 10:40 Dose: 5 mg Aspirin (Aspirin 81 Mg) 81 mg PO DAILY [facility] Last Admin: 01/04/25 10:39 Dose: 81 mg Atorvastatin Calcium (Atorvastatin 40 Mg Tab) 40 mg PO HS [facility] Last Admin: 01/03/25 21:03 Dose: 40 mg Budesonide (Budesonide 1 Mg/2 Ml Nebu) 1 mg INHALATION RT-BID [facility] Last Admin: 01/04/25 10:11 Dose: 1 mg Bumetanide (Bumetanide 1 Mg Tab) 1 mg PO BID@0900,1600 [facility] Stop: 01/08/25 15:59 Last Admin: 01/04/25 13:03 Dose: 1 mg Cholecalciferol (Cholecalciferol 25 Mcg (1000 Iu) Tablet) 50 mcg PO DAILY [facility] Last Admin: 01/04/25 10:39 Dose: 50 mcg Dapagliflozin (Dapagliflozin Propanediol 10 Mg Tablet) 10 mg PO DAILY [facility] Last Admin: 01/04/25 10:46 Dose: 10 mg Dextrose/Water (Dextrose 50% Syringe 50 Ml) 25 ml IVP PER PROTOCOL PRN; Protocol PRN Reason: Hypoglycemia Dextrose/Water (Dextrose 50% Syringe 50 Ml) 50 ml IVP PER PROTOCOL PRN; Protocol PRN Reason: Hypoglycemia Formoterol Fumarate (Formoterol Fumarate 20 Mcg/2 Ml Nebu) 20 mcg INHALATION RT-BID [facility] Last Admin: 01/04/25 10:11 Dose: 20 mcg Guaifenesin (Guaifenesin 600 Mg Tablet.Er) 1,200 mg PO Q12HR [facility] Last Admin: 01/04/25 10:46 Dose: 1,200 mg Hydralazine HCl (Hydralazine Hcl 25 Mg Tab) 25 mg PO QID [facility] Last Admin: 01/04/25 13:03 Dose: 25 mg Ceftriaxone Sodium 1 gm/ (Sodium Chloride) 50 mls @ 100 mls/hr IVPB Q24HR [facility]; Protocol Last Admin: 01/04/25 10:38 Dose: 100 mls/hr Insulin Human Lispro (Insulin Lispro (Humalog) 100 Unit/Ml 10 Ml Vl) 0 unit SQ ACHS DONAL; Protocol Last Admin: 01/04/25 13:04 Dose: 3 unit Lorazepam (Lorazepam 1 Mg Tab) 1 mg PO Q6H PRN PRN Reason: Anxiety Last Admin: 01/04/25 10:37 Dose: 1 mg Melatonin (Melatonin 3 Mg Tablet) 3 mg PO HS PRN PRN Reason: Insomnia Last Admin: 01/03/25 21:03 Dose: 3 mg Methylprednisolone Sodium Succinate (Methylprednisolone Sod Succi 125 Mg/2 Ml Vial) 60 mg IV Q6H [facility] Last Admin: 01/04/25 13:03 Dose: 60 mg Metoprolol Tartrate (Metoprolol Tartrate 50 Mg Tab) 50 mg PO BID [facility] Last Admin: 01/04/25 10:40 Dose: 50 mg Miscellaneous Information (Potassium Replacement Protocol 1 Each Misc) 1 each MISCELLANE DAILY PRN; Protocol PRN Reason: Per Protocol Miscellaneous Information (Magnesium Replacement Protocol 1 Each Misc) 1 each MISCELLANE DAILY PRN; Protocol PRN Reason: Per Protocol Montelukast Sodium (Montelukast 10 Mg Tab) 10 mg PO HS [facility] Last Admin: 01/03/25 21:03 Dose: 10 mg Morphine Sulfate (Morphine Sulfate 4 Mg/Ml Syringe) 4 mg IV Q4HR PRN PRN Reason: Severe Pain (Scale 7 to 10) Last Admin: 12/30/24 04:01 Dose: 4 mg Naloxone HCl (Naloxone 0.4 Mg/Ml 1 Ml Vial) 0.2 mg IV Q2M PRN PRN Reason: Opioid Reversal Ondansetron HCl (Ondansetron 4 Mg/2 Ml Vial) 4 mg IVP Q8HR PRN PRN Reason: Nausea And Vomiting Pantoprazole Sodium (Pantoprazole 40 Mg Tablet) 40 mg PO AC-BRKFST [facility] Last Admin: 01/04/25 06:05 Dose: 40 mg Psyllium Hydrophilic Mucilloid (Psyllium Husk 100% 6 Gm Packet) 6 gm PO DAILY [facility] Last Admin: 01/04/25 10:40 Dose: 6 gm Sacubitril/Valsartan (Sacubitril/Valsartan 97 Mg-103 Mg Tablet) 1 each PO BID [facility] Last Admin: 01/04/25 10:38 Dose: 1 each Spironolactone (Spironolactone 25 Mg Tab) 25 mg PO DAILY [facility] Last Admin: 01/04/25 10:40 Dose: 25 mg Temazepam (Temazepam 15 Mg Cap) 30 mg PO HS [facility] Last Admin: 01/03/25 21:03 Dose: 30 mg Venlafaxine HCl (Venlafaxine Hcl Er 37.5 Mg Cap) 37.5 mg PO DAILY [facility] Last Admin: 01/04/25 10:39 Dose: 37.5 mg On examination: VITAL SIGNS: 97.3, 92, 25, 161 x 60, 91% on 4 L GENERAL APPEARANCE: Up in recliner, breathing shade better HEENT: Normal external appearance of nose and ear. Oral cavity normal, hard of hearing EYES: Pupils equal. Conjunctiva normal. NECK: JVD not raised. Mass not palpable. RESPIRATORY: Respiratory effort increased, decreased breath sounds, diminished wheezing CARDIOVASCULAR: First and second sounds normal. No edema. ABDOMEN: Soft. Liver and spleen not palpable. No tenderness. No mass palpable. PSYCHIATRY: Alert and oriented x3. Mood and affect a bit anxious Musculoskeletal: OA several joints INVESTIGATIONS, reviewed in the clinical context: January 04: White count 8.7 hemoglobin 7.8 potassium 3.5 creatinine 1.01 January 03: White count 5.5 hemoglobin 7.8 platelets 182 sodium 3.3 BUN 43 creatinine 1.01. Procalcitonin 0.26 January 02: White count 9.4 hemoglobin 8.8 platelets 242 sodium 136 potassium 3.9 creatinine 1.02 AST 25 ALT 30 January 01: White count 8.1 hemoglobin 9.3 platelets 22 sodium 138 potassium 3.4 creatinine 0.99 Troponin I 0.502 Influenza type A, type B, RSV, SARS-CoV-2: Not detected Chest x-ray film personally reviewed by me-scattered infiltrates EKG tracing personally reviewed by me-atrial fibrillation. Rate 155. Intraventricular block pattern. 2D echocardiogram [December 31, 2024] EF 30 to 35%. Moderate right ventricle dilatation. Right ventricular pressure within normal limits. No left atrial thrombus/mass. Moderate mitral regurgitation. Aortic stenosis with a peak gradient 27 and a mean gradient of 12 mild TR Assessment and plan: -Acute on chronic hypoxemic hypercapnic respiratory failure, secondary to COPD exacerbation and CHF exacerbation: Improving Initially on BiPAP and Ventimask. Today 4 L -Acute severe COPD exacerbation, an ex-smoker: Improving slowly DuoNeb 4 times daily. Decrease IV Solu-Medrol 40 mg every 8. nebulized Pulmicort and performorist -Possible pneumonia suspect gram-negative organism IV ceftriaxone started on January 02 -Acute on chronic systolic CHF, EF 30 to 35%: Better Received IV Lasix. Switched over to Bumex -Paroxysmal atrial fibrillation with rapid ventricular rate, was in sinus rhythm yesterday. This morning had a run of A-fib with rapid rate. IV amiodarone. IV heparin. Cardiology following. Lopressor increased 50 twice daily IV heparin. Was started on Xarelto on January 02 evening. Because of hemoptysis held -Small amounts of hemoptysis, anticoagulation held -Chronic tracheomalacia -NSTEMI Aspirin -Acute transaminitis, mild: Resolved -Chronic constipation at the baseline has 1 bowel movement every week Metamucil 1 packet daily -Essential hypertension Lopressor 50 twice daily. Zestril 20 mg twice daily. -Acute medical debility from above PT OT on the case -Hyperlipidemia Lipitor 40 mg nightly -Primary osteoarthritis Tylenol as needed -Hard of hearing -DNR, discussed with patient Advance care planning [January 01, 2025] This was discussed with the patient, daughter at the bedside. Patient understands advanced age and comorbidities. Had decided to proceed with DNR. She does not have a medical POA. She has 3 children. Did discuss with him filling out forms as per the decision. Questions answered. Time spent for this about 25 minutes Oral diuretic. IV ceftriaxone. 4 L of oxygen. Eating about 25%. PT OT.
[2025-01-04 16:00] LABS: Glucose,Whole Blood 321 mg/dL (70-110)
[2025-01-04 20:17] LABS: Glucose,Whole Blood 377 mg/dL (70-110)
--- NOTE | 2025-01-04 20:19 | P.PN ---
Subjective Progress Note Date: 01/04/25 On 01/01/2025, the patient became acutely short of breath and based on data, the patient got transferred to the intensive care unit. In fact, the A was called to the room as the patient became acutely hypoxic and she was found to be in atrial fibrillation with rapid ventricular response. Based on that, the patient was placed on 100% nonrebreather facemask and following that, the patient got transferred to the intensive care unit. Noted the patient was hospitalized earlier for acute hypoxic respiratory failure secondary to CHF/COPD exacerbation. The patient this morning developed A-fib/RVR with a heart rate in the 170s. She was started on amiodarone per protocol. She was started on IV heparin. She was also given IV Lasix. She seems to be more comfortable following her transfer to the intensive care unit. However, the breathing remains quite labored. She is known to have CHF with an EF of around 30 to 35% with moderate RV dilatation and mild aortic stenosis and this is based on echoca rdiogram that was done on 12/31/2024. The patient had blood work today with a white cell count of 8.1, hemoglobin 9.3 and a platelet count of 282. Sodium levels at 138, potassium is at 3.4, BUN 46 with a creatinine of 0.99. Serum bicarb is at 35. Follow-up troponin is downtrending and is currently down to 0.5. The viral screen was checked in the ICU and it was negative. The chest x- ray from this morning shows cardiomegaly along with mild pulm vessel congestion consistent with CHF. The patient is less tachycardic at this point. She has audible wheezes. She is able to communicate. No altered mentation. On 01/02/2025, the patient is being seen for a follow-up. The patient was brought into the ICU yesterday for acute hypoxic respiratory failure, acute on chronic shortness of breath, acute atrial fibrillation with rapid ventricular response. Noted, the patient converted into normal sinus rhythm at around 3 PM yesterday. Earlier this morning at around 7 AM, the patient went back into atrial fibrillation. Rate is controlled for now. The patient is on metoprolol 25 mg p.o. twice a day. The patient is also on amiodarone drip 0.5 mg/min. The patient remains on IV heparin. Noted she did encountered an episode of hemoptysis earlier this morning. She did cough out some bright red blood. No significant epistaxis at this point in time. Meanwhile, she remains bronchospastic and wheezy although this is improved compared to yesterday. Repeat chest x-ray was done this morning and it showed cardiomegaly with mild pulm vessel congestion. No airspace disease or consolidation. White cell count of 9.4 with a hemoglobin of 8.8 and a platelet count of 242. BUN is 48 with a c reatinine of 1.02 and a sodium levels at 136. LFTs are within normal limits. On a separate note, the oxygenation is improved. The patient was taken off the 100% nonrebreather facemask and the patient is currently on 6 L of oxygen by nasal cannula. Fluid balance is -1.7 L over the past 24 hours. She remains hypertensive. Awake and alert and communicating. On 01/03/2025, the patient is being seen for a follow-up. Chest x-ray from today still showing evidence of pulmonary edema. The patient continues to have a congested cough and wheeze although this is improved compared to yesterday. She continues to have hemoptysis. The patient is back into normal sinus rhythm. She is currently on metoprolol 50 mg p.o. twice daily amiodarone 200 mg p.o. 3 times daily. Anticoagulation was given by [place] and this was given by cardiology. Going to put this anticoagulation on hold as the patient is encountering hemoptysis for now. She remains on Lasix 40 mg IV every 12 hours. She is on Entresto 97/103 1 tablet twice daily, Aldactone 25 mg p.o. daily, and hydralazine 25 mg p.o. 4 times daily. The patient is also on Farxiga 10 mg p.o. daily and amlodipine 5 mg p.o. daily. She remains on empiric antibiotic coverage with IV Rocephin. Blood work from today shows a white cell count of 5.5 with a heme of 7.8. BUN is 53 with a creatinine of 1.01. Sodium levels at 139 and a potassium level is at 3.3. Fluid balance has been -1.4 L over the past 24 hours. She is currently on oxygen at 4 L/min nasal cannula with a pulse ox of 96%. 01/04/2025, the patient is being seen for a follow-up. The patient is less short of breath and more comfortable compared to yesterday. This morning she is on 4 L of oxygen by nasal cannula. She is able to communicate. Her hemoptysis is also improving. Her current cardiac rhythm is sinus. Fluid balance is -2 L over the past 24 hours. Chest x-ray was repeated this morning and the patient continues to have evidence of pulmonary edema although this has improved compared to yesterday. She continues to have multifocal airspace disease bilaterally most consistent with CHF. The [id number], IV Solu-Medrol, she remains on empiric antibiotic coverage with IV Rocephin. Her diuretics include Bumex 1 mg p.o. daily and Aldactone 25 mg p.o. daily. She is also on Entresto times a day, metoprolol 50 mg p.o. twice daily, hydralazine 25 mg 4 times daily, Farxiga 10 mg p.o. daily and amiodarone 4 mg p.o. 3 times daily. She is also on Norvasc 5 mg p.o. daily for blood pressure control. Her BP is stable for now. No new complaints otherwise for now. The white cell count is 8.7 with a hemoglobin 7.8 and a platelet count of 210. BUN is 55 with a creatinine of 1.01. Sodium levels at 140 and a pota ssium level is at 3.5. In terms of blood sugar control, the patient is on insulin sliding scale coverage. Rest of the medications remain unchanged. Objective - Vital Signs Vital signs: Vital Signs Temp 97.3 F L 01/04/25 09:00 Pulse 92 01/04/25 10:21 Resp 23 01/04/25 09:00 BP 167/94 01/04/25 09:00 Pulse Ox 96 01/04/25 10:11 FiO2 Intake & Output 01/03/25 01/04/25 01/04/25 18:59 06:59 18:59 Intake Total 1180 120 510 Output Total 1845 1545 250 Balance -665 -1425 260 Weight 67.3 kg Intake: IV 180 120 20 0.9 130 120 20 cefTRIAXone 1 gm In 50 Sodium Chloride 0.9% 50 ml @ 100 mls/hr IVPB Q24HR [facility] Rx#:[id number] Oral 1000 490 Output: Urine 1845 1545 250 Other: Voiding Method Indwelling Catheter Indwelling Catheter - Exam The patient appeared to be more comfortable compared to yesterday, less bronchospastic and wheezy and less short of breath. She is currently on 4 L of oxygen by nasal cannula. Head exam is unremarkable. No scleral icterus or corneal arcus noted. Neck is without jugular venous distension, thyromegaly, or carotid bruits. Carotid upstrokes are brisk bilaterally. Lungs are diminished bilaterally along with some few bibasilar crackles and there is exhalation wheezing heard throughout the lung claros bilaterally Cardiac exam reveals the PMI to be normally sized and situated. Rhythm is irregular consistent with atrial fibrillation with rapid ventricular response first and second heart sounds normal. No murmurs, rubs or gallops. Abdominal exam reveals normal bowel sounds, no masses, no organomegaly and no aortic enlargement. Extremities are nonedematous and both femoral and pedal pulses are normal. Examination of the skin revealed no evidence of significant rashes, suspicious appearing nevi or other concerning lesions. Neurologically, the patient is awake and alert and the patient does not have any focal neurological deficit. Cranial nerves are essentially intact. - Labs CBC & Chem 7: 01/04/25 03:28 01/04/25 03:28 Labs: Abnormal Lab Results - Last 24 Hours (Table) 01/03/25 01/03/25 01/03/25 Range/Units 10:55 10:58 15:29 RBC (3.80-5.40) m/uL Hgb (11.4-16.0) gm/dL Hct (34.0-46.0) % MCHC (31.0-37.0) g/dL RDW (11.5-15.5) % Potassium 3.3 L (3.5-5.1) mmol/L Chloride (98-107) mmol/L Carbon Dioxide (22-30) mmol/L BUN (7-17) mg/dL Glucose (74-99) mg/dL POC Glucose (mg/dL) 309 H 223 H (70-110) mg/dL 01/03/25 01/04/25 01/04/25 Range/Units 19:41 03:28 03:28 RBC 3.02 L (3.80-5.40) m/uL Hgb 7.8 L (11.4-16.0) gm/dL Hct 26.5 L (34.0-46.0) % MCHC 29.5 L (31.0-37.0) g/dL RDW 16.3 H (11.5-15.5) % Potassium (3.5-5.1) mmol/L Chloride 97 L (98-107) mmol/L Carbon Dioxide 37 H (22-30) mmol/L BUN 55 H (7-17) mg/dL Glucose 274 H (74-99) mg/dL POC Glucose (mg/dL) 341 H (70-110) mg/dL 01/04/25 Range/Units 06:00 RBC (3.80-5.40) m/uL Hgb (11.4-16.0) gm/dL Hct (34.0-46.0) % MCHC (31.0-37.0) g/dL RDW (11.5-15.5) % Potassium (3.5-5.1) mmol/L Chloride (98-107) mmol/L Carbon Dioxide (22-30) mmol/L BUN (7-17) mg/dL Glucose (74-99) mg/dL POC Glucose (mg/dL) 288 H (70-110) mg/dL Assessment and Plan Plan: Acute on top of chronic hypoxic respiratory failure associated secondary to CHF exacerbation/A-fib with RVR. Noted the patient also has background COPD. She was noted to be actively bronchospastic and wheezy and hide respiratory failure essentially related to COPD/CHF exacerbation. Clinically improved compared to yesterday. Patient continues to be in COPD and CHF exacerbation and the patient continues to have paroxysmal atrial fibrillation. She is currently on 4 L of O2 nasal cannula. Acute CHF exacerbation. Noted to have systolic heart failure with an EF around 30 to 35% Acute COPD exacerbation, improving and the patient remains on bronchodilators and steroids New onset A-fib with RVR and the heart rate was in the 170s, currently in normal sinus rhythm and the patient is on a combination of metoprolol and amiodarone. No anticoagulants for now based on her ongoing episodes of hemoptysis Hemoptysis Rule out non-ST segment elevation myocardial infarction, versus elevated troponin secondary to supply/demand mismatch. Systolic heart failure, EF 30-35%, moderate RV dilation, mild (12/31/24) Chronic hypoxemic respiratory failure, on home O2 at 3 L. COPD , 60 pyear smoking Hyperlipidemia. Hypertension. Multiple other medical problems and comorbidities Plan: Titrate oxygen flow to maintain saturation above 90%, currently on 4 L nasal cannula Amiodarone 200 mg p.o. 3 times daily Metoprolol 50 mg p.o. twice daily Entresto 97/103 1 tablet twice a day Hydralazine 25 mg 4 times daily Amlodipine 5 mg p.o. daily Aldactone 25 mg p.o. daily Hold Xarelto as the patient continues to have hemoptysis Continue IV Rocephin Bumex 1 mg p.o. twice daily Aldactone 25 mg p.o. daily DuoNeb nebulized treatments [id number] 4 times a day Perforomist and Pulmicort nebulized treatments twice a day IV Solu-Medrol 60 mg every 6 hours Chest x-ray was noted Troponin is downtrending Lantus 15 units nightly Will continue to follow Condition is critical and stabilization was done 31 minutes.
[2025-01-04] MEDS: INSULIN GLARGINE (LANTUS) 100 UNIT/ML SYR SQ SCH (21:12)
[2025-01-05 03:38] LABS: Anisocytosis Slight; HCT 26.2 % (34.0-46.0); HGB 7.9 gm/dL (11.4-16.0); Hypochromasia Marked; MCH 26.1 pg (25.0-35.0); MCHC 30.2 g/dL (31.0-37.0); MCV 86.5 fL (80.0-100.0); Mean Platelet Volume 8.8; Platelet Count 220 k/uL (150-450); RBC 3.03 m/uL (3.80-5.40); RDW 16.3 % (11.5-15.5); WBC 8.3 k/uL (3.8-10.6)
[2025-01-05 04:29] LABS: ALT 35 U/L (4-34); AST 23 U/L (14-36); African American GFR (CKD) 63 (>60 ml/min/1.73 sqM); Albumin 3.2 g/dL (3.5-5.0); Alkaline Phosphatase 62 U/L (38-126); Anion Gap 7 mmol/L; Blood Urea Nitrogen 48 mg/dL (7-17); Calcium 9.5 mg/dL (8.4-10.2); Chloride 97 mmol/L (98-107); Glucose 156 mg/dL (74-99); Magnesium 2.1 mg/dL (1.6-2.3); Non-African American GFR(CKD) 54 (>60 ml/min/1.73 sqM); Potassium 3.1 mmol/L (3.5-5.1); Sodium 144 mmol/L (137-145); Total Bilirubin 0.9 mg/dL (0.2-1.3); Total Protein 5.3 g/dL (6.3-8.2)
[2025-01-05 05:19] LABS: Carbon Dioxide 41 mmol/L (22-30)
[2025-01-05] MEDS: POTASSIUM CHLORIDE ER 20 MEQ TAB.ER PO SCH (05:59)
[2025-01-05 06:04] LABS: Glucose,Whole Blood 263 mg/dL (70-110)
[2025-01-05 06:25] LABS: Glucose,Whole Blood 266 mg/dL (70-110)
[2025-01-05 10:51] LABS: Glucose,Whole Blood 269 mg/dL (70-110)
[2025-01-05] MEDS: predniSONE 20 MG TAB PO SCH (11:10)
[2025-01-05] MEDS: acetaZOLAMIDE 250 MG TAB PO SCH (13:59)
--- NOTE | 2025-01-05 14:02 | P.PN ---
Subjective Progress Note Date: 01/05/25 The patient is a 84-year-old female patient with a past medical history significant for hypoxic respiratory failure secondary to COPD as well as hypertension and dyslipidemia and history of heart failure as well. She was transferred from [facility] to [facility] for further evaluation of shortness of breath and heart failure as well as abnormal cardiac enzymes. For the last few days she has been experiencing progressive exertional dyspnea associated with bilateral lower extremities edema with no symptoms of chest pain or chest discomfort or any other cardiovascular symptoms. No fever and no chills and no cough. She underwent further evaluation including chest x- ray showed pulmonary vascular congestions and finding consistent with heart failure and also an EKG showing sinus rhythm with sinus tachycardia. NT proBNP came in at the 18,000. Troponin came to be abnormal but appeared to be flat across the board. EKG showed sinus rhythm with sinus tachycardia. The patient was started on heparin IV and started on Lasix IV and echo was ordered still pending. The patient is known to our service was seen by our service back in 2022 where at that point she underwent a heart catheterization revealed normal coronaries which she is under some stress lately after she lost her daughter a few weeks ago. The physical examination is remarkable for regular rhythm with d istant heart sounds and severe bilateral expiratory wheezing and mild bilateral lower extremities edema December 31, 2024 The patient was seen and evaluated this morning which she still having extensive wheezing on examination no edema in the lower extremities noted. The echo still pending. No symptoms of chest pain or chest discomfort. The physical examination is remarkable for stable vital signs with mild sinus tachycardia and bilateral expiratory wheezing and no edema was noted in the lower extremities but she continues to be on Lasix IV and she has been diuresing very well. 01/01/2025 Patient is seen and examined at bedside this a.m. Patient was transferred from floor to ICU because of increased hypoxia increased shortness of breath requiring 100% nonrebreather. 01/02/2025 Patient went back into atrial fibrillation with RVR and then converted out of bed She is noticed to be hypotensive for which she was started on clonidine 0.1 mg 3 times daily which she takes at home. She is on atypical regimen for her antihypertensives when I reviewed her home medication. She is on hydralazine once a day, clonidine 3 times a day, lisinopril 40 mg and metoprolol 25 mg twice daily. She was restarted on Xarelto 15 mg She still continues to have shortness of breath on 4 to 5 L of supplemental oxygen, mildly volume overloaded. 01/03/2025 No A-fib in last 24 hours. Heart rates are better controlled, still hypertensive. She was noticed to have hemoptysis. Chest x-ray from today appears worse when compared to from yesterday. Could be related to hemoptysis and spontaneous hemorrhage from emphysema and NOAC use. 01/04/2025 No afebrile last 48 hours. Sinus rhythm heart rate 74 beats minute, blood pressure is better controlled Still noticing to have hemoptysis, hemoglobin slightly lower since admission Chest x-ray shows minimal improvement but still appears to have right lower lobe infiltrates 01/05/2025 No atrial fibrillation. Sinus rhythm, blood pressure is controlled, still hav ing some bloody sputum however seems to be more dried out. Tolerating oral diuretics with appropriate urine output does not appear volume overloaded. Assessment Acute on chronic hypoxic respiratory failure, multifactorial because of A-fib RVR, CHF exacerbation, COPD exacerbation Acute HFrEF exacerbation, EF 30 to 35%. New worsening cardiomyopathy, likely stress-induced. Paroxysmal atrial fibrillation with bouts of A-fib RVR. Currently sinus rhythm. History of CAD, known TELETYPIST of RCA, mild disease LAD & LCx from 2022 Type II NSTEMI likely because of hypoxemia Mild aortic stenosis, moderate mitral regurgitation Multiple comorbidities Pertinent cardiac testing Echo from this admission shows an EF of 30 to 35%, mild aortic stenosis, moderate mitral regurgitation, moderate RV dilatation. Plan Aspirin, Lipitor, Xarelto was held for hemoptysis. Continue to hold until sputum clears up. Bumex 1 mg p.o. twice daily for next 4 days. Thereafter reduce to once a day. Continue Aldactone 25 mg daily, Farxiga 10 mg daily. At home she was on Lasix 40, Aldactone 25. Entresto to 96/104 mg twice daily. Start amlodipine 5 mg daily. Reduce hydralazine to 25 mg every 4 hours Continue amiodarone 200 mg 3 times daily until 01/08/2025.thereafter reduce it to twice daily for 1 week. Continue metoprolol to 50 mg twice daily From cardiac perspective, okay to stepdown from ICU to telemetry floor She is a good candidate for MISHA occlusion because of anemia and hemoptysis. Evaluate outpatient Consider repeating echocardiogram in 4 to 6 weeks, and if persist to have cardiomyopathy, consider ischemic evaluation with stress test or heart catheterization. Poor prognosis overall. Objective - Vital Signs Vital signs: Vital Signs Temp 98.7 F 01/05/25 08:00 Pulse 67 01/05/25 13:12 Resp 21 01/05/25 08:00 BP 165/55 01/05/25 08:00 Pulse Ox 95 01/05/25 10:02 FiO2 Intake & Output 01/04/25 01/05/25 01/05/25 18:59 06:59 18:59 Intake Total 1680 40 20 Output Total 1900 1100 175 Balance -220 -1060 -155 Weight 67.3 kg 64.6 kg Intake: IV 220 40 20 0.9 120 40 20 cefTRIAXone 1 gm In 100 Sodium Chloride 0.9% 50 ml @ 100 mls/hr IVPB Q24HR [facility] Rx#:[id number] Oral 1460 Output: Urine 1900 1100 175 Other: Voiding Method Indwelling Catheter Indwelling Catheter - Labs CBC & Chem 7: 01/05/25 02:51 01/05/25 02:51 Labs: Abnormal Lab Results - Last 24 Hours (Table) 01/04/25 01/04/25 01/05/25 Range/Units 15:59 20:16 02:51 RBC 3.03 L (3.80-5.40) m/uL Hgb 7.9 L (11.4-16.0) gm/dL Hct 26.2 L (34.0-46.0) % MCHC 30.2 L (31.0-37.0) g/dL RDW 16.3 H (11.5-15.5) % Potassium (3.5-5.1) mmol/L Chloride (98-107) mmol/L Carbon Dioxide (22-30) mmol/L BUN (7-17) mg/dL Glucose (74-99) mg/dL POC Glucose (mg/dL) 321 H 377 H (70-110) mg/dL ALT (4-34) U/L Total Protein (6.3-8.2) g/dL Albumin (3.5-5.0) g/dL 01/05/25 01/05/25 01/05/25 Range/Units 02:51 06:02 06:23 RBC (3.80-5.40) m/uL Hgb (11.4-16.0) gm/dL Hct (34.0-46.0) % MCHC (31.0-37.0) g/dL RDW (11.5-15.5) % Potassium 3.1 L (3.5-5.1) mmol/L Chloride 97 L (98-107) mmol/L Carbon Dioxide 41 H* (22-30) mmol/L BUN 48 H (7-17) mg/dL Glucose 156 H (74-99) mg/dL POC Glucose (mg/dL) 263 H 266 H (70-110) mg/dL ALT 35 H (4-34) U/L Total Protein 5.3 L (6.3-8.2) g/dL Albumin 3.2 L (3.5-5.0) g/dL /01/26 Range/Units 10:48 RBC (3.80-5.40) m/uL Hgb (11.4-16.0) gm/dL Hct (34.0-46.0) % MCHC (31.0-37.0) g/dL RDW (11.5-15.5) % Potassium (3.5-5.1) mmol/L Chloride (98-107) mmol/L Carbon Dioxide (22-30) mmol/L BUN (7-17) mg/dL Glucose (74-99) mg/dL POC Glucose (mg/dL) 269 H (70-110) mg/dL ALT (4-34) U/L Total Protein (6.3-8.2) g/dL Albumin (3.5-5.0) g/dL
--- NOTE | 2025-01-05 14:25 | P.PN ---
Subjective Progress Note Date: 01/05/25 On 01/01/2025, the patient became acutely short of breath and based on data, the patient got transferred to the intensive care unit. In fact, the A was called to the room as the patient became acutely hypoxic and she was found to be in atrial fibrillation with rapid ventricular response. Based on that, the patient was placed on 100% nonrebreather facemask and following that, the patient got transferred to the intensive care unit. Noted the patient was hospitalized earlier for acute hypoxic respiratory failure secondary to CHF/COPD exacerbation. The patient this morning developed A-fib/RVR with a heart rate in the 170s. She was started on amiodarone per protocol. She was started on IV heparin. She was also given IV Lasix. She seems to be more comfortable following her transfer to the intensive care unit. However, the breathing remains quite labored. She is known to have CHF with an EF of around 30 to 35% with moderate RV dilatation and mild aortic stenosis and this is based on echoca rdiogram that was done on 12/31/2024. The patient had blood work today with a white cell count of 8.1, hemoglobin 9.3 and a platelet count of 282. Sodium levels at 138, potassium is at 3.4, BUN 46 with a creatinine of 0.99. Serum bicarb is at 35. Follow-up troponin is downtrending and is currently down to 0.5. The viral screen was checked in the ICU and it was negative. The chest x- ray from this morning shows cardiomegaly along with mild pulm vessel congestion consistent with CHF. The patient is less tachycardic at this point. She has audible wheezes. She is able to communicate. No altered mentation. On 01/02/2025, the patient is being seen for a follow-up. The patient was brought into the ICU yesterday for acute hypoxic respiratory failure, acute on chronic shortness of breath, acute atrial fibrillation with rapid ventricular response. Noted, the patient converted into normal sinus rhythm at around 3 PM yesterday. Earlier this morning at around 7 AM, the patient went back into atrial fibrillation. Rate is controlled for now. The patient is on metoprolol 25 mg p.o. twice a day. The patient is also on amiodarone drip 0.5 mg/min. The patient remains on IV heparin. Noted she did encountered an episode of hemoptysis earlier this morning. She did cough out some bright red blood. No significant epistaxis at this point in time. Meanwhile, she remains bronchospastic and wheezy although this is improved compared to yesterday. Repeat chest x-ray was done this morning and it showed cardiomegaly with mild pulm vessel congestion. No airspace disease or consolidation. White cell count of 9.4 with a hemoglobin of 8.8 and a platelet count of 242. BUN is 48 with a c reatinine of 1.02 and a sodium levels at 136. LFTs are within normal limits. On a separate note, the oxygenation is improved. The patient was taken off the 100% nonrebreather facemask and the patient is currently on 6 L of oxygen by nasal cannula. Fluid balance is -1.7 L over the past 24 hours. She remains hypertensive. Awake and alert and communicating. On 01/03/2025, the patient is being seen for a follow-up. Chest x-ray from today still showing evidence of pulmonary edema. The patient continues to have a congested cough and wheeze although this is improved compared to yesterday. She continues to have hemoptysis. The patient is back into normal sinus rhythm. She is currently on metoprolol 50 mg p.o. twice daily amiodarone 200 mg p.o. 3 times daily. Anticoagulation was given by [place] and this was given by cardiology. Going to put this anticoagulation on hold as the patient is encountering hemoptysis for now. She remains on Lasix 40 mg IV every 12 hours. She is on Entresto 97/103 1 tablet twice daily, Aldactone 25 mg p.o. daily, and hydralazine 25 mg p.o. 4 times daily. The patient is also on Farxiga 10 mg p.o. daily and amlodipine 5 mg p.o. daily. She remains on empiric antibiotic coverage with IV Rocephin. Blood work from today shows a white cell count of 5.5 with a heme of 7.8. BUN is 53 with a creatinine of 1.01. Sodium levels at 139 and a potassium level is at 3.3. Fluid balance has been -1.4 L over the past 24 hours. She is currently on oxygen at 4 L/min nasal cannula with a pulse ox of 96%. 01/04/2025, the patient is being seen for a follow-up. The patient is less short of breath and more comfortable compared to yesterday. This morning she is on 4 L of oxygen by nasal cannula. She is able to communicate. Her hemoptysis is also improving. Her current cardiac rhythm is sinus. Fluid balance is -2 L over the past 24 hours. Chest x-ray was repeated this morning and the patient continues to have evidence of pulmonary edema although this has improved compared to yesterday. She continues to have multifocal airspace disease bilaterally most consistent with CHF. The patient remains on [facility] [id number], IV Solu-Medrol, she remains on empiric antibiotic coverage with IV Rocephin. Her diuretics include Bumex 1 mg p.o. daily and Aldactone 25 mg p.o. daily. She is also on Entresto times a day, metoprolol 50 mg p.o. twice daily, hydralazine 25 mg 4 times daily, Farxiga 10 mg p.o. daily and amiodarone 4 mg p.o. 3 times daily. She is also on Norvasc 5 mg p.o. daily for blood pressure control. Her BP is stable for now. No new complaints otherwise for now. The white cell count is 8.7 with a hemoglobin 7.8 and a platelet count of 210. BUN is 55 with a creatinine of 1.01. Sodium levels at 140 and a pota ssium level is at 3.5. In terms of blood sugar control, the patient is on insulin sliding scale coverage. Rest of the medications remain unchanged. 01/05/2025, the patient is stable on 40 of oxygen by nasal cannula. No active hemoptysis. Cardiac rhythm is sinus. She is doing well. Less bronchospastic and wheezy. Fluid balance is -1.2 L over the past 24 hours. Remains on bronchodilators. Remains on IV Solu-Medrol and the patient will be started on a prednisone burst taper today. Diuretics and inform of Bumex 1 mg p.o. twice a day Diamox to 50 mg p.o. twice a day and Aldactone 25 mg p.o. daily. She is also on metoprolol 50 mg p.o. twice daily and Entresto. She is also on Farxiga. No other significant events overnight. Awake and alert and communicating. White cell count is at 8.3 with a hemoglobin of 14 and platelet count of 220. BUN is 48 with a creatinine of 0.9 and the sodium levels at 144 and a potassium level is at 3.1. Blood sugars are slightly elevated and the patient was given Lantus 15 units in addition to sliding scale insulin coverage. Rest of the medications are essentially unchanged. Objective - Vital Signs Vital signs: Vital Signs Temp 98.7 F 01/05/25 08:00 Pulse 75 01/05/25 10:26 Resp 21 01/05/25 08:00 BP 165/55 01/05/25 08:00 Pulse Ox 95 01/05/25 10:02 FiO2 Intake & Output 01/04/25 01/05/25 01/05/25 18:59 06:59 18:59 Intake Total 1680 40 20 Output Total 1900 1100 175 Balance -220 -1060 -155 Weight 67.3 kg 64.6 kg Intake: IV 220 40 20 0.9 120 40 20 cefTRIAXone 1 gm In 100 Sodium Chloride 0.9% 50 ml @ 100 mls/hr IVPB Q24HR [facility] Rx#:[id number] Oral 1460 Output: Urine 1900 1100 175 Other: Voiding Method Indwelling Catheter Indwelling Catheter - Exam The patient appeared to be more comfortable compared to yesterday, less bron chospastic and wheezy and less short of breath. She is currently on 4 L of oxygen by nasal cannula. Head exam is unremarkable. No scleral icterus or corneal arcus noted. Neck is without jugular venous distension, thyromegaly, or carotid bruits. Carotid upstrokes are brisk bilaterally. Lungs are diminished bilaterally along with some few bibasilar crackles and there is exhalation wheezing heard throughout the lung claros bilaterally Cardiac exam reveals the PMI to be normally sized and situated. Rhythm is irregular consistent with atrial fibrillation with rapid ventricular response first and second heart sounds normal. No murmurs, rubs or gallops. Abdominal exam reveals normal bowel sounds, no masses, no organomegaly and no aortic enlargement. Extremities are nonedematous and both femoral and pedal pulses are normal. Examination of the skin revealed no evidence of significant rashes, suspicious appearing nevi or other concerning lesions. Neurologically, the patient is awake and alert and the patient does not have any focal neurological deficit. Cranial nerves are essentially intact. - Labs CBC & Chem 7: 01/05/25 02:51 01/05/25 02:51 Labs: Abnormal Lab Results - Last 24 Hours (Table) 01/04/25 01/04/25 01/04/25 Range/Units 12:13 15:59 20:16 RBC (3.80-5.40) m/uL Hgb (11.4-16.0) gm/dL Hct (34.0-46.0) % MCHC (31.0-37.0) g/dL RDW (11.5-15.5) % Potassium (3.5-5.1) mmol/L Chloride (98-107) mmol/L Carbon Dioxide (22-30) mmol/L BUN (7-17) mg/dL Glucose (74-99) mg/dL POC Glucose (mg/dL) 253 H 321 H 377 H (70-110) mg/dL ALT (4-34) U/L Total Protein (6.3-8.2) g/dL Albumin (3.5-5.0) g/dL 01/05/25 01/05/25 01/05/25 Range/Units 02:51 02:51 06:02 RBC 3.03 L (3.80-5.40) m/uL Hgb 7.9 L (11.4-16.0) gm/dL Hct 26.2 L (34.0-46.0) % MCHC 30.2 L (31.0-37.0) g/dL RDW 16.3 H (11.5-15.5) % Potassium 3.1 L (3.5-5.1) mmol/L Chloride 97 L (98-107) mmol/L Carbon Dioxide 41 H* (22-30) mmol/L BUN 48 H (7-17) mg/dL Glucose 156 H (74-99) mg/dL POC Glucose (mg/dL) 263 H (70-110) mg/dL ALT 35 H (4-34) U/L Total Protein 5.3 L (6.3-8.2) g/dL Albumin 3.2 L (3.5-5.0) g/dL 01/05/25 Range/Units 06:23 RBC (3.80-5.40) m/uL Hgb (11.4-16.0) gm/dL Hct (34.0-46.0) % MCHC (31.0-37.0) g/dL RDW (11.5-15.5) % Potassium (3.5-5.1) mmol/L Chloride (98-107) mmol/L Carbon Dioxide (22-30) mmol/L BUN (7-17) mg/dL Glucose (74-99) mg/dL POC Glucose (mg/dL) 266 H (70-110) mg/dL ALT (4-34) U/L Total Protein (6.3-8.2) g/dL Albumin (3.5-5.0) g/dL Assessment and Plan Plan: Acute on top of chronic hypoxic respiratory failure associated secondary to CHF exacerbation/A-fib with RVR. Noted the patient also has background COPD. She was noted to be actively bronchospastic and wheezy and hide respiratory failure essentially related to COPD/CHF exacerbation. Clinically improved compared to yesterday. Patient continues to be in COPD and CHF exacerbation and the patient continues to have paroxysmal atrial fibrillation. She is currently on 4 L of O2 nasal cannula. Acute CHF exacerbation. Noted to have systolic heart failure with an EF around 30 to 35% Acute COPD exacerbation, improving and the patient remains on bronchodilators and steroids New onset A-fib with RVR and the heart rate was in the 170s, currently in normal sinus rhythm and the patient is on a combination of metoprolol and amiodarone. No anticoagulants for now based on her ongoing episodes of hemoptysis Hemoptysis Rule out non-ST segment elevation myocardial infarction, versus elevated troponin secondary to supply/demand mismatch. Systolic heart failure, EF 30-35%, moderate RV dilation, mild (12/31/24) Chronic hypoxemic respiratory failure, on home O2 at 3 L. COPD , 60 pyear smoking Hyperlipidemia. Hypertension. Multiple other medical problems and comorbidities Plan: Clinically stable and continues to improve Titrate oxygen flow to maintain saturation above 90%, currently on 4 L nasal cannula No active hemoptysis for now Amiodarone 200 mg p.o. 3 times daily Metoprolol 50 mg p.o. twice daily Entresto 97/103 1 tablet twice a day Hydralazine 25 mg 4 times daily Amlodipine 5 mg p.o. daily Aldactone 25 mg p.o. daily Hold Xarelto as the patient continues to have hemoptysis Continue IV Rocephin Bumex 1 mg p.o. twice daily Aldactone 25 mg p.o. daily DuoNeb nebulized treatments [id number] 4 times a day Perforomist and Pulmicort nebulized treatments twice a day Prednisone burst taper Lantus 15 units nightly in addition to slight scale coverage Will continue to follow Condition is critical and stabilization was done 31 minutes. Time with Patient: Greater than 30
[2025-01-05 16:12] LABS: Glucose,Whole Blood 349 mg/dL (70-110)
--- NOTE | 2025-01-05 17:04 | P.PN ---
Progress Note - Text Progress Note Date: 01/05/25 patient is a 84-year-old lady with past medical history significant for chronic hypoxic respiratory failure, CHF, COPD, hypertension who presented to the ER as a transfer from [facility] for shortness of breath. Patient stated that she was all right yesterday morning when she started noticing shortness of breath. Shortness of breath is present at rest as on exertion. Patient stated that she was noticing that she was wheezing hard. Patient had a hard time breathing. Patient denies any chest pain. There is no complaint of orthopnea or PND. There was no complaint of any fever or chills. Because of the shortness of breath, patient presented to [facility] where she had to be placed on BiPAP, initial workup there showed patient to have elevated troponin and EKG suspicious for A-fib with RVR, patient was transferred to [facility] Initial lab work done in the ER showed WBC 7.3, hemoglobin 10.6, platelet count 268, sodium 137, potassium 3.8, BUN 18, creatinine 0.7, glucose 179, calcium 9.4, phosphorus 3.9, bilirubin 1.4, AST 41, ALT 40 troponin 1.920, EKG done in the ER showed heart rate of 93, no ST segment elevation or depression seen, no T-wave inversions seen. Chest x-ray done in the ER showed cardiomegaly and mild pulm vascular congestion. Patient admitted to internal medicine service 12/31. Patient seen and examined. States breathing is improved. Wheezing is also improved. Currently on 3 L of oxygen January 01: ICU. Sitting up in bed. Short of breath. Ventimask. On IV amiodarone and IV heparin. Telemetry shows sinus rhythm. With frequent PVCs. Congested cough. Had a very small amount of epistaxis. Decreased appetite. 3 h liters oxygen at home. As needed. On IV Lasix 40 mg every 12 with negative fluid balance for CHF At the baseline has about 1 bowel movement a week. Patient daughter at the bedside. CODE STATUS discussed. Wants to be DNR. Does not have any power of finance attorney has 3 children. Told him to get forms filled out. At home does have a cane and a walker but does not use it. Ex-smoker. Lives alone. January 02: ICU. Up in a chair. This morning patient went into A-fib again with a rapid ventricular rate. Has been in sinus rhythm overnight. Has been continued on IV amiodarone. Dose of Lopressor was increased to 50 mg twice daily. Patient does have a congested cough. Incentive spirometry and Mucinex is being added. Will switch over to Xarelto this evening. Patient on 6 L nasal cannula. January 03: ICU. Up in a recliner. Having some hemoptysis. Xarelto was started yesterday evening now held. On 4 L nasal cannula. Switched over to oral Bumex. Remains in sinus rhythm. Eating about 50%. Because of fatigue unable to ambulate. PT OT working. Chest x-ray shows scattered infiltrates January 04: ICU. Oral intake about 25%. Remains in sinus rhythm. 4 L nasal cannula. Has been in good negative fluid balance. Bit tired. Breathing slightly better. January 05: ICU. Remains in sinus rhythm.4 L nasal cannula. Did walk about 30 steps with physical therapy and a walker. Variable oral intake. Getting better. Some cough.On oral Bumex. Diamox. Social history: Ex-smoker. Stop smoking 11 years ago. Lives alone. Does use a cane and a walker but does not use it. Active Medications Acetaminophen (Acetaminophen Tab 325 Mg Tab) 650 mg PO Q6HR PRN PRN Reason: Mild Pain or Fever > 100.5 Last Admin: 01/01/25 05:28 Dose: 650 mg Acetazolamide (Acetazolamide 250 Mg Tab) 250 mg PO BID [facility] Stop: 01/05/25 21:01 Last Admin: 01/05/25 13:59 Dose: 250 mg Al Hydroxide/Mg Hydroxide (Mag Hydrox/Al Hydrox/Simeth 30 Ml Cup) 15 ml PO Q6HR PRN PRN Reason: Indigestion Albuterol/Ipratropium (Ipratropium-Albuterol 3 Ml Neb) 3 ml INHALATION RT-Q4H PRN PRN Reason: shortness of breath or wheezin Last Admin: 01/02/25 01:57 Dose: 3 ml Albuterol/Ipratropium (Ipratropium-Albuterol 3 Ml Neb) 3 ml INHALATION RT-QID [facility] Last Admin: 01/05/25 16:45 Dose: 3 ml Amiodarone HCl (Amiodarone 200 Mg Tab) 200 mg PO TID [facility] Last Admin: 01/05/25 16:28 Dose: 200 mg Amlodipine Besylate (Amlodipine 5 Mg Tab) 5 mg PO DAILY [facility] Last Admin: 01/05/25 09:36 Dose: 5 mg Aspirin (Aspirin 81 Mg) 81 mg PO DAILY [facility] Last Admin: 01/05/25 09:35 Dose: 81 mg Atorvastatin Calcium (Atorvastatin 40 Mg Tab) 40 mg PO [facility] Last Admin: 01/04/25 21:11 Dose: 40 mg Budesonide (Budesonide 1 Mg/2 Ml Nebu) 1 mg INHALATION RT-BID [facility] Last Admin: 01/05/25 10:00 Dose: 1 mg Bumetanide (Bumetanide 1 Mg Tab) 1 mg PO BID@0900,1600 [facility] Stop: 01/08/25 15:59 Last Admin: 01/05/25 16:28 Dose: 1 mg Cholecalciferol (Cholecalciferol 25 Mcg (1000 Iu) Tablet) 50 mcg PO DAILY [facility] Last Admin: 01/05/25 09:34 Dose: 50 mcg Dapagliflozin (Dapagliflozin Propanediol 10 Mg Tablet) 10 mg PO DAILY [facility] Last Admin: 01/05/25 09:34 Dose: 10 mg Dextrose/Water (Dextrose 50% Syringe 50 Ml) 25 ml IVP PER PROTOCOL PRN; Protocol PRN Reason: Hypoglycemia Dextrose/Water (Dextrose 50% Syringe 50 Ml) 50 ml IVP PER PROTOCOL PRN; Protocol PRN Reason: Hypoglycemia Formoterol Fumarate (Formoterol Fumarate 20 Mcg/2 Ml Nebu) 20 mcg INHALATION RT-BID [facility] Last Admin: 01/05/25 10:00 Dose: 20 mcg Guaifenesin (Guaifenesin 600 Mg Tablet.Er) 1,200 mg PO Q12HR [facility] Last Admin: 01/05/25 09:36 Dose: 1,200 mg Hydralazine HCl (Hydralazine Hcl 25 Mg Tab) 25 mg PO QID [facility] Last Admin: 01/05/25 13:52 Dose: 25 mg Ceftriaxone Sodium 1 gm/ (Sodium Chloride) 50 mls @ 100 mls/hr IVPB Q24HR [facility]; Protocol Last Admin: 01/05/25 09:34 Dose: 100 mls/hr Insulin Glargine (Insulin Glargine (Lantus) 100 Unit/Ml Syr) 15 unit SQ [facility] Last Admin: 01/04/25 21:12 Dose: 15 unit Insulin Human Lispro (Insulin Lispro (Humalog) 100 Unit/Ml 10 Ml Vl) 0 unit SQ ACHS [facility]; Protocol Last Admin: 01/05/25 16:28 Dose: 4 unit Lorazepam (Lorazepam 1 Mg Tab) 1 mg PO Q6H PRN PRN Reason: Anxiety Last Admin: 01/04/25 21:17 Dose: 1 mg Melatonin (Melatonin 3 Mg Tablet) 3 mg PO HS PRN PRN Reason: Insomnia Last Admin: 01/04/25 21:17 Dose: 3 mg Metoprolol Tartrate (Metoprolol Tartrate 50 Mg Tab) 50 mg PO BID [facility] Last Admin: 01/05/25 09:35 Dose: 50 mg Miscellaneous Information (Potassium Replacement Protocol 1 Each Misc) 1 each MISCELLANE DAILY PRN; Protocol PRN Reason: Per Protocol Miscellaneous Information (Magnesium Replacement Protocol 1 Each Misc) 1 each MISCELLANE DAILY PRN; Protocol PRN Reason: Per Protocol Montelukast Sodium (Montelukast 10 Mg Tab) 10 mg PO HS [facility] Last Admin: 01/04/25 21:11 Dose: 10 mg Morphine Sulfate (Morphine Sulfate 4 Mg/Ml Syringe) 4 mg IV Q4HR PRN PRN Reason: Severe Pain (Scale 7 to 10) Last Admin: 12/30/24 04:01 Dose: 4 mg Naloxone HCl (Naloxone 0.4 Mg/Ml 1 Ml Vial) 0.2 mg IV Q2M PRN PRN Reason: Opioid Reversal Ondansetron HCl (Ondansetron 4 Mg/2 Ml Vial) 4 mg IVP Q8HR PRN PRN Reason: Nausea And Vomiting Pantoprazole Sodium (Pantoprazole 40 Mg Tablet) 40 mg PO AC-BRKFST [facility] Last Admin: 01/05/25 05:57 Dose: 40 mg Prednisone (Prednisone 20 Mg Tab) 40 mg PO DAILY [facility] Stop: 01/08/25 09:01 Last Admin: 01/05/25 11:10 Dose: 40 mg Psyllium Hydrophilic Mucilloid (Psyllium Husk 100% 6 Gm Packet) 6 gm PO DAILY [facility] Last Admin: 01/05/25 09:34 Dose: 6 gm Sacubitril/Valsartan (Sacubitril/Valsartan 97 Mg-103 Mg Tablet) 1 each PO BID [facility] Last Admin: 01/05/25 09:34 Dose: 1 each Spironolactone (Spironolactone 25 Mg Tab) 25 mg PO DAILY [facility] Last Admin: 01/05/25 09:36 Dose: 25 mg Temazepam (Temazepam 15 Mg Cap) 30 mg PO HS [facility] Last Admin: 01/04/25 21:11 Dose: 30 mg Venlafaxine HCl (Venlafaxine Hcl Er 37.5 Mg Cap) 37.5 mg PO DAILY [facility] Last Admin: 01/05/25 09:36 Dose: 37.5 mg On examination: VITAL SIGNS: 96.9, 82, 16, 145 x 62, 95% 4 L GENERAL APPEARANCE: Up in recliner, breathing better HEENT: Normal external appearance of nose and ear. Oral cavity normal, hard of hearing EYES: Pupils equal. Conjunctiva normal. NECK: JVD not raised. Mass not palpable. RESPIRATORY: Respiratory effort increased, decreased breath sounds, CARDIOVASCULAR: First and second sounds normal. No edema. ABDOMEN: Soft. Liver and spleen not palpable. No tenderness. No mass palpable. PSYCHIATRY: Alert and oriented x3. Mood and affect a bit anxious Musculoskeletal: OA several joints INVESTIGATIONS, reviewed in the clinical context: January 05: White count 8.3 hemoglobin 7.9 platelets 220 potassium 3.1 bicarb 41 BUN 48 creatinine 0.97 January 04: White count 8.7 hemoglobin 7.8 potassium 3.5 creatinine 1.01 January 03: White count 5.5 hemoglobin 7.8 platelets 182 sodium 3.3 BUN 43 creatinine 1.01. Procalcitonin 0.26 January 02: White count 9.4 hemoglobin 8.8 platelets 242 sodium 136 potassium 3.9 creatinine 1.02 AST 25 ALT 30 January 01: White count 8.1 hemoglobin 9.3 platelets 22 sodium 138 potassium 3.4 creatinine 0.99 Troponin I 0.502 Influenza type A, type B, RSV, SARS-CoV-2: Not detected Chest x-ray film personally reviewed by me-scattered infiltrates EKG tracing personally reviewed by me-atrial fibrillation. Rate 155. Intraventricular block pattern. 2D echocardiogram [December 31, 2024] EF 30 to 35%. Moderate right ventricle dilatation. Right ventricular pressure within normal limits. No left atrial thrombus/mass. Moderate mitral regurgitation. Aortic stenosis with a peak gradient 27 and a mean gradient of 12 mild TR Assessment and plan: -Acute on chronic hypoxemic hypercapnic respiratory failure, secondary to COPD exacerbation and CHF exacerbation: Improving Initially on BiPAP and Ventimask. Currently 4 L -Acute severe COPD exacerbation, an ex-smoker: Improving DuoNeb 4 times daily. IV Solu-Medrol changed to oral prednisone. nebulized Pulmicort and performorist -Possible pneumonia suspect gram-negative organism IV ceftriaxone started on January 02 -Acute on chronic systolic CHF, EF 30 to 35%: Better Received IV Lasix. Now on oral Bumex Farxiga. Lopressor. Entresto. Aldactone. -Paroxysmal atrial fibrillation with rapid ventricular rate, was in sinus rhythm yesterday. This morning had a run of A-fib with rapid rate. IV amiodarone. IV heparin. Cardiology following. Lopressor 50 twice daily IV heparin. Was started on Xarelto on January 02 evening. Because of hemoptysis held -Small amounts of hemoptysis, anticoagulation held -Chronic tracheomalacia -NSTEMI Aspirin -Acute transaminitis, mild: Resolved -Chronic constipation at the baseline has 1 bowel movement every week Metamucil 1 packet daily -Essential hypertension Lopressor 50 twice daily. Zestril 20 mg twice daily. -Acute medical debility from above PT OT on the case -Hyperlipidemia Lipitor 40 mg nightly -Primary osteoarthritis Tylenol as needed -Hard of hearing -DNR, discussed with patient Advance care planning [January 01, 2025] This was discussed with the patient, daughter at the bedside. Patient understands advanced age and comorbidities. Had decided to proceed with DNR. She does not have a medical POA. She has 3 children. Did discuss with him filling out forms as per the decision. Questions answered. Time spent for this about 25 minutes Discussed. Continue current medication treatment plan.
[2025-01-05 21:08] LABS: Glucose,Whole Blood 320 mg/dL (70-110)
[2025-01-06 05:52] LABS: Glucose,Whole Blood 162 mg/dL (70-110)
[2025-01-06 06:49] LABS: African American GFR (CKD) 53 (>60 ml/min/1.73 sqM); Blood Urea Nitrogen 45 mg/dL (7-17); Calcium 9.9 mg/dL (8.4-10.2); Chloride 102 mmol/L (98-107); Glucose 148 mg/dL (74-99); Non-African American GFR(CKD) 46 (>60 ml/min/1.73 sqM); Potassium 3.2 mmol/L (3.5-5.1); Sodium 145 mmol/L (137-145)
[2025-01-06 06:56] LABS: Anion Gap 5 mmol/L; Carbon Dioxide 38 mmol/L (22-30)
[2025-01-06] MEDS: POTASSIUM CHLORIDE ER 20 MEQ TAB.ER PO SCH ×2 (09:06→18:35)
[2025-01-06] MEDS: METOPROLOL TARTRATE 50 MG TAB PO SCH (11:56)
[2025-01-06 12:17] LABS: Glucose,Whole Blood 243 mg/dL (70-110)
--- NOTE | 2025-01-06 15:36 | P.PN ---
Subjective Progress Note Date: 01/06/25 On 01/01/2025, the patient became acutely short of breath and based on data, the patient got transferred to the intensive care unit. In fact, the A was called to the room as the patient became acutely hypoxic and she was found to be in atrial fibrillation with rapid ventricular response. Based on that, the patient was placed on 100% nonrebreather facemask and following that, the patient got transferred to the intensive care unit. Noted the patient was hospitalized earlier for acute hypoxic respiratory failure secondary to CHF/COPD exacerbation. The patient this morning developed A-fib/RVR with a heart rate in the 170s. She was started on amiodarone per protocol. She was started on IV heparin. She was also given IV Lasix. She seems to be more comfortable following her transfer to the intensive care unit. However, the breathing remains quite labored. She is known to have CHF with an EF of around 30 to 35% with moderate RV dilatation and mild aortic stenosis and this is based on echoca rdiogram that was done on 12/31/2024. The patient had blood work today with a white cell count of 8.1, hemoglobin 9.3 and a platelet count of 282. Sodium levels at 138, potassium is at 3.4, BUN 46 with a creatinine of 0.99. Serum bicarb is at 35. Follow-up troponin is downtrending and is currently down to 0.5. The viral screen was checked in the ICU and it was negative. The chest x- ray from this morning shows cardiomegaly along with mild pulm vessel congestion consistent with CHF. The patient is less tachycardic at this point. She has audible wheezes. She is able to communicate. No altered mentation. On 01/02/2025, the patient is being seen for a follow-up. The patient was brought into the ICU yesterday for acute hypoxic respiratory failure, acute on chronic shortness of breath, acute atrial fibrillation with rapid ventricular response. Noted, the patient converted into normal sinus rhythm at around 3 PM yesterday. Earlier this morning at around 7 AM, the patient went back into atrial fibrillation. Rate is controlled for now. The patient is on metoprolol 25 mg p.o. twice a day. The patient is also on amiodarone drip 0.5 mg/min. The patient remains on IV heparin. Noted she did encountered an episode of hemoptysis earlier this morning. She did cough out some bright red blood. No significant epistaxis at this point in time. Meanwhile, she remains bronchospastic and wheezy although this is improved compared to yesterday. Repeat chest x-ray was done this morning and it showed cardiomegaly with mild pulm vessel congestion. No airspace disease or consolidation. White cell count of 9.4 with a hemoglobin of 8.8 and a platelet count of 242. BUN is 48 with a c reatinine of 1.02 and a sodium levels at 136. LFTs are within normal limits. On a separate note, the oxygenation is improved. The patient was taken off the 100% nonrebreather facemask and the patient is currently on 6 L of oxygen by nasal cannula. Fluid balance is -1.7 L over the past 24 hours. She remains hypertensive. Awake and alert and communicating. On 01/03/2025, the patient is being seen for a follow-up. Chest x-ray from today still showing evidence of pulmonary edema. The patient continues to have a congested cough and wheeze although this is improved compared to yesterday. She continues to have hemoptysis. The patient is back into normal sinus rhythm. She is currently on metoprolol 50 mg p.o. twice daily amiodarone 200 mg p.o. 3 times daily. Anticoagulation was given by [place] and this was given by cardiology. Going to put this anticoagulation on hold as the patient is encountering hemoptysis for now. She remains on Lasix 40 mg IV every 12 hours. She is on Entresto 97/103 1 tablet twice daily, Aldactone 25 mg p.o. daily, and hydralazine 25 mg p.o. 4 times daily. The patient is also on Farxiga 10 mg p.o. daily and amlodipine 5 mg p.o. daily. She remains on empiric antibiotic coverage with IV Rocephin. Blood work from today shows a white cell count of 5.5 with a heme of 7.8. BUN is 53 with a creatinine of 1.01. Sodium levels at 139 and a potassium level is at 3.3. Fluid balance has been -1.4 L over the past 24 hours. She is currently on oxygen at 4 L/min nasal cannula with a pulse ox of 96%. 01/04/2025, the patient is being seen for a follow-up. The patient is less short of breath and more comfortable compared to yesterday. This morning she is on 4 L of oxygen by nasal cannula. She is able to communicate. Her hemoptysis is also improving. Her current cardiac rhythm is sinus. Fluid balance is -2 L over the past 24 hours. Chest x-ray was repeated this morning and the patient continues to have evidence of pulmonary edema although this has improved compared to yesterday. She continues to have multifocal airspace disease bilaterally most consistent with CHF. The patient remains on [facility] [id number], IV Solu-Medrol, she remains on empiric antibiotic coverage with IV Rocephin. Her diuretics include Bumex 1 mg p.o. daily and Aldactone 25 mg p.o. daily. She is also on Entresto times a day, metoprolol 50 mg p.o. twice daily, hydralazine 25 mg 4 times daily, Farxiga 10 mg p.o. daily and amiodarone 4 mg p.o. 3 times daily. She is also on Norvasc 5 mg p.o. daily for blood pressure control. Her BP is stable for now. No new complaints otherwise for now. The white cell count is 8.7 with a hemoglobin 7.8 and a platelet count of 210. BUN is 55 with a creatinine of 1.01. Sodium levels at 140 and a pota ssium level is at 3.5. In terms of blood sugar control, the patient is on insulin sliding scale coverage. Rest of the medications remain unchanged. 01/05/2025, the patient is stable on 40 of oxygen by nasal cannula. No active hemoptysis. Cardiac rhythm is sinus. She is doing well. Less bronchospastic and wheezy. Fluid balance is -1.2 L over the past 24 hours. Remains on bronchodilators. Remains on IV Solu-Medrol and the patient will be started on a prednisone burst taper today. Diuretics and inform of Bumex 1 mg p.o. twice a day Diamox to 50 mg p.o. twice a day and Aldactone 25 mg p.o. daily. She is also on metoprolol 50 mg p.o. twice daily and Entresto. She is also on Farxiga. No other significant events overnight. Awake and alert and communicating. White cell count is at 8.3 with a hemoglobin of 14 and platelet count of 220. BUN is 48 with a creatinine of 0.9 and the sodium levels at 144 and a potassium level is at 3.1. Blood sugars are slightly elevated and the patient was given Lantus 15 units in addition to sliding scale insulin coverage. Rest of the medications are essentially unchanged. On today's evaluation of 01/06/2025, the patient is stable on 3 L of oxygen by nasal cannula with a pulse ox of 97%. No significant chest pain. No hemoptysis. BUN is 45 with a creatinine of 1.1. Sodium levels at 145 with a potassium level of 3.2. No CBC available from today. She remains on Bumex 1 mg p.o. twice daily and she is also on Aldactone 25 mg p.o. daily. Her fluid balance has been -2.4 L over the past 24 hours. She remains on metoprolol 50 mg p.o. twice daily, Entresto 97/103 1 tablet twice a day, hydralazine 25 mg 4 times daily. She is also on amlodipine 5 mg p.o. daily. She maintains sinus rhythm on amiodarone 200 mg p.o. 3 times daily. She is on prednisone burst taper. Objective - Vital Signs Vital signs: Vital Signs Temp 98.2 F 01/06/25 08:00 Pulse 76 01/06/25 08:00 Resp 16 01/06/25 08:00 BP 162/56 01/06/25 08:00 Pulse Ox 96 01/06/25 08:00 FiO2 Intake & Output 01/05/25 01/06/25 01/06/25 18:59 06:59 18:59 Intake Total 720 720 Output Total 1450 1700 Balance -730 -1700 720 Weight 66.2 kg Intake: IV 60 0.9 10 [id number] 1 gm In 50 Sodium Chloride 0.9% 50 ml @ 100 mls/hr IVPB Q24HR [facility] Rx#:[id number] Oral 660 720 Output: Urine 1450 1700 Other: Voiding Method Indwelling Catheter - Exam The patient appeared to be more comfortable compared to yesterday, less bronchospastic and wheezy and less short of breath. She is currently on 4 L of oxygen by nasal cannula. Head exam is unremarkable. No scleral icterus or corneal arcus noted. Neck is without jugular venous distension, thyromegaly, or carotid bruits. Carotid upstrokes are brisk bilaterally. Lungs are diminished bilaterally along with some few bibasilar crackles and there is exhalation wheezing heard throughout the lung claros bilaterally Cardiac exam reveals the PMI to be normally sized and situated. Rhythm is irregular consistent with atrial fibrillation with rapid ventricular response first and second heart sounds normal. No murmurs, rubs or gallops. Abdominal exam reveals normal bowel sounds, no masses, no organomegaly and no aortic enlargement. Extremities are nonedematous and both femoral and pedal pulses are normal. Examination of the skin revealed no evidence of significant rashes, suspicious appearing nevi or other concerning lesions. Neurologically, the patient is awake and alert and the patient does not have any focal neurological deficit. Cranial nerves are essentially intact. - Labs CBC & Chem 7: 01/05/25 02:51 01/06/25 06:25 Labs: Abnormal Lab Results - Last 24 Hours (Table) 01/05/25 01/05/25 01/05/25 Range/Units 10:48 16:08 21:07 Potassium (3.5-5.1) mmol/L Carbon Dioxide (22-30) mmol/L BUN (7-17) mg/dL Creatinine (0.52-1.04) mg/dL Glucose (74-99) mg/dL POC Glucose (mg/dL) 269 H 349 H 320 H (70-110) mg/dL 01/06/25 01/06/25 Range/Units 05:51 06:25 Potassium 3.2 L (3.5-5.1) mmol/L Carbon Dioxide 38 H (22-30) mmol/L BUN 45 H (7-17) mg/dL Creatinine 1.11 H (0.52-1.04) mg/dL Glucose 148 H (74-99) mg/dL POC Glucose (mg/dL) 162 H (70-110) mg/dL Assessment and Plan Plan: Acute on top of chronic hypoxic respiratory failure associated secondary to CHF exacerbation/A-fib with RVR. Noted the patient also has background COPD. She was noted to be actively bronchospastic and wheezy and hide respiratory failure essentially related to COPD/CHF exacerbation. Clinically improved compared to yesterday. Patient continues to be in COPD and CHF exacerbation and the patient continues to have paroxysmal atrial fibrillation. She is currently on 3 L of O2 nasal cannula. Acute CHF exacerbation. Noted to have systolic heart failure with an EF around 30 to 35% Acute COPD exacerbation, improving and the patient remains on bronchodilators and steroids New onset A-fib with RVR and the heart rate was in the 170s, currently in normal sinus rhythm and the patient is on a combination of metoprolol and amiodarone. No anticoagulants for now based on her ongoing episodes of hemoptysis Hemoptysis Rule out non-ST segment elevation myocardial infarction, versus elevated troponin secondary to supply/demand mismatch. Systolic heart failure, EF 30-35%, moderate RV dilation, mild (12/31/24) Chronic hypoxemic respiratory failure, on home O2 at 3 L. COPD , 60 pyear smoking Hyperlipidemia. Hypertension. Multiple other medical problems and comorbidities Plan: Clinically stable and continues to improve Titrate oxygen flow to maintain saturation above 90%, currently on 3 L of oxygen by nasal cannula No active hemoptysis for now Amiodarone 200 mg p.o. 3 times daily Metoprolol 50 mg p.o. twice daily Entresto 97/ 1 tablet twice a day Hydralazine 25 mg 4 times daily Amlodipine 5 mg p.o. daily Aldactone 25 mg p.o. daily Hold Xarelto as the patient continues to have hemoptysis Complete the course of antibiotics Bumex 1 mg p.o. twice daily, the patient is maintaining a negative fluid balance while being on a combination of Bumex and Aldactone. Aldactone 25 mg p.o. daily DuoNeb nebulized treatments [id number] 4 times a day Perforomist and Pulmicort nebulized treatments twice a day Prednisone burst taper, still on 40 mg p.o. daily Lantus 15 units nightly in addition to slight scale coverage Will continue to follow Will transfer out of the intensive care unit
[2025-01-06 17:12] LABS: Glucose,Whole Blood 339 mg/dL (70-110)
--- NOTE | 2025-01-06 18:52 | P.PN ---
Progress Note - Text Progress Note Date: 01/06/25 patient is a 84-year-old lady with past medical history significant for chronic hypoxic respiratory failure, CHF, COPD, hypertension who presented to the ER as a transfer from [facility] for shortness of breath. Patient stated that she was all right yesterday morning when she started noticing shortness of breath. Shortness of breath is present at rest as on exertion. Patient stated that she was noticing that she was wheezing hard. Patient had a hard time breathing. Patient denies any chest pain. There is no complaint of orthopnea or PND. There was no complaint of any fever or chills. Because of the shortness of breath, patient presented to [facility] where she had to be placed on BiPAP, initial workup there showed patient to have elevated troponin and EKG suspicious for A-fib with RVR, patient was transferred to [facility] Initial lab work done in the ER showed WBC 7.3, hemoglobin 10.6, platelet count 268, sodium 137, potassium 3.8, BUN 18, creatinine 0.7, glucose 179, calcium 9.4, phosphorus 3.9, bilirubin 1.4, AST 41, ALT 40 troponin 1.920, EKG done in the ER showed heart rate of 93, no ST segment elevation or depression seen, no T-wave inversions seen. Chest x-ray done in the ER showed cardiomegaly and mild pulm vascular congestion. Patient admitted to internal medicine service 12/31. Patient seen and examined. States breathing is improved. Wheezing is also improved. Currently on 3 L of oxygen January 01: ICU. Sitting up in bed. Short of breath. Ventimask. On IV amiodarone and IV heparin. Telemetry shows sinus rhythm. With frequent PVCs. Congested cough. Had a very small amount of epistaxis. Decreased appetite. 3 h liters oxygen at home. As needed. On IV Lasix 40 mg every 12 with negative fluid balance for CHF At the baseline has about 1 bowel movement a week. Patient daughter at the bedside. CODE STATUS discussed. Wants to be DNR. Does not have any power of personal injury attorney has 3 children. Told him to get forms filled out. At home does have a cane and a walker but does not use it. Ex-smoker. Lives alone. January 02: ICU. Up in a chair. This morning patient went into A-fib again with a rapid ventricular rate. Has been in sinus rhythm overnight. Has been continued on IV amiodarone. Dose of Lopressor was increased to 50 mg twice daily. Patient does have a congested cough. Incentive spirometry and Mucinex is being added. Will switch over to Xarelto this evening. Patient on 6 L nasal cannula. January 03: ICU. Up in a recliner. Having some hemoptysis. Xarelto was started yesterday evening now held. On 4 L nasal cannula. Switched over to oral Bumex. Remains in sinus rhythm. Eating about 50%. Because of fatigue unable to ambulate. PT OT working. Chest x-ray shows scattered infiltrates January 04: ICU. Oral intake about 25%. Remains in sinus rhythm. 4 L nasal cannula. Has been in good negative fluid balance. Bit tired. Breathing slightly better. January 05: ICU. Remains in sinus rhythm.4 L nasal cannula. Did walk about 30 steps with physical therapy and a walker. Variable oral intake. Getting better. Some cough.On oral Bumex. Diamox. January 06: Patient moved to the medical floor. Appetite much better. Remains on IV ceftriaxone. DuoNeb. Breathing better. 3 L nasal cannula. Reminded to do incentive spirometry. Patient expressed to the nurse wants to be a full code. CODE STATUS will be changed to full code Social history: Ex-smoker. Stop smoking 11 years ago. Lives alone. Does use a cane and a walker but does not use it. Active Medications Acetaminophen (Acetaminophen Tab 325 Mg Tab) 650 mg PO Q6HR PRN PRN Reason: Mild Pain or Fever > 100.5 Last Admin: 01/01/25 05:28 Dose: 650 mg Al Hydroxide/Mg Hydroxide (Mag Hydrox/Al Hydrox/Simeth 30 Ml Cup) 15 ml PO Q6HR PRN PRN Reason: Indigestion Albuterol/Ipratropium (Ipratropium-Albuterol 3 Ml Neb) 3 ml INHALATION RT-Q4H PRN PRN Reason: shortness of breath or wheezin Last Admin: 01/02/25 01:57 Dose: 3 ml Albuterol/Ipratropium (Ipratropium-Albuterol 3 Ml Neb) 3 ml INHALATION RT-QID [facility] Last Admin: 01/06/25 15:47 Dose: 3 ml Amiodarone HCl (Amiodarone 200 Mg Tab) 200 mg PO TID [facility] Last Admin: 01/06/25 17:12 Dose: 200 mg Amlodipine Besylate (Amlodipine 5 Mg Tab) 5 mg PO DAILY [facility] Last Admin: 01/06/25 09:40 Dose: 5 mg Aspirin (Aspirin 81 Mg) 81 mg PO DAILY [facility] Last Admin: 01/06/25 09:05 Dose: 81 mg Atorvastatin Calcium (Atorvastatin 40 Mg Tab) 40 mg PO HS [facility] Last Admin: 01/05/25 20:14 Dose: 40 mg Budesonide (Budesonide 1 Mg/2 Ml Nebu) 1 mg INHALATION RT-BID [facility] Last Admin: 01/06/25 09:27 Dose: 1 mg Bumetanide (Bumetanide 1 Mg Tab) 1 mg PO BID@0900,1600 [facility] Stop: 01/08/25 15:59 Last Admin: 01/06/25 17:12 Dose: Not Given Cholecalciferol (Cholecalciferol 25 Mcg (1000 Iu) Tablet) 50 mcg PO DAILY [facility] Last Admin: 01/06/25 09:06 Dose: 50 mcg Dapagliflozin (Dapagliflozin Propanediol 10 Mg Tablet) 10 mg PO DAILY [facility] Last Admin: 01/06/25 09:07 Dose: 10 mg Dextrose/Water (Dextrose 50% Syringe 50 Ml) 25 ml IVP PER PROTOCOL PRN; Protocol PRN Reason: Hypoglycemia Dextrose/Water (Dextrose 50% Syringe 50 Ml) 50 ml IVP PER PROTOCOL PRN; Protocol PRN Reason: Hypoglycemia Formoterol Fumarate (Formoterol Fumarate 20 Mcg/2 Ml Nebu) 20 mcg INHALATION RT-BID [facility] Last Admin: 01/06/25 09:27 Dose: 20 mcg Guaifenesin (Guaifenesin 600 Mg Tablet.Er) 1,200 mg PO Q12HR [facility] Last Admin: 01/06/25 09:07 Dose: 1,200 mg Hydralazine HCl (Hydralazine Hcl 25 Mg Tab) 25 mg PO QID [facility] Last Admin: 01/06/25 18:35 Dose: 25 mg Ceftriaxone Sodium 1 gm/ (Sodium Chloride) 50 mls @ 100 mls/hr IVPB Q24HR [facility]; Protocol Last Admin: 01/06/25 09:00 Dose: 100 mls/hr Insulin Glargine (Insulin Glargine (Lantus) 100 Unit/Ml Syr) 15 unit SQ [facility] Last Admin: 01/05/25 20:15 Dose: 15 unit Insulin Human Lispro (Insulin Lispro (Humalog) 100 Unit/Ml 10 Ml Vl) 0 unit SQ [facility]; Protocol Last Admin: 01/06/25 17:25 Dose: 4 unit Lorazepam (Lorazepam 1 Mg Tab) 1 mg PO Q6H PRN PRN Reason: Anxiety Last Admin: 01/05/25 21:12 Dose: 1 mg Melatonin (Melatonin 3 Mg Tablet) 3 mg PO HS PRN PRN Reason: Insomnia Last Admin: 01/04/25 21:17 Dose: 3 mg Metoprolol Tartrate (Metoprolol Tartrate 50 Mg Tab) 50 mg PO BID [facility] Last Admin: 01/06/25 09:08 Dose: 50 mg Miscellaneous Information (Potassium Replacement Protocol 1 Each Misc) 1 each MISCELLANE DAILY PRN; Protocol PRN Reason: Per Protocol Miscellaneous Information (Magnesium Replacement Protocol 1 Each Misc) 1 each MISCELLANE DAILY PRN; Protocol PRN Reason: Per Protocol Montelukast Sodium (Montelukast 10 Mg Tab) 10 mg PO HS [facility] Last Admin: 01/05/25 20:14 Dose: 10 mg Morphine Sulfate (Morphine Sulfate 4 Mg/Ml Syringe) 4 mg IV Q4HR PRN PRN Reason: Severe Pain (Scale 7 to 10) Last Admin: 12/30/24 04:01 Dose: 4 mg Naloxone HCl (Naloxone 0.4 Mg/Ml 1 Ml Vial) 0.2 mg IV Q2M PRN PRN Reason: Opioid Reversal Ondansetron HCl (Ondansetron 4 Mg/2 Ml Vial) 4 mg IVP Q8HR PRN PRN Reason: Nausea And Vomiting Pantoprazole Sodium (Pantoprazole 40 Mg Tablet) 40 mg PO AC-BRKFST [facility] Last Admin: 01/06/25 09:05 Dose: 40 mg Potassium Chloride (Potassium Chloride Er 20 Meq Tab.Er) 20 meq PO Q1HR [facility] Stop: 01/06/25 20:01 Last Admin: 01/06/25 18:35 Dose: 20 meq Prednisone (Prednisone 20 Mg Tab) 40 mg PO DAILY [facility] Stop: 01/08/25 09:01 Last Admin: 01/06/25 09:07 Dose: 40 mg Psyllium Hydrophilic Mucilloid (Psyllium Husk 100% 6 Gm Packet) 6 gm PO DAILY [facility] Last Admin: 01/06/25 09:40 Dose: 6 gm Sacubitril/Valsartan (Sacubitril/Valsartan 97 Mg-103 Mg Tablet) 1 each PO BID [facility] Last Admin: 01/06/25 11:26 Dose: 1 each Spironolactone (Spironolactone 25 Mg Tab) 25 mg PO DAILY [facility] Last Admin: 01/06/25 09:07 Dose: 25 mg Temazepam (Temazepam 15 Mg Cap) 30 mg PO HS [facility] Last Admin: 01/05/25 20:14 Dose: 30 mg Venlafaxine HCl (Venlafaxine Hcl Er 37.5 Mg Cap) 37.5 mg PO DAILY [facility] Last Admin: 01/06/25 11:26 Dose: 37.5 mg On examination: VITAL SIGNS: 98.2, 67, 16, 154 x 54, 97% on 4 L GENERAL APPEARANCE: Up in recliner, more restful HEENT: Normal external appearance of nose and ear. Oral cavity normal, hard of hearing EYES: Pupils equal. Conjunctiva normal. NECK: JVD not raised. Mass not palpable. RESPIRATORY: Respiratory effort normal, decreased breath sounds, few crackles CARDIOVASCULAR: First and second sounds normal. No edema. ABDOMEN: Soft. Liver and spleen not palpable. No tenderness. No mass palpable. PSYCHIATRY: Alert and oriented x3. Mood and affect normal Musculoskeletal: OA several joints INVESTIGATIONS, reviewed in the clinical context: January 06: Potassium 3.2 creatinine 1.11 January 05: White count 8.3 hemoglobin 7.9 platelets 220 potassium 3.1 bicarb 41 BUN 48 creatinine 0.97 January 04: White count 8.7 hemoglobin 7.8 potassium 3.5 creatinine 1.01 January 03: White count 5.5 hemoglobin 7.8 platelets 182 sodium 3.3 BUN 43 creatinine 1.01. Procalcitonin 0.26 January 02: White count 9.4 hemoglobin 8.8 platelets 242 sodium 136 potassium 3.9 creatinine 1.02 AST 25 ALT 30 January 01: White count 8.1 hemoglobin 9.3 platelets 22 sodium 138 potassium 3.4 creatinine 0.99 Troponin I 0.502 Influenza type A, type B, RSV, SARS-CoV-2: Not detected Chest x-ray film personally reviewed by me-scattered infiltrates EKG tracing personally reviewed by me-atrial fibrillation. Rate 155. Intraventricular block pattern. 2D echocardiogram [December 31, 2024] EF 30 to 35%. Moderate right ventricle dilatation. Right ventricular pressure within normal limits. No left atrial thrombus/mass. Moderate mitral regurgitation. Aortic stenosis with a peak gradient 27 and a mean gradient of 12 mild TR Assessment and plan: -Acute on chronic hypoxemic hypercapnic respiratory failure, secondary to COPD exacerbation and CHF exacerbation: Improving Initially on BiPAP and Ventimask. Currently 4 L -Acute severe COPD exacerbation, an ex-smoker: Improving DuoNeb 4 times daily. IV Solu-Medrol changed to oral prednisone. nebulized Pulmicort and performorist -Possible pneumonia suspect gram-negative organism IV ceftriaxone started on January 02 -Acute on chronic systolic CHF, EF 30 to 35%: Better Received IV Lasix. Now on oral Bumex Farxiga. Lopressor. Entresto. Aldactone. -Paroxysmal atrial fibrillation with rapid ventricular rate, was in sinus rhythm yesterday. This morning had a run of A-fib with rapid rate. IV amiodarone. IV heparin. Cardiology following. Lopressor 50 twice daily IV heparin. Was started on Xarelto on January 02 evening. Because of hemoptysis held -Small amounts of hemoptysis, anticoagulation held -Chronic tracheomalacia -NSTEMI Aspirin -Acute transaminitis, mild: Resolved -Chronic constipation at the baseline has 1 bowel movement every week Metamucil 1 packet daily -Essential hypertension Lopressor 50 twice daily. Zestril 20 mg twice daily. -Acute medical debility from above PT OT on the case -Hyperlipidemia Lipitor 40 mg nightly -Primary osteoarthritis Tylenol as needed -Hard of hearing -Full code Discussed with patient.
[2025-01-06 20:17] LABS: Glucose,Whole Blood 283 mg/dL (70-110)
[2025-01-06] MEDS: INSULIN GLARGINE (LANTUS) 100 UNIT/ML SYR SQ SCH (22:46)
--- NOTE | 2025-01-07 00:35 | P.PN ---
Subjective Progress Note Date: 01/06/25 The patient is a 84-year-old female patient with a past medical history significant for hypoxic respiratory failure secondary to COPD as well as hypertension and dyslipidemia and history of heart failure as well. She was transferred from [facility] to [facility] for further evaluation of shortness of breath and heart failure as well as abnormal cardiac enzymes. For the last few days she has been experiencing progressive exertional dyspnea associated with bilateral lower extremities edema with no symptoms of chest pain or chest discomfort or any other cardiovascular symptoms. No fever and no chills and no cough. She underwent further evaluation including chest x- ray showed pulmonary vascular congestions and finding consistent with heart failure and also an EKG showing sinus rhythm with sinus tachycardia. NT proBNP came in at the 18,000. Troponin came to be abnormal but appeared to be flat across the board. EKG showed sinus rhythm with sinus tachycardia. The patient was started on heparin IV and started on Lasix IV and echo was ordered still pending. The patient is known to our service was seen by our service back in 2022 where at that point she underwent a heart catheterization revealed normal coronaries which she is under some stress lately after she lost her daughter a few weeks ago. The physical examination is remarkable for regular rhythm with distant heart sounds and severe bilateral expiratory wheezing and mild bilateral lower extremities edema December 31, 2024 The patient was seen and evaluated this morning which she still having extensive wheezing on examination no edema in the lower extremities noted. The echo still pending. No symptoms of chest pain or chest discomfort. The physical examination is remarkable for stable vital signs with mild sinus tachycardia and bilateral expiratory wheezing and no edema was noted in the lower extremities but she continues to be on Lasix IV and she has been diuresing very well. 01/01/2025 Patient is seen and examined at bedside this a.m. Patient was transferred from floor to ICU because of increased hypoxia increased shortness of breath requiring 100% nonrebreather. 01/02/2025 Patient went back into atrial fibrillation with RVR and then converted out of bed She is noticed to be hypotensive for which she was started on clonidine 0.1 mg 3 times daily which she takes at home. She is on atypical regimen for her antihypertensives when I reviewed her home medication. She is on hydralazine once a day, clonidine 3 times a day, lisinopril 40 mg and metoprolol 25 mg twice daily. She was restarted on Xarelto 15 mg She still continues to have shortness of breath on 4 to 5 L of supplemental oxygen, mildly volume overloaded. 01/03/2025 No A-fib in last 24 hours. Heart rates are better controlled, still hypertensive. She was noticed to have hemoptysis. Chest x-ray from today appears worse when compared to from yesterday. Could be related to hemoptysis and spontaneous hemorrhage from emphysema and NOAC use. 01/04/2025 No afebrile last 48 hours. Sinus rhythm heart rate 74 beats minute, blood pressure is better controlled Still noticing to have hemoptysis, hemoglobin slightly lower since admission Chest x-ray shows minimal improvement but still appears to have right lower lobe infiltrates 01/05/2025 No atrial fibrillation. Sinus rhythm, blood pressure is controlled, still pina ving some bloody sputum however seems to be more dried out. Tolerating oral diuretics with appropriate urine output does not appear volume overloaded. 01/06/2025 No further atrial fibrillation, sinus rhythm, blood pressure is better controlled Kidney function has been stable, slightly uptrending Will reduce diuretics from twice daily to once a day Assessment Acute on chronic hypoxic respiratory failure, multifactorial because of A-fib RVR, CHF exacerbation, COPD exacerbation Acute HFrEF exacerbation, EF 30 to 35%. New worsening cardiomyopathy, likely stress-induced. Paroxysmal atrial fibrillation with bouts of A-fib RVR. Currently sinus rhythm. History of CAD, known [employer] of RCA, mild disease LAD & LCx from 2022 Type II NSTEMI likely because of hypoxemia Mild aortic stenosis, moderate mitral regurgitation Multiple comorbidities Pertinent cardiac testing Echo from this admission shows an EF of 30 to 35%, mild aortic stenosis, moderate mitral regurgitation, moderate RV dilatation. Plan Aspirin, Lipitor, Xarelto was held for hemoptysis. Continue to hold until sputum clears up. Reduce Bumex from twice daily to once a day 1 mg p.o. as kidney function is starting to go up. Continue Aldactone 25 mg daily, Farxiga 10 mg daily. At home she was on Lasix 40, Aldactone 25. Entresto to 96/104 mg twice daily. amlodipine 5 mg daily. Discontinue hydralazine Continue amiodarone 200 mg 3 times daily until 01/08/2025.thereafter reduce it to twice daily for 1 week. Continue metoprolol to 50 mg twice daily Patient is cleared from cardiovascular perspective. Cardiology team will sign off. Please reconsult if case of any question She is a good candidate for MISHA occlusion because of anemia and hemoptysis. Evaluate outpatient Consider repeating echocardiogram in 4 to 6 weeks, and if persist to have cardiomyopathy, consider ischemic evaluation with stress test or heart cathete rization. Poor prognosis overall. Objective - Vital Signs Vital signs: Vital Signs Temp 98.2 F 01/06/25 11:49 Pulse 84 01/06/25 20:43 Resp 16 01/06/25 11:49 BP 154/54 01/06/25 11:49 Pulse Ox 97 01/06/25 12:22 FiO2 Intake & Output 01/06/25 01/06/25 01/07/25 06:59 18:59 06:59 Intake Total 3000 Output Total 1700 1700 Balance -1700 1300 Weight 66.2 kg Intake: Oral 3000 Output: Urine 1700 1700 Uretheral (Fong) 1700 Other: Voiding Method Indwelling Catheter Indwelling Catheter - Labs CBC & Chem 7: 01/05/25 02:51 01/06/25 22:15 Labs: Abnormal Lab Results - Last 24 Hours (Table) 01/06/25 01/06/25 01/06/25 Range/Units 05:51 06:25 12:16 Potassium 3.2 L (3.5-5.1) mmol/L Carbon Dioxide 38 H (22-30) mmol/L BUN 45 H (7-17) mg/dL Creatinine 1.11 H (0.52-1.04) mg/dL Glucose 148 H (74-99) mg/dL POC Glucose (mg/dL) 162 H 243 H (70-110) mg/dL 01/06/25 01/06/25 01/06/25 Range/Units 17:10 20:16 22:15 Potassium 3.4 L (3.5-5.1) mmol/L Carbon Dioxide (22-30) mmol/L BUN (7-17) mg/dL Creatinine (0.52-1.04) mg/dL Glucose (74-99) mg/dL POC Glucose (mg/dL) 339 H 283 H (70-110) mg/dL
[2025-01-07] MEDS: POTASSIUM CHLORIDE ER 20 MEQ TAB.ER PO SCH (01:06)
[2025-01-07 07:29] LABS: Glucose,Whole Blood 121 mg/dL (70-110)
[2025-01-07] MEDS: POTASSIUM CHLORIDE ER 20 MEQ TAB.ER PO ONE (09:24)
--- NOTE | 2025-01-07 11:48 | P.PN ---
Subjective Progress Note Date: 01/07/25 On 01/01/2025, the patient became acutely short of breath and based on data, the patient got transferred to the intensive care unit. In fact, the A was called to the room as the patient became acutely hypoxic and she was found to be in atrial fibrillation with rapid ventricular response. Based on that, the patient was placed on 100% nonrebreather facemask and following that, the patient got transferred to the intensive care unit. Noted the patient was hospitalized earlier for acute hypoxic respiratory failure secondary to CHF/COPD exacerbation. The patient this morning developed A-fib/RVR with a heart rate in the 170s. She was started on amiodarone per protocol. She was started on IV heparin. She was also given IV Lasix. She seems to be more comfortable following her transfer to the intensive care unit. However, the breathing remains quite labored. She is known to have CHF with an EF of around 30 to 35% with moderate RV dilatation and mild aortic stenosis and this is based on echoca rdiogram that was done on 12/31/2024. The patient had blood work today with a white cell count of 8.1, hemoglobin 9.3 and a platelet count of 282. Sodium levels at 138, potassium is at 3.4, BUN 46 with a creatinine of 0.99. Serum bicarb is at 35. Follow-up troponin is downtrending and is currently down to 0.5. The viral screen was checked in the ICU and it was negative. The chest x- ray from this morning shows cardiomegaly along with mild pulm vessel congestion consistent with CHF. The patient is less tachycardic at this point. She has audible wheezes. She is able to communicate. No altered mentation. On 01/02/2025, the patient is being seen for a follow-up. The patient was brought into the ICU yesterday for acute hypoxic respiratory failure, acute on chronic shortness of breath, acute atrial fibrillation with rapid ventricular response. Noted, the patient converted into normal sinus rhythm at around 3 PM yesterday. Earlier this morning at around 7 AM, the patient went back into atrial fibrillation. Rate is controlled for now. The patient is on metoprolol 25 mg p.o. twice a day. The patient is also on amiodarone drip 0.5 mg/min. The patient remains on IV heparin. Noted she did encountered an episode of hemoptysis earlier this morning. She did cough out some bright red blood. No significant epistaxis at this point in time. Meanwhile, she remains bronchospastic and wheezy although this is improved compared to yesterday. Repeat chest x-ray was done this morning and it showed cardiomegaly with mild pulm vessel congestion. No airspace disease or consolidation. White cell count of 9.4 with a hemoglobin of 8.8 and a platelet count of 242. BUN is 48 with a c reatinine of 1.02 and a sodium levels at 136. LFTs are within normal limits. On a separate note, the oxygenation is improved. The patient was taken off the 100% nonrebreather facemask and the patient is currently on 6 L of oxygen by nasal cannula. Fluid balance is -1.7 L over the past 24 hours. She remains hypertensive. Awake and alert and communicating. On 01/03/2025, the patient is being seen for a follow-up. Chest x-ray from today still showing evidence of pulmonary edema. The patient continues to have a congested cough and wheeze although this is improved compared to yesterday. She continues to have hemoptysis. The patient is back into normal sinus rhythm. She is currently on metoprolol 50 mg p.o. twice daily amiodarone 200 mg p.o. 3 times daily. Anticoagulation was given by [place] and this was given by cardiology. Going to put this anticoagulation on hold as the patient is encountering hemoptysis for now. She remains on Lasix 40 mg IV every 12 hours. She is on Entresto 97/103 1 tablet twice daily, Aldactone 25 mg p.o. daily, and hydralazine 25 mg p.o. 4 times daily. The patient is also on Farxiga 10 mg p.o. daily and amlodipine 5 mg p.o. daily. She remains on empiric antibiotic coverage with IV Rocephin. Blood work from today shows a white cell count of 5.5 with a heme of 7.8. BUN is 53 with a creatinine of 1.01. Sodium levels at 139 and a potassium level is at 3.3. Fluid balance has been -1.4 L over the past 24 hours. She is currently on oxygen at 4 L/min nasal cannula with a pulse ox of 96%. 01/04/2025, the patient is being seen for a follow-up. The patient is less short of breath and more comfortable compared to yesterday. This morning she is on 4 L of oxygen by nasal cannula. She is able to communicate. Her hemoptysis is also improving. Her current cardiac rhythm is sinus. Fluid balance is -2 L over the past 24 hours. Chest x-ray was repeated this morning and the patient continues to have evidence of pulmonary edema although this has improved compared to yesterday. She continues to have multifocal airspace disease bilaterally most consistent with CHF. The patient remains on [facility] [id number], IV Solu-Medrol, she remains on empiric antibiotic coverage with IV Rocephin. Her diuretics include Bumex 1 mg p.o. daily and Aldactone 25 mg p.o. daily. She is also on Entresto times a day, metoprolol 50 mg p.o. twice daily, hydralazine 25 mg 4 times daily, Farxiga 10 mg p.o. daily and amiodarone 4 mg p.o. 3 times daily. She is also on Norvasc 5 mg p.o. daily for blood pressure control. Her BP is stable for now. No new complaints otherwise for now. The white cell count is 8.7 with a hemoglobin 7.8 and a platelet count of 210. BUN is 55 with a creatinine of 1.01. Sodium levels at 140 and a pota ssium level is at 3.5. In terms of blood sugar control, the patient is on insulin sliding scale coverage. Rest of the medications remain unchanged. 01/05/2025, the patient is stable on 40 of oxygen by nasal cannula. No active hemoptysis. Cardiac rhythm is sinus. She is doing well. Less bronchospastic and wheezy. Fluid balance is -1.2 L over the past 24 hours. Remains on bronchodilators. Remains on IV Solu-Medrol and the patient will be started on a prednisone burst taper today. Diuretics and inform of Bumex 1 mg p.o. twice a day Diamox to 50 mg p.o. twice a day and Aldactone 25 mg p.o. daily. She is also on metoprolol 50 mg p.o. twice daily and Entresto. She is also on Farxiga. No other significant events overnight. Awake and alert and communicating. White cell count is at 8.3 with a hemoglobin of 14 and platelet count of 220. BUN is 48 with a creatinine of 0.9 and the sodium levels at 144 and a potassium level is at 3.1. Blood sugars are slightly elevated and the patient was given Lantus 15 units in addition to sliding scale insulin coverage. Rest of the medications are essentially unchanged. On today's evaluation of 01/06/2025, the patient is stable on 3 L of oxygen by nasal cannula with a pulse ox of 97%. No significant chest pain. No hemoptysis. BUN is 45 with a creatinine of 1.1. Sodium levels at 145 with a potassium level of 3.2. No CBC available from today. She remains on Bumex 1 mg p.o. twice daily and she is also on Aldactone 25 mg p.o. daily. Her fluid balance has been -2.4 L over the past 24 hours. She remains on metoprolol 50 mg p.o. twice daily, Entresto 97/103 1 tablet twice a day, hydralazine 25 mg 4 times daily. She is also on amlodipine 5 mg p.o. daily. She maintains sinus rhythm on amiodarone 200 mg p.o. 3 times daily. She is on prednisone burst taper. On 01/07/2025, the patient is resting comfortably on a chair. She was transferred out of the intensive care unit yesterday. She remains on 3 Suboxone by nasal cannula. Fluid balance is negative and the patient continues to produce adequate amount of urine output. The patient is currently on DuoNeb nebulized treatments [id number], prednisone burst taper and she is also on a combination of Perforomist and Pulmicort nebulized treatments twice a day. Obviously less bronchospastic and wheezy. No active hemoptysis. Cardiac condition remains stable. She is on metoprolol 50 mg p.o. twice daily, Entresto 97/103 1 tablet a day, Aldactone 25 mg p.o. daily, hydralazine 25 mg p.o. 4 times daily and Norvasc 5 mg p.o. daily. She remains on amiodarone 200 mg p.o. 3 times daily. She is also on Lantus 20 units nightly for blood sugar control. Blood work from today is still pending.. Objective - Vital Signs Vital signs: Vital Signs Temp 98.0 F 01/07/25 07:30 Pulse 82 01/07/25 08:21 Resp 15 01/07/25 07:30 BP 166/59 01/07/25 07:30 Pulse Ox 97 01/07/25 08:00 FiO2 Intake & Output 01/06/25 01/07/25 01/07/25 18:59 06:59 18:59 Intake Total 3000 900 240 Output Total 1700 1425 Balance 1300 -525 240 Intake: Oral 3000 900 240 Output: Urine 1700 1425 Uretheral (Fong) 1700 Other: Voiding Method Indwelling Catheter Indwelling Catheter - Exam The patient appeared to be more comfortable compared to yesterday, less bronchospastic and wheezy and less short of breath. She is currently on 4 L of oxygen by nasal cannula. Head exam is unremarkable. No scleral icterus or corneal arcus noted. Neck is without jugular venous distension, thyromegaly, or carotid bruits. Carotid upstrokes are brisk bilaterally. Lungs are diminished bilaterally along with some few bibasilar crackles and there is exhalation wheezing heard throughout the lung claros bilaterally Cardiac exam reveals the PMI to be normally sized and situated. Rhythm is irregular consistent with atrial fibrillation with rapid ventricular response first and second heart sounds normal. No murmurs, rubs or gallops. Abdominal exam reveals normal bowel sounds, no masses, no organomegaly and no aortic enlargement. Extremities are nonedematous and both femoral and pedal pulses are normal. Examination of the skin revealed no evidence of significant rashes, suspicious appearing nevi or other concerning lesions. Neurologically, the patient is awake and alert and the patient does not have any focal neurological deficit. Cranial nerves are essentially intact. - Labs CBC & Chem 7: 01/05/25 02:51 01/07/25 04:48 Labs: Abnormal Lab Results - Last 24 Hours (Table) 01/06/25 01/06/25 01/06/25 Range/Units 12:16 17:10 20:16 Potassium (3.5-5.1) mmol/L POC Glucose (mg/dL) 243 H 339 H 283 H (70-110) mg/dL 01/06/25 01/07/25 Range/Units 22:15 07:27 Potassium 3.4 L (3.5-5.1) mmol/L POC Glucose (mg/dL) 121 H (70-110) mg/dL Assessment and Plan Plan: Acute on top of chronic hypoxic respiratory failure associated secondary to CHF exacerbation/A-fib with RVR. Noted the patient also has background COPD. She was noted to be actively bronchospastic and wheezy and hide respiratory failure essentially related to COPD/CHF exacerbation. Clinically improved compared to yesterday. Patient continues to be in COPD and CHF exacerbation and the patient continues to have paroxysmal atrial fibrillation. She is currently on 3 L of O2 nasal cannula. Acute CHF exacerbation. Noted to have systolic heart failure with an EF around 30 to 35% Acute COPD exacerbation, improving and the patient remains on bronchodilators and steroids New onset A-fib with RVR and the heart rate was in the 170s, currently in normal sinus rhythm and the patient is on a combination of metoprolol and amiodarone. No anticoagulants for now based on her ongoing episodes of hemoptysis Hemoptysis, currently inactive and stable Rule out non-ST segment elevation myocardial infarction, versus elevated troponin secondary to supply/demand mismatch. Systolic heart failure, EF 30-35%, moderate RV dilation, mild (12/31/24) Chronic hypoxemic respiratory failure, on home O2 at 3 L. COPD , 60 pyear smoking Hyperlipidemia. Hypertension. Multiple other medical problems and comorbidities Plan: Clinically stable and continues to improve Titrate oxygen flow to maintain saturation above 90%, currently on 3 L of oxygen by nasal cannula No active hemoptysis for now, may consider restarting Xarelto within the next 24 to 48 hours if hemoptysis remains inactive and stable Amiodarone 200 mg p.o. 3 times daily Metoprolol 50 mg p.o. twice daily Entresto 97/ 1 tablet twice a day Hydralazine 25 mg 4 times daily Amlodipine 5 mg p.o. daily Aldactone 25 mg p.o. daily Completed the course of antibiotics DuoNeb nebulized treatments [id number] 4 times a day Perforomist and Pulmicort nebulized treatments twice a day Prednisone burst taper, still on 40 mg p.o. daily Lantus 20 units nightly in addition to slight scale coverage Will continue to follow
[2025-01-07 12:11] LABS: Glucose,Whole Blood 159 mg/dL (70-110)
[2025-01-07 17:06] LABS: Glucose,Whole Blood 359 mg/dL (70-110)
--- NOTE | 2025-01-07 17:43 | P.PN ---
Progress Note - Text Progress Note Date: 01/07/25 patient is a 84-year-old lady with past medical history significant for chronic hypoxic respiratory failure, CHF, COPD, hypertension who presented to the ER as a transfer from [facility] for shortness of breath. Patient stated that she was all right yesterday morning when she started noticing shortness of breath. Shortness of breath is present at rest as on exertion. Patient stated that she was noticing that she was wheezing hard. Patient had a hard time breathing. Patient denies any chest pain. There is no complaint of orthopnea or PND. There was no complaint of any fever or chills. Because of the shortness of breath, patient presented to [facility] where she had to be placed on BiPAP, initial workup there showed patient to have elevated troponin and EKG suspicious for A-fib with RVR, patient was transferred to [facility] Initial lab work done in the ER showed WBC 7.3, hemoglobin 10.6, platelet count 268, sodium 137, potassium 3.8, BUN 18, creatinine 0.7, glucose 179, calcium 9.4, phosphorus 3.9, bilirubin 1.4, AST 41, ALT 40 troponin 1.920, EKG done in the ER showed heart rate of 93, no ST segment elevation or depression seen, no T-wave inversions seen. Chest x-ray done in the ER showed cardiomegaly and mild pulm vascular congestion. Patient admitted to internal medicine service 12/31. Patient seen and examined. States breathing is improved. Wheezing is also improved. Currently on 3 L of oxygen January 01: ICU. Sitting up in bed. Short of breath. Ventimask. On IV amiodarone and IV heparin. Telemetry shows sinus rhythm. With frequent PVCs. Congested cough. Had a very small amount of epistaxis. Decreased appetite. 3 h liters oxygen at home. As needed. On IV Lasix 40 mg every 12 with negative fluid balance for CHF At the baseline has about 1 bowel movement a week. Patient daughter at the bedside. CODE STATUS discussed. Wants to be DNR. Does not have any power of state's attorney has 3 children. Told him to get forms filled out. At home does have a cane and a walker but does not use it. Ex-smoker. Lives alone. January 02: ICU. Up in a chair. This morning patient went into A-fib again with a rapid ventricular rate. Has been in sinus rhythm overnight. Has been continued on IV amiodarone. Dose of Lopressor was increased to 50 mg twice daily. Patient does have a congested cough. Incentive spirometry and Mucinex is being added. Will switch over to Xarelto this evening. Patient on 6 L nasal cannula. January 03: ICU. Up in a recliner. Having some hemoptysis. Xarelto was started yesterday evening now held. On 4 L nasal cannula. Switched over to oral Bumex. Remains in sinus rhythm. Eating about 50%. Because of fatigue unable to ambulate. PT OT working. Chest x-ray shows scattered infiltrates January 04: ICU. Oral intake about 25%. Remains in sinus rhythm. 4 L nasal cannula. Has been in good negative fluid balance. Bit tired. Breathing slightly better. January 05: ICU. Remains in sinus rhythm.4 L nasal cannula. Did walk about 30 steps with physical therapy and a walker. Variable oral intake. Getting better. Some cough.On oral Bumex. Diamox. January 06: Patient moved to the medical floor. Appetite much better. Remains on IV ceftriaxone. DuoNeb. Breathing better. 3 L nasal cannula. Reminded to do incentive spirometry. Patient expressed to the nurse wants to be a full code. CODE STATUS will be changed to full code January 07: FiO2 down to 3 L. This is a home requirement. Ate all of breakfast and lunch. Decrease prednisone to 30 mg. Patient plans to go home with some help. Will see how patient does with Xarelto. 15 mg with supper. Because of age and decreased GFR Social history: Ex-smoker. Stop smoking 11 years ago. Lives alone. Does use a cane and a walker but does not use it. On IV ceftriaxone. DuoNeb. Active Medications Acetaminophen (Acetaminophen Tab 325 Mg Tab) 650 mg PO Q6HR PRN PRN Reason: Mild Pain or Fever > 100.5 Last Admin: 01/01/25 05:28 Dose: 650 mg Al Hydroxide/Mg Hydroxide (Mag Hydrox/Al Hydrox/Simeth 30 Ml Cup) 15 ml PO Q6HR PRN PRN Reason: Indigestion Albuterol/Ipratropium (Ipratropium-Albuterol 3 Ml Neb) 3 ml INHALATION RT-Q4H PRN PRN Reason: shortness of breath or wheezin Last Admin: 01/02/25 01:57 Dose: 3 ml Albuterol/Ipratropium (Ipratropium-Albuterol 3 Ml Neb) 3 ml INHALATION RT-QID [facility] Last Admin: 01/07/25 15:22 Dose: 3 ml Amiodarone HCl (Amiodarone 200 Mg Tab) 200 mg PO TID [facility] Last Admin: 01/07/25 15:56 Dose: 200 mg Amlodipine Besylate (Amlodipine 5 Mg Tab) 5 mg PO DAILY [facility] Last Admin: 01/07/25 09:25 Dose: 5 mg Aspirin (Aspirin 81 Mg) 81 mg PO DAILY [facility] Last Admin: 01/07/25 09:25 Dose: 81 mg Atorvastatin Calcium (Atorvastatin 40 Mg Tab) 40 mg PO HS [facility] Last Admin: 01/06/25 22:44 Dose: 40 mg Budesonide (Budesonide 1 Mg/2 Ml Nebu) 1 mg INHALATION RT-BID [facility] Last Admin: 01/07/25 07:57 Dose: 1 mg Cholecalciferol (Cholecalciferol 25 Mcg (1000 Iu) Tablet) 50 mcg PO DAILY [facility] Last Admin: 01/07/25 09:24 Dose: 50 mcg Dapagliflozin (Dapagliflozin Propanediol 10 Mg Tablet) 10 mg PO DAILY [facility] Last Admin: 01/07/25 09:25 Dose: 10 mg Dextrose/Water (Dextrose 50% Syringe 50 Ml) 25 ml IVP PER PROTOCOL PRN; Protoco l PRN Reason: Hypoglycemia Dextrose/Water (Dextrose 50% Syringe 50 Ml) 50 ml IVP PER PROTOCOL PRN; Protocol PRN Reason: Hypoglycemia Formoterol Fumarate (Formoterol Fumarate 20 Mcg/2 Ml Nebu) 20 mcg INHALATION RT-BID [facility] Last Admin: 01/07/25 07:57 Dose: 20 mcg Guaifenesin (Guaifenesin 600 Mg Tablet.Er) 1,200 mg PO Q12HR [facility] Last Admin: 01/07/25 09:25 Dose: 1,200 mg Hydralazine HCl (Hydralazine Hcl 25 Mg Tab) 25 mg PO QID [facility] Last Admin: 01/07/25 12:40 Dose: 25 mg Ceftriaxone Sodium 1 gm/ (Sodium Chloride) 50 mls @ 100 mls/hr IVPB Q24HR [facility]; Protocol Last Admin: 01/07/25 09:23 Dose: 100 mls/hr Insulin Glargine (Insulin Glargine (Lantus) 100 Unit/Ml Syr) [address] [facility] Last Admin: 01/06/25 22:46 Dose: 20 unit Insulin Human Lispro (Insulin Lispro (Humalog) 100 Unit/Ml 10 Ml Vl) [address] [facility]; Protocol Last Admin: 01/07/25 12:23 Dose: Not Given Lorazepam (Lorazepam 1 Mg Tab) 1 mg PO Q6H PRN PRN Reason: Anxiety Last Admin: 01/05/25 21:12 Dose: 1 mg Melatonin (Melatonin 3 Mg Tablet) 3 mg PO HS PRN PRN Reason: Insomnia Last Admin: 01/04/25 21:17 Dose: 3 mg Metoprolol Tartrate (Metoprolol Tartrate 50 Mg Tab) 50 mg PO BID [facility] Last Admin: 01/07/25 09:25 Dose: 50 mg Miscellaneous Information (Potassium Replacement Protocol 1 Each Misc) 1 each MISCELLANE DAILY PRN; Protocol PRN Reason: Per Protocol Miscellaneous Information (Magnesium Replacement Protocol 1 Each Misc) 1 each MISCELLANE DAILY PRN; Protocol PRN Reason: Per Protocol Montelukast Sodium (Montelukast 10 Mg Tab) [address] [facility] Last Admin: 01/06/25 22:46 Dose: 10 mg Naloxone HCl (Naloxone 0.4 Mg/Ml 1 Ml Vial) 0.2 mg IV Q2M PRN PRN Reason: Opioid Reversal Ondansetron HCl (Ondansetron 4 Mg/2 Ml Vial) 4 mg IVP Q8HR PRN PRN Reason: Nausea And Vomiting Pantoprazole Sodium (Pantoprazole 40 Mg Tablet) 40 mg PO AC-BRKFST [facility] Last Admin: 01/07/25 09:24 Dose: 40 mg Prednisone (Prednisone 10 Mg Tab) 30 mg PO DAILY [facility] Psyllium Hydrophilic Mucilloid (Psyllium Husk 100% 6 Gm Packet) 6 gm PO DAILY [facility] Last Admin: 01/07/25 09:24 Dose: 6 gm Sacubitril/Valsartan (Sacubitril/Valsartan 97 Mg-103 Mg Tablet) 1 each PO BID [facility] Last Admin: 01/07/25 09:25 Dose: 1 each Spironolactone (Spironolactone 25 Mg Tab) 25 mg PO DAILY [facility] Last Admin: 01/07/25 09:25 Dose: 25 mg Temazepam (Temazepam 15 Mg Cap) 30 mg PO HS [facility] Last Admin: 01/06/25 22:42 Dose: 30 mg Venlafaxine HCl (Venlafaxine Hcl Er 37.5 Mg Cap) 37.5 mg PO DAILY [facility] Last Admin: 01/07/25 09:24 Dose: 37.5 mg On examination: VITAL SIGNS: 98.6, 72, 16, 149 x 61, 98% on 3 L GENERAL APPEARANCE: Up in recliner, comfortable HEENT: Normal external appearance of nose and ear. Oral cavity normal, hard of hearing EYES: Pupils equal. Conjunctiva normal. NECK: JVD not raised. Mass not palpable. RESPIRATORY: Respiratory effort normal, decreased breath sounds, CARDIOVASCULAR: First and second sounds normal. No edema. ABDOMEN: Soft. Liver and spleen not palpable. No tenderness. No mass palpable. PSYCHIATRY: Alert and oriented x3. Mood and affect normal Musculoskeletal: OA several joints INVESTIGATIONS, reviewed in the clinical context: January 06: Potassium 3.2 creatinine 1.11 January 05: White count 8.3 hemoglobin 7.9 platelets 220 potassium 3.1 bicarb 41 BUN 48 creatinine 0.97 January 04: White count 8.7 hemoglobin 7.8 potassium 3.5 creatinine 1.01 January 03: White count 5.5 hemoglobin 7.8 platelets 182 sodium 3.3 BUN 43 creatinine 1.01. Procalcitonin 0.26 January 02: White count 9.4 hemoglobin 8.8 platelets 242 sodium 136 potassium 3.9 creatinine 1.02 AST 25 ALT 30 January 01: White count 8.1 hemoglobin 9.3 platelets 22 sodium 138 potassium 3.4 creatinine 0.99 Troponin I 0.502 Influenza type A, type B, RSV, SARS-CoV-2: Not detected Chest x-ray film personally reviewed by me-scattered infiltrates EKG tracing personally reviewed by me-atrial fibrillation. Rate 155. Intraventricular block pattern. 2D echocardiogram [December 31, 2024] EF 30 to 35%. Moderate right ventricle dilatation. Right ventricular pressure within normal limits. No left atrial thrombus/mass. Moderate mitral regurgitation. Aortic stenosis with a peak gradient 27 and a mean gradient of 12 mild TR Assessment and plan: -Acute on chronic hypoxemic hypercapnic respiratory failure, secondary to COPD exacerbation and CHF exacerbation: Improving Initially on BiPAP and Ventimask. Currently 3 L -Acute severe COPD exacerbation, an ex-smoker: Improving DuoNeb 4 times daily. IV Solu-Medrol changed to oral prednisone. nebulized Pulmicort . DC performorist -Possible pneumonia suspect gram-negative organism IV ceftriaxone started on January 02. Changed to Omnicef -Acute on chronic systolic CHF, EF 30 to 35%: Better Received IV Lasix. Now on oral Bumex Farxiga. Lopressor. Entresto. Aldactone. -Paroxysmal atrial fibrillation with rapid ventricular rate, was in sinus rhythm yesterday. This morning had a run of A-fib with rapid rate. Received IV amiodarone. IV heparin. P.o. amiodarone. Lopressor 50 twice daily IV heparin. Was started on Xarelto on January 02 evening. Because of hemoptysis held Retry Xarelto 15 mg with supper -Small amounts of hemoptysis, anticoagulation held -Chronic tracheomalacia -NSTEMI Aspirin -Acute transaminitis, mild: Resolved -Chronic constipation at the baseline has 1 bowel movement every week Metamucil 1 packet daily -Essential hypertension Lopressor 50 twice daily. Zestril 20 mg twice daily. -Acute medical debility from above PT OT on the case -Hyperlipidemia Lipitor 40 mg nightly -Primary osteoarthritis Tylenol as needed -Hard of hearing -Full code Changed to p.o. Omnicef. Decrease prednisone. Retry Xarelto 15 mg with supper
[2025-01-07] MEDS: RIVAROXABAN 15 MG TAB PO SCH (18:30)
[2025-01-07 20:48] LABS: Glucose,Whole Blood 281 mg/dL (70-110)
[2025-01-08 07:03] LABS: Glucose,Whole Blood 121 mg/dL (70-110)
[2025-01-08 07:34] VITALS: RESP 18
--- NOTE | 2025-01-08 08:45 | XR ---
EXAMINATION TYPE: XR chest 1V portable DATE OF EXAM: 01/08/2025 CLINICAL INDICATION: Female, 84 years old with history of CHF, progress study. TECHNIQUE: Single AP portable upright view of the chest is obtained. COMPARISON: Chest x-ray from 4 days earlier FINDINGS: Increased opacities bilaterally remain present. Stable mild cardiomegaly. Osseous structur es mainly demineralized. IMPRESSION: Persistent mild cardiomegaly with bilateral multifocal acute infiltrates and/or edema on background chronic parenchymal fibrosis. No significant change from most recent study. [facility], , 01/08/2025 8:43 AM
[2025-01-08] MEDS: CEFDINIR 300 MG CAP PO SCH (09:21)
[2025-01-08] MEDS: predniSONE 10 MG TAB PO SCH (09:28)
[2025-01-08 12:16] LABS: Glucose,Whole Blood 169 mg/dL (70-110)
[2025-01-08 12:46] VITALS: BP 142/57; PULSE 71; TEMP 97.9
--- NOTE | 2025-01-08 14:11 | P.PN ---
Subjective Progress Note Date: 01/08/25 On today's evaluation of 01/06/2025, the patient is stable on 3 L of oxygen by nasal cannula with a pulse ox of 97%. No significant chest pain. No hemoptysis. BUN is 45 with a creatinine of 1.1. Sodium levels at 145 with a potassium level of 3.2. No CBC available from today. She remains on Bumex 1 mg p.o. twice daily and she is also on Aldactone 25 mg p.o. daily. Her fluid balance has been -2.4 L over the past 24 hours. She remains on metoprolol 50 mg p.o. twice daily, Entresto 97/103 1 tablet twice a day, hydralazine 25 mg 4 times daily. She is also on amlodipine 5 mg p.o. daily. She maintains sinus rhythm on amiodarone 200 mg p.o. 3 times daily. She is on prednisone burst taper. On 01/07/2025, the patient is resting comfortably on a chair. She was transferred out of the intensive care unit yesterday. She remains on 3 Suboxone by nasal cannula. Fluid balance is negative and the patient continues to produce adequate amount of urine output. The patient is currently on DuoNeb nebulized treatments [id number], prednisone burst taper and she is also on a combination of Perforomist and Pulmicort nebulized treatments twice a day. Obviously less bronchospastic and wheezy. No active hemoptysis. Cardiac condition remains stable. She is on metoprolol 50 mg p.o. twice daily, Entresto 97/103 1 tablet a day, Aldactone 25 mg p.o. daily, hydralazine 25 mg p.o. 4 times daily and Norvasc 5 mg p.o. daily. She remains on amiodarone 200 mg p.o. 3 times daily. She is also on Lantus 20 units nightly for blood sugar control. Blood work from today is still pending.. The patient is seen today January 08, 2025 in follow-up on the regular medical floor. She is currently sitting up in bed. Awake and alert in no acute distress. Maintaining good O2 saturations in the 90s on 2 L/min per nasal cannula. She has been afebrile. Hemodynamically stable. Potassium 3.8. Glucose 169. Follow-up chest x-ray reveals persistent mild cardiomegaly with bilateral multifocal infiltrates/edema on the background of chronic parenchymal fibrosis. No significant change compared to previous. She is continued on DuoNeb inhalations, Symbicort, prednisone taper. Remains on Omnicef. Remains on Mucinex and Singulair. Objective - Vital Signs Vital signs: Vital Signs Temp 97.9 F 01/08/25 12:14 Pulse 71 01/08/25 12:14 Resp 18 01/08/25 12:14 BP 142/57 01/08/25 12:14 Pulse Ox 99 01/08/25 12:14 FiO2 Intake & Output 01/07/25 01/08/25 01/08/25 18:59 06:59 18:59 Intake Total 2280 830 Output Total 1001 Balance 2280 -171 Intake: Oral 2280 830 Output: Urine 1000 Stool 1 Other: Voiding Method Indwelling Catheter Indwelling Catheter Indwelling Catheter # Bowel Movements 1 1 - Exam GENERAL EXAM: Alert, pleasant 84-year-old female, on 3 L nasal cannula, fairly comfortable in no apparent distress. HEAD: Normocephalic. EYES: Normal reaction of pupils, equal size. NOSE: Clear with pink turbinates. THROAT: No erythema or exudates. NECK: No masses, no JVD. CHEST: No chest wall deformity. LUNGS: Equal air entry with bibasilar crackles, scattered rhonchi. CVS: S1 and S2 normal with no audible murmur, regular rhythm. ABDOMEN: No hepatosplenomegaly, normal bowel sounds, no guarding or rigidity. SPINE: No scoliosis or deformity SKIN: No rashes CENTRAL NERVOUS SYSTEM: No focal deficits, tone is normal in all 4 extremities. EXTREMITIES: There is no peripheral edema. No clubbing, no cyanosis. Peripheral pulses are intact. - Labs CBC & Chem 7: 01/05/25 02:51 01/08/25 04:28 Labs: Abnormal Lab Results - Last 24 Hours (Table) 01/07/25 01/07/25 01/08/25 Range/Units 17:05 20:47 07:02 POC Glucose (mg/dL) 359 H 281 H 121 H (70-110) mg/dL 01/08/25 Range/Units 12:15 POC Glucose (mg/dL) 169 H (70-110) mg/dL Assessment and Plan Assessment: Acute on top of chronic hypoxic respiratory failure associated secondary to CHF exacerbation/A-fib with RVR. Noted the patient also has background COPD. She was noted to be actively bronchospastic and wheezy and hide respiratory failure essentially related to COPD/CHF exacerbation. Clinically improved compared to yesterday. Patient continues to be in COPD and CHF exacerbation and the patient continues to have paroxysmal atrial fibrillation. She is currently on 3 L of O2 nasal cannula. Acute CHF exacerbation. Noted to have systolic heart failure with an EF around 30 to 35% Acute COPD exacerbation, improving and the patient remains on bronchodilators and steroids New onset A-fib with RVR and the heart rate was in the 170s, currently in normal sinus rhythm and the patient is on a combination of metoprolol and amiodarone. No anticoagulants for now based on her ongoing episodes of hemoptysis Hemoptysis, currently inactive and stable Rule out non-ST segment elevation myocardial infarction, versus elevated troponin secondary to supply/demand mismatch. Systolic heart failure, EF 30-35%, moderate RV dilation, mild (12/31/24) Chronic hypoxemic respiratory failure, on home O2 at 3 L. COPD , 60 pyear smoking Hyperlipidemia. Hypertension. Multiple other medical problems and comorbidities Plan: The patient was seen and evaluated Chest x-ray, labs and medications reviewed Continue DuoNeb inhalations Continue Symbicort, Singulair Complete a prednisone taper Anticoagulated with Xarelto Remains on Omnicef Remains on oral diuretics Titrate down the FiO2 as tolerated We will continue to follow I have personally seen and examined the patient, performed the documentation and the assessment and plan as written. Number of minutes spent on the visit: 10 Dictation was produced using [employer] dictation software. Please excuse any grammatical, word or spelling errors.
--- NOTE | 2025-01-08 16:48 | P.DS ---
Providers Date of admission: 12/29/24 20:42 Expected date of discharge: 01/08/25 Attending physician: Woody Rivers Consults: 12/29/24 20:36 Consult Physician Routine Consulting Provider: Srinivasa Roland Consult Reason/Comments: copd Do you want consulting provider notified?: Yes Primary care physician: Preethi Singh Juanjose [facility] Course: patient is a 84-year-old lady with past medical history significant for chronic hypoxic respiratory failure, CHF, COPD, hypertension who presented to the ER as a transfer from [facility] for shortness of breath. Patient stated that she was all right yesterday morning when she started noticing shortness of breath. Shortness of breath is present at rest as on exertion. Patient stated that she was noticing that she was wheezing hard. Patient had a hard time breathing. Patient denies any chest pain. There is no complaint of orthopnea or PND. There was no complaint of any fever or chills. Because of the shortness of breath, patient presented to [facility] where she had to be placed on BiPAP, initial workup there showed patient to have elevated troponin and EKG suspicious for A-fib with RVR, patient was transferred to [facility] Initial lab work done in the ER showed WBC 7.3, hemoglobin 10.6, platelet count 268, sodium 137, potassium 3.8, BUN 18, creatinine 0.7, glucose 179, calcium 9.4, phosphorus 3.9, bilirubin 1.4, AST 41, ALT 40 troponin 1.920, EKG done in the ER showed heart rate of 93, no ST segment elevation or depression seen, no T-wave inversions seen. Chest x-ray done in the ER showed cardiomegaly and mild pulm vascular congestion. Patient admitted to internal medicine service 12/31. Patient seen and examined. States breathing is improved. Wheezing is also improved. Currently on 3 L of oxygen January 01: ICU. Sitting up in bed. Short of breath. Ventimask. On IV amiodarone and IV heparin. Telemetry shows sinus rhythm. With frequent PVCs. Congested cough. Had a very small amount of epistaxis. Decreased appetite. 3 h liters oxygen at home. As needed. On IV Lasix 40 mg every 12 with negative fluid balance for CHF At the baseline has about 1 bowel movement a week. Patient daughter at the bedside. CODE STATUS discussed. Wants to be DNR. 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 Told him to get forms filled out. At home does have a cane and a walker but does not use it. Ex-smoker. Lives alone. January 02: ICU. Up in a chair. This morning patient went into A-fib again with a rapid ventricular rate. Has been in sinus rhythm overnight. Has been continued on IV amiodarone. Dose of Lopressor was increased to 50 mg twice daily. Patient does have a congested cough. Incentive spirometry and Mucinex is being added. Will switch over to Xarelto this evening. Patient on 6 L nasal cannula. January 03: ICU. Up in a recliner. Having some hemoptysis. Xarelto was started yesterday evening now held. On 4 L nasal cannula. Switched over to oral Bumex. Remains in sinus rhythm. Eating about 50%. Because of fatigue unable to ambulate. PT OT working. Chest x-ray shows scattered infiltrates January 04: ICU. Oral intake about 25%. Remains in sinus rhythm. 4 L nasal cannula. Has been in good negative fluid balance. Bit tired. Breathing slightly better. January 05: ICU. Remains in sinus rhythm.4 L nasal cannula. Did walk about 30 steps with physical therapy and a walker. Variable oral intake. Getting better. Some cough.On oral Bumex. Diamox. January 06: Patient moved to the medical floor. Appetite much better. Remains on IV ceftriaxone. DuoNeb. Breathing better. 3 L nasal cannula. Reminded to do incentive spirometry. Patient expressed to the nurse wants to be a full code. CODE STATUS will be changed to full code January 07: FiO2 down to 3 L. This is a home requirement. Ate all of breakfast and lunch. Decrease prednisone to 30 mg. Patient plans to go home with some help. Will see how patient does with Xarelto. 15 mg with supper. Because of age and decreased GFR January 08: Patient is a recliner. Oxygen decreased to 2 L. Will discharge on a short course of prednisone taper. Discussed the Teresita to the patient. Continue same. Told her to stop it any signs of bleeding. Patient declined rehab. 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 Also her children will help her out. Respiratory symptoms much better. Decrease dose of amiodarone. Follow-up with pulmonary cardiology. DC antibiotics. Discussion and discharge planning more than 35 minutes Social history: Ex-smoker. Stop .smoking 11 years ago. Lives alone. Does use a cane and a walker but does not use it. On IV ceftriaxone. DuoNeb. On examination: VITAL SIGNS: 97.9, 71, 18, 142/57, 99% on 2-3 L GENERAL APPEARANCE: Up in recliner, comfortable HEENT: Normal external appearance of nose and ear. Oral cavity normal, hard of hearing EYES: Pupils equal. Conjunctiva normal. NECK: JVD not raised. Mass not palpable. RESPIRATORY: Respiratory effort normal, decreased breath sounds, CARDIOVASCULAR: First and second sounds normal. No edema. ABDOMEN: Soft. Liver and spleen not palpable. No tenderness. No mass palpable. PSYCHIATRY: Alert and oriented x3. Mood and affect normal Musculoskeletal: OA several joints INVESTIGATIONS, reviewed in the clinical context: January 05: White count 8.3 hemoglobin 7.9 platelets 220 potassium 3.1 bicarb 41 BUN 48 creatinine 0.97 January 03: White count 5.5 hemoglobin 7.8 platelets 182 sodium 3.3 BUN 43 creatinine 1.01. Procalcitonin 0.26 January 02: White count 9.4 hemoglobin 8.8 platelets 242 sodium 136 potassium 3.9 creatinine 1.02 AST 25 ALT 30 January 01: White count 8.1 hemoglobin 9.3 platelets 22 sodium 138 potassium 3.4 creatinine 0.99 Troponin I 0.502 Influenza type A, type B, RSV, SARS-CoV-2: Not detected Chest x-ray film personally reviewed by me-scattered infiltrates EKG tracing personally reviewed by me-atrial fibrillation. Rate 155. Intraventricular block pattern. 2D echocardiogram [December 31, 2024] EF 30 to 35%. Moderate right ventricle dilatation. Right ventricular pressure within normal limits. No left atrial thrombus/mass. Moderate mitral regurgitation. Aortic stenosis with a peak gradient 27 and a mean gradient of 12 mild TR Assessment and plan: -Acute on chronic hypoxemic hypercapnic respiratory failure, secondary to COPD exacerbation and CHF exacerbation: Improving Initially on BiPAP and Ventimask. Currently 3 L -Acute severe COPD exacerbation, an ex-smoker: Improving DuoNeb 4 times daily. IV Solu-Medrol changed to oral prednisone. nebulized Pulmicort . Discharged on prednisone taper. Home inhalers nebulizers to continue -Possible pneumonia suspect gram-negative organism IV ceftriaxone started on January 02. Changed to Omnicef. Completed course of antibiotic -Acute on chronic systolic CHF, EF 30 to 35%: Better Received IV Lasix. Now on oral Bumex Farxiga. Lopressor. Entresto. Aldactone. -Paroxysmal atrial fibrillation with rapid ventricular rate, was in sinus rhythm yesterday. This morning had a run of A-fib with rapid rate. Received IV amiodarone. IV heparin. P.o. amiodarone. Lopressor 50 twice daily IV heparin. Was started on Xarelto on January 02 evening. Because of hemoptysis held Xarelto 15 mg nightly: Discussed with patient -Chronic tracheomalacia -NSTEMI Aspirin -Acute transaminitis, mild: Resolved -Chronic constipation at the baseline has 1 bowel movement every week Metamucil 1 packet daily -Essential hypertension Lopressor 50 twice daily. Zestril 20 mg twice daily. -Acute medical debility from above -Hyperlipidemia Lipitor 40 mg nightly -Primary osteoarthritis Tylenol as needed -Hard of hearing -Full code Disposition: Home Plan - Discharge Summary Discharge Rx Participant: Yes New Discharge Prescriptions: New Ipratropium-Albuterol Nebulize [Duoneb 0.5 mg-3 mg/3 ml Soln] 3 ml INHALATION TID #90 each Sacubitril/Valsartan [Entresto 97 mg-103 mg Tablet] 1 each PO BID #60 tab predniSONE 0 mg PO DIRECTED #18 tab Rivaroxaban [Xarelto] 15 mg PO W/SUPPER #30 tab hydrALAZINE HCL [Apresoline] 50 mg PO TID #90 tab Amiodarone [Cordarone] 200 mg PO DIRECTED #60 tab Dapagliflozin Propanediol [Farxiga] 10 mg PO DAILY #30 tab Metoprolol Tartrate [Lopressor] 50 mg PO BID #60 tab Psyllium Husk 100% [Metamucil Packet] 6 gm PO DAILY packet amLODIPine [Norvasc] 5 mg PO DAILY #30 tab Continue Furosemide [Lasix] 40 mg PO DAILY Atorvastatin [Lipitor] 20 mg PO QAM Aspirin EC [Ecotrin Low Dose] 81 mg PO DAILY Temazepam [Restoril] 30 mg PO HS Omeprazole 20 mg PO BID Montelukast [Singulair] 10 mg PO HS LORazepam [Ativan] 1 mg PO Q6H PRN PRN Reason: Anxiety Fluticasone/Umeclidin/Vilanter [Trelegy Ellipta 100-62.5-25] 1 puff INHALATION RT-DAILY Venlafaxine HCl ER [Effexor XR] 37.5 mg PO DAILY Cholecalciferol (Vitamin D3) [Vitamin D3 (50 Mcg = 2000 Iu)] 50 mcg PO DAILY Loratadine 10 mg PO DAILY Spironolactone [Aldactone] 25 mg PO DAILY Atorvastatin [Lipitor] 40 mg PO HS Discontinued hydrALAZINE HCL [Apresoline] 100 mg PO BID cloNIDine HCL [Catapres] 0.1 mg PO TID Metoprolol Succinate (ER) [Toprol Xl] 25 mg PO DAILY #90 tab lisinopriL [Zestril] 20 mg PO BID Discharge Medication List Aspirin EC [Ecotrin Low Dose] 81 mg PO DAILY 10/29/19 [History] Atorvastatin [Lipitor] 20 mg PO QAM 10/29/19 [History] Furosemide [Lasix] 40 mg PO DAILY 10/29/19 [History] LORazepam [Ativan] 1 mg PO Q6H PRN 10/29/19 [History] Montelukast [Singulair] 10 mg PO HS 10/29/19 [History] Omeprazole 20 mg PO BID 10/29/19 [History] Temazepam [Restoril] 30 mg PO HS 10/29/19 [History] Atorvastatin [Lipitor] 40 mg PO HS 12/29/22 [History] Fluticasone/Umeclidin/Vilanter [Trelegy Ellipta 100-62.5-25] 1 puff INHALATION RT-DAILY 12/29/22 [History] Venlafaxine HCl ER [Effexor XR] 37.5 mg PO DAILY 12/29/22 [History] Cholecalciferol (Vitamin D3) [Vitamin D3 (50 Mcg = 2000 Iu)] 50 mcg PO DAILY 12/29/24 [History] Loratadine 10 mg PO DAILY 12/29/24 [History] Spironolactone [Aldactone] 25 mg PO DAILY 12/29/24 [History] Amiodarone [Cordarone] 200 mg PO DIRECTED #60 tab 01/08/25 [Rx] Dapagliflozin Propanediol [Farxiga] 10 mg PO DAILY #30 tab 01/08/25 [Rx] Ipratropium-Albuterol Nebulize [Duoneb 0.5 mg-3 mg/3 ml Soln] 3 ml INHALATION TID #90 each 01/08/25 [Rx] Metoprolol Tartrate [Lopressor] 50 mg PO BID #60 tab 01/08/25 [Rx] Psyllium Husk 100% [Metamucil Packet] 6 gm PO DAILY packet 01/08/25 [Rx] Rivaroxaban [Xarelto] 15 mg PO W/SUPPER #30 tab 01/08/25 [Rx] Sacubitril/Valsartan [Entresto 97 mg-103 mg Tablet] 1 each PO BID #60 tab 01/08/25 [Rx] amLODIPine [Norvasc] 5 mg PO DAILY #30 tab 01/08/25 [Rx] hydrALAZINE HCL [Apresoline] 50 mg PO TID #90 tab 01/08/25 [Rx] predniSONE 0 mg PO DIRECTED #18 tab 01/08/25 [Rx] Follow up Appointment(s)/Referral(s): Amadou Peralta DO [STAFF PHYSICIAN] - 01/15/25 2:30 pm [facility],Equipment [NON-STAFF] - Preethi Sow MD [Primary Care Provider] - 1-2 days (Please call the office with am appointment time and date.) [facility], [NON-STAFF] - Neil Daily MD [STAFF PHYSICIAN] - 01/11/25 8:30 am Patient Instructions/Handouts: Metoprolol (By mouth), Prednisone (By mouth), Amiodarone (By mouth), Hydralazine (By mouth), Amlodipine (By mouth), Ipratropium/Albuterol (By breathing), Rivaroxaban (By mouth), Dapagliflozin (By mouth), Sacubitril/Valsartan (By mouth), Heart Failure (DC), A-fib (Atrial Fibrillation) (DC), Using Oxygen at Home (DC), COPD (Chronic Obstructive Pulmonary Disease) (DC) Activity/Diet/Wound Care/Special Instructions: dc on 2/l nasal cannula Discharge/Stand Alone Forms: Who Do I Call? Discharge Disposition: HOME SELF-CARE
[2025-01-08] MEDS ORDERED: SYMBICORT 160-4.5 MCG INHALER INHALATION SCH (20:00)
== END 2025-01-08 15:57 | disposition home or self-care (01) | DRG 280 ==
LOC: EC 15:46 → 3SCARD 20:42 → 2SICU 01-01 09:05 → 5NMEDONC 01-06 08:08
PROVIDERS: ADMIT Hospitalist; ATTEND Hospitalist
DX: I11.0 Hypertensive heart disease with heart failure (principal); I50.23 Acute on chronic systolic (congestive) heart failure; I21.A1 Myocardial infarction type 2; J96.22 Acute and chronic respiratory failure with hypercapnia; J96.21 Acute and chronic respiratory failure with hypoxia; J44.1 Chronic obstructive pulmonary disease with (acute) exacerbation; I08.0 Rheumatic disorders of both mitral and aortic valves; D64.9 Anemia, unspecified; R04.2 Hemoptysis; I42.8 Other cardiomyopathies; Z66 Do not resuscitate; I95.9 Hypotension, unspecified; Z79.01 Long term (current) use of anticoagulants; Z99.81 Dependence on supplemental oxygen; K59.09 Other constipation; I48.0 Paroxysmal atrial fibrillation; E78.5 Hyperlipidemia, unspecified; M19.91 Primary osteoarthritis, unspecified site; H91.90 Unspecified hearing loss, unspecified ear; F17.210 Nicotine dependence, cigarettes, uncomplicated; I25.10 Atherosclerotic heart disease of native coronary artery without angina pectoris; I25.82 Chronic total occlusion of coronary artery; I49.3 Ventricular premature depolarization; R53.81 Other malaise; R04.0 Epistaxis; R74.01 Elevation of levels of liver transaminase levels; Z96.651 Presence of right artificial knee joint; Z79.51 Long term (current) use of inhaled steroids; Z79.82 Long term (current) use of aspirin; Z79.899 Other long term (current) drug therapy; Z87.09 Personal history of other diseases of the respiratory system
CPT/HCPCS: 71045; 71046; 80048; 80053; 83036; 83735; 83880; 84100; 84132; 84145; 84484; 85025; 85027; 85610; 85730; 87636; 93306; 94640; 94760; 96365; 96366; 96375; 96376; 99291